=== PATIENT | female | born 1930 | race Caucasian/White ===

== ENCOUNTER 2018-06-14 13:00 | Inpatient (IN) | payer OTHER, MEDICARE ==
--- NOTE | 2018-06-14 13:33 | R.PREADM ---
SCREENING DATE AND TIME 06/14/2018 13:06 (CDT) ANTICIPATED REHAB ADMISSION DATE 06/16/2018 REFERRING FACILITY Noemy [facility] REFERRAL DATE AND TIME 06/14/2018 13:07 (CDT) ACUTE ADMIT DATE 05/11/2018 Previous Rehabilitation(s): No. REFERRING PHYSICIAN RASHIDA Pickard REHAB FACILITY [facility] CLINICAL LIAISON Franky Espinoza PHYSICIAN REVIEWER Dr. Rory Miner M.D. MR# [id number] [id number] NAME ANNALEE LOPEZ ADDRESS [address] [place] [address] PHONE [facility] [id number] DATE OF 1930 AGE 87 SSN# [id number] GENDER female MARITAL STATUS RACE white ADMIT FROM [facility] ([facility]) PRE-HOSPITAL LIVING SETTING 01 - Home (private home/apt. board/care, assisted living, chcf, transitional living) HOME TYPE AND DETAILS Type of home: single family house # of steps within the residence: 0 # of steps to enter the residence: 0 # of levels in the residence: 1 PRE-HOSPITAL LIVING WITH Family/Relatives FAMILY SUPPORT Yes PRIMARY FAMILY CONTACT NAME Gail Burris PRIMARY FAMILY CONTACT PHONE PHONE PRIMARY FAMILY CONTACT ON ADM.? no IS PRIMARY FAMILY CONTACT AUTH. REP.? no 1ST EMERGENCY CONTACT Gail Burris 1ST CONTACT PHONE PHONE 1ST CONTACT ON ADM. no IS 1ST CONTACT AUTH. REP.? no PHONE 2ND CONTACT ON ADM.? no PATIENT EMPLOYMENT STATUS Retired (for age) PATIENT EMPLOYER No Employer PAYOR INFORMATION: 1ST PAYOR NAME Medicare 1ST PAYOR PHONE 1ST PAYOR INJURY/ILLNESS DUE TO ACCIDENT? No ANOTHER GREEN PARTY RESPONSIBLE? No PRIMARY REHAB/ACUTE DIAGNOSIS: spinal cord abcess ONSET DATE 05/11/2018 REHAB IMPAIRMENT CATEGORY (BISI): 05 Nontraumatic spinal cord injury (NTSCI) MEETS 60% rule PRIMARY DIAGNOSIS-RELATED SURGERIES: No surgeries related to the primary diagnosis were performed. COMORBID REHAB/ACUTE DIAGNOSES: - Non-Tiered osteoporosis rheumatoid arthritis acute renal failure - N/A ATRIAL FIBRILLATION hypertension INTERVENTIONS: - Atrial Fibrillation Anticoagulation Medications VS - Hypertension Fluid management Medications VS - Osteoporosis Medications Safety - Rheumatoid Arthritis Energy conservation Exercise Joint Protection Medications RISK FOR COMPLICATIONS: - Atrial Fibrillation CVA Heart failure Limb embolus - Hypertension CVA Hypotension ME TIA - Osteoporosis Falls Fractures (pathological) - Rheumatoid Arthritis Joint deformity Ligament damage SUMMARY OF ACUTE HOSPITALIZATION: Pt. is a 87 yo Right-handed white female. On 05/11/2018 she was admitted to [facility] with diagnosis spinal cord abcess. Her impairment category is Spinal Cord Dysfunction 04 - Other Non-traumatic Spinal Cord Dysfunction (04.130). Pre-morbidly, Pt. was independent/mod-I in Communication, Social Cognition, Self-Care, Locomotion, Sp hincter Control, and Transfers Control; and she had good Sphincter Control. Currently, she has deficits of Balance, Locomotion, Endurance, Safety Awareness, Transfers Control, a nd Self-Care. Pt. is now referred to [facility] for acute in-patient rehabilitation in order to maximize patient's functional independence in activities of daily living, strength, ROM, and mobi lity. Patient has realistic goal of being discharged at assistance level 1-Dep to reside at Home with Fami ly/Relatives. PAST MEDICAL HISTORY ATRIAL FIBRILLATION acute renal failure hypertension osteoporosis rheumatoid arthritis MEDICATION ALLERGIES: penicillin ENVIRONMENTAL ALLERGIES: - Substance Allergies None Known - Other Allergies None Known CODE STATUS: Full code WEIGHT/HEIGHT/BMI: WEIGHT 165 lbs HEIGHT 5' 6" BMI 26.6 DIET: - Diet Type Regular - Diet - Solid Texture Regular - Diet - Liquid Texture Regular - Tube Feed N/A REVIEW OF SYSTEMS: - Gen Alert and awake Lying in bed No apparent distress Oriented to: person, time, and place - Vital Signs Vital signs stable, afebrile - CVS RRR VITAL SIGNS Temperature: 98.6 F SBP/DBP: 128/62 Pulse: 86 Resp: 20 Vital signs stable, afebrile CURRENT SPHINCTER CONTROL: Pre-hospital bladder status: incontinent # of bladder accidents in the last 7 days prior to screenin Pre-hospital bowel status: incontinent # of bowel accidents in the last 7 days prior to screenin Last Bowel Movement Date: 06/14/2018 DETAILED CURRENT FUNCTIONAL STATUS: - Bladder Bladder control device used: diaper accident frequency: Ind - No accidents in the past 7 days - Bowel Bowel control device used: diaper accident frequency: Ind - No accidents in the past 7 days - Walking score based on distance walked: 3(>=150ft) - Wheelchair score based on distance traveled: 3(>=150ft) FUNCTIONAL STATUS: - Self-Care A. Eating Ind Ind B. Grooming Ind sup C. Bathing Ind modA D. Dressing - Upper Ind modA E. Dressing - Lower Ind modA F. Toileting Ind Chris - Sphincter Control G: Bladder control Ind Dep H: Bowel control Ind Dep - Transfers Control I. Bed/Chair/Wheelchair Ind modA J. Toilet Ind modA K. Tub/Shower Ind Chris - Locomotion L. Walk/Wheelchair (B) Toribio Chris M. Stairs Ind ADNO - Communication N. Comprehension (B) Ind Toribio O. Expression (B) Ind Toribio - Social Cognition P. Social Interaction Ind Toribio Q. Problem Solving Ind Toribio R. Memory Ind Toribio - Endurance Poor - Balance Fair - Safety Awareness Poor CURRENT FUNC. DEFICITS: Balance, Locomotion, Endurance, Safety Awareness, Transfers Control, and Self-Care THERAPY NOTES FROM ACUTE CARE: Attached. SPECIAL NEEDS: - Safety Concerns Skin breakdown precautions needed due to skin breakdown risk PATIENT NEEDS ACTIVE AND ONGOING THERAPEUTIC INTERVENTION OF MULTIPLE THERAPY DISCIPLINES, INCLUDING: - Orthotics/Prosthetics Orthotic Evaluation. Splinting/Casting. - Occupational Therapy Evaluate and Treat. - Physical Therapy Evaluate and Treat. PATIENT NEEDS CLOSE MEDICAL SUPERVISION BY A REHABILITATION PHYSICIAN FOR: Bowel and Bladder Management Coordination of Treatment Team Medical and Co-Morbidity Management PATIENT REQUIRES 24X7 REHAB NURSING FOR MEDICAL AND FUNCTIONAL MGT. OF THE FOLLOWING DEFICITS: ADL's Ambulation Bowel and Bladder Management Cognition Communication Disease Management Medication Management Patient/Family Education Providing Safe Environment Transfers PATIENT REQUIRES INTENSIVE, COORDINATED INTERDISCIPLINARY APPROACH TO REHAB: Arranging Home Equipment/Services Discharge Planning Family Intervention/Training Manager Physical/Case Management PATIENT REHAB POTENTIAL: Expected level of measurable improvement will be of a practical value to patient's functional capacit y or adaptations to impairments Has a viable Discharge Plan Medically appropriate; condition is sufficiently stable to participate in intensive rehab program Patient is able and expected to receive 3 hours of individualized therapy daily on at least 5 of ever y 7 days Patient's prognosis for significant practical improvement within a reasonable period of time appears Good DISCHARGE PLAN: - Estimated Length of Stay (days) 16. - Consensus on plan Discharge plan has been discussed with primary caregiver. Patient/Family is in agreement with the luli n. Primary caregiver is in agreement with the plan. - Patient/Family Goals Return home with assistance. - Planned Living Setting Upon Discharge Home, to live with Family/Relatives. RECOMMENDED CARE LEVEL: IRF RECOMMENDATION DETAILS: Recommended Admission to Comprehensive Rehabilitation Program to Increase Functional [place] SCREENER'S COMPLETENESS CONFIRMATION: - Screening Confirmation The patient data collection on this preadmission screening form is finished PHYSICIANS REVIEW AND ADMISSION DETERMINATION Admit - Based on my review of the Pre-Admission Screening results, in my medical judgment and experie nce, I concur with the findings and recommend admission to [facility], as this patient requires an IRF level of care. SIGNATURE PANEL: Clinical Liaison - [electronically] signed by Susan Roberts on 06/14/2018 at 13:24 (CDT) Clinical Liaison - [electronically] signed by Franky Espinoza on 06/14/2018 at 13:29 (CDT) Physician Reviewer - [electronically] signed by Dr. Rory Miner M.D. on 06/14/2018 at 13:33 (CDT )
--- OUTSIDE RECORDS SUMMARY | 2018-06-15 15:55 | XMS REPORT | Clinical Summary ---
:1930 Author Organization [facility] Address [address] [place] [address] Care Team Providers Name Role Phone Unavailable Primary Care Provider Unavailable Allergies Active Allergy Reactions Severity Noted Date Comments Penicillins Shortness Of Breath, Swelling High 04/29/2018 Steroids Other (See Comments) 04/29/2018 Hypertension Medications Medication Sig Dispensed Refills Start Date End Date Status acetaminophen Take 2 tablets 30 tablet 0 05/10/2018 05/05/20 Active (TYLENOL) 325 MG (650 mg total) by 19 tablet mouth every 6 (six) hours as needed for up to 360 days. apixaban (ELIQUIS) Take 1 tablet (2.5 0 05/10/2018 Active 2.5 mg Tab tablet mg total) by mouth 2 (two) times daily. carvedilol (COREG) Take 1 tablet 0 05/10/2018 05/10/20 Active 3.125 MG tablet (3.125 mg total) 19 by mouth 2 (two) times daily. HYDROmorphone Inject 0.2 mLs 0 05/10/2018 Active (DILAUDID) 0.5 (0.1 mg total) mg/mL Syrg intravenously daily as needed (before PT). Max Daily Amount: 0.1 mg lactulose Take 30 mLs (20 g 0 05/10/2018 Active (CHRONULAC) 20 total) by mouth gram/30 mL daily as needed. solution pantoprazole Take 1 tablet (40 0 05/11/2018 Active (PROTONIX) 40 MG mg total) by mouth tablet daily. senna-docusate Take 1 tablet by 0 05/10/2018 05/10/20 Active (SENOKOT S) 8.6-50 mouth nightly. 19 mg per tablet lisinopril Take 40 mg by 0 05/10/20 Discontinued (PRINIVIL,ZESTRIL) mouth daily. 18 40 MG tabletIndications: hypertension bisacodyl Take 2 tablets (10 30 tablet 0 05/10/2018 06/09/20 (DULCOLAX) 5 mg EC mg total) by mouth 18 tablet daily as needed for Constipation for up to 30 days. HYDROcodone-acetam Take 1 tablet by 30 tablet 0 05/10/2018 05/20/20 inophen (NORCO mouth every 6 18 5-325) 5-325 mg (six) hours as per tablet needed for up to 10 days. Max Daily Amount: 4 tablets polyethylene Take 17 g by mouth 14 each 0 05/11/2018 05/14/20 glycol (GLYCOLAX) daily for 3 days. 18 17 gram packet traMADol (ULTRAM) Take 1 tablet (50 30 tablet 0 05/10/2018 05/20/20 50 mg tablet mg total) by mouth 18 every 6 (six) hours as needed for up to 10 days. Max Daily Amount: 200 mg cefePIME 2 Inject 100 mLs 0 05/10/2018 05/11/20 Discontinued gram/100 mL PgBk (2,000 mg total) 18 intravenously 2 (two) times daily. cefePIME 2 Inject 100 mLs 0 05/11/2018 06/12/20 gram/100 mL PgBk (2,000 mg total) 18 intravenously 2 (two) times daily for 32 days. Active Problems Problem Noted Date Osteomyelitis 05/05/2018 Cholecystitis, acute 05/01/2018 Bacteremia 04/30/2018 ADELE (acute kidney injury) 04/29/2018 Non-traumatic rhabdomyolysis 04/29/2018 Bacteremia due to Gram-negative bacteria 04/29/2018 Resolved Problems Problem Noted Date Resolved Date NSTEMI (non-ST elevated myocardial infarction) 04/30/2018 05/05/2018 Encounters Date Type Specialty Care Team Description 04/29/2018 - Hospital Encounter General Internal Donis Suarez ADELE (acute kidney injury) ([facility]); 05/11/2018 Jef Daniel MD Non-traumatic rhabdomyolysis; Matthias NSTEMI (non-ST elevated myocardial infarction) ([facility]); MD Elisa Bacteremia due to Gram-negative bacteria; Dina Suarez Acute osteomyelitis of lumbar spine ([facility]); Septic discitis of lumbar region 04/29/2018 Orders Only General Internal Medicine after 06/14/2017 Social History Tobacco Use Types Packs/Day Years Used Date Never Smoker Smokeless Tobacco: Never Used Sex Assigned at Date Recorded Not on file Job Start Date Occupation Industry Not on file Not on file Not on file Travel History Travel Start Travel End No recent travel history available. Last Filed Vital Signs Vital Sign Reading Time Taken Blood Pressure 116/54 05/11/2018 10:38 AM CDT Pulse 79 05/11/2018 10:38 AM CDT Temperature 37.1 C (98.8 F) 05/11/2018 10:38 AM CDT Respiratory Rate 18 05/11/2018 10:38 AM CDT Oxygen Saturation 94% 05/11/2018 10:38 AM CDT Inhaled Oxygen Concentration - - Weight 59 kg (130 lb 1.1 oz) 05/11/2018 5:45 AM CDT Height 162.6 cm (5' 4.02") 05/02/2018 4:46 AM CDT Body Mass Index 22.32 05/11/2018 5:45 AM CDT Plan of Treatment Not on file Procedures Procedure Name Priority Date/Time Associated Comments Diagnosis REPORT OF PROCEDURE - 05/14/2018 12:23 ENDOSCOPY SCAN PM CDT RHYTHM STRIP - SCAN 05/14/2018 12:22 PM CDT POCT-GLUCOSE METER Routine 05/11/2018 12:19 Results for this PM CDT procedure are in the results section. POCT-GLUCOSE METER Routine 05/11/2018 7:26 Results for this AM CDT procedure are in the results section. BASIC METABOLIC PANEL Routine 05/11/2018 4:28 Results for this (7) AM CDT procedure are in the results section. CBC (HEMOGRAM ONLY) Routine 05/11/2018 4:28 Results for this AM CDT procedure are in the results section. POCT-GLUCOSE METER Routine 05/10/2018 10:11 Results for this PM CDT procedure are in the results section. POCT-GLUCOSE METER Routine 05/10/2018 5:06 Results for this PM CDT procedure are in the results section. POCT-GLUCOSE METER Routine 05/10/2018 1:17 Results for this PM CDT procedure are in the results section. POCT-GLUCOSE METER Routine 05/10/2018 8:05 Results for this AM CDT procedure are in the results section. POCT-GLUCOSE METER Routine 05/09/2018 9:36 Results for this PM CDT procedure are in the results section. POCT-GLUCOSE METER Routine 05/09/2018 6:17 Results for this PM CDT procedure are in the results section. POCT-GLUCOSE METER Routine 05/09/2018 4:37 Results for this PM CDT procedure are in the results section. POCT-GLUCOSE METER Routine 05/09/2018 8:49 Results for this AM CDT procedure are in the results section. COMPREHENSIVE Routine 05/09/2018 4:26 Results for this METABOLIC PANEL AM CDT procedure are in the results section. CBC (HEMOGRAM ONLY) Routine 05/09/2018 4:26 Results for this AM CDT procedure are in the results section. POCT-GLUCOSE METER Routine 05/08/2018 10:36 Results for this PM CDT procedure are in the results section. POCT-GLUCOSE METER Routine 05/08/2018 5:15 Results for this PM CDT procedure are in the results section. POCT-GLUCOSE METER Routine 05/08/2018 1:04 Results for this PM CDT procedure are in the results section. POCT-GLUCOSE METER Routine 05/08/2018 8:20 Results for this AM CDT procedure are in the results section. BASIC METABOLIC PANEL Routine 05/08/2018 4:26 Results for this (7) AM CDT procedure are in the results section. CBC (HEMOGRAM ONLY) Routine 05/08/2018 4:26 Results for this AM CDT procedure are in the results section. POCT-GLUCOSE METER Routine 05/07/2018 9:12 Results for this PM CDT procedure are in the results section. POCT-GLUCOSE METER Routine 05/07/2018 4:56 Results for this PM CDT procedure are in the results section. POCT-GLUCOSE METER Routine 05/07/2018 12:13 Results for this PM CDT procedure are in the results section. POCT-GLUCOSE METER Routine 05/07/2018 7:19 Results for this AM CDT procedure are in the results section. MAGNESIUM Routine 05/07/2018 3:40 Results for this AM CDT procedure are in the results section. BASIC METABOLIC PANEL Routine 05/07/2018 3:40 Results for this (7) AM CDT procedure are in the results section. CBC (HEMOGRAM ONLY) Routine 05/07/2018 3:40 Results for this AM CDT procedure are in the results section. POCT-GLUCOSE METER Routine 05/06/2018 9:30 Results for this PM CDT procedure are in the results section. POCT-GLUCOSE METER Routine 05/06/2018 4:01 Results for this PM CDT procedure are in the results section. XR CHEST 1 VIEW STAT 05/06/2018 11:48 Results for this PORTABLE/BEDSIDE AM CDT procedure are in the results section. POCT-GLUCOSE METER Routine 05/06/2018 8:28 Results for this AM CDT procedure are in the results section. POCT-GLUCOSE METER Routine 05/05/2018 10:03 Results for this PM CDT procedure are in the results section. POCT-GLUCOSE METER Routine 05/05/2018 6:18 Results for this PM CDT procedure are in the results section. POCT-GLUCOSE METER Routine 05/05/2018 12:06 Results for this PM CDT procedure are in the results section. POCT-GLUCOSE METER Routine 05/05/2018 7:43 Results for this AM CDT procedure are in the results section. BASIC METABOLIC PANEL Routine 05/05/2018 5:13 Results for this (7) AM CDT procedure are in the results section. CBC (HEMOGRAM ONLY) Routine 05/05/2018 5:13 Results for this AM CDT procedure are in the results section. POCT-GLUCOSE METER Routine 05/04/2018 8:40 Results for this PM CDT procedure are in the results section. POCT-GLUCOSE METER Routine 05/04/2018 3:41 Results for this PM CDT procedure are in the results section. POCT-GLUCOSE METER Routine 05/04/2018 11:23 Results for this AM CDT procedure are in the results section. POCT-GLUCOSE METER Routine 05/04/2018 7:38 Results for this AM CDT procedure are in the results section. CBC (HEMOGRAM ONLY) DANIEL 05/04/2018 5:04 Results for this AM CDT procedure are in the results section. BASIC METABOLIC PANEL Routine 05/04/2018 5:04 Results for this (7) AM CDT procedure are in the results section. POCT-GLUCOSE METER Routine 05/03/2018 9:36 Results for this PM CDT procedure are in the results section. POCT-GLUCOSE METER Routine 05/03/2018 5:19 Results for this PM CDT procedure are in the results section. POCT-GLUCOSE METER Routine 05/03/2018 12:08 Results for this PM CDT procedure are in the results section. BLOOD CULTURE Routine 05/03/2018 5:45 Results for this AM CDT procedure are in the results section. ECG 12-LEAD Routine 05/03/2018 3:23 AM CDT Procedure Note - Interface, External Ris In - 05/03/2018 3:25 AM CDT Ventricular Rate 148 BPM Atrial Rate 52 BPM QRS Duration 80 ms Q-T Interval 326 ms QTC Calculation(Bazett) 511 ms R [place] 13 degrees T [place] 179 degrees Atrial fibrillation with rapid ventricular response Low voltage QRS Nonspecific ST and T wave abnormality Abnormal ECG When compared with ECG of 03-MAY-2018 03:23, Nonspecific T wave abnormality has replaced inverted T waves in Anterior leads ECG 12-LEAD Routine 05/03/2018 3:23 AM CDT ECG 12-LEAD Routine 05/03/2018 3:23 AM CDT Procedure Note - Interface, External Ris In - 05/03/2018 3:25 AM CDT Ventricular Rate 150 BPM Atrial Rate 37 BPM QRS Duration 72 ms Q-T Interval 206 ms QTC Calculation(Bazett) 325 ms R [place] 12 degrees T [place] 243 degrees Atrial fibrillation with rapid ventricular response Low voltage QRS Cannot rule out Anterior infarct , age undetermined Abnormal ECG When compared with ECG of 29-APR-2018 17:20, Atrial fibrillation has replaced Sinus rhythm Vent. rate has increased BY 75 BPM Minimal criteria for Inferior infarct are no longer Present ST now depressed in Lateral leads T wave inversion now evident in Anterior leads SODIUM, RANDOM URINE Routine 05/03/2018 2:44 AM CDT PROTEIN, RANDOM URINE Routine 05/03/2018 2:44 AM CDT CBC (HEMOGRAM ONLY) DANIEL 05/03/2018 2:43 AM CDT BASIC METABOLIC PANEL (7) Routine 05/03/2018 2:43 AM CDT PHOSPHORUS Routine 05/03/2018 2:43 AM CDT POCT-GLUCOSE METER Routine 05/02/2018 9:17 PM CDT MR LUMBAR SPINE W & WO DANIEL 05/02/2018 6:35 PM CDT Results for this CONTRAST procedure are in the results section. BLOOD CULTURE Routine 05/02/2018 1:59 PM CDT POCT-GLUCOSE METER Routine 05/02/2018 1:09 PM CDT NM HEPATOBILIARY IMAGING Routine 05/02/2018 12:28 PM CDT POCT-GLUCOSE METER Routine 05/02/2018 8:38 AM CDT BLOOD CULTURE Routine 05/02/2018 4:14 AM CDT PHOSPHORUS Routine 05/02/2018 4:13 AM CDT MAGNESIUM Routine 05/02/2018 4:13 AM CDT CBC (HEMOGRAM ONLY) DANIEL 05/02/2018 4:13 AM CDT BASIC METABOLIC PANEL (7) Routine 05/02/2018 4:13 AM CDT POCT-GLUCOSE METER Routine 05/01/2018 9:53 PM CDT POCT-GLUCOSE METER Routine 05/01/2018 5:56 PM CDT POCT-GLUCOSE METER Routine 05/01/2018 12:27 PM CDT POCT-GLUCOSE METER Routine 05/01/2018 7:42 AM CDT BLOOD CULTURE Routine 05/01/2018 6:51 AM CDT BLOOD GAS, VENOUS STAT 05/01/2018 4:45 AM CDT CBC W/PLT COUNT & AUTO Routine 05/01/2018 3:52 AM CDT Results for this DIFFERENTIAL procedure are in the results section. PHOSPHORUS Routine 05/01/2018 3:52 AM CDT COMPREHENSIVE METABOLIC Routine 05/01/2018 3:52 AM CDT Results for this PANEL procedure are in the results section. CALCIUM, IONIZED Routine 05/01/2018 3:52 AM CDT MAGNESIUM Routine 05/01/2018 3:52 AM CDT CBC W/PLT COUNT & AUTO Routine 05/01/2018 3:52 AM CDT Results for this DIFFERENTIAL procedure are in the results section. BLOOD CULTURE Routine 05/01/2018 3:52 AM CDT CREATINE KINASE (CK), TOTAL Routine 04/30/2018 11:51 PM CDT Results for this AND MB procedure are in the results section. POCT-GLUCOSE METER Routine 04/30/2018 9:52 PM CDT US ABDOMEN LIMITED STAT 04/30/2018 9:13 PM CDT POCT-GLUCOSE METER Routine 04/30/2018 5:33 PM CDT ECHOCARDIOGRAM REPORT - SCAN 04/30/2018 4:50 PM CDT VANCOMYCIN LEVEL, RANDOM Routine 04/30/2018 3:58 PM CDT HEPATIC FUNCTION PANEL STAT 04/30/2018 3:17 PM CDT BASIC METABOLIC PANEL (7) STAT 04/30/2018 3:17 PM CDT US RENAL COMPLETE Routine 04/30/2018 12:33 PM CDT POCT-GLUCOSE METER Routine 04/30/2018 11:53 AM CDT BLOOD GAS, VENOUS DANIEL 04/30/2018 11:33 AM CDT BLOOD CULTURE DANIEL 04/30/2018 11:33 AM CDT BLOOD CULTURE DANIEL 04/30/2018 11:17 AM CDT POCT-GLUCOSE METER Routine 04/30/2018 10:40 AM CDT 2D ECHO W/ DOPPLER Routine 04/30/2018 9:08 AM CDT Results for this (CW/PW/COLOR) procedure are in the results section. MYOGLOBIN Routine 04/30/2018 5:20 AM CDT TROPONIN I Routine 04/30/2018 5:20 AM CDT CREATINE KINASE (CK), TOTAL Routine 04/30/2018 5:20 AM CDT Results for this AND MB procedure are in the results section. MAGNESIUM Routine 04/30/2018 5:20 AM CDT BASIC METABOLIC PANEL (7) Routine 04/30/2018 5:20 AM CDT (CELLAVISION MANUAL DIFF) Routine 04/30/2018 4:10 AM CDT CBC W/PLT COUNT & AUTO Routine 04/30/2018 4:10 AM CDT Results for this DIFFERENTIAL procedure are in the results section. CBC W/PLT COUNT & AUTO Routine 04/30/2018 4:10 AM CDT Results for this DIFFERENTIAL procedure are in the results section. TROPONIN I Routine 04/29/2018 11:21 PM CDT CREATINE KINASE (CK), TOTAL Routine 04/29/2018 11:21 PM CDT Results for this AND MB procedure are in the results section. URIC ACID Routine 04/29/2018 6:33 PM CDT LACTIC ACID, VENOUS, WHOLE Routine 04/29/2018 6:33 PM CDT Results for this BLOOD procedure are in the results section. B-TYPE NATRIURETIC FACTOR Routine 04/29/2018 6:33 PM CDT Results for this (BNP) procedure are in the results section. XR CHEST 1 VIEW Routine 04/29/2018 6:10 PM CDT Results for this PORTABLE/BEDSIDE procedure are in the results section. ECG 12-LEAD Routine 04/29/2018 5:20 PM CDT UREA NITROGEN, RANDOM URINE Routine 04/29/2018 4:17 PM CDT CREATININE, RANDOM URINE Routine 04/29/2018 4:17 PM CDT SODIUM, RANDOM URINE Routine 04/29/2018 4:17 PM CDT URINALYSIS W/ MICROSCOPIC Routine 04/29/2018 4:17 PM CDT URINE CULTURE Routine 04/29/2018 4:17 PM CDT (CELLAVISION MANUAL DIFF) Routine 04/29/2018 3:59 PM CDT CBC W/PLT COUNT & AUTO Routine 04/29/2018 3:59 PM CDT Results for this DIFFERENTIAL procedure are in the results section. PROCALCITONIN Routine 04/29/2018 3:59 PM CDT MYOGLOBIN Routine 04/29/2018 3:59 PM CDT CREATINE KINASE (CK), TOTAL Routine 04/29/2018 3:59 PM CDT Results for this AND MB procedure are in the results section. TROPONIN I Routine 04/29/2018 3:59 PM CDT MAGNESIUM Routine 04/29/2018 3:59 PM CDT BASIC METABOLIC PANEL (7) Routine 04/29/2018 3:59 PM CDT CBC W/PLT COUNT & AUTO Routine 04/29/2018 3:59 PM CDT Results for this DIFFERENTIAL procedure are in the results section. BLOOD CULTURE IDENTIFICATION Routine 04/29/2018 3:59 PM CDT Results for this PANEL procedure are in the results section. BLOOD CULTURE Routine 04/29/2018 3:59 PM CDT BLOOD CULTURE Routine 04/29/2018 3:59 PM CDT after 06/14/2017 Results EKG-SCANNED (05/14/2018 12:23 PM CDT) Narrative Performed At RHYTHM STRIP - SCAN (05/14/2018 12:22 PM CDT) Narrative Performed At POC-Glucose meter (05/11/2018 12:19 PM CDT)Only the most recent of43 resultswithin the time period is included. POC-Glucose Meter 139 (H)Comment: TESTED AT 70 - 110 mg/dL [facility] [id number] [facility] [id number] Specimen Blood Performing Organization Address City/State/Zipcode Phone Number [facility] [address] [place], [place] [phone] CENTER CBC (Hemogram only) (05/11/2018 4:28 AM CDT)Only the most recent of8 resultswithin the time period is included. WBC 8.5 3.5 - 10.5 K/L [facility] RBC 2.73 (L) 3.93 - 5.22 M/L [facility] Hemoglobin 8.8 (L) 11.2 - 15.7 GM/DL [facility] Hematocrit 27.7 (L) 34.1 - 44.9 % [facility] MCV 101.5 (H) 79.4 - 94.8 fL [facility] MCH 32.2 25.6 - 32.2 pg [facility] MCHC 31.8 (L) 32.2 - 35.5 GM/DL [facility] RDW 12.7 11.7 - 14.4 % [facility] Platelets 351 150 - 450 K/CU MM [facility] MPV 10.6 9.4 - 12.3 fL [facility] nRBC 0 0 - 0 /100 WBC [facility] Specimen Blood Performing Organization Address City/State/Zipcode Phone Number [facility] [address] [place], [place] [phone] CENTER Basic Metabolic Panel (05/11/2018 4:28 AM CDT)Only the most recent of10 resultswithin the time period is included. Sodium 135 (L) 136 - 145 meq/L [facility] Potassium 4.3 3.5 - 5.1 meq/L [facility] Chloride 103 98 - 107 meq/L [facility] CO2 27 22 - 29 meq/L [facility] BUN 18 7 - 21 mg/dL [facility] Creatinine 0.55 (L) 0.57 - 1.25 mg/dL [facility] Glucose 97 70 - 105 mg/dL [facility] Calcium 8.5 8.4 - 10.2 mg/dL [facility] EGFR 104Comment: ESTIMATED GFR IS mL/min/1.73 sq m [facility] NOT ACCURATE CREATININE [facility] CENTER CLEARANCE IN PREDICTING GLOMERULAR FILTRATION RATE. ESTIMATED GFR IS NOT APPLICABLE FOR DIALYSIS PATIENTS. Specimen Blood Performing Organization Address City/State/Zipcode Phone Number [facility] [address] [place] [address] CENTER Comprehensive metabolic panel (05/09/2018 4:26 AM CDT)Only the most recent of2 resultswithin the time period is included. Protein, Total 5.3 (L) 6.0 - 8.3 gm/dL [facility] Albumin 2.4 (L) 3.5 - 5.0 g/dL [facility] Alkaline Phosphatase 53 40 - 150 U/L [facility] Total Bilirubin 0.4 0.2 - 1.2 mg/dL [facility] Sodium 136 136 - 145 meq/L [facility] Potassium 4.2 3.5 - 5.1 meq/L [facility] Chloride 104 98 - 107 meq/L [facility] CO2 26 22 - 29 meq/L [facility] BUN 19 7 - 21 mg/dL [facility] Creatinine 0.51 (L) 0.57 - 1.25 mg/dL [facility] Glucose 108 (H) 70 - 105 mg/dL [facility] Calcium 8.3 (L) 8.4 - 10.2 mg/dL [facility] AST 23 5 - 34 U/L [facility] ALT 20 6 - 55 U/L [facility] EGFR 114Comment: ESTIMATED mL/min/1.73 sq m [facility] GFR IS NOT ACCURATE [facility] CREATININE CLEARANCE IN PREDICTING GLOMERULAR FILTRATION RATE. ESTIMATED GFR IS NOT APPLICABLE FOR DIALYSIS PATIENTS. Specimen Blood - Line, Venous Performing Organization Address City/State/Zipcode Phone Number [address] [address] CENTER Magnesium (05/07/2018 3:40 AM CDT)Only the most recent of5 resultswithin the time period is included. Magnesium 1.5 (L) 1.6 - 2.6 mg/dL [facility] Specimen Blood Performing Organization Address City/[facility] Phone Number [address] [address] [place] XR chest 1 view portable / bedside (05/06/2018 11:48 AM CDT)Only the most recent of2 resultswithin the time period is included. Narrative Performed At FINAL REPORT RIS History: Status post PICC line placement Comparison: 04/29/2018 Findings: A left PICC line is present, with its tip in the region of the distal superior vena cava. There are mild initial pulmonary opacities suggestive of interstitial edema. There is left lung base airspace consolidation, new since the prior study, partially obscuring the left diaphragm, suggestive of atelectasis or pneumonia. No pleural effusions or pneumothorax are identified. The cardiac shadow is mildly enlarged. Signed: Bety Sun MD Report Verified Date/Time:05/06/2018 12:49:55 Reading Location: [address] Transitional Reading Room Procedure Note Interface, External Ris In - 05/06/2018 12:52 PM CDT FINAL REPORT History: Status post PICC line placement Comparison: 04/29/2018 Findings: A left PICC line is present, with its tip in the region of the distal superior vena cava. There are mild initial pulmonary opacities suggestive of interstitial edema. There is left lung base airspace consolidation, new since the prior study, partially obscuring the left diaphragm, suggestive of atelectasis or pneumonia. No pleural effusions or pneumothorax are identified. The cardiac shadow is mildly enlarged. Signed: Bety Sun MD Report Verified Date/Time: 05/06/2018 12:49:55 Reading Location: [address] Transitional Reading Room Performing Organization Address City/State/Zipcode Phone Number [facility] Blood culture (05/03/2018 5:45 AM CDT)Only the most recent of9 resultswithin the time period is included. Result No growth in 5 days [facility] Specimen Blood - Arm, Left Performing Organization Address City/[facility]/Zipcode [place] [address] CENTER ECG 12 lead (05/03/2018 3:23 AM CDT)Only the most recent of2 resultswithin the time period is included. Narrative Performed At Ventricular Rate 150 BPM [facility] Atrial Rate 37 BPM QRS Duration 72 ms Q-T Interval 206 ms QTC Calculation(Bazett) 325 ms R [place] 12 degrees T [place] 243 degrees Atrial fibrillation with rapid ventricular response Low voltage QRS Nonspecific ST and T wave abnormality Abnormal ECG When compared with ECG of 29-APR-2018 17:20, Atrial fibrillation has replaced Sinus rhythm Vent. rate has increased BY75 BPM Confirmed by Gera BROWN BASANT ([id number]) on 05/03/2018 8:16:00 AM Procedure Note Interface, External Ris In - 05/03/2018 8:16 AM CDT Ventricular Rate 150 BPM Atrial Rate 37 BPM QRS Duration 72 ms Q-T Interval 206 ms QTC Calculation(Bazett) 325 ms R [place] 12 degrees T [place] 243 degrees Atrial fibrillation with rapid ventricular response Low voltage QRS Nonspecific ST and T wave abnormality Abnormal ECG When compared with ECG of 29-APR-2018 17:20, Atrial fibrillation has replaced Sinus rhythm Vent. rate has increased BY 75 BPM Confirmed by Gera BROWN BASANT ([id number]) on 05/03/2018 8:16:00 AM Performing Organization Address City/[facility] Phone Number [facility]AFUL Sodium, random urine (05/03/2018 2:44 AM CDT)Only the most recent of2 resultswithin the time period is included. Sodium Urine 82 meq/L [facility] Specimen Urine Narrative Performed At [facility] Reference Range: No Normals Performing Organization Address [facility] Phone Number [address] [address] [place] Protein, random urine (05/03/2018 2:44 AM CDT) Protein, Urine 50 (H) 0 - 14 mg/dL [facility] Specimen Urine Performing Organization Address [facility] Phone Number [address] [address] [phone] [place] Phosphorus (05/03/2018 2:43 AM CDT)Only the most recent of3 resultswithin the time period is included. Phosphorus 1.8 (L)Comment: Specimen 2.3 - 4.7 mg/dL [facility] slightly hemolyzed [facility] Specimen Blood Narrative Performed At Check Serum Phosphorus level 4 hours after IV [facility] phosphorus replacement or 8 hours after PO replacement completed. Performing Organization Address [facility] Phone Number [address] [address] [phone] [place] MR lumbar spine without & with IV contrast (05/02/2018 6:35 PM CDT) Narrative Performed At FINAL REPORT [facility] [facility]ITAL MRI lumbar spine with and without contrast 05/02/2018 at 1828. CLINICAL HISTORY: Bacteremia status post spinal injection. TECHNIQUE: MRI of the lumbar spine was performed, utilizing the following sequences: Sagittal T1, T2, STIR; axial T1 and T2; postcontrast sagittal and axial T1 with fat suppression. COMPARISON: None available. FINDINGS: There is suspected osteomyelitis discitis within and about L2-3. There are inflammatory changes in the adjacent left psoas muscle, without current abscess formation. Signal abnormality in the L3-4, L4-5, and L5-S1 intervertebral discs suggests progressive degenerative change. Discitis could produce a similar appearance. There is no epidural abscess. Fluid within the left L2-3 facet joint likewise suggests aggressive degenerative change. Septic arthritis could produce a similar appearance. There is double curvature arcuate and rotatory scoliosis, apex right at L2-3 and apex left at L5-S1. There is degeneration mediated right lateral subluxation of L3 on L4 and L4 on L5. The conus medullaris terminates at L2. The distal spinal cord and terminal nerve roots are unremarkable. Spinal canal diameter is within normal limits. There are universal degenerative changes resulting in varying degrees of foraminal stenosis, without critical central canal stenosis. There is deconditioning of the posterior inferior paraspinal musculature. There is nonspecific mild gallbladder wall thickening. There are simple appearing cysts in the left lobe of the liver and left kidney. There is a small volume right pleural effusion. IMPRESSION: 1. Suspected osteomyelitis discitis at L2-3. 2. Aggressive degenerative change versus discitis at L3-4, L4-5, and L5-S1. 3. Aggressive degenerative change versus septic arthritis within the left L2-3 facet joint. 4. Small volume right pleural effusion. 5. Chronic appearing findings as discussed. Signed: Chang Julian MD Report Verified Date/Time:05/02/2018 19:48:22 Reading Location: [facility] Radiology Reading Room Procedure Note Interface, External Ris In - 05/02/2018 7:50 PM CDT FINAL REPORT MRI lumbar spine with and without contrast 05/02/2018 at 1828. CLINICAL HISTORY: Bacteremia status post spinal injection. TECHNIQUE: MRI of the lumbar spine was performed, utilizing the following sequences: Sagittal T1, T2, STIR; axial T1 and T2; postcontrast sagittal and axial T1 with fat suppression. COMPARISON: None available. FINDINGS: There is suspected osteomyelitis discitis within and about L2-3. There are inflammatory changes in the adjacent left psoas muscle, without current abscess formation. Signal abnormality in the L3-4, L4-5, and L5-S1 intervertebral discs suggests progressive degenerative change. Discitis could produce a similar appearance. There is no epidural abscess. Fluid within the left L2-3 facet joint likewise suggests aggressive degenerative change. Septic arthritis could produce a similar appearance. There is double curvature arcuate and rotatory scoliosis, apex right at L2-3 and apex left at L5-S1. There is degeneration mediated right lateral subluxation of L3 on L4 and L4 on L5. The conus medullaris terminates at L2. The distal spinal cord and terminal nerve roots are unremarkable. Spinal canal diameter is within normal limits. There are universal degenerative changes resulting in varying degrees of foraminal stenosis, without critical central canal stenosis. There is deconditioning of the posterior inferior paraspinal musculature. There is nonspecific mild gallbladder wall thickening. There are simple appearing cysts in the left lobe of the liver and left kidney. There is a small volume right pleural effusion. IMPRESSION: 1. Suspected osteomyelitis discitis at L2-3. 2. Aggressive degenerative change versus discitis at L3-4, L4-5, and L5-S1. 3. Aggressive degenerative change versus septic arthritis within the left L2-3 facet joint. 4. Small volume right pleural effusion. 5. Chronic appearing findings as discussed. Signed: Chang Julian MD Report Verified Date/Time: 05/02/2018 19:48:22 Reading Location: [facility] Radiology Reading Room Performing Organization Address City/State/Zipcode Phone Number [facility] [place] hepatobiliary imaging (05/02/2018 12:28 PM CDT) Narrative Performed At FINAL REPORT [facility] PROCEDURE: HEPATOBILIARY SCAN CPT CODE: 95819 INDICATION: Right upper quadrant pain PROTOCOL: 5.4 mCi of Tc-99m mebrofenin was injected intravenously. Images of the upper abdomen were obtained for approximately 75 minutes after tracer injection. FINDINGS:Initial tracer uptake into the liver is physiological. Subsequent tracer clearance from the liver proceeds normally. There is good visualization of the extrahepatic biliary duct and the gallbladder, and the tracer appears appropriately in the small bowel. There is mild tracer activity within the stomach. IMPRESSION: 1. Mild bile reflux into the stomach. 2. Otherwise normal hepatobiliary scan. There is no evidence of acute cholecystitis or other biliary obstruction. Of note, if chronic cholecystitis is a clinical concern, this is better assessed with a sincalide-stimulated study. Signed: Alissa Vargas MD Report Verified Date/Time:05/02/2018 12:48:39 Reading Location: [address] [place] [address] Reading Room Procedure Note Interface, External Ris In - 05/02/2018 12:50 PM CDT FINAL REPORT PROCEDURE: HEPATOBILIARY SCAN CPT CODE: [id number] INDICATION: Right upper quadrant pain PROTOCOL: 5.4 mCi of Tc-99m mebrofenin was injected intravenously. Images of the upper abdomen were obtained for approximately 75 minutes after tracer injection. FINDINGS: Initial tracer uptake into the liver is physiological. Subsequent tracer clearance from the liver proceeds normally. There is good visualization of the extrahepatic biliary duct and the gallbladder, and the tracer appears appropriately in the small bowel. There is mild tracer activity within the stomach. IMPRESSION: 1. Mild bile reflux into the stomach. 2. Otherwise normal hepatobiliary scan. There is no evidence of acute cholecystitis or other biliary obstruction. Of note, if chronic cholecystitis is a clinical concern, this is better assessed with a sincalide-stimulated study. Signed: Alissa Vargas MD Report Verified Date/Time: 05/02/2018 12:48:39 Reading Location: [address] [place] [address] Reading Room Performing Organization Address City/State/Zipcode Phone Number [facility] Blood gas, venous (05/01/2018 4:45 AM CDT)Only the most recent of2 resultswithin the time period is included. pH, Colt 7.40 7.32 - 7.42 [facility] pCO2, Colt 49 41 - 51 mmHg [facility] pO2, Colt 41 (H) 25 - 40 mmHg [facility] O2 Sat, Colt 75.6 (H) 40.0 - 70.0 % [facility] HCO3, Colt 30 (H) 21 - 29 mmol/L [facility] Base Excess, Colt 4.3 (H) -2.0 - 3.0 mmol/L [facility] Patient Temperature 37.0 C [facility] Specimen Blood - Arm, Left Performing Organization Address City/State/Zipcode Phone Number [address] [address] [phone] [place] Calcium, Ionized (05/01/2018 3:52 AM CDT) Calcium, Ion 1.06 (L) 1.12 - 1.27 mmol/L [facility] pH, Blood 7.40 [facility] Specimen Blood - Arm, Left Performing Organization Address City/State/Zipcode Phone Number [facility] [address] [place] [phone] [place] CBC with platelet count + automated diff (05/01/2018 3:52 AM CDT)Only the most recent of3 resultswithin the time period is included. WBC 6.2 3.5 - 10.5 K/L [facility] RBC 3.42 (L) 3.93 - 5.22 M/L [facility] Hemoglobin 10.8 (L) 11.2 - 15.7 GM/DL [facility] Hematocrit 33.4 (L) 34.1 - 44.9 % [facility] MCV 97.7 (H) 79.4 - 94.8 fL [facility] MCH 31.6 25.6 - 32.2 pg [facility] MCHC 32.3 32.2 - 35.5 GM/DL [facility] RDW 12.3 11.7 - 14.4 % [facility] Platelets 89 (L) 150 - 450 K/CU MM [facility] MPV 11.8 9.4 - 12.3 fL [facility] nRBC 0 0 - 0 /100 WBC [facility] % Neutros 82 % [facility] % Lymphs 4 % [facility] % Monos 11 % [facility] % Eos 1 % [facility] % Baso 0 % [facility] # Neutros 5.07 1.56 - 6.13 K/L [facility] # Lymphs 0.25 (L) 1.18 - 3.74 K/L [facility] # Monos 0.70 (H) 0.24 - 0.36 K/L [facility] # Eos 0.04 0.04 - 0.36 K/L [facility] # Baso 0.02 0.01 - 0.08 K/L [facility] Immature Granulocytes-Relative 1 0 - 1 % [facility] Specimen Blood - Arm, Left Performing Organization Address City/[facility]/Zipcode Phone Number [facility] [address] [place] [address] CENTER Creatine Kinase (CK), Total and MB (04/30/2018 11:51 PM CDT)Only the most recent of4 resultswithin the time period is included. Total CK 456 (H) 29 - 200 U/L [facility] CK-MB 8.8 (H) 0.0 - 6.6 ng/mL [facility] MB Relative Index 1.9 % [facility] Specimen Blood - Arm, Left Narrative Performed At CK-MB Reference Range: [facility] <6.7Normal 6.7-10.0Borderline >10.0 Abnormal Performing Organization Address City/[facility]/Zipcode Phone Number [facility] [address] [place] [address] CENTER US abdomen limited (04/30/2018 9:13 PM CDT) Narrative Performed At FINAL REPORT GE RIS Limited Abdominal ultrasound. Clinical history: abd pain Comparison study: Renal ultrasound dated April 30, 2018 Findings: The liver is normal in appearance with a normal echotexture. It measures 13.5 cm in span. The CBD is dilated measuring 8 mm. No significant intrahepatic biliary dilatation is seen. The main portal vein diameter is 1.6 cm.The gallbladder is distended measuring 4.5 cm in maximal transverse diameter. It is thick-walled measuring 5 mm. Some trace pericholecystic fluid is seen. Mild sludge is noted. No definite stones are seen. There is no sonographic Pinto's sign. The pancreas is normal in appearance. The right kidney measures 10.1 x 4.5 x 5.1 cm. No ascites is present.The proximal aorta is unremarkable. A right-sided pleural effusion is seen. The remainder of the abdomen was not assessed. Impression: 1. Distended, mildly thickened gallbladder with some pericholecystic fluid. No stones or sonographic Pinto sign are present. The differential includes a low albumin and and n.p.o. state versus cholecystitis. Correlation with HIDA scan could be made. 2. Dilatation of the CBD. This could be further assessed with MRCP. 3. Right pleural effusion. Signed: Shubham Tadeo MD Report Verified Date/Time:04/30/2018 22:03:30 Reading Location: [facility] [id number] Consult Reading Room Procedure Note Interface, External Ris In - 04/30/2018 10:05 PM CDT FINAL REPORT Limited Abdominal ultrasound. Clinical history: abd pain Comparison study: Renal ultrasound dated April 30, 2018 Findings: The liver is normal in appearance with a normal echotexture. It measures 13.5 cm in span. The CBD is dilated measuring 8 mm. No significant intrahepatic biliary dilatation is seen. The main portal vein diameter is 1.6 cm. The gallbladder is distended measuring 4.5 cm in maximal transverse diameter. It is thick-walled measuring 5 mm. Some trace pericholecystic fluid is seen. Mild sludge is noted. No definite stones are seen. There is no sonographic Pinto's sign. The pancreas is normal in appearance. The right kidney measures 10.1 x 4.5 x 5.1 cm. No ascites is present. The proximal aorta is unremarkable. A right-sided pleural effusion is seen. The remainder of the abdomen was not assessed. Impression: 1. Distended, mildly thickened gallbladder with some pericholecystic fluid. No stones or sonographic Pinto sign are present. The differential includes a low albumin and and n.p.o. state versus cholecystitis. Correlation with HIDA scan could be made. 2. Dilatation of the CBD. This could be further assessed with MRCP. 3. Right pleural effusion. Signed: Shubham Tadeo MD Report Verified Date/Time: 04/30/2018 22:03:30 Reading Location: [address] Consult Reading Room Performing Organization Address City/[facility]/Zipcode Phone Number [facility] ECHOCARDIOGRAM REPORT - SCAN (04/30/2018 4:50 PM CDT) Narrative Performed At Vancomycin level, random (04/30/2018 3:58 PM CDT) Vancomycin Rm 9.4 ug/mL [facility] Specimen Blood Narrative Performed At [facility] Reference Range: No Normals Performing Organization Address City/[facility]/Zipcode Phone Number [place] [phone] [place] [address] CENTER Hepatic function panel (04/30/2018 3:17 PM CDT) Protein, Total 5.9 (L) 6.0 - 8.3 gm/dL [facility] Albumin 2.8 (L) 3.5 - 5.0 g/dL [facility] Total Bilirubin 0.5 0.2 - 1.2 mg/dL [facility] Bilirubin, Direct 0.3 0.1 - 0.5 mg/dL [facility] Alkaline Phosphatase 78 40 - 150 U/L [facility] AST 79 (H) 5 - 34 U/L [facility] ALT 34 6 - 55 U/L [facility] Specimen Blood Performing Organization Address City/State/Zipcode Phone Number [facility] [address] [place] [address] [phone] CENTER US renal complete (04/30/2018 12:33 PM CDT) Narrative Performed At FINAL REPORT [facility] Ultrasound of the Kidneys, 04/30/2018. Clinical History: Acute renal failure. Discussion: Sonographic evaluation of the kidneys is performed. Right kidney:9.5 cm in length, normal in size, with cortical thickness of 1.1 cm.Normal cortical echogenicity.No mass.No shadowing calculus.No hydronephrosis. Left kidney: 9.4 cm in length, normal in size, with cortical thickness of 1.2 cm.Normal cortical echogenicity.An oval anechoic structure is present in the upper pole measuring 1.4 x 1.7 x 1.5 cm No mass.No shadowing calculus.No hydronephrosis. Limited Doppler evaluation demonstrates normal color Doppler flow within bilateral renal piero. Fluid:No perinephric fluid. Bladder:A Ring catheter is present. IMPRESSION: Simple left renal cyst. Otherwise unremarkable renal ultrasound. Signed: Bay Frank MD Report Verified Date/Time:04/30/2018 14:54:49 Reading Location: [address] Ultrasound Reading Room Procedure Note Interface, External Ris In - 04/30/2018 2:57 PM CDT FINAL REPORT Ultrasound of the Kidneys, 04/30/2018. Clinical History: Acute renal failure. Discussion: Sonographic evaluation of the kidneys is performed. Right kidney: 9.5 cm in length, normal in size, with cortical thickness of 1.1 cm. Normal cortical echogenicity. No mass. No shadowing calculus. No hydronephrosis. Left kidney: 9.4 cm in length, normal in size, with cortical thickness of 1.2 cm. Normal cortical echogenicity. An oval anechoic structure is present in the upper pole measuring 1.4 x 1.7 x 1.5 cm No mass. No shadowing calculus. No hydronephrosis. Limited Doppler evaluation demonstrates normal color Doppler flow within bilateral renal piero. Fluid: No perinephric fluid. Bladder: A Ring catheter is present. IMPRESSION: Simple left renal cyst. Otherwise unremarkable renal ultrasound. Signed: Bay Frank MD Report Verified Date/Time: 04/30/2018 14:54:49 Reading Location: [facility] [id number] Ultrasound Reading Room Performing Organization Address City/State/Zipcode Phone Number [facility] 2D Echo W/Doppler(CW/PW/Color) (04/30/2018 9:08 AM CDT) Ejection Fraction [facility] ECHO [facility]ART[facility] [employer] CPA Narrative Performed At Transthoracic Echocardiography Report (TTE) [facility] ECHO HEARTLAB [employer] [facility] Demographics Patient Name Gracia BAZAN, Date of Study 04/30/2018 TERESA [id number] GenderFemale Visit Number [id number] RaceUnknown [id number] m Number [id number] Number Date of Birth1930 Referring Physician Dina Suarez MD Age87 year(s) Preschool Program Director Neeraj Stanford, [facility] AnalystAlex Renu Juan MD Physician Procedure Type of Study TTE procedure:2DECHO W DOPPLER(CW/PW/COLOR) (Routine) Indications:Suspected Pericardial conditions. Clinical History NONE ON FILE HGB 10.2 HCT 32.4 % Height: 64 inches Weight: 56.7 kg (125 lbs) BSA: 1.6 m^2 BMI: 21.46 kg/m^2 HR: 85 bpm BP: 92/50 mmHg Summary LV endocardium is adequately visualized with IV ultrasound enhancing agent. Normal left ventricular chamber size. Normal wall thickness. Normal overall left ventricular systolic function. No apparent segmental wall motion abnormalities. Estimated LVEF by qualitative assessment is normal (>60%) . Estimated peak systolic PA pressure is 50-55 mmHg . No evidence of pericardial effusion. Signature Findings Left Ventricle LV endocardium is adequately visualized with IV ul trasound enhancing agent. Normal left ventricular ch ricardo size. Normal wall thickness. Normal overall le ft ventricular systolic function. No apparent se gmental wall motion abnormalities. Estimated LVEF by qualitative assessment is normal (>60%) . Left AtriumLA size is mildly enlarged . Right VentricleNormal right ventricle structure and function. Right Atrium Normal right atrium. Aortic Valve Mild AoV cusp thickening. Mitral Valve Mild MV leaflet thickening. Mild mitral re gurgitation. Tricuspid [id number] tricuspid regurgitation. Es timated peak systolic PA pressure is 50-55 mmHg . Pulmonic Valve Normal PV structure and function by limited views an d Doppler. AortaAortic root size (SInus of Valsalva diameter) is no rmal . PericardiumNo evidence of pericardial effusion. IVC/SVC/PA/PV/PleuralThe estimated RA pressure by IVC dynamics 11-15mmHg . Chambers/Structures Left Atrium LA Dimension: 3.71 cm LA Area: 20.3 cm^2 LA Volume: 62.47 ml LA Vol. Index: 39 ml/m^2 Left Ventricle LVIDd: 3.85 cm LV Septum Diastolic: 1.03 cm LV PW Diastolic: 1.07 cm Aorta Ao Root S of Marianela.: 3.22 cm Doppler/Quantitative Measurements LVOT Peak Velocity: 1.04 m/s Peak Gradient: 4.32 mmHg Mean Velocity: 0.62 m/s Mean Gradient: 1.9 mmHg LVOT VTI: 19.11 cm Procedure Note Interface, External Ris In - 04/30/2018 4:04 PM CDT Transthoracic Echocardiography Report (TTE) Demographics Patient Name Gracia BAZAN, Date of Study 04/30/2018 TERESA Gender Female Visit Number [id number] Race Unknown Room Number C828 Number Date of 1930 Referring Physician Dina Suarez MD Age 87 year(s) Preschool Program Director Neeraj Stanford, [facility] Veterans Adviser Jame Dumaslloyd Interpreting Eyal Juan MD Physician Procedure Type of Study TTE procedure:2DECHO W DOPPLER(CW/PW/COLOR) (Routine) Indications:Suspected Pericardial conditions. Clinical History NONE ON FILE HGB 10.2 HCT 32.4 % Height: 64 inches Weight: 56.7 kg (125 lbs) BSA: 1.6 m^2 BMI: 21.46 kg/m^2 HR: 85 bpm BP: 92/50 mmHg Summary LV endocardium is adequately visualized with IV ultrasound enhancing agent. Normal left ventricular chamber size. Normal wall thickness. Normal overall left ventricular systolic function. No apparent segmental wall motion abnormalities. Estimated LVEF by qualitative assessment is normal (>60%) . Estimated peak systolic PA pressure is 50-55 mmHg . No evidence of pericardial effusion. Signature Findings Left Ventricle LV endocardium is adequately visualized with IV ultrasound enhancing agent. Normal left ventricular chamber size. Normal wall thickness. Normal overall left ventricular systolic function. No apparent segmental wall motion abnormalities. Estimated LVEF by qualitative assessment is normal (>60%) . Left Atrium LA size is mildly enlarged . Right Ventricle Normal right ventricle structure and function. Right Atrium Normal right atrium. Aortic Valve Mild AoV cusp thickening. Mitral Valve Mild MV leaflet thickening. Mild mitral regurgitation. Tricuspid Valve [id number] tricuspid regurgitation. Estimated peak systolic PA pressure is 50-55 mmHg . Pulmonic Valve Normal PV structure and function by limited views and Doppler. Aorta Aortic root size (SInus of Valsalva diameter) is normal . Pericardium No evidence of pericardial effusion. IVC/SVC/PA/PV/Pleural The estimated RA pressure by IVC dynamics 11-15mmHg . Chambers/Structures Left Atrium LA Dimension: 3.71 cm LA Area: 20.3 cm^2 LA Volume: 62.47 ml LA Vol. Index: 39 ml/m^2 Left Ventricle LVIDd: 3.85 cm LV Septum Diastolic: 1.03 cm LV PW Diastolic: 1.07 cm Aorta Ao Root S of Marianela.: 3.22 cm Doppler/Quantitative Measurements LVOT Peak Velocity: 1.04 m/s Peak Gradient: 4.32 mmHg Mean Velocity: 0.62 m/s Mean Gradient: 1.9 mmHg LVOT VTI: 19.11 cm Performing Organization Address [facility] Centercode Phone Number [facility] ECHO HEARTLAB MKCKESSON CPACS Troponin I (04/30/2018 5:20 AM CDT)Only the most recent of3 resultswithin the time period is included. Troponin I 0.15 (H) 0.00 - 0.03 ng/mL [facility] Specimen Blood - Arm, Left Narrative Performed At [facility] Troponin I (TnI) levels must be interpreted in the context of the presenting symptoms and the clinical findings. Elevated TnI levels indicate myocardial damage, but are not specific for ischemic heart disease. Elevated TnI levels are seen in patients with other cardiac conditions (including myocarditis and congestive heart failure), and slight TnI elevations occur in patients with other conditions, including sepsis, renal failure, acidosis, acute neurological disease, and persistent tachyarrhythmia. Performing Organization Address [facility] Centercoma Phone Number [address] [address] [phone] CENTER Myoglobin (04/30/2018 5:20 AM CDT)Only the most recent of2 resultswithin the time period is included. Myoglobin 1,297 (H) 0 - 78 ng/mL [facility] Specimen Blood - Arm, Left Performing Organization Address [facility] Centercode Phone Number [address] [phone] CENTER Manual Differential (04/30/2018 4:10 AM CDT)Only the most recent of2 resultswithin the time period is included. % Neutros 82 % [facility] % Lymphs 7 % [facility] % Monos 2 % [facility] % Bands 9 0 - 10 % [facility] # Neutros 4.84 1.56 - 6.13 K/ul [facility] # Lymphs 0.41 (L) 1.18 - 3.74 K/ul [facility] # Monos 0.12 (L) 0.24 - 0.36 K/uL [facility] # Bands 0.53 0.00 - 0.80 K/uL [facility] Total Counted 100 [facility] WBC Morphology Normal [facility] Platelet Morphology Normal [facility] Polychromasia 1+ few [facility] Kiana Cells 1+ few [facility] Artifact Present [facility] Platelet Conc Decreased [facility] Specimen Blood - Arm, Right Narrative Performed At Received comment: [facility] User comments: Slide comments: Performing Organization Address City/[facility] Centercode Phone Number [facility] [address] [place], [place] [phone] CENTER Lactic acid, venous, whole blood (04/29/2018 6:33 PM CDT) Lactate, Venous 1.0Comment: Specimen 0.5 - 2.2 mmol/L [facility] moderately hemolyzed [facility] Specimen Blood - Line, Venous Narrative Performed At [facility] Effective 12/16/2015: Units/Reference Range Change New: 0.5-2.2 mmol/LPrevious: 5-20 mg/dL Performing Organization Address City/[facility]/Zipcode Phone Number [address] [address] [phone] CENTER Uric acid (04/29/2018 6:33 PM CDT) Uric Acid 7.1Comment: Specimen 2.6 - 7.2 mg/dL [facility] moderately hemolyzed [facility] Specimen Blood - Line, Venous Performing Organization Address [facility] Phone Number [address] [address] [phone] CENTER B-type Natriuretic Factor (BNP) (04/29/2018 6:33 PM CDT) BNP 580 (H) 0 - 100 pg/mL [facility] Specimen Blood - Line, Venous Performing Organization Address [facility] Phone Number [address] [address] [place] Urea Nitrogen, random urine (04/29/2018 4:17 PM CDT) Urea Nitrogen, Ur 326 mg/dL [facility] Specimen Urine - Urine, Ring Narrative Performed At [facility] Reference Range: No Normals Performing Organization Address [facility] Phone Number [address] [address] [place] Creatinine, random urine (04/29/2018 4:17 PM CDT) Creatinine, Ur 134.8 mg/dL [facility] Specimen Urine - Urine, Ring Narrative Performed At [facility] Reference Range: No Normals Performing Organization Address [facility] Phone Number [address] [address] [phone] CENTER Urinalysis w/ Microscopic (04/29/2018 4:17 PM CDT) Color, UA Yellow [facility] Clarity, UA Cloudy [facility] Specific [place], UA 1.015 1.001 - 1.035 [facility] pH, UA 5.5 5.0 - 8.0 [facility] Protein, UA 100 mg/dL (A) Negative [facility] Glucose, UA Negative Negative [facility] Ketones, UA Trace (A) Negative [facility] Bilirubin, UA Positive (A) Negative [facility] Blood, UA Large (A) Negative [facility] Nitrite, UA Negative Negative [facility] Leukocytes, UA Negative Negative [facility] Urobilinogen, UA 2.0 (H) 0.2 - 1.0 mg/dL [facility] RBC, UA 12 /HPF [facility] WBC, UA 56 /HPF [facility] Mucus Occasional [facility] Squam Epithel, UA 4 /HPF [facility] Casts 19 /LPF [facility] Mixed Cell Casts 538 /LPF [facility] Crystals, Urine Many [facility] Yeast Moderate [facility] Specimen Source Urine, Ring [facility] Specimen Urine - Urine, Ring Performing Organization Address City/State/Zipcode Phone Number [address] [address] [place] Urine culture (04/29/2018 4:17 PM CDT) Result No growth [facility] Specimen Urine - Urine, Ring Narrative Performed At [facility] Performing Organization Address City/[facility]/Zipcode Phone Number [address] [address] [place] Blood Culture Panel([employer]) (04/29/2018 3:59 PM CDT) [place] MONOCYTOGENES Not detected Not detected [facility] STAPHYLOCOCCUS Not detected Not detected [facility] STAPHYLOCOCCUS AUREUS Not detected Not detected [facility] Streptococcus Not detected Not detected [facility] STREPTOCOCCUS AGALACTIAE Not detected Not detected [facility] STREPTOCOCCUS PNEUMONIAE Not detected Not detected [facility] Streptococcus pyogenes (Group Not detected Not detected [facility] ACINETOBACTER BAUMANNII Not detected Not detected [facility] HAEMOPHILUS INFLUENZAE Not detected Not detected [facility] NEISSERIA MENINGITIDIS Not detected Not detected [facility] ENTEROBACTERIACEAE Detected (A) Not detected [facility] ENTEROBACTER CLOACOE COMPLEX Detected (A) Not detected [facility] Comment: [facility] First line therapy: Cefepime or Meropenem This test does not evaluate for ESBL Reference Range: Not Detected KLEBSIELLA OXYTOCA Not detected Not detected [facility] KLEBSIELLA PNEUMONIAE Not detected Not detected [facility] PROTEUS Not detected Not detected [facility] SERRATIA MARCESCENS Not detected Not detected [facility] OG ALBICANS Not detected Not detected [facility] OG GLABRATA Not detected Not detected [facility] OG YASH Not detected Not detected [facility] OG PARAPSILOSIS Not detected Not detected [facility] OG TROPICALIS Not detected Not detected [facility] ESCHERICHIA COLI Not detected Not detected [facility] METHICILLIN-RESISTANCE GENE Not detected [facility] VANCOMYCIN-RESISTANCE GENE Not detected [facility] CARBAPENEM-RESISTANCE GENE Not detected Not detected [facility] ENTEROCOCCUS Not detected Not detected [facility] PSEUDOMONAS AERUGINOSA Not detected Not detected [facility] Specimen Blood - Line, Venous Narrative Performed At Other bacteria and resistance markers not [facility] targeted by this PCR panel cannot be excluded; therefore clinical correlation and follow up of serology, culture results, and other molecular studies is required. The results are not intended to be used as the sole means for clinical diagnosis or patient management decisions. This sample was tested at the [facility] using the [employer] Blood Culture ID Panel. It is FDA cleared and has been verified and approved by the [facility] for clinical use. This laboratory is CLIA-certified and [employer] ([employer])-accredited to perform high complexity testing. Performing Organization Address City/[facility] Phone Number [address] [address] [place] Procalcitonin (04/29/2018 3:59 PM CDT) Procalcitonin 90.77 () <0.05 ng/mL [facility] Specimen Blood Narrative Performed At [facility] SEPSIS RISK (ng/mL) Low:0.05-0.50 Intermediate: 0.51-2.00 High: >=2.[address] [facility] Phone Number [address] [address] CENTER after 06/14/2017 Insurance Payer Benefit Plan / Group Subscriber ID Type Phone Address MEDICARE MEDICARE A B xxxxxxxxxxx Medicare Advance Directives For more information, please contact:[address] [phone] Code Status Date Activated Date Inactivated Comments Partial Code 05/03/2018 2:35 PM 05/11/2018 4:08 PM This code status was determined by: Patient Drug Protocol After Arrest Occurs? Yes Mechanical Ventilation with Intubation? No Bag/Mask? No Internal/External Pacemaker? No Transfer to Critical Care? No Chest Compressions? No Defibrillation/Cardioversion? No
--- OUTSIDE RECORDS SUMMARY | 2018-06-15 15:56 | XMS REPORT ---
:1930 [facility] [address] [place] [address] [address] [place] [address] Care Team Providers Name Role Phone SUELLEN DOBBINS Unavailable Unavailable SYED MUIR Unavailable Unavailable Problems This patient has no known problems. Allergies, Adverse Reactions, Alerts This patient has no known allergies or adverse reactions. Medications This patient has no known medications. Encounters Start End Encounter Admission Attending Care Care Encounter Date/Time Date/Time Type Type Clinicians Facility Department ID 2018-06-08 2018-06-08 Outpatient Anushka DOBBINS [facility] [id number] 13:15:00 23:59:00 SUELLEN 2018-06-07 2018-06-07 Outpatient Anushka DOBBINS [facility] [id number] 13:18:00 23:59:00 SUELLEN Results Test Description Test Time Test Comments Text Results Atomic Results Result Comments MRA NECK W/O CONTRAST*WW* 2018-06-08 14:20:48 MRA neck without contrastLocation code: [id number] history: Carotid artery stenosisTechnique: MR angiography of the neck was performed utilizing 7-Fsaol-bf-flight and contrast-enhanced techniques. Volume rendered 3-Dreformatted images were obtained from the source data.Findings: Motion artifact obscures detail. There is evidence of mild atheroscleroticplaque within the carotid bulbs and proximal internal carotid arteriesbilaterally. There is stepladder artifact seen at both carotid bulbs on theminute images giving the appearance of significant disease however this isthought to be artifactual. Correlation with carotid ultrasound recommended. Noother evidence of significant stenosis with normal appearing cervical internalcarotid arteries bilaterally.There is normal antegrade flow in both vertebral arteries.Impression:1. Likely artifactual changes at the carotid bulbs and distal common carotidarteries bilaterally as detailed above. Correlation with carotid ultrasoundrecommended. MRI SPINE LUMBAR W & W/O 2018-06-07 15:05:31 CLINICAL INFORMATION: CONTR*WW* Discitis.Dictation location: [id number]: No prior study is available for review at this time.Technique: Sagittal and axial scans were done with preand postcontrast T1 andT2-weighted sequences.FINDINGS: The vertebral body heights are maintained. There is patchyheterogeneity in the vertebral bodies most likely the effects of osteopenia theconus tip is found at the L2 level. Moderately severe upper lumbardextroconvexity and lower lumbar levo convexity.T12-L1: Mild loss of disc signal without narrowing.L1-2: Mild loss of this signal with moderate narrowing. Diffuse annular bulgewith superimposed 3 mm left posterior lateral and partially foraminal discprotrusion with annular fissure. 2 cm left renal cyst is incidentally noted.L2-3: Marked interspace narrowing. Enhancing high signal intensity materialwithin the interspace, and blurring of some of the vertebral endplates more soanteriorly with enhancement. There is a 5 to 6 mm broad-based disc bulge withenhancement flattening the anterior surface of the thecal sac and producingmoderately severe left and mild right foraminal encroachment. There iseffacement of the left lateral recess by the enhancing material and facetarthropathy with mass effect on the L3 nerve root. There is enhancement withinthe neural foramen. There is paraspinous curvilinear structure to the left ofthe spine, but is most likely large chronic marginal osteophytes. However thisdoes show enhancement as does the extensive reactive endplate marrow change atthis level.L3-4: Moderate loss of disc signal is interspace narrowing with 3 to 4 mmconcentric bulge flattening the anterior thecal margin. This shows mild rightand moderate left foraminal encroachment and narrowing. Right decompressivelaminectomy defect. Bilateral bulky facet arthropathy.L4-5: Moderate interspace narrowing. 3 to 4 mm broad-based posterior disc bulgeflattens the anterior thecal margin with moderate bilateral foraminalencroachment and narrowing. Right laminectomy defect with bulky bilateral facetarthropathy. Right lateral recess stenosis.L5-S1: Moderate loss of disc signal and interspace narrowing with minimal grade1 anterolisthesis. No apparent spondylolysis. 3 to 4 mm broad-based disc bulgeflattens the anterior thecal margin and encroaches the foraminal moderate rightand mild left. There is right lateral recess narrowing. Bulky enlarged rightand moderate left facet arthropathy.Impression:1. Prominent spinal curvature.2. Multilevel spondylosis.3. L2-3 level shows extensive enhancement of the interspace material andadjacent endplate marrow changes, with enhancement extending into the rightpedicle of L2 in the bilateral L3 pedicles and in the neural foramina. There issome blurring of the anterior endplates. Although most likely secondary todegenerative change, discitis cannot be ruled out in the appropriate clinicalsetting. Correlation with blood count and sedimentation rate is recommended. MRI BRAIN W/O 2018-06-07 14:17:05 MRI brain without contrastLocation CONTRAST*WW* code: [id number] history: DizzinessComparison: NoneTechnique: Multiplanar multisequence MR imaging of the brain was performedwithout contrast. Findings: There is no area of restricted diffusion to suggest acute or recentinfarct. There is no acute intracranial hemorrhage or extra-axial collection. There is mild to moderate generalized volume loss. Mild to moderate increasedT2/FLAIR signal within the periventricular white matter is noted compatiblewith chronic small vessel disease. Similar findings present in the brainstem.There is no space-occupying mass, or lesion. There is no hydrocephalus,intracranial edema, or midline shift. The orbits, globes, sinuses, and skull base are unremarkable.Impression: Mild to moderate deep white matter chronic small vessel disease with otherwiseno acute intracranial abnormality. Similar findings in the brainstem. Nodiffusion restriction. POCT-GLUCOSE METER 2018-05-11 12:24:00 Test Item Value Reference Range Comments POC-GLUCOSE METER (BEAKER) (test 139 mg/dL 70-110 TESTED AT [address] yhcs=1256) [facility] [address] POCT-GLUCOSE [id number] 08:10:00 Test Item Value Reference Range Comments POC-GLUCOSE METER (BEAKER) 120 mg/dL 70-110 TESTED AT [address] (test yqpa=9352) [facility] [address] BASIC METABOLIC [id number] 05:51:00 Test Item Value Reference Range Comments SODIUM (BEAKER) (test 135 meq/L 136-145 maaa=503) POTASSIUM (BEAKER) (test 4.3 meq/L 3.5-5.1 jbie=389) CHLORIDE (BEAKER) (test 103 meq/L 98-107 mmjm=864) CO2 (BEAKER) (test 27 meq/L 22-29 awaq=863) BLOOD UREA NITROGEN 18 mg/dL 7-21 (BEAKER) (test idor=204) CREATININE (BEAKER) (test 0.55 mg/dL 0.57-1.25 kzrx=088) GLUCOSE RANDOM (BEAKER) 97 mg/dL 70-105 (test zwfo=117) CALCIUM (BEAKER) (test 8.5 mg/dL 8.4-10.2 ycyq=043) EGFR (BEAKER) (test 104 mL/min/1.73 sq m ESTIMATED GFR IS NOT slps=7875) ACCURATE CREATININE CLEARANCE IN PREDICTING GLOMERULAR FILTRATION RATE. ESTIMATED GFR IS NOT APPLICABLE FOR DIALYSIS PATIENTS. CBC (HEMOGRAM ONLY)2018-05-11 05:23:00 Test Item Value Reference Range Comments WHITE BLOOD CELL COUNT (BEAKER) (test jnop=737) 8.5 K/ L 3.5-10.5 RED BLOOD CELL COUNT (BEAKER) (test dalo=398) 2.73 M/ L 3.93-5.22 HEMOGLOBIN (BEAKER) (test tjqm=557) 8.8 GM/DL 11.2-15.7 HEMATOCRIT (BEAKER) (test xtaa=949) 27.7 % 34.1-44.9 MEAN CORPUSCULAR VOLUME (BEAKER) (test wgex=139) 101.5 fL 79.4-94.8 MEAN CORPUSCULAR HEMOGLOBIN (BEAKER) (test 32.2 pg 25.6-32.2 irbj=397) MEAN CORPUSCULAR HEMOGLOBIN CONC (BEAKER) (test 31.8 GM/DL 32.2-35.5 aich=735) RED CELL DISTRIBUTION WIDTH (BEAKER) (test 12.7 % 11.7-14.4 exay=730) PLATELET COUNT (BEAKER) (test jkoh=896) 351 K/CU MM 150-450 MEAN PLATELET VOLUME (BEAKER) (test ehhi=295) 10.6 fL 9.4-12.3 NUCLEATED RED BLOOD CELLS (BEAKER) (test 0 /100 WBC 0-0 uimn=496) POCT-GLUCOSE [id number] 22:13:00 Test Item Value Reference Range Comments POC-GLUCOSE METER (BEAKER) 168 mg/dL 70-110 TESTED AT [address] (test wfdz=1706) [facility] [address] POCT-GLUCOSE [id number] 17:20:00 Test Item Value Reference Range Comments POC-GLUCOSE METER (BEAKER) 131 mg/dL 70-110 TESTED AT [address] (test osfs=4714) [facility] [address] POCT-GLUCOSE [id number] 13:20:00 Test Item Value Reference Range Comments POC-GLUCOSE METER (BEAKER) 98 mg/dL 70-110 TESTED AT [address] (test ufkx=4143) [facility] [address] POCT-GLUCOSE [id number] 08:08:00 Test Item Value Reference Range Comments POC-GLUCOSE METER (BEAKER) 124 mg/dL 70-110 TESTED AT [address] (test tudm=7388) [place] [id number] POCT-GLUCOSE [id number] 21:51:00 Test Item Value Reference Range Comments POC-GLUCOSE METER (BEAKER) 170 mg/dL 70-110 TESTED AT [address] (test sxfl=2979) [facility] [address] POCT-GLUCOSE [id number] 20:30:00 Test Item Value Reference Range Comments POC-GLUCOSE METER (BEAKER) 157 mg/dL 70-110 TESTED AT [address] (test jslw=1913) [facility] [address] POCT-GLUCOSE [id number] 18:23:00 Test Item Value Reference Range Comments POC-GLUCOSE METER (BEAKER) 115 mg/dL 70-110 TESTED AT [address] (test cqyf=3510) [facility] [address] POCT-GLUCOSE [id number] 08:51:00 Test Item Value Reference Range Comments POC-GLUCOSE METER (BEAKER) 117 mg/dL 70-110 TESTED AT [address] (test tuiq=9488) [facility] [address] COMPREHENSIVE METABOLIC [id number] 05:31:00 Test Item Value Reference Range Comments TOTAL PROTEIN (BEAKER) 5.3 gm/dL 6.0-8.3 (test nufk=395) ALBUMIN (BEAKER) (test 2.4 g/dL 3.5-5.0 rbtv=5968) ALKALINE PHOSPHATASE 53 U/L 40-150 (BEAKER) (test ttzf=288) BILIRUBIN TOTAL (BEAKER) 0.4 mg/dL 0.2-1.2 (test pnwn=094) SODIUM (BEAKER) (test 136 meq/L 136-145 chdh=266) POTASSIUM (BEAKER) (test 4.2 meq/L 3.5-5.1 nihe=603) CHLORIDE (BEAKER) (test 104 meq/L 98-107 vcaf=763) CO2 (BEAKER) (test 26 meq/L 22-29 xsit=933) BLOOD UREA NITROGEN 19 mg/dL 7-21 (BEAKER) (test whho=666) CREATININE (BEAKER) (test 0.51 mg/dL 0.57-1.25 kqtb=461) GLUCOSE RANDOM (BEAKER) 108 mg/dL 70-105 (test uzfv=610) CALCIUM (BEAKER) (test 8.3 mg/dL 8.4-10.2 vjwq=991) AST (SGOT) (BEAKER) (test 23 U/L 5-34 ovgr=802) ALT (SGPT) (BEAKER) (test 20 U/L 6-55 muek=839) EGFR (BEAKER) (test 114 mL/min/1.73 sq ESTIMATED GFR IS NOT lkpw=5874) m ACCURATE CREATININE CLEARANCE IN PREDICTING GLOMERULAR FILTRATION RATE. ESTIMATED GFR IS NOT APPLICABLE FOR DIALYSIS PATIENTS. CBC (HEMOGRAM ONLY)2018-05-09 05:19:00 Test Item Value Reference Range Comments WHITE BLOOD CELL COUNT (BEAKER) (test apet=432) 10.6 K/ L 3.5-10.5 RED BLOOD CELL COUNT (BEAKER) (test zuua=117) 2.61 M/ L 3.93-5.22 HEMOGLOBIN (BEAKER) (test uoyr=314) 8.4 GM/DL 11.2-15.7 HEMATOCRIT (BEAKER) (test bzxh=247) 26.6 % 34.1-44.9 MEAN CORPUSCULAR VOLUME (BEAKER) (test naqy=100) 101.9 fL 79.4-94.8 MEAN CORPUSCULAR HEMOGLOBIN (BEAKER) (test 32.2 pg 25.6-32.2 aosl=046) MEAN CORPUSCULAR HEMOGLOBIN CONC (BEAKER) (test 31.6 GM/DL 32.2-35.5 ocol=119) RED CELL DISTRIBUTION WIDTH (BEAKER) (test 12.7 % 11.7-14.4 ljgm=185) PLATELET COUNT (BEAKER) (test hvpd=785) 273 K/CU MM 150-450 MEAN PLATELET VOLUME (BEAKER) (test rlvv=474) 10.7 fL 9.4-12.3 NUCLEATED RED BLOOD CELLS (BEAKER) (test 0 /100 WBC 0-0 bhiy=238) POCT-GLUCOSE [id number] 22:41:00 Test Item Value Reference Range Comments POC-GLUCOSE METER (BEAKER) 164 mg/dL 70-110 TESTED AT [address] (test xeok=2394) [place] [address] POCT-GLUCOSE [id number] 17:29:00 Test Item Value Reference Range Comments POC-GLUCOSE METER (BEAKER) 125 mg/dL 70-110 TESTED AT [address] (test dwgc=8653) [place] [address] POCT-GLUCOSE [id number] 13:07:00 Test Item Value Reference Range Comments POC-GLUCOSE METER (BEAKER) 111 mg/dL 70-110 TESTED AT [address] (test wpwg=3135) [place] [address] BLOOD [id number] 11:00:00 Test Item Value Reference Range Comments CULTURE (BEAKER) (test yyrc=0430) No growth in 5 days POCT-GLUCOSE [id number] 08:42:00 Test Item Value Reference Range Comments POC-GLUCOSE METER (BEAKER) 107 mg/dL 70-110 TESTED AT [address] (test dids=6794) [place] [address] BASIC METABOLIC [id number] 07:18:00 Test Item Value Reference Range Comments SODIUM (BEAKER) (test 136 meq/L 136-145 wxau=004) POTASSIUM (BEAKER) (test 4.3 meq/L 3.5-5.1 ctnb=952) CHLORIDE (BEAKER) (test 103 meq/L 98-107 xkgv=456) CO2 (BEAKER) (test 27 meq/L 22-29 xoyn=168) BLOOD UREA NITROGEN 17 mg/dL 7-21 (BEAKER) (test ehsv=564) CREATININE (BEAKER) (test 0.51 mg/dL 0.57-1.25 fumy=077) GLUCOSE RANDOM (BEAKER) 97 mg/dL 70-105 (test hfwe=262) CALCIUM (BEAKER) (test 8.2 mg/dL 8.4-10.2 btqa=621) EGFR (BEAKER) (test 114 mL/min/1.73 sq m ESTIMATED GFR IS NOT ecbc=9691) ACCURATE CREATININE CLEARANCE IN PREDICTING GLOMERULAR FILTRATION RATE. ESTIMATED GFR IS NOT APPLICABLE FOR DIALYSIS PATIENTS. CBC (HEMOGRAM ONLY)2018-05-08 06:01:00 Test Item Value Reference Range Comments WHITE BLOOD CELL COUNT (BEAKER) (test beih=184) 13.2 K/ L 3.5-10.5 RED BLOOD CELL COUNT (BEAKER) (test bxja=975) 2.80 M/ L 3.93-5.22 HEMOGLOBIN (BEAKER) (test rhio=661) 8.8 GM/DL 11.2-15.7 HEMATOCRIT (BEAKER) (test rlvq=501) 28.0 % 34.1-44.9 MEAN CORPUSCULAR VOLUME (BEAKER) (test elci=599) 100.0 fL 79.4-94.8 MEAN CORPUSCULAR HEMOGLOBIN (BEAKER) (test 31.4 pg 25.6-32.2 asgd=032) MEAN CORPUSCULAR HEMOGLOBIN CONC (BEAKER) (test 31.4 GM/DL 32.2-35.5 elnl=889) RED CELL DISTRIBUTION WIDTH (BEAKER) (test 12.4 % 11.7-14.4 fnek=077) PLATELET COUNT (BEAKER) (test sxbk=303) 243 K/CU MM 150-450 MEAN PLATELET VOLUME (BEAKER) (test alox=443) 11.1 fL 9.4-12.3 NUCLEATED RED BLOOD CELLS (BEAKER) (test 0 /100 WBC 0-0 smkw=703) POCT-GLUCOSE [id number] 21:18:00 Test Item Value Reference Range Comments POC-GLUCOSE METER (BEAKER) 196 mg/dL 70-110 TESTED AT [facility] [address] [facility] (test todw=4627) [facility] [address] BLOOD [id number] 18:00:00 Test Item Value Reference Range Comments CULTURE (BEAKER) (test pbpe=5901) No growth in 5 days POCT-GLUCOSE [id number] 17:00:00 Test Item Value Reference Range Comments POC-GLUCOSE METER (BEAKER) 117 mg/dL 70-110 TESTED AT [facility] [address] [facility] (test xexr=9020) [facility] [address] POCT-GLUCOSE [id number] 12:16:00 Test Item Value Reference Range Comments POC-GLUCOSE METER (BEAKER) 117 mg/dL 70-110 TESTED AT [address] (test rtyh=5597) [facility] [address] POCT-GLUCOSE [id number] 08:21:00 Test Item Value Reference Range Comments POC-GLUCOSE METER (BEAKER) 111 mg/dL 70-110 TESTED AT [address] (test mjbb=8456) [facility] [address] [id number] 04:22:00 Test Item Value Reference Range Comments MAGNESIUM (BEAKER) (test xguk=676) 1.5 mg/dL 1.6-2.6 BASIC METABOLIC [id number] 04:22:00 Test Item Value Reference Range Comments SODIUM (BEAKER) (test 134 meq/L 136-145 prll=334) POTASSIUM (BEAKER) (test 3.6 meq/L 3.5-5.1 jhqj=221) CHLORIDE (BEAKER) (test 100 meq/L 98-107 dvbf=250) CO2 (BEAKER) (test 28 meq/L 22-29 ecve=841) BLOOD UREA NITROGEN 15 mg/dL 7-21 (BEAKER) (test uqil=349) CREATININE (BEAKER) (test 0.55 mg/dL 0.57-1.25 igaa=237) GLUCOSE RANDOM (BEAKER) 109 mg/dL 70-105 (test emtk=316) CALCIUM (BEAKER) (test 8.1 mg/dL 8.4-10.2 qmfp=887) EGFR (BEAKER) (test 104 mL/min/1.73 sq m ESTIMATED GFR IS NOT rnub=3724) ACCURATE CREATININE CLEARANCE IN PREDICTING GLOMERULAR FILTRATION RATE. ESTIMATED GFR IS NOT APPLICABLE FOR DIALYSIS PATIENTS. CBC (HEMOGRAM ONLY)2018-05-07 03:57:00 Test Item Value Reference Range Comments WHITE BLOOD CELL COUNT (BEAKER) (test jphl=688) 13.0 K/ L 3.5-10.5 RED BLOOD CELL COUNT (BEAKER) (test kwvd=778) 3.01 M/ L 3.93-5.22 HEMOGLOBIN (BEAKER) (test qkjh=077) 9.6 GM/DL 11.2-15.7 HEMATOCRIT (BEAKER) (test hgfq=554) 29.3 % 34.1-44.9 MEAN CORPUSCULAR VOLUME (BEAKER) (test ofzi=142) 97.3 fL 79.4-94.8 MEAN CORPUSCULAR HEMOGLOBIN (BEAKER) (test 31.9 pg 25.6-32.2 qmfg=883) MEAN CORPUSCULAR HEMOGLOBIN CONC (BEAKER) (test 32.8 GM/DL 32.2-35.5 nniw=942) RED CELL DISTRIBUTION WIDTH (BEAKER) (test 12.2 % 11.7-14.4 scfy=011) PLATELET COUNT (BEAKER) (test bbjb=340) 226 K/CU MM 150-450 MEAN PLATELET VOLUME (BEAKER) (test hgbz=850) 11.2 fL 9.4-12.3 NUCLEATED RED BLOOD CELLS (BEAKER) (test 0 /100 WBC 0-0 jdvb=156) BLOOD [id number] 01:52:00 Test Item Value Reference Range Comments CULTURE (BEAKER) From Anaerobic Bottle Only (test bxhl=6193) Coagulase negative Staphylococcus GRAM STAIN RESULT From anaerobic bottle (BEAKER) (test only: gram positive qnrj=6692) cocci in clusters POCT-GLUCOSE [id number] 21:40:00 Test Item Value Reference Range Comments POC-GLUCOSE METER (BEAKER) 179 mg/dL 70-110 TESTED AT [facility] [address] [facility] (test wmhb=2281) [facility] [address] POCT-GLUCOSE [id number] 16:07:00 Test Item Value Reference Range Comments POC-GLUCOSE METER (BEAKER) 116 mg/dL 70-110 TESTED AT [facility] [address] [facility] (test ojwz=7567) [facility] [address] RAD, CHEST, 1 VIEW, NON [id number] 12:49:00Reason for exam:->Post Power PICC insertion to LUE for tip verification.Should this be performed at the bedside?->YesFINAL REPORT History: Status post PICC line placement [...] shadow is mildly enlarged. Signed: Bety Sun MDReport Verified Date/Time: 05/06/2018 12:49: 55 Reading Location: [facility] B1 C013T Transitional Reading Room BLOOD [id number] 11:00:00 Test Item Value Reference Range Comments CULTURE (BEAKER) (test nmoe=3512) No growth in 5 days POCT-GLUCOSE [id number] 08:31:00 Test Item Value Reference Range Comments POC-GLUCOSE METER (BEAKER) 119 mg/dL 70-110 TESTED AT [facility] [address] [facility] (test tpaa=7198) [place] [address] BLOOD [id number] 05:57:00 Test Item Value Reference Range Comments CULTURE (BEAKER) From Anaerobic Bottle Only (test zkrb=1011) Same organism has been isolated from cultures(s) of the same body site within 3 days. Repeat identification and susceptibility testing performed only after consultation with the clinical microbiology laboratory.Refer to previous culture of* - Enterobacter cloacae complex GRAM STAIN RESULT From anaerobic bottle (BEAKER) (test only: gram negative nlmr=0731) rods POCT-GLUCOSE [id number] 22:05:00 Test Item Value Reference Range Comments POC-GLUCOSE METER (BEAKER) 144 mg/dL 70-110 TESTED AT [facility] [address] [facility] (test skmc=0797) [place] [address] POCT-GLUCOSE [id number] 18:20:00 Test Item Value Reference Range Comments POC-GLUCOSE METER (BEAKER) 127 mg/dL 70-110 TESTED AT [facility] [address] [facility] (test cjmw=0848) [place] [address] BLOOD [id number] 18:00:00 Test Item Value Reference Range Comments CULTURE (BEAKER) (test cacl=9754) No growth in 5 days POCT-GLUCOSE [id number] 12:33:00 Test Item Value Reference Range Comments POC-GLUCOSE METER (BEAKER) 110 mg/dL 70-110 TESTED AT [address] (test nbft=0763) [place] [address] BLOOD [id number] 10:48:00 Test Item Value Reference Range Comments CULTURE (BEAKER) From Anaerobic Bottle Only (test krhx=5913) Same organism has been isolated from cultures(s) of the same body site within 3 days. Repeat identification and susceptibility testing performed only after consultation with the clinical microbiology laboratory.Refer to previous culture of* - Enterobacter cloacae complex GRAM STAIN RESULT From anaerobic bottle (BEAKER) (test only: gram negative kcpr=2412) rods BASIC METABOLIC [id number] 09:03:00 Test Item Value Reference Range Comments SODIUM (BEAKER) (test 136 meq/L 136-145 amoz=029) POTASSIUM (BEAKER) (test 3.8 meq/L 3.5-5.1 yfac=777) CHLORIDE (BEAKER) (test 104 meq/L 98-107 rzho=374) CO2 (BEAKER) (test 28 meq/L 22-29 qbvk=558) BLOOD UREA NITROGEN 14 mg/dL 7-21 (BEAKER) (test kowl=551) CREATININE (BEAKER) (test 0.51 mg/dL 0.57-1.25 hadl=941) GLUCOSE RANDOM (BEAKER) 97 mg/dL 70-105 (test qiju=643) CALCIUM (BEAKER) (test 8.0 mg/dL 8.4-10.2 tbpx=847) EGFR (BEAKER) (test 114 mL/min/1.73 sq m ESTIMATED GFR IS NOT iqqp=6510) ACCURATE CREATININE CLEARANCE IN PREDICTING GLOMERULAR FILTRATION RATE. ESTIMATED GFR IS NOT APPLICABLE FOR DIALYSIS PATIENTS. POCT-GLUCOSE [id number] 08:05:00 Test Item Value Reference Range Comments POC-GLUCOSE METER (BEAKER) 146 mg/dL 70-110 TESTED AT [facility] [address] [facility] (test iuri=8384) [place] [address] BLOOD [id number] 07:42:00 Test Item Value Reference Range Comments CULTURE (BEAKER) From Aerobic Bottle Only (test zmqv=3254) Same organism has been isolated from cultures(s) of the same body site and collection date. Repeat identification and susceptibility testing performed only after consultation with the clinical microbiology laboratory.Refer to previous culture of* - Enterobacter cloacae complex GRAM STAIN RESULT From aerobic bottle (BEAKER) (test only: gram negative yuce=3772) rods CBC (HEMOGRAM ONLY)2018-05-05 06:58:00 Test Item Value Reference Range Comments WHITE BLOOD CELL COUNT (BEAKER) (test mqjc=135) 13.1 K/ L 3.5-10.5 RED BLOOD CELL COUNT (BEAKER) (test kfxq=990) 3.20 M/ L 3.93-5.22 HEMOGLOBIN (BEAKER) (test jyfh=237) 10.1 GM/DL 11.2-15.7 HEMATOCRIT (BEAKER) (test byxm=780) 31.6 % 34.1-44.9 MEAN CORPUSCULAR VOLUME (BEAKER) (test ntpu=293) 98.8 fL 79.4-94.8 MEAN CORPUSCULAR HEMOGLOBIN (BEAKER) (test 31.6 pg 25.6-32.2 wuwl=775) MEAN CORPUSCULAR HEMOGLOBIN CONC (BEAKER) (test 32.0 GM/DL 32.2-35.5 pcsr=257) RED CELL DISTRIBUTION WIDTH (BEAKER) (test 12.3 % 11.7-14.4 otlh=774) PLATELET COUNT (BEAKER) (test whhc=822) 161 K/CU MM 150-450 MEAN PLATELET VOLUME (BEAKER) (test zkaq=900) 11.8 fL 9.4-12.3 NUCLEATED RED BLOOD CELLS (BEAKER) (test 0 /100 WBC 0-0 sexw=079) POCT-GLUCOSE [id number] 20:46:00 Test Item Value Reference Range Comments POC-GLUCOSE METER (BEAKER) 116 mg/dL 70-110 TESTED AT [facility] [address] [place] [address] (test vngn=4561) [facility] [address] POCT-GLUCOSE [id number] 16:22:00 Test Item Value Reference Range Comments POC-GLUCOSE METER (BEAKER) 122 mg/dL 70-110 TESTED AT [address] (test cyxw=0660) [facility] [address] POCT-GLUCOSE [id number] 12:12:00 Test Item Value Reference Range Comments POC-GLUCOSE METER (BEAKER) 101 mg/dL 70-110 TESTED AT [facility] [address] [facility] (test cisk=8057) [facility] [id number] POCT-GLUCOSE [id number] 08:32:00 Test Item Value Reference Range Comments POC-GLUCOSE METER (BEAKER) 106 mg/dL 70-110 TESTED AT [facility] [address] [facility] (test rubx=3413) [facility] [address] BASIC METABOLIC [id number] 06:07:00 Test Item Value Reference Range Comments SODIUM (BEAKER) (test 135 meq/L 136-145 hxya=041) POTASSIUM (BEAKER) (test 3.6 meq/L 3.5-5.1 ciap=557) CHLORIDE (BEAKER) (test 105 meq/L 98-107 gkbc=328) CO2 (BEAKER) (test 26 meq/L 22-29 hcwh=888) BLOOD UREA NITROGEN 18 mg/dL 7-21 (BEAKER) (test fapg=790) CREATININE (BEAKER) (test 0.50 mg/dL 0.57-1.25 jqni=924) GLUCOSE RANDOM (BEAKER) 98 mg/dL 70-105 (test indu=184) CALCIUM (BEAKER) (test 8.0 mg/dL 8.4-10.2 cbye=370) EGFR (BEAKER) (test 116 mL/min/1.73 sq m ESTIMATED GFR IS NOT jhaz=1797) ACCURATE CREATININE CLEARANCE IN PREDICTING GLOMERULAR FILTRATION RATE. ESTIMATED GFR IS NOT APPLICABLE FOR DIALYSIS PATIENTS. CBC (HEMOGRAM ONLY)2018-05-04 05:39:00 Test Item Value Reference Range Comments WHITE BLOOD CELL COUNT (BEAKER) (test ksaw=327) 9.3 K/ L 3.5-10.5 RED BLOOD CELL COUNT (BEAKER) (test xxza=878) 3.37 M/ L 3.93-5.22 HEMOGLOBIN (BEAKER) (test hnhd=964) 10.6 GM/DL 11.2-15.7 HEMATOCRIT (BEAKER) (test nuql=310) 33.6 % 34.1-44.9 MEAN CORPUSCULAR VOLUME (BEAKER) (test baxa=273) 99.7 fL 79.4-94.8 MEAN CORPUSCULAR HEMOGLOBIN (BEAKER) (test 31.5 pg 25.6-32.2 ljxg=027) MEAN CORPUSCULAR HEMOGLOBIN CONC (BEAKER) (test 31.5 GM/DL 32.2-35.5 yleg=520) RED CELL DISTRIBUTION WIDTH (BEAKER) (test 12.2 % 11.7-14.4 joon=695) PLATELET COUNT (BEAKER) (test qekl=069) 106 K/CU MM 150-450 MEAN PLATELET VOLUME (BEAKER) (test olpg=072) 11.8 fL 9.4-12.3 NUCLEATED RED BLOOD CELLS (BEAKER) (test 0 /100 WBC 0-0 ixfn=276) POCT-GLUCOSE [id number] 21:38:00 Test Item Value Reference Range Comments POC-GLUCOSE METER (BEAKER) 119 mg/dL 70-110 TESTED AT [address] (test zzjs=7289) [place] [address] POCT-GLUCOSE [id number] 17:23:00 Test Item Value Reference Range Comments POC-GLUCOSE METER (BEAKER) 122 mg/dL 70-110 TESTED AT [address] (test ppoj=0626) [place] [address] POCT-GLUCOSE [id number] 12:17:00 Test Item Value Reference Range Comments POC-GLUCOSE METER (BEAKER) 136 mg/dL 70-110 TESTED AT [address] (test shpb=5069) [place] [address] BLOOD [id number] 07:55:00 Test Item Value Reference Range Comments CULTURE (BEAKER) (test ENTEROBACTER CLOACAE From Aerobic And frtb=5896) COMPLEX Anaerobic Bottles Enterobacter cloacae complex Amikacin (test code=1) Aztreonam (test code=32) Cefepime (test code=51) Cefoxitin (test code=68) Ceftazidime (test code=27) Ceftriaxone (test code=52) Ertapenem (test code=38) Gentamicin (test code=18) Levofloxacin (test code=22) Meropenem (test code=34) Nitrofurantoin (test code=23) Piperacillin + Tazobactam (test code=29) Tetracycline (test code=2) Tobramycin (test code=25) Trimethoprim + Sulfamethoxazole (test code=47) GRAM STAIN RESULT (BEAKER) From aerobic and (test vhgk=1506) anaerobic bottles: gram negative rods PROTEIN, RANDOM [id number] 03:12:00 Test Item Value Reference Range Comments PROTEIN, URINE (BEAKER) (test gfpe=7971) 50 mg/dL 0-14 SODIUM, RANDOM [id number] 03:12:00 Test Item Value Reference Range Comments SODIUM URINE (BEAKER) (test ecvt=297) 82 meq/L Reference Range: No [id number] 03:11:00 Test Item Value Reference Range Comments PHOSPHORUS (BEAKER) (test 1.8 mg/dL 2.3-4.7 Specimen slightly hemolyzed wuhq=554) Check Serum Phosphorus level 4 hours after IV phosphorus replacement or 8 hours after PO replacementcompleted.BASIC METABOLIC [id number] 03:11:00 Test Item Value Reference Range Comments SODIUM (BEAKER) (test 140 meq/L 136-145 ozjj=509) POTASSIUM (BEAKER) (test 3.9 meq/L 3.5-5.1 Specimen slightly divu=015) hemolyzed CHLORIDE (BEAKER) (test 105 meq/L 98-107 ltrw=028) CO2 (BEAKER) (test 28 meq/L 22-29 hcds=300) BLOOD UREA NITROGEN 23 mg/dL 7-21 (BEAKER) (test mckj=904) CREATININE (BEAKER) (test 0.61 mg/dL 0.57-1.25 Specimen slightly jlhd=003) hemolyzed GLUCOSE RANDOM (BEAKER) 127 mg/dL 70-105 (test yhrz=430) CALCIUM (BEAKER) (test 8.2 mg/dL 8.4-10.2 tjqr=791) EGFR (BEAKER) (test 92 mL/min/1.73 sq m ESTIMATED GFR IS NOT iqaa=1359) ACCURATE CREATININE CLEARANCE IN PREDICTING GLOMERULAR FILTRATION RATE. ESTIMATED GFR IS NOT APPLICABLE FOR DIALYSIS PATIENTS. Check Serum Phosphorus level 4 hours after IV phosphorus replacement or 8 hours after PO replacementcompleted.CBC (HEMOGRAM ONLY)2018-05-03 02:58:00 Test Item Value Reference Range Comments WHITE BLOOD CELL COUNT (BEAKER) (test rlhb=417) 9.1 K/ L 3.5-10.5 RED BLOOD CELL COUNT (BEAKER) (test xufv=359) 3.58 M/ L 3.93-5.22 HEMOGLOBIN (BEAKER) (test fqcz=064) 11.6 GM/DL 11.2-15.7 HEMATOCRIT (BEAKER) (test hmyj=150) 35.0 % 34.1-44.9 MEAN CORPUSCULAR VOLUME (BEAKER) (test jxwg=165) 97.8 fL 79.4-94.8 MEAN CORPUSCULAR HEMOGLOBIN (BEAKER) (test 32.4 pg 25.6-32.2 tzic=714) MEAN CORPUSCULAR HEMOGLOBIN CONC (BEAKER) (test 33.1 GM/DL 32.2-35.5 dark=786) RED CELL DISTRIBUTION WIDTH (BEAKER) (test 12.2 % 11.7-14.4 jfrw=153) PLATELET COUNT (BEAKER) (test hydy=249) 99 K/CU MM 150-450 MEAN PLATELET VOLUME (BEAKER) (test buna=657) 11.9 fL 9.4-12.3 NUCLEATED RED BLOOD CELLS (BEAKER) (test 0 /100 WBC 0-0 aixm=486) POCT-GLUCOSE [id number] 21:22:00 Test Item Value Reference Range Comments POC-GLUCOSE METER (BEAKER) 130 mg/dL 70-110 TESTED AT [facility] [address] [facility] (test prlt=5699) [facility] [address] MR, SPINE, LUMBAR, [id number] 19:48:00FINAL REPORT MRI lumbar spine with and without [...] Signal abnormality in the L3-4, L4-5, and L5- S1 intervertebraldiscs suggests progressive degenerative change. Discitis could produce a similar appearance. There is no epidural abscess. Fluid within the left L2-3 facet joint likewise suggests aggressive degenerative change. Septic arthritis could produce a similar appearance. There is double curvature arcuate androtatory scoliosis, apex right at L2-3 and apex [...] There are simple appearing cysts in the leftlobe of the liver and left kidney. There is a small volume right pleural effusion. IMPRESSION: 1. Suspected osteomyelitis discitis at L2-3. 2. Aggressive degenerative change versus discitis at L3-4, L4-5, and L5-S1. 3. Aggressive degenerative change versus septic arthritis within the left L2-3 facet joint. 4. Small volume right pleural effusion. 5. Chronic appearing findings as discussed. Signed: Chang Paz Verified Date/Time: 05/02/2018 19: 48:22 Reading Location: [facility] Radiology Reading Room POCT-GLUCOSE [id number] 13:11:00 Test Item Value Reference Range Comments POC-GLUCOSE METER (BEAKER) 132 mg/dL 70-110 TESTED AT [address] (test ulon=8646) [facility] [address] HEPATOBILIARY [id number] 12:48:00FINAL REPORT PROCEDURE: HEPATOBILIARY SCAN CPT CODE: 91198 INDICATION: Right upper quadrant pain PROTOCOL: 5.4 [...] is mild tracer activity within the stomach. IMPRESSION:1. Mild bile reflux into the stomach.2. Otherwise normal hepatobiliary scan. There is no evidence of acute cholecystitis or other biliary obstruction. Of note, if chronic cholecystitis is a clinical concern, this is better assessed with a sincalide-stimulated study. Signed: Alissa Vargas Verified Date/Time: 05/02/2018 12:48:39 Reading Location: [address] [id number] [facility] Reading Room POCT- GLUCOSE [id number] 08:53:00 Test Item Value Reference Range Comments POC-GLUCOSE METER (BEAKER) 164 mg/dL 70-110 TESTED AT [facility] [address] (test gojh=0796) [place] [address] [id number] 05:12:00 Test Item Value Reference Range Comments PHOSPHORUS (BEAKER) (test qzsl=965) 1.0 mg/dL 2.3-4.7 [id number] 05:09:00 Test Item Value Reference Range Comments MAGNESIUM (BEAKER) (test rcfc=467) 1.7 mg/dL 1.6-2.6 BASIC METABOLIC [id number] 05:09:00 Test Item Value Reference Range Comments SODIUM (BEAKER) (test 141 meq/L 136-145 pmpx=100) POTASSIUM (BEAKER) (test 3.8 meq/L 3.5-5.1 qsle=103) CHLORIDE (BEAKER) (test 103 meq/L 98-107 gmgy=566) CO2 (BEAKER) (test 31 meq/L 22-29 kemd=706) BLOOD UREA NITROGEN 30 mg/dL 7-21 (BEAKER) (test pqgs=788) CREATININE (BEAKER) (test 0.66 mg/dL 0.57-1.25 lbxn=590) GLUCOSE RANDOM (BEAKER) 176 mg/dL 70-105 (test ntkk=599) CALCIUM (BEAKER) (test 8.2 mg/dL 8.4-10.2 otat=315) EGFR (BEAKER) (test 84 mL/min/1.73 sq m ESTIMATED GFR IS NOT jmvo=6199) ACCURATE CREATININE CLEARANCE IN PREDICTING GLOMERULAR FILTRATION RATE. ESTIMATED GFR IS NOT APPLICABLE FOR DIALYSIS PATIENTS. CBC (HEMOGRAM ONLY)2018-05-02 04:42:00 Test Item Value Reference Range Comments WHITE BLOOD CELL COUNT (BEAKER) (test mvbs=451) 11.7 K/ L 3.5-10.5 RED BLOOD CELL COUNT (BEAKER) (test qwct=575) 3.34 M/ L 3.93-5.22 HEMOGLOBIN (BEAKER) (test boei=327) 10.7 GM/DL 11.2-15.7 HEMATOCRIT (BEAKER) (test xdyz=120) 32.6 % 34.1-44.9 MEAN CORPUSCULAR VOLUME (BEAKER) (test dsjp=530) 97.6 fL 79.4-94.8 MEAN CORPUSCULAR HEMOGLOBIN (BEAKER) (test 32.0 pg 25.6-32.2 htag=363) MEAN CORPUSCULAR HEMOGLOBIN CONC (BEAKER) (test 32.8 GM/DL 32.2-35.5 vhuj=375) RED CELL DISTRIBUTION WIDTH (BEAKER) (test 12.1 % 11.7-14.4 ypij=134) PLATELET COUNT (BEAKER) (test ojur=484) 78 K/CU MM 150-450 MEAN PLATELET VOLUME (BEAKER) (test luqg=926) 11.2 fL 9.4-12.3 NUCLEATED RED BLOOD CELLS (BEAKER) (test 0 /100 WBC 0-0 nvni=250) POCT-GLUCOSE [id number] 22:18:00 Test Item Value Reference Range Comments POC-GLUCOSE METER (BEAKER) 162 mg/dL 70-110 TESTED AT [address] (test qbdl=4191) [place] [address] POCT-GLUCOSE [id number] 18:07:00 Test Item Value Reference Range Comments POC-GLUCOSE METER (BEAKER) 189 mg/dL 70-110 TESTED AT [address] (test cabf=9657) [place] [address] POCT-GLUCOSE [id number] 12:39:00 Test Item Value Reference Range Comments POC-GLUCOSE METER (BEAKER) 167 mg/dL 70-110 TESTED AT [address] (test xeim=0637) [place] [address] URINE [id number] 09:36:00 Test Item Value Reference Range Comments CULTURE (BEAKER) (test rnaa=2695) No growth POCT-GLUCOSE [id number] 07:53:00 Test Item Value Reference Range Comments POC-GLUCOSE METER (BEAKER) 133 mg/dL 70-110 TESTED AT [address] (test xjko=3997) [place] [address] BLOOD GAS, [id number] 06:11:00 Test Item Value Reference Range Comments PH VENOUS (BEAKER) (test bepd=436) 7.40 7.32-7.42 PCO2 VENOUS (BEAKER) (test ctvu=314) 49 mmHg 41-51 PO2 VENOUS (BEAKER) (test plly=830) 41 mmHg 25-40 O2 SATURATION VENOUS (BEAKER) (test oskx=713) 75.6 % 40.0-70.0 HCO3 VENOUS (BEAKER) (test bali=402) 30 mmol/L 21-29 BASE EXCESS VENOUS (BEAKER) (test taav=669) 4.3 mmol/L -2.0-3.0 PATIENT TEMPERATURE (BEAKER) (test scjy=4587) 37.0 C CALCIUM, [id number] 06:11:00 Test Item Value Reference Range Comments CALCIUM IONIZED (BEAKER) (test zloh=223) 1.06 mmol/L 1.12-1.27 PH, BLOOD (BEAKER) (test jgyl=5886) 7.40 [id number] 05:54:00 Test Item Value Reference Range Comments PHOSPHORUS (BEAKER) (test bmpp=000) 2.0 mg/dL 2.3-4.7 [id number] 05:54:00 Test Item Value Reference Range Comments MAGNESIUM (BEAKER) (test xwpx=826) 2.1 mg/dL 1.6-2.6 COMPREHENSIVE METABOLIC [id number] 05:54:00 Test Item Value Reference Range Comments TOTAL PROTEIN (BEAKER) 5.7 gm/dL 6.0-8.3 (test tylg=339) ALBUMIN (BEAKER) (test 2.7 g/dL 3.5-5.0 urbe=7730) ALKALINE PHOSPHATASE 79 U/L 40-150 (BEAKER) (test gaac=696) BILIRUBIN TOTAL (BEAKER) 0.7 mg/dL 0.2-1.2 (test xvmu=381) SODIUM (BEAKER) (test 142 meq/L 136-145 vuku=654) POTASSIUM (BEAKER) (test 3.4 meq/L 3.5-5.1 yyir=032) CHLORIDE (BEAKER) (test 105 meq/L 98-107 rkbp=955) CO2 (BEAKER) (test 26 meq/L 22-29 dcck=320) BLOOD UREA NITROGEN 45 mg/dL 7-21 (BEAKER) (test lztq=470) CREATININE (BEAKER) (test 0.88 mg/dL 0.57-1.25 aalr=405) GLUCOSE RANDOM (BEAKER) 118 mg/dL 70-105 (test jzox=974) CALCIUM (BEAKER) (test 8.2 mg/dL 8.4-10.2 fcpf=465) AST (SGOT) (BEAKER) (test 63 U/L 5-34 azog=080) ALT (SGPT) (BEAKER) (test 32 U/L 6-55 xyum=355) EGFR (BEAKER) (test 61 mL/min/1.73 sq m ESTIMATED GFR IS NOT xelt=6212) ACCURATE CREATININE CLEARANCE IN PREDICTING GLOMERULAR FILTRATION RATE. ESTIMATED GFR IS NOT APPLICABLE FOR DIALYSIS PATIENTS. CBC W/PLT COUNT & AUTO [id number] 04:21:00 Test Item Value Reference Range Comments WHITE BLOOD CELL COUNT (BEAKER) (test ebzk=292) 6.2 K/ L 3.5-10.5 RED BLOOD CELL COUNT (BEAKER) (test sdus=338) 3.42 M/ L 3.93-5.22 HEMOGLOBIN (BEAKER) (test ferc=633) 10.8 GM/DL 11.2-15.7 HEMATOCRIT (BEAKER) (test uocy=463) 33.4 % 34.1-44.9 MEAN CORPUSCULAR VOLUME (BEAKER) (test ehmy=170) 97.7 fL 79.4-94.8 MEAN CORPUSCULAR HEMOGLOBIN (BEAKER) (test 31.6 pg 25.6-32.2 egvp=172) MEAN CORPUSCULAR HEMOGLOBIN CONC (BEAKER) (test 32.3 GM/DL 32.2-35.5 xedd=342) RED CELL DISTRIBUTION WIDTH (BEAKER) (test 12.3 % 11.7-14.4 bmuw=326) PLATELET COUNT (BEAKER) (test qjet=048) 89 K/CU MM 150-450 MEAN PLATELET VOLUME (BEAKER) (test xqyl=181) 11.8 fL 9.4-12.3 NUCLEATED RED BLOOD CELLS (BEAKER) (test 0 /100 WBC 0-0 hucy=597) NEUTROPHILS RELATIVE PERCENT (BEAKER) (test 82 % nqum=937) LYMPHOCYTES RELATIVE PERCENT (BEAKER) (test 4 % tllu=773) MONOCYTES RELATIVE PERCENT (BEAKER) (test 11 % izmw=082) EOSINOPHILS RELATIVE PERCENT (BEAKER) (test 1 % vimg=969) BASOPHILS RELATIVE PERCENT (BEAKER) (test 0 % amyq=008) NEUTROPHILS ABSOLUTE COUNT (BEAKER) (test 5.07 K/ L 1.56-6.13 dnny=768) LYMPHOCYTES ABSOLUTE COUNT (BEAKER) (test 0.25 K/ L 1.18-3.74 tnmi=112) MONOCYTES ABSOLUTE COUNT (BEAKER) (test hvjp=966) 0.70 K/ L 0.24-0.36 EOSINOPHILS ABSOLUTE COUNT (BEAKER) (test 0.04 K/ L 0.04-0.36 rebp=252) BASOPHILS ABSOLUTE COUNT (BEAKER) (test ccof=848) 0.02 K/ L 0.01-0.08 IMMATURE GRANULOCYTES-RELATIVE PERCENT (BEAKER) 1 % 0-1 (test htsn=7295) CREATINE KINASE (CK), TOTAL AND [id number] 00:29:00 Test Item Value Reference Range Comments CREATINE KINASE TOTAL (BEAKER) (test ylrn=659) 456 U/L 29-200 CREATINE KINASE-MB (BEAKER) (test jibu=160) 8.8 ng/mL 0.0-6.6 CREATINE KINASE-MB INDEX (BEAKER) (test tsku=343) 1.9 % CK-MB Reference Range:<6.7 Normal6.7-10.0 Borderline>10.0 AbnormalU/S, ABDOMINAL, [id number] 22:03:00Abdomen limited area? Add comment if clarification is needed.->Right upper quadrantReason for exam:-&gt ;abd painShould this be performed at the bedside?->YesFINAL REPORT Limited Abdominal ultrasound. Clinical history: abd pain Comparison study: Renal ultrasound dated April 30, 2018 Findings: The liver is normal in appearance witha normal echotexture. It measures 13.5 cm in span. The CBD is dilated measuring 8 mm. No significantintrahepatic biliary dilatation is seen. The main portal vein diameter is 1.6 cm. The gallbladder is distended measuring 4.5 cm in maximal transverse diameter. It is thick- walled measuring 5 mm. Some trace pericholecystic fluid [...] n.p.o. state versus cholecystitis. Correlation with HIDA scancould be made.2. Dilatation of the CBD. This could be further assessed with MRCP.3. Right pleural effusion. Signed: Shubham Tadeo MDReport Verified Date/Time: 04/30/2018 22:03:30 Reading Location: [place] [id number] Consult Reading Room POCT-GLUCOSE [id number] 21:57:00 Test Item Value Reference Range Comments POC-GLUCOSE METER (BEAKER) 135 mg/dL 70-110 TESTED AT [address] (test qsiw=6832) [facility] [address] POCT-GLUCOSE [id number] 17:44:00 Test Item Value Reference Range Comments POC-GLUCOSE METER (BEAKER) 103 mg/dL 70-110 TESTED AT [address] (test zpfj=8421) [facility] [address] HEPATIC FUNCTION [id number] 17:36:00 Test Item Value Reference Range Comments TOTAL PROTEIN (BEAKER) (test polv=654) 5.9 gm/dL 6.0-8.3 ALBUMIN (BEAKER) (test acqv=1407) 2.8 g/dL 3.5-5.0 BILIRUBIN TOTAL (BEAKER) (test kumc=109) 0.5 mg/dL 0.2-1.2 BILIRUBIN DIRECT (BEAKER) (test kwen=955) 0.3 mg/dL 0.1-0.5 ALKALINE PHOSPHATASE (BEAKER) (test trkv=887) 78 U/L 40-150 AST (SGOT) (BEAKER) (test uwfi=022) 79 U/L 5-34 ALT (SGPT) (BEAKER) (test mmrs=956) 34 U/L 6-55 VANCOMYCIN LEVEL, [id number] 16:27:00 Test Item Value Reference Range Comments VANCOMYCIN RANDOM (BEAKER) (test vgdn=328) 9.4 ug/mL Reference Range: No NormalsBASIC METABOLIC [id number] 15:51:00 Test Item Value Reference Range Comments SODIUM (BEAKER) (test 138 meq/L 136-145 wzgw=649) POTASSIUM (BEAKER) (test 3.7 meq/L 3.5-5.1 mnku=847) CHLORIDE (BEAKER) (test 106 meq/L 98-107 brcb=976) CO2 (BEAKER) (test 20 meq/L 22-29 pvrn=624) BLOOD UREA NITROGEN 63 mg/dL 7-21 (BEAKER) (test klih=078) CREATININE (BEAKER) (test 1.61 mg/dL 0.57-1.25 bawf=616) GLUCOSE RANDOM (BEAKER) 80 mg/dL 70-105 (test hync=837) CALCIUM (BEAKER) (test 7.8 mg/dL 8.4-10.2 ygqs=079) EGFR (BEAKER) (test 30 mL/min/1.73 sq m ESTIMATED GFR IS NOT zlxm=9167) ACCURATE CREATININE CLEARANCE IN PREDICTING GLOMERULAR FILTRATION RATE. ESTIMATED GFR IS NOT APPLICABLE FOR DIALYSIS PATIENTS. U/S, RENAL, [id number] 14:54:00Reason for exam:->acute renal failureFINAL REPORT Ultrasound of the Kidneys, 2017. Clinical History: Acute renal failure. Discussion:Sonographic evaluation of the kidneys is performed. Right [...] fluid. Bladder: A Ring catheter is present. IMPRESSION:Simple left renal cyst. Otherwise unremarkable renal ultrasound. Signed: MonikaBay burrows MDReport Verified Date/Time: 04/30/2018 14:54:49 Reading Location: [facility] [id number] Ultrasound Reading Room POCT-GLUCOSE [id number] 13:18:00 Test Item Value Reference Range Comments POC-GLUCOSE METER (BEAKER) 99 mg/dL 70-110 TESTED AT [facility] [address] [facility] (test usxf=4796) [facility] [address] BLOOD GAS, [id number] 11:42:00 Test Item Value Reference Range Comments PH VENOUS (BEAKER) (test jvvo=297) 7.30 7.32-7.42 PCO2 VENOUS (BEAKER) (test zfdr=611) 37 mmHg 41-51 PO2 VENOUS (BEAKER) (test wcpc=522) 26 mmHg 25-40 O2 SATURATION VENOUS (BEAKER) (test szyr=186) 44.1 % 40.0-70.0 HCO3 VENOUS (BEAKER) (test slqi=659) 18 mmol/L 21-29 BASE EXCESS VENOUS (BEAKER) (test idlo=468) -8.2 mmol/L -2.0-3.0 PATIENT TEMPERATURE (BEAKER) (test pxto=0412) 36.1 C FIO2 (BEAKER) (test ndyh=1098) 21.0 % BLOOD CULTURE IDENTIFICATION [id number] 11:25:00 Test Item Value Reference Range Comments LISTERIA MONOCYTOGENES (test Not detected Not detected ujrd=2200326) STAPHYLOCOCCUS (test Not detected Not detected ylsw=3171085) STAPHYLOCOCCUS AUREUS (test Not detected Not detected nkpr=6831649) STREPTOCOCCUS (test Not detected Not detected kqdh=9416081) STREPTOCOCCUS AGALACTIAE (GROUP Not detected Not detected B) (test lwdy=8818829) STREPTOCOCCUS PNEUMONIAE (test Not detected Not detected ugmt=3623080) STREPTOCOCCUS PYOGENES (GROUP Not detected Not detected A) (test wcsx=3314911) ACINETOBACTER BAUMANNII (test Not detected Not detected ugux=9257423) HAEMOPHILUS INFLUENZAE (test Not detected Not detected sibv=9291782) NEISSERIA MENINGITIDIS (test Not detected Not detected qfoi=7738240) ENTEROBACTERIACEAE (test Detected Not detected pshr=7472932) ENTEROBACTER CLOACOE COMPLEX Detected Not detected First line therapy: (test ovkc=8111098) Cefepime or MeropenemThis test does not evaluate for ESBLReference Range: Not Detected KLEBSIELLA OXYTOCA (test Not detected Not detected xanp=0170647) KLEBSIELLA PNEUMONIAE (test Not detected Not detected uwfp=6630) PROTEUS (test fbpv=4895884) Not detected Not detected SERRATIA MARCESCENS (test Not detected Not detected dvpw=2688391) OG ALBICANS (test Not detected Not detected fbvq=7948933) OG GLABRATA (test Not detected Not detected pytu=3995360) OG KRUSEI (test Not detected Not detected zphi=2323581) OG PARAPSILOSIS (test Not detected Not detected uloy=7069504) OG TROPICALIS (test Not detected Not detected tofg=1016656) ESCHERICHIA COLI (test Not detected Not detected pvii=7132633) METHICILLIN-RESISTANCE GENE Not detected (test dxhd=5494482) VANCOMYCIN-RESISTANCE GENE Not detected (test tfuj=5064762) CARBAPENEM-RESISTANCE GENE Not detected Not detected (test jcnv=5925790) ENTEROCOCCUS-BEAKER (test Not detected Not detected jbsf=3688270) PSEUDOMONAS AERUGINOSA-BEAKER Not detected Not detected (test fysi=2954174) Other bacteria and resistance markers not targeted by this PCR panel cannot be excluded; therefore clinical correlation and follow up of serology, culture results, and other molecular studies is required. The results are not intended to be used as the sole means for clinical diagnosis or patient management decisions. This sample was tested at the [facility] Molecular [facility] using the [email or web address] Blood Culture ID Panel. It is FDA cleared and has been verified and approved by the [facility] for clinical use. This laboratory is CLIA-certified and College ofAmerican Pathologists (CAP)-accredited to perform high complexity testing.POCT-GLUCOSE [id number] 10:46:00 Test Item Value Reference Range Comments POC-GLUCOSE METER (BEAKER) 74 mg/dL 70-110 TESTED AT [facility] [address] (test yptg=7879) [facility] [address] BASIC METABOLIC [id number] 09:57:00 Test Item Value Reference Range Comments SODIUM (BEAKER) (test 137 meq/L 136-145 sadu=541) POTASSIUM (BEAKER) (test 3.7 meq/L 3.5-5.1 ilor=662) CHLORIDE (BEAKER) (test 106 meq/L 98-107 sdxe=671) CO2 (BEAKER) (test 15 meq/L 22-29 swvr=391) BLOOD UREA NITROGEN 71 mg/dL 7-21 (BEAKER) (test lyrj=938) CREATININE (BEAKER) (test 2.24 mg/dL 0.57-1.25 wxqu=274) GLUCOSE RANDOM (BEAKER) 64 mg/dL 70-105 (test uwea=577) CALCIUM (BEAKER) (test 7.6 mg/dL 8.4-10.2 pyha=828) EGFR (BEAKER) (test 21 mL/min/1.73 sq m ESTIMATED GFR IS NOT frfg=8208) ACCURATE CREATININE CLEARANCE IN PREDICTING GLOMERULAR FILTRATION RATE. ESTIMATED GFR IS NOT APPLICABLE FOR DIALYSIS PATIENTS. [id number] 09:19:00 Test Item Value Reference Range Comments MAGNESIUM (BEAKER) (test lsim=597) 2.1 mg/dL 1.6-2.6 [id number] 09:03:00 Test Item Value Reference Range Comments MYOGLOBIN (BEAKER) (test vurz=837) 1297 ng/mL 0-78 CBC W/PLT COUNT & AUTO [id number] 08:09:00 Test Item Value Reference Range Comments WHITE BLOOD CELL COUNT (BEAKER) (test gljd=681) 5.9 K/ L 3.5-10.5 RED BLOOD CELL COUNT (BEAKER) (test eytz=908) 3.16 M/ L 3.93-5.22 HEMOGLOBIN (BEAKER) (test kxhw=404) 10.2 GM/DL 11.2-15.7 HEMATOCRIT (BEAKER) (test mgxj=139) 32.4 % 34.1-44.9 MEAN CORPUSCULAR VOLUME (BEAKER) (test yflc=818) 102.5 fL 79.4-94.8 MEAN CORPUSCULAR HEMOGLOBIN (BEAKER) (test 32.3 pg 25.6-32.2 lkku=416) MEAN CORPUSCULAR HEMOGLOBIN CONC (BEAKER) (test 31.5 GM/DL 32.2-35.5 wwim=545) RED CELL DISTRIBUTION WIDTH (BEAKER) (test 12.3 % 11.7-14.4 ampi=472) PLATELET COUNT (BEAKER) (test oypc=586) 108 K/CU MM 150-450 MEAN PLATELET VOLUME (BEAKER) (test veuq=370) 12.2 fL 9.4-12.3 NUCLEATED RED BLOOD CELLS (BEAKER) (test 0 /100 WBC 0-0 ckdf=601) (CELLAVISION MANUAL DIFF)2018-04-30 08:09:00 Test Item Value Reference Range Comments NEUTROPHILS - REL (CELLAVISION)(BEAKER) (test 82 % uxzu=9644) LYMPHOCYTES - REL (CELLAVISION)(BEAKER) (test 7 % mpdg=0936) MONOCYTES - REL (CELLAVISION)(BEAKER) (test 2 % jglm=3804) BANDS - REL (CELLAVISION)(BEAKER) (test poue=7433) 9 % 0-10 NEUTROPHILS - ABS (CELLAVISION)(BEAKER) (test 4.84 K/ul 1.56-6.13 kwgj=7023) LYMPHOCYTES - ABS (CELLAVISION)(BEAKER) (test 0.41 K/ul 1.18-3.74 igor=2530) MONOCYTES - ABS (CELLAVISION)(BEAKER) (test 0.12 K/uL 0.24-0.36 duag=7890) BANDS - ABS (CELLAVISION)(BEAKER) (test wceg=0832) 0.53 K/uL 0.00-0.80 TOTAL COUNTED (BEAKER) (test dihy=3445) 100 WBC MORPHOLOGY (BEAKER) (test xzpa=041) Normal PLT MORPHOLOGY (BEAKER) (test leqq=314) Normal POLYCHROMATOPHILLIC RBCS(BEAKER) (test ioty=695) 1+ few YASHIRA CELLS (BEAKER) (test wuos=809) 1+ few ARTIFACT (CELLAVISION)(BEAKER) (test uabl=1747) Present PLATELET CONCENTRATION (CELLAVISION)(BEAKER) (test Decreased rvpw=5047) Received comment: User comments: Slide comments:CREATINE KINASE (CK), TOTAL AND [id number] 06:33:00 Test Item Value Reference Range Comments CREATINE KINASE TOTAL (BEAKER) (test ivwr=018) 1409 U/L 29-200 CREATINE KINASE-MB (BEAKER) (test oudw=903) 31.4 ng/mL 0.0-6.6 CREATINE KINASE-MB INDEX (BEAKER) (test hzxe=103) 2.2 % CK-MB Reference Range:<6.7 Normal6.7-10.0 Borderline>10.0 AbnormalTROPONIN [id number] 06:13:00 Test Item Value Reference Range Comments TROPONIN I (BEAKER) (test oxrq=506) 0.15 ng/mL 0.00-0.03 Troponin I (TnI) levels must be interpreted [...] failure, acidosis, acute neurological disease, and persistent tachyarrhythmia.TROPONIN [id number] 00:07:00 Test Item Value Reference Range Comments TROPONIN I (BEAKER) (test rnwr=039) 0.18 ng/mL 0.00-0.03 Troponin I (TnI) levels must be interpreted [...] failure, acidosis, acute neurological disease, and persistent tachyarrhythmia.CREATINE KINASE (CK), TOTAL AND [id number] 23:54:00 Test Item Value Reference Range Comments CREATINE KINASE TOTAL (BEAKER) (test kuue=512) 1427 U/L 29-200 CREATINE KINASE-MB (BEAKER) (test qksu=471) 30.3 ng/mL 0.0-6.6 CREATINE KINASE-MB INDEX (BEAKER) (test zuey=202) 2.1 % CK-MB Reference Range:<6.7 Normal6.7-10.0 Borderline>10.0 [id number] 19:45:00 Test Item Value Reference Range Comments MYOGLOBIN (BEAKER) (test kwmo=837) 5467 ng/mL 0-78 B-TYPE NATRIURETIC FACTOR (BNP)2018-04-29 19:13:00 Test Item Value Reference Range Comments B-TYPE NATRIURETIC PEPTIDE (BEAKER) (test 580 pg/mL 0-100 nkdf=237) URIC [id number] 19:06:00 Test Item Value Reference Range Comments URIC ACID (BEAKER) (test 7.1 mg/dL 2.6-7.2 Specimen moderately hemolyzed tsdv=773) LACTIC ACID, VENOUS, WHOLE [id number] 19:02:00 Test Item Value Reference Range Comments LACTATE BLOOD VENOUS (2) 1.0 mmol/L 0.5-2.2 Specimen moderately hemolyzed (BEAKER) (test tlbk=1019) Effective 12/16/2015: Units/Reference Range ChangeNew: 0.5-2.2 mmol/L Previous: 5 -20 mg/dLRAD, CHEST, 1 VIEW, NON [id number] 18:27:00Reason for exam:-> chfShould this be performed at the bedside?->YesFINAL REPORT Portable chest. Clinical history: Congestive heart failure. COMPARISON STUDY: None available. FINDINGS: The cardiac size is unremarkable. There are mild increased interstitial markings but no definite airspace opacity, pleural effusion or pneumothorax. Some atelectasis is seen in the left lung base. Degenerative changes are seen. Signed: Shubham Tadeo Verified Date/ Time: 04/29/2018 18:27:35 Reading Location: [address] Body Reading Room [id number] 18:09:00 Test Item Value Reference Range Comments PROCALCITONIN (BEAKER) (test sjfn=7821) 90.77 ng/mL <0.05 SEPSIS RISK (ng/mL)Low: 0.05-0.50Intermediate: 0.51-2.00High: & gt;=2.01CREATININE, RANDOM [id number] 17:35:00 Test Item Value Reference Range Comments CREATININE URINE (BEAKER) (test mgcz=046) 134.8 mg/dL Reference Range: No NormalsSODIUM, RANDOM [id number] 17:35:00 Test Item Value Reference Range Comments SODIUM URINE (BEAKER) (test txbg=419) 37 meq/L Reference Range: No NormalsUREA NITROGEN, RANDOM [id number] 17:35:00 Test Item Value Reference Range Comments UREA NITROGEN URINE (BEAKER) (test nobp=794) 326 mg/dL Reference Range: No NormalsURINALYSIS W/ [id number] 17:34:00 Test Item Value Reference Range Comments COLOR (BEAKER) (test imax=200) Yellow CLARITY (BEAKER) (test hvdk=161) Cloudy SPECIFIC GRAVITY UA (BEAKER) (test ctzg=395) 1.015 1.001-1.035 PH UA (BEAKER) (test qjzp=356) 5.5 5.0-8.0 PROTEIN UA (BEAKER) (test ciih=302) 100 mg/dL Negative GLUCOSE UA (BEAKER) (test qknn=512) Negative Negative KETONES UA (BEAKER) (test zozg=072) Trace Negative BILIRUBIN UA (BEAKER) (test scmr=735) Positive Negative BLOOD UA (BEAKER) (test fuhq=296) Large Negative NITRITE UA (BEAKER) (test xnzs=532) Negative Negative LEUKOCYTE ESTERASE UA (BEAKER) (test mrff=815) Negative Negative UROBILINOGEN UA (BEAKER) (test efpm=145) 2.0 mg/dL 0.2-1.0 RBC UA (BEAKER) (test ehfm=707) 12 /HPF WBC UA (BEAKER) (test bduu=925) 56 /HPF MUCUS (BEAKER) (test wjbi=6423) Occasional SQUAMOUS EPITHELIAL (BEAKER) (test keaa=519) 4 /HPF CASTS (BEAKER) (test ubdz=6256) 19 /LPF MIXED CELL CASTS (BEAKER) (test fobw=9881) 538 /LPF CRYSTALS, URINE (BEAKER) (test pwmu=7295) Many YEAST (BEAKER) (test eshn=4207) Moderate SOURCE(BEAKER) (test vnqd=2055) Urine, Ring TROPONIN [id number] 16:46:00 Test Item Value Reference Range Comments TROPONIN I (BEAKER) (test pihg=454) 0.37 ng/mL 0.00-0.03 Troponin I (TnI) levels must be interpreted [...] failure, acidosis, acute neurological disease, and persistent tachyarrhythmia.CBC W/PLT COUNT & AUTO [id number] 16:44:00 Test Item Value Reference Range Comments WHITE BLOOD CELL COUNT (BEAKER) (test jxlu=545) 9.3 K/ L 3.5-10.5 RED BLOOD CELL COUNT (BEAKER) (test grxp=045) 3.25 M/ L 3.93-5.22 HEMOGLOBIN (BEAKER) (test nake=103) 10.5 GM/DL 11.2-15.7 HEMATOCRIT (BEAKER) (test kpwy=241) 33.1 % 34.1-44.9 MEAN CORPUSCULAR VOLUME (BEAKER) (test mpte=305) 101.8 fL 79.4-94.8 MEAN CORPUSCULAR HEMOGLOBIN (BEAKER) (test 32.3 pg 25.6-32.2 qjlx=650) MEAN CORPUSCULAR HEMOGLOBIN CONC (BEAKER) (test 31.7 GM/DL 32.2-35.5 tgmu=933) RED CELL DISTRIBUTION WIDTH (BEAKER) (test 12.4 % 11.7-14.4 hyxh=846) PLATELET COUNT (BEAKER) (test uxbk=851) 99 K/CU MM 150-450 MEAN PLATELET VOLUME (BEAKER) (test daeu=393) 12.0 fL 9.4-12.3 NUCLEATED RED BLOOD CELLS (BEAKER) (test 0 /100 WBC 0-0 lwke=382) (CELLAVISION MANUAL DIFF)[id number] 16:44:00 Test Item Value Reference Range Comments NEUTROPHILS - REL (CELLAVISION)(BEAKER) (test 75 % ddgn=2245) LYMPHOCYTES - REL (CELLAVISION)(BEAKER) (test 2 % rqsy=0425) MONOCYTES - REL (CELLAVISION)(BEAKER) (test 4 % uimg=8562) BANDS - REL (CELLAVISION)(BEAKER) (test qwre=8767) 19 % 0-10 NEUTROPHILS - ABS (CELLAVISION)(BEAKER) (test 6.98 K/ul 1.56-6.13 txne=9581) LYMPHOCYTES - ABS (CELLAVISION)(BEAKER) (test 0.19 K/ul 1.18-3.74 slpb=4739) MONOCYTES - ABS (CELLAVISION)(BEAKER) (test 0.37 K/uL 0.24-0.36 bixk=9982) BANDS - ABS (CELLAVISION)(BEAKER) (test zjmx=4366) 1.77 K/uL 0.00-0.80 TOTAL COUNTED (BEAKER) (test brdt=2236) 100 WBC MORPHOLOGY (BEAKER) (test gvex=238) Normal GIANT PLATELETS (BEAKER) (test beet=439) Present POIKILOCYTES (BEAKER) (test fish=915) 1+ few SPHEROCYTES (BEAKER) (test hazb=165) 1+ few ELLIPTOCYTES (BEAKER) (test qpdo=163) 1+ few OVALOCYTES (BEAKER) (test rltk=993) 1+ few YASHIRA CELLS (BEAKER) (test nfts=669) 1+ few ARTIFACT (CELLAVISION)(BEAKER) (test wgga=0810) Present PLATELET CONCENTRATION (CELLAVISION)(BEAKER) (test Decreased pnxx=0306) Received comment: User comments: Slide comments:CREATINE KINASE (CK), TOTAL AND [id number] 16:38:00 Test Item Value Reference Range Comments CREATINE KINASE TOTAL (BEAKER) (test wkuo=338) 1840 U/L 29-200 CREATINE KINASE-MB (BEAKER) (test lfde=483) 43.9 ng/mL 0.0-6.6 CREATINE KINASE-MB INDEX (BEAKER) (test hzhg=450) 2.4 % CK-MB Reference Range:<6.7 Normal6.7-10.0 Borderline>10.0 [id number] 16:31:00 Test Item Value Reference Range Comments MAGNESIUM (BEAKER) (test cmig=406) 2.0 mg/dL 1.6-2.6 BASIC METABOLIC [id number] 16:31:00 Test Item Value Reference Range Comments SODIUM (BEAKER) (test 138 meq/L 136-145 rmey=149) POTASSIUM (BEAKER) (test 4.2 meq/L 3.5-5.1 okky=001) CHLORIDE (BEAKER) (test 107 meq/L 98-107 fxlg=150) CO2 (BEAKER) (test 18 meq/L 22-29 uqpl=630) BLOOD UREA NITROGEN 73 mg/dL 7-21 (BEAKER) (test krcl=040) CREATININE (BEAKER) (test 3.20 mg/dL 0.57-1.25 wkek=918) GLUCOSE RANDOM (BEAKER) 88 mg/dL 70-105 (test wqzj=725) CALCIUM (BEAKER) (test 7.6 mg/dL 8.4-10.2 jtfa=883) EGFR (BEAKER) (test 14 mL/min/1.73 sq m ESTIMATED GFR IS NOT rhwi=1877) ACCURATE CREATININE CLEARANCE IN PREDICTING GLOMERULAR FILTRATION RATE. ESTIMATED GFR IS NOT APPLICABLE FOR DIALYSIS PATIENTS.
[2018-06-15] MEDS ORDERED: BISACODYL E.C. 5 MG TAB PO PRN (16:31)
[2018-06-15] MEDS: CARVEDILOL 3.125 MG TAB PO SCH (17:19)
[2018-06-15] MEDS: ACETAMINOPHEN 325 MG TABLET PO PRN (17:19)
[2018-06-15] MEDS: FERROUS SULFATE 325 MG TAB PO SCH (17:19)
[2018-06-15] MEDS: LACTULOSE 20 GM/30 ML UCUP PO SCH (17:19)
[2018-06-15] MEDS ORDERED: INFLUENZA VACCINE (for 3y+) 0.5 ML DOSE IMVAC ONE (18:00)
[2018-06-15] MEDS: LACTOBACILLUS/ACIDOPHILUS TAB PO SCH (20:23)
[2018-06-15] MEDS: TRAMADOL HCL 50 MG TAB PO PRN (20:23)
[2018-06-15] MEDS: DOCUSATE NA/SENNA CONC 1 TAB PO SCH (20:24)
[2018-06-15] MEDS: APIXABAN 5 MG TABLET PO SCH (20:24)
[2018-06-15] MEDS: ATORVASTATIN 80 MG TAB PO SCH (20:24)
[2018-06-15] MEDS: MELATONIN 3 MG TABLET PO PRN (20:26)
[2018-06-16] MEDS: FERROUS SULFATE 325 MG TAB PO SCH ×3 (00:26→17:00)
[2018-06-16] MEDS: CARVEDILOL 3.125 MG TAB PO SCH ×2 (05:18→17:00)
[2018-06-16] MEDS: LACTULOSE 20 GM/30 ML UCUP PO SCH ×2 (05:19→17:00)
[2018-06-16 05:41] VITALS: BMI 19.0
[2018-06-16 06:08] LABS: Absolute Lymphocytes (CBC) 0.9 K/uL (0.7-4.9); Absolute Monocytes 0.5 K/uL (0.1-1.3); Absolute Neutrophil 3.3 K/uL (1.8-8.0); Basophils % 1.1 % (0-1.3); Hematocrit 28.7 % (36.0-45.0); Lymphocytes % 19.4 % (15.3-44.8); MCH 30.6 pg (27.0-35.0); MCV 91.7 fL (80-100); MPV 8.6 fL (7.6-11.3); Monocytes % 11.2 % (3.3-12.3); RBC Red Blood Cell Count 3.13 M/uL (3.86-4.86)
[2018-06-16 06:19] LABS: ALT/SGPT 16 U/L (12-78); AST/SGOT 14 U/L (15-37); Albumin 2.5 g/dL (3.4-5.0); Alkaline Phosphatase 97 U/L (45-117); BUN Blood Urea Nitrogen 18 mg/dL (7-18); Bicarbonate 30 mmol/L (21-32); Bilirubin Direct 0.2 mg/dL (0-0.2); Bilirubin Total 0.4 mg/dL (0.2-1.0); Glucose Level 95 mg/dL (74-106); Potassium 3.5 mmol/L (3.5-5.1); Prealbumin 12.9 mg/dL (20-40); Protein, Total 6.6 g/dL (6.4-8.2); Sodium Level 142 mmol/L (136-145)
[2018-06-16] MEDS: TRAMADOL HCL 50 MG TAB PO PRN ×2 (06:48→17:00)
[2018-06-16] MEDS: POLYETHYL GLY 3350 17 GM/DOSE PO SCH (08:00)
[2018-06-16] MEDS ORDERED: ONDANSETRON 4 MG (ODT) TAB PO PRN (08:05)
[2018-06-16] MEDS: PANTOPRAZOLE 40MG TABLET PO SCH (09:08)
[2018-06-16] MEDS: APIXABAN 5 MG TABLET PO SCH ×2 (09:08→19:12)
[2018-06-16] MEDS: ACETAMINOPHEN 325 MG TABLET PO PRN (09:08)
[2018-06-16] MEDS: MULTIVITAMIN TAB PO SCH (09:08)
[2018-06-16] MEDS: LACTOBACILLUS/ACIDOPHILUS TAB PO SCH ×2 (09:08→19:13)
--- NOTE | 2018-06-16 12:16 | FAST ---
ENCOUNTER DATE AND TIME: 06/16/2018 08:00 (CDT) NAME ANNALEE LOPEZ DATE OF : 1930 DATE OF ADMISSION: 06/15/2018 16:01 (CDT) PHONE: AGE: 87 N# [id number] GENDER: Female ENCOUNTER PHYSICIAN: Dr. Rory Miner M.D. 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 EATING: EATING - STEP 1: Does the patient require assistance when eating? No. EATING - SCORE: 7-IND GROOMING: Comb/brush hair Wash, rinse, and dry face Wash, rinse, and dry hands GROOMING - STEP 1: Does the patient require assistance when grooming? No. GROOMING - SCORE: 7-IND BATHING: Abdomen Buttocks Chest Left arm Left lower leg and foot Left upper leg Perineal area Right arm Right lower leg and foot Right upper leg BATHING - STEP 1: Does the patient require assistance when bathing? Yes. BATHING - STEP 2: Does the patient require the assistance of a helper? Yes. BATHING - STEP 3: How much assistance does the patient require from the helper? More than just incidental help BATHING - STEP 4: What percent of the body parts did the patient bathe WITHOUT the helper? Half or more of the body par ts BATHING - SCORE: 3-MOD DRESSING - UPPER BODY: T-shirt/pullover shirt (four steps) ARTICLES SCORE Total number of steps: 4 DRESSING - UPPER BODY - STEP 1: Does the patient require help when dressing above the waist? Yes. DRESSING - UPPER BODY - STEP 2: Does the patient require the assistance of a helper? Yes. DRESSING - UPPER BODY - STEP 3: Does the helper touch the patient while dressing? No. DRESSING - UPPER BODY - SCORE: 5-SUP DRESSING - LOWER BODY: Elastic waist pants (three steps) Sock - Left foot (one step) Sock - Right foot (one step) Underwear (three steps) ARTICLES SCORE Total number of steps: 8 DRESSING - LOWER BODY - STEP 1: Does the patient require help when dressing below the waist? Yes. DRESSING - LOWER BODY - STEP 2: Does the patient require the assistance of a helper? Yes. DRESSING - LOWER BODY - STEP 3: Does the helper touch the patient while dressing? Yes. DRESSING - LOWER BODY - STEP 4: How many of the total steps does the patient complete on his/her own? 4 DRESSING - LOWER BODY - SCORE: 3-MOD TOILETING: TOILETING - STEP 1: Does the patient require assistance with toileting? Yes. TOILETING - STEP 2: Does the patient require the assistance of a helper? Yes. TOILETING - STEP 3: How much assistance does the patient require from the helper? Hands-on assistance from the helper TOILETING - STEP 4: Of the 3 tasks: 1) Adjusting clothing prior to use, 2) Cleansing of perineal area, 3) Adjusting clot luis after use; How many tasks does the patient perform WITHOUT assistance of the helper? No tasks; h courtnye performs all three tasks TOILETING - SCORE: 1-DEP BLADDER MANAGEMENT: Activity did not occur on this shift BLADDER MANAGEMENT - SCORE: 7-IND BOWEL MANAGEMENT: Activity did not occur on this shift BOWEL MANAGEMENT - SCORE: 7-IND TRANSFERS: BED, CHAIR, WHEELCHAIR: TRANSFERS: BED, CHAIR, WHEELCHAIR - STEP 1: Does the patient require assistance with bed, chair, or wheelchair transfers? Yes. TRANSFERS: BED, CHAIR, WHEELCHAIR - STEP 2: Does the patient require the assistance of a helper? Yes. TRANSFERS: BED, CHAIR, WHEELCHAIR - STEP 3: How much assistance does the patient require from the helper? Steadying/guiding assistance TRANSFERS: BED, CHAIR, WHEELCHAIR - SCORE: 4-MIN TRANSFERS: TOILET: TRANSFERS: TOILET - STEP 1: Does the patient require assistance with toilet transfers? Yes. TRANSFERS: TOILET - STEP 2: Does the patient require the assistance of a helper? Yes. TRANSFERS: TOILET - STEP 3: How much assistance does the patient require from the helper? Patient performs half or more of the tr ansferring tasks TRANSFERS: TOILET - STEP 4: Does the patient need only incidental help such as contact guard or steadying during toilet transfer? No. Patient needs more than incidental help TRANSFERS: TOILET - SCORE: 3-MOD TRANSFERS: SHOWER: TRANSFERS: SHOWER - STEP 1: Does the patient require assistance with shower transfers? Yes. TRANSFERS: SHOWER - STEP 2: Does the patient require the assistance of a helper? Yes. TRANSFERS: SHOWER - STEP 3: How much assistance does the patient require from the helper? More than incidental help TRANSFERS: SHOWER - STEP 4: How much more help does the patient require from the helper? Lifting the patient either up OR down fr om the wheelchair onto the shower chair TRANSFERS: SHOWER - SCORE: 3-MOD TRANSFERS: TUB: Activity did not occur on this shift TRANSFERS: TUB - SCORE: 0-UNK LOCOMOTION: WALK: Activity did not occur on this shift LOCOMOTION: WALK - SCORE: 0-UNK LOCOMOTION: WHEELCHAIR: Activity did not occur on this shift LOCOMOTION: WHEELCHAIR - SCORE: 0-UNK LOCOMOTION: STAIRS: Activity did not occur on this shift LOCOMOTION: STAIRS - SCORE: 0-UNK COMPREHENSION: COMPREHENSION: TYPE: Both COMPREHENSION - STEP 1: Does the patient require help to understand complex and abstract ideas (such as current events, finan elena, discharge planning, medical issues, relationships, etc)? No. COMPREHENSION - STEP 2: Does the patient need extra time, require an assistive device (such as glasses for visual comprehensi on or a hearing aid for auditory comprehension) or does s/he have mild difficulty understanding compl ex and abstract information? No. COMPREHENSION - SCORE: 7-IND EXPRESSION EXPRESSION: TYPE: Both EXPRESSION - STEP 1: Does the patient require help expressing complex and abstract ideas (such as current events, finances , discharge planning, medical issues, relationships, etc)? No. EXPRESSION - STEP 2: Does the patient need extra time, require an assistive device (such as augmentive communication syste m or a communication board), OR does s/he have mild difficulty expressing complex and abstract ideas (including mild dysarthria or mild word-find problems)? No. EXPRESSION - SCORE: 7-IND SOCIAL INTERACTION: SOCIAL INTERACTION - STEP 1: Does the patient require a helper to interact with others in social and therapeutic situations? No. SOCIAL INTERACTION - STEP 2: Does the patient need extra time in social situations, OR does s/he interact with staff, other patien ts, and family members ONLY in structured environments, OR does s/he require medication for social in teraction? No. SOCIAL INTERACTION - SCORE: 7-IND PROBLEM SOLVING: PROBLEM SOLVING - STEP 1: Does the patient need help to solve complex problems such as managing a checking account or confronti ng interpersonal problems? No. PROBLEM SOLVING - STEP 2: Does the patient require extra time to make decisions or solve problems, OR does s/he have slight dif ficulty reading, initiating, or self-correcting in unfamiliar situations? No. PROBLEM SOLVING - SCORE: 7-IND MEMORY: MEMORY - STEP 1: Does the patient need help to remember frequently encountered people, daily routines, and executing r equests? No. MEMORY - STEP 2: Does the patient have slight difficulty recognizing frequently encountered people, daily routines, or executing requests without the need for repetition or using self-initiated or environmental cues to remember? No. MEMORY - SCORE: 7-IND SIGNATURE PANEL: The following modified sections: Eating - Score, Grooming - Score, Bathing - Score, Dressing - Upper Body - Score, Dressing - Lower Body - Score, Toileting - Score, Transfers: Bed, Chair, Wheelchair - S core, Transfers: Toilet - Score, Transfers: Tub - Score, Transfers: Shower - Score, Comprehension - S core, Expression - Score, Social Interaction - Score, Problem Solving - Score, Memory - Score were [e lectronically] signed by Татьяна Hernandez OT on MonJun 16 2018 12:15:30 T-0500 ([facility])
--- NOTE | 2018-06-16 13:44 | FAST ---
SHIFT START DATE/TIME: 06/16/2018 07:00 (CDT) SHIFT END DATE/TIME: 06/16/2018 19:00 (CDT) NAME ANNALEE LOPEZ DATE OF : 1930 DATE OF ADMISSION: 06/15/2018 16:01 (CDT) PHONE: AGE: 87 N# [id number] GENDER: Female ENCOUNTER PHYSICIAN: Dr. Rory Miner M.D. 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 EATING: EATING - STEP 1: Does the patient require assistance when eating? Yes. EATING - STEP 2: Does the patient require the assistance of a helper? No, patient only requires an assistive device, O R s/he takes more than reasonable time to eat, OR there is a safety concern, OR s/he requires modifie d food consistency EATING - SCORE: 6-JENISE GROOMING: Comb/brush hair Oral care Wash, rinse, and dry face Wash, rinse, and dry hands GROOMING - STEP 1: Does the patient require assistance when grooming? Yes. GROOMING - STEP 2: Does the patient require the assistance of a helper? Yes. GROOMING - STEP 3: How much assistance does the patient require from the helper? Only prior equipment preparation/set up from the helper GROOMING - SCORE: 5-SUP BATHING: Activity did not occur on this shift BATHING - SCORE: 0-UNK DRESSING - UPPER BODY: Activity did not occur on this shift ARTICLES SCORE Total number of steps: 0 DRESSING - UPPER BODY - SCORE: 0-UNK DRESSING - LOWER BODY: Activity did not occur on this shift ARTICLES SCORE Total number of steps: 0 DRESSING - LOWER BODY - SCORE: 0-UNK TOILETING: TOILETING - STEP 1: Does the patient require assistance with toileting? Yes. TOILETING - STEP 2: Does the patient require the assistance of a helper? Yes. TOILETING - STEP 3: How much assistance does the patient require from the helper? Hands-on assistance from the helper TOILETING - STEP 4: Of the 3 tasks: 1) Adjusting clothing prior to use, 2) Cleansing of perineal area, 3) Adjusting clot luis after use; How many tasks does the patient perform WITHOUT assistance of the helper? Two tasks TOILETING - SCORE: 3-MOD BLADDER MANAGEMENT: BLADDER MANAGEMENT - STEP 1: Does the patient control the bladder completely and intentionally without equipment or devices or med ications, and is always continent? No. BLADDER MANAGEMENT - STEP 2: Does the patient require the assistance of a helper? No, patient requires and independently uses an a ssistive device, such as a urinal, bedpan, bedside commode, catheter, absorbent pad, or collecting de vice BLADDER MANAGEMENT - SCORE: 6-JENISE BOWEL MANAGEMENT: Activity did not occur on this shift BOWEL MANAGEMENT - SCORE: 7-IND TRANSFERS: BED, CHAIR, WHEELCHAIR: TRANSFERS: BED, CHAIR, WHEELCHAIR - STEP 1: Does the patient require assistance with bed, chair, or wheelchair transfers? Yes. TRANSFERS: BED, CHAIR, WHEELCHAIR - STEP 2: Does the patient require the assistance of a helper? Yes. TRANSFERS: BED, CHAIR, WHEELCHAIR - STEP 3: How much assistance does the patient require from the helper? Steadying/guiding assistance TRANSFERS: BED, CHAIR, WHEELCHAIR - SCORE: 4-MIN TRANSFERS: TOILET: TRANSFERS: TOILET - STEP 1: Does the patient require assistance with toilet transfers? Yes. TRANSFERS: TOILET - STEP 2: Does the patient require the assistance of a helper? Yes. TRANSFERS: TOILET - STEP 3: How much assistance does the patient require from the helper? Patient performs half or more of the tr ansferring tasks TRANSFERS: TOILET - STEP 4: Does the patient need only incidental help such as contact guard or steadying during toilet transfer? Yes. TRANSFERS: TOILET - SCORE: 4-MIN TRANSFERS: SHOWER: Activity did not occur on this shift TRANSFERS: SHOWER - SCORE: 0-UNK TRANSFERS: TUB: Activity did not occur on this shift TRANSFERS: TUB - SCORE: 0-UNK LOCOMOTION: WALK: Activity did not occur on this shift LOCOMOTION: WALK - SCORE: 0-UNK LOCOMOTION: WHEELCHAIR: Activity did not occur on this shift LOCOMOTION: WHEELCHAIR - SCORE: 0-UNK COMPREHENSION: COMPREHENSION: TYPE: Both COMPREHENSION - STEP 1: Does the patient require help to understand complex and abstract ideas (such as current events, finan elena, discharge planning, medical issues, relationships, etc)? No. COMPREHENSION - STEP 2: Does the patient need extra time, require an assistive device (such as glasses for visual comprehensi on or a hearing aid for auditory comprehension) or does s/he have mild difficulty understanding compl ex and abstract information? Yes. COMPREHENSION - SCORE: 6-JENISE EXPRESSION EXPRESSION: TYPE: Both EXPRESSION - STEP 1: Does the patient require help expressing complex and abstract ideas (such as current events, finances , discharge planning, medical issues, relationships, etc)? No. EXPRESSION - STEP 2: Does the patient need extra time, require an assistive device (such as augmentive communication syste m or a communication board), OR does s/he have mild difficulty expressing complex and abstract ideas (including mild dysarthria or mild word-find problems)? Yes. EXPRESSION - SCORE: 6-JENISE SOCIAL INTERACTION: SOCIAL INTERACTION - STEP 1: Does the patient require a helper to interact with others in social and therapeutic situations? No. SOCIAL INTERACTION - STEP 2: Does the patient need extra time in social situations, OR does s/he interact with staff, other patien ts, and family members ONLY in structured environments, OR does s/he require medication for social in teraction? Yes, patient needs extra time SOCIAL INTERACTION - SCORE: 6-JENISE PROBLEM SOLVING: PROBLEM SOLVING - STEP 1: Does the patient need help to solve complex problems such as managing a checking account or confronti ng interpersonal problems? No. PROBLEM SOLVING - STEP 2: Does the patient require extra time to make decisions or solve problems, OR does s/he have slight dif ficulty reading, initiating, or self-correcting in unfamiliar situations? Yes, patient needs extra ti me. PROBLEM SOLVING - SCORE: 6-JENISE MEMORY: MEMORY - STEP 1: Does the patient need help to remember frequently encountered people, daily routines, and executing r equests? No. MEMORY - STEP 2: Does the patient have slight difficulty recognizing frequently encountered people, daily routines, or executing requests without the need for repetition or using self-initiated or environmental cues to remember? No. MEMORY - SCORE: 7-IND SIGNATURE PANEL: The following modified sections: Eating - Score, Grooming - Score, Bathing - Score, Dressing - Upper Body - Score, Dressing - Lower Body - Score, Toileting - Score, Bladder Management - Score, Bowel Man agement - Score, Transfers: Bed, Chair, Wheelchair - Score, Transfers: Toilet - Score, Transfers: Nayely wer - Score, Transfers: Tub - Score, Locomotion: Walk - Score, Locomotion: Wheelchair - Score, Compre hension - Score, Expression - Score, Social Interaction - Score, Problem Solving - Score, Memory - Sc ore were [electronically] signed by Richar Perdomo on Sat Jun 16 2018 13:43:21 GMT-0500 (Central Daylight Time)
--- NOTE | 2018-06-16 18:04 | P.HP ---
Certification for Inpatient Patient admitted to: Inpatient With expected LOS: >2 Midnights Practitioner: I am a practitioner with admitting privileges, knowledge of patient current condition, hospital course, and medical plan of care. Services: Services provided to patient in accordance with Admission requirements found in Title 42 Section 412.3 of the Code of Federal Regulations Patient History Date of Service: 06/16/18 Reason for admission: WEAKNESS AFTER L2-3 INFECTION SP STEM CELL IMPLANT History of Present Illness: MS. LOPEZ IS 87 YEARS OLD LADY WITH SEVERE SPINAL ARTHRITIS , WENT TO [facility] FACILITY BUT DEVELOPED INFECTION OF THE L 2-3 REGION. SHE WAS AT [facility] AND LATER AT [place] FOR ABX AND PT. SHE IS NOT SENT TO REHAB LOCALLY HERE. Allergies codeine Allergy (Verified 06/16/18 03:04) Unknown cortisone [Cortisone] Allergy (Verified 06/15/18 20:22) increased blood pressure Metronidazole HCl [From Flagyl] Allergy (Verified 06/15/18 20:22) rapid heart rate Penicillins Allergy (Verified 06/15/18 20:22) Rash prednisone Adverse Reaction (Verified 06/16/18 03:04) increases blood pressure Home Medications: Aspirin 81 mg PO DAILY 11/25/14 Carvedilol [Coreg] 12.5 mg PO DAILY 11/25/14 Celecoxib [Celebrex*] 200 mg PO DAILY PRN 11/25/14 Lisinopril/Hydrochlorothiazide [Zestoretic 20-12.5 mg Tablet] 20 mg PO DAILY Acetam/Caff/Butal [Fioricet] 1 tab PO Q6H PRN #40 tab 08/22/15 - Past Medical/Surgical History Has patient received pneumonia vaccine in the past: Yes Diabetic: No -: HTN -: TIA -: hyperlipidemia -: pelvic fracture -: hip replacement -: hysterectomy -: back surgery - Family History Father -: Heart disease, Hypertension Mother -: Heart disease, Hypertension - Social History Smoking Status: Never smoker Alcohol use: No CD- Drugs: No Caffeine use: Yes Place of Residence: Home Review of Systems 10-point ROS is otherwise unremarkable General: Weakness, Malaise Musculoskeletal: Back Pain Physical Examination - Vital Signs Temperature: 97.8 F Blood Pressure: 142/65 Pulse: 72 Respirations: 16 Pulse Ox (%): 95 - Physical Exam General: Alert, Mild distress, Moderate distress HEENT: Atraumatic, PERRLA, Mucous membr. moist/pink, EOMI, Sclerae nonicteric Neck: Supple, 2+ carotid pulse no bruit, No LAD, Without JVD or thyroid abnormality Respiratory: Clear to auscultation bilaterally, Normal air movement Cardiovascular: Regular rate/rhythm, Normal S1 S2 Gastrointestinal: Normal bowel sounds, No tenderness Musculoskeletal: Other (POST SURGICAL WELL HEALED BACK.) Integumentary: No rashes Neurological: Normal gait, Normal speech, Normal strength at 5/5 x4 extr, Normal tone, Normal affect Lymphatics: No axilla or inguinal lymphadenopathy - Studies Laboratory Data (last 24 hrs) 06/16/18 05:25: Sodium 142, Potassium 3.5, BUN 18, Creatinine 0.40 L, Glucose 95 , Magnesium 2.0, Total Bilirubin 0.4, AST 14 L, ALT 16, Alkaline Phosphatase 97 06/16/18 05:25: WBC 4.8, Hgb 9.6 L, Hct 28.7 L, Plt Count 226 Assessment and Plan - Problems (Diagnosis) (1) Infection of vertebra Current Visit: Yes Status: Acute Plan: POST STEM CELL TRANSPLANT, 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 SHE IS RECOVERING. SHE HAS FINISHED ANTIBIOTICS. WILL FU WITH MRI AGAIN. SHE IS HERE FOR THERAPY. ELIQUIS FOR PROPHYLAXIS. CHECK LAB AND SED RATE. - Advance Directives Does patient have a Living Will: Yes Does patient have a Durable POA for Healthcare: Yes
--- NOTE | 2018-06-16 19:50 | R.HP ---
FACILITY: [facility] ENCOUNTER DATE AND TIME: 06/16/2018 19:47 (CDT) MR#: [id number] NAME ANNALEE LOPEZ ADDRESS: [address] [place] [address] [address] [facility] [place] [place] [address] PHONE: DATE OF : 1930 AGE: 87 SSN# [id number] GENDER: Female DEXTERITY Right-handed MARITAL STATUS RACE [place] PRE-HOSPITAL LIVING SETTING 01 - Home (private home/apt. board/care, assisted living, assisted, transitional living) PRE-HOSPITAL LIVING WITH Family/Relatives ENCOUNTER PHYSICIAN: Dr. Rory Miner M.D. REFERRING DOCTOR: RASHIDA Pickard DATE OF ADMISSION: 06/15/2018 16:01 (CDT) REFERRING FACILITY [facility] HOME TYPE AND DETAILS: Type of home: single family house # of steps within the residence: 0 # of steps to enter the residence: 0 # of levels in the residence: 1 ADMISSION DIAGNOSIS: spinal cord abcess ONSET DATE: 05/11/2018 PRIMARY DIAGNOSIS-RELATED SURGERIES: No surgeries related to the primary diagnosis were performed. SECONDARY/COMORBID DIAGNOSES (TIERED): - Non-Tiered osteoporosis rheumatoid arthritis acute renal failure - N/A ATRIAL FIBRILLATION hypertension HISTORY OF PRESENT ILLNESS (HPI): Pt. is a 87 yo Right-handed white female. On 05/11/2018 she was admitted to [facility] with diagnosis spinal cord abcess. Her impairment category is Spinal Cord Dysfunction 04 - Other Non-traumatic Spinal Cord Dysfunction (04.130). Pre-morbidly, Pt. was independent/mod-I in Communication, Social Cognition, Self-Care, Locomotion, Sp hincter Control, and Transfers Control; and she had good Sphincter Control. Currently, she has deficits of Balance, Locomotion, Endurance, Safety Awareness, Transfers Control, a nd Self-Care. Pt. is now referred to [facility] for acute in-patient rehabilitation in order to maximize patient's functional independence in activities of daily living, strength, ROM, and mobi lity. Patient has realistic goal of being discharged at assistance level 1-Dep to reside at Home with Fami ly/Relatives. MEDICATION ALLERGIES: penicillin ENVIRONMENTAL ALLERGIES: - Substance Allergies None Known - Other Allergies None Known PAST MEDICAL HISTORY: ATRIAL FIBRILLATION acute renal failure hypertension osteoporosis rheumatoid arthritis FAMILY HISTORY: Family history is not contributory. SOCIAL HISTORY: - Home Living Family/Relatives REVIEW OF SYSTEMS: - Gen No Chills Fatigue No Fever - Eyes No Double Vision No itchiness - ENMT No Difficulty Swallowing - CVS No Chest Discomfort No Chest Pain No Fatigue No Weight Gain - Resp No Cough No Shortness of Breath - GI Continent No Abdominal Pain No Constipation No Diarrhea - Continent No Kidney Pain No Painful Urination No Urinary Urgency - MSK No Joint Pain Muscle Cramps Stiffness - Skin No Itching No Rash No Suspicious Lesions - Neuro No Coordination Difficulty No Difficulty with Concentration No Memory Loss No Seizures Weakness - Psych No Anxiety No Depression No HIV Exposure No Persistent Infections No Seasonal Allergies - Endo No Cold/Heat Intolerance No Excessive Hunger No Excessive Thirst No Excessive Urination PHYSICAL EXAM - Gen Alert and awake Lying in bed No apparent distress Oriented to: person, time, and place - Skin No skin breakdown. No abnormalities - Eyes No abnormalities - ENMT No abnormalities - Neck No abnormalities - CVS RRR - Chest Clear - Abd Soft - GI Non tender Deferred - No abnormalities - Ext No significant edema - MSK 4+/5 weakness in both lower extremities. - Neuro 4/5 strength right upper and lower extremities. - Psych No abnormalities VITAL SIGNS Temperature: 98.6 F SBP/DBP: 128/62 Pulse: 86 Resp: 20 NURSING: - Shower allowing shower - Bladder care per protocol - Skin care per protocol ACTIVITIES OOB only with supervision FUNCTIONAL STATUS: - Self-Care A. Eating Ind Ind B. Grooming Ind sup C. Bathing Ind modA D. Dressing - Upper Ind modA E. Dressing - Lower Ind modA F. Toileting Ind Chris - Sphincter Control G: Bladder control Ind Dep H: Bowel control Ind Dep - Transfers Control I. Bed/Chair/Wheelchair Ind modA J. Toilet Ind modA K. Tub/Shower Ind Chris - Locomotion L. Walk/Wheelchair (B) Toribio Chris M. Stairs Ind ADNO - Communication N. Comprehension (B) Ind Toribio O. Expression (B) Ind Toribio - Social Cognition P. Social Interaction Ind Toribio Q. Problem Solving Ind Toribio R. Memory Ind Toribio - Endurance Poor - Balance Fair - Safety Awareness Poor CURRENT FUNC. DEFICITS: Balance, Locomotion, Endurance, Safety Awareness, Transfers Control, and Self-Care ASSESSMENT: Pt. is a 87 yo Right-handed white female.On 05/11/2018 she was admitted to [facility] with alexia gnosis spinal cord abcess.Her impairment category is Spinal Cord Dysfunction 04 - Other Non-traumati c Spinal Cord Dysfunction (04.130).Pre-morbidly, Pt. was independent/mod-I in Communication, Social C ognition, Self-Care, Locomotion, Sphincter Control, and Transfers Control; and she had good Sphincter Control.Currently, she has deficits of Balance, Locomotion, Endurance, Safety Awareness, Transfers C ontrol, and Self-Care.Pt. is now referred to [facility] for acute in-patient r ehabilitation in order to maximize patient's functional independence in activities of daily living, s trength, ROM, and mobility.- Rehab Goal Patient has realistic goal of being discharged at assistance level 1-Dep to reside at Home with Fami ly/Relatives. REHAB PLAN: - Physical Therapy Gait dysfunction - to improve, our physical therapists will perform initial evaluation of pt's status upon admission and devise an individualized program for Gait Training, and Wheel Chair mobility Inability to transfer - to improve, our physical therapists will perform initial evaluation of pt's s tatus upon admission and devise an individualized program for Bed mobility Need for home safety evaluation - to improve, our physical therapists will perform initial evaluation of pt's status upon admission and devise an individualized program for Home Evaluation Need in caregiver upon discharge - to improve, our physical therapists will perform initial evaluatio n of pt's status upon admission and devise an individualized program for Caregiver Training New precaution - to improve, our physical therapists will perform initial evaluation of pt's status u víctor admission and devise an individualized program for Patient precaution education Edema - to improve, our physical therapists will perform initial evaluation of pt's status upon admi ssion and devise an individualized program for Elevation Training, and Lymphedema Therapy Poor balance - to improve, our physical therapists will perform initial evaluation of pt's status upo n admission and devise an individualized program for Balance Training Poor endurance - to improve, our physical therapists will perform initial evaluation of pt's status u víctor admission and devise an individualized program for Endurance Training Weakness - to improve, our physical therapists will perform initial evaluation of pt's status upon ad mission and devise an individualized program for Aquatic Therapy, Neuromuscular Reeducation, and Stre ngthening Achieving independence - to improve, our physical therapists will perform initial evaluation of pt's status upon admission and devise an individualized program for Community Reintegration Activities - Occupational Therapy ADL deficits - to improve, our occupation therapists will perform initial evaluation of pt's status u víctor admission and devise an individualized program for Bathing, Bed mobility, Community Reintegration , Cooking, Dressing, Eating, Fine Motor Skills, Grooming, Homemaking, Kitchen Mobility, Laundry, Tiffany ent Education, Safety Awareness, Splinting - Positioning, Transfers(Toilet, Tub, Shower), and Wheel C hair Management Need for direct care counselor - to improve, our occupation therapists will perform initial evaluation of pt's s tatus upon admission and devise an individualized program for Caregiver Training Weakness - to improve, our occupation therapists will perform initial evaluation of pt's status upon admission and devise an individualized program for Aquatic Therapy, Balance, Endurance, UE ROM, and U E strengthening MEDICAL PLAN: - Diet Type Start Regular - Diet - Liquid Texture Start Regular - Tube Feed Start N/A - Bladder care per protocol - Skin care per protocol - Diet - Solid Texture Regular - Shower shower DISCHARGE PLAN: - Estimated Length of Stay (days) 16. - Consensus on plan Discharge plan has been discussed with primary caregiver. Patient/Family is in agreement with the luli n. Primary caregiver is in agreement with the plan. - Patient/Family Goals Return home with assistance. - Planned Living Setting Upon Discharge Home, to live with Family/Relatives. SIGNATURE PANEL: (CDT)
--- NOTE | 2018-06-16 19:52 | PAPE ---
PATIENT: [facility] MR# [id number] REFERRING DOCTOR RASHIDA Pickard EVALUATION DATE AND TIME 06/16/2018 19:50 (CDT) NAME ANNALEE LOPEZ DATE OF 1930 AGE 87 PHONE N# [id number] GENDER female EVALUATING PHYSICIAN Dr. Rory Miner M.D. ADMISSION DIAGNOSIS: spinal cord abcess ONSET DATE 05/11/2018 SECONDARY/COMORBID DIAGNOSES TIERED: - Non-Tiered osteoporosis rheumatoid arthritis acute renal failure - N/A ATRIAL FIBRILLATION hypertension POST-ADMISSION FUNCTIONAL/MEDICAL STATUS: - Bladder Same Bladder control device used: diaper Same accident frequency: Ind - No accidents in the past 7 days - Bowel Same Bowel control device used: diaper Same accident frequency: Ind - No accidents in the past 7 days - Walking Same score based on distance walked: 3(>=150ft) - Wheelchair Same score based on distance traveled: 3(>=150ft) STATUS CHANGE EVALUATION: No change in Functional or Medical Status is identified compared with Pre-Admission screening. PATIENT NEEDS CLOSE MEDICAL SUPERVISION BY A REHABILITATION PHYSICIAN FOR: Bowel and Bladder Management Coordination of Treatment Team Medical and Co-Morbidity Management PATIENT REQUIRES 24X7 REHAB NURSING FOR MEDICAL AND FUNCTIONAL MGT. OF THE FOLLOWING DEFICITS: ADL's Ambulation Bowel and Bladder Management Cognition Communication Disease Management Medication Management Patient/Family Education Providing Safe Environment Transfers PATIENT REQUIRES INTENSIVE, COORDINATED INTERDISCIPLINARY APPROACH TO REHAB: Arranging Home Equipment/Services Discharge Planning Family Intervention/Training Rn Circulating/Case Management LIST OF IDENTIFIED AND POTENTIAL PROBLEMS: Alteration in leisure activities Bladder, Incontinence Blood Pressure, Hypertension/hypotension Issues Bowel, Incontinence Infection, Actual or Potential Mobility Impaired Pain, Alteration in Comfort Self Care Deficit Skin Integrity, Actual or Potential Urinary Tract Infection (UTI), Actual or Potential RISK FOR COMPLICATIONS - Atrial Fibrillation CVA. Heart failure. Limb embolus. - Hypertension CVA. Hypotension. MA. TIA. - Osteoporosis Falls. Fractures (pathological). - Rheumatoid Arthritis Joint deformity. Ligament damage. INTERVENTIONS - Atrial Fibrillation Anticoagulation. Medications. VS. - Hypertension - Osteoporosis Medications. Safety. - Rheumatoid Arthritis Energy conservation. Exercise. Joint Protection. Medications. PATIENT COULD BE AT RISK FOR COMPLICATIONS FROM ADVERSE MEDICAL CONDITIONS DUE TO HIS/HER COMORBIDITI ES AND THE RIGORS OF THE INTENSIVE REHABILLITATION PROGRAM. METHODS OR INTERVENTIONS TO AVOID COMPLIC ATIONS INCLUDE: - Infection Clinical staff to assess and manage the signs and symptoms of infection including fever, redness, war mth, etc. - Urinary Tract Infection - Falls Patient will be evaluated for Fall Precautions and will be placed on Fall Precautions as indicated pe r protocol. - Skin Breakdown Nursing will assess skin daily using assessment tool and will place on Skin Breakdown Precautions as indicated per protocol. - Pain Clinical staff may employ non-medication methods such as massage, distraction, decrease stimulus, etc . as needed. Clinical staff will assess patient's pain level every shift per protocol to assess and e nsure pain management effectiveness. Medications will be given and the pain level re-assessed. PRELIMINARY PLAN OF CARE: - Physical Therapy Patient needs Physical Therapy for a daily minimum of 1.5 hours at least 5 out of 7 days, to improve: Mobility, Strengthening, Transfers, Stretching, ROM, Endurance, Ability to manage stairs, Gait, and Balance. - Rehabilitation Nursing Patient requires 24x7 Rehabilitation Nursing for: Pain Issues, Identifying and preventing risk factor s, Monitoring and reporting current medical conditions, Assisting with ambulation and transfer, Hugo ting with all ADL-s, Teaching patients about disease process and medications, Family teaching, Provid ing safe environment, Bowel and Bladder Issues, Skin Integrity, and Medication Management. Patient needs Rn Circulating and/or Case Management for: Discharge Planning, Arranging Home Equipmen t or Services, and Family Interventions. - Dietary and Nutrition Services Patient needs Dietary and Nutrition Services for: Adequate Nutrition, Nutritional Supplements, and Nu tritional Education. - Occupational Therapy Patient needs Occupational Therapy for a daily minimum of 1.5 hours at least 5 out of 7 days, to impr ove Activities of Daily Living, including: Eating, Grooming, Bathing, Dressing, Toileting, Toilet Tra nsfers, Community Reintegration, Higher functional activities, Adaptive Equipment, Splinting, Househo ld Tasks, and Other activities as determined. POTENTIAL FUNCTIONAL GOALS FOR PATIENT TO ACHIEVE BY DISCHARGE: - Safety Precaution Patient will remain free from falls or injury at time of discharge. - Bed Mobility Patient will perform bed mobility at 4-Chris level of assistance. - Transfers Patient will complete transfers from bed to chair at 4-Chris level of assistance. - Mobility Patient will ambulate 150 ft with 4-Chris level of assistance with RW. PATIENT REHAB POTENTIAL Expected level of measurable improvement will be of a practical value to patient's functional capacit y or adaptations to impairments Has a viable Discharge Plan Medically appropriate; condition is sufficiently stable to participate in intensive rehab program Patient is able and expected to receive 3 hours of individualized therapy daily on at least 5 of ever y 7 days Patient's prognosis for significant practical improvement within a reasonable period of time appears Good DISCHARGE PLAN: - Estimated Length of Stay (days) 16. - Consensus on plan Discharge plan has been discussed with primary caregiver. Patient/Family is in agreement with the luli n. Primary caregiver is in agreement with the plan. - Patient/Family Goals Return home with assistance. - Planned Living Setting Upon Discharge Home, to live with Family/Relatives. CONCLUSION ON REHABILITATION NECESSITY: I have evaluated patient's pre-admission functional status and, comparing it to the patient's post-ad mission functional status now, I conclude that the pre-admission assessment was accurate. Patient's c ondition on admission supports the medical necessity of admission to IRF. It is safe to proceed with patient's therapy program. SIGNATURE PANEL: (CDT)
[2018-06-16] MEDS: DOCUSATE NA/SENNA CONC 1 TAB PO SCH (20:13)
[2018-06-16] MEDS: ATORVASTATIN 80 MG TAB PO SCH (20:14)
[2018-06-16] MEDS: MELATONIN 3 MG TABLET PO PRN (20:14)
[2018-06-16 20:54] LABS: Urine Appearance CLEAR; Urine Bilirubin NEGATIVE (NEG); Urine Blood NEGATIVE (NEG); Urine Color YELLOW; Urine Glucose NEGATIVE (NEG); Urine Protein TRACE (NEG); Urine Specific Gravity >=1.030 (1.005-1.030)
[2018-06-16 21:29] LABS: Calcium Oxalate Crystals- Ur MODERATE (NONE SEEN); Urine Bacteria <20 /HPF (<20); Urine Culture Reflex Order NOT NEEDED; Urine Mucus MOD /HPF (NONE SEEN); Urine RBC NONE SEEN /HPF (NONE SEEN)
[2018-06-17] MEDS: FERROUS SULFATE 325 MG TAB PO SCH ×3 (01:01→16:45)
--- NOTE | 2018-06-17 02:00 | FAST ---
SHIFT START DATE/TIME: 06/16/2018 19:00 (CDT) SHIFT END DATE/TIME: 06/17/2018 06:00 (CHURCH ORGANIST) NAME ANNALEE LOPEZ DATE OF : 1930 DATE OF ADMISSION: 06/15/2018 16:01 (CDT) PHONE: AGE: 87 N# [id number] GENDER: Female ENCOUNTER PHYSICIAN: Dr. Rory Miner M.D. 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 EATING: Activity did not occur on this shift EATING - SCORE: 0-UNK GROOMING: Wash, rinse, and dry hands GROOMING - STEP 1: Does the patient require assistance when grooming? Yes. GROOMING - STEP 2: Does the patient require the assistance of a helper? Yes. GROOMING - STEP 3: How much assistance does the patient require from the helper? Only prior equipment preparation/set up from the helper GROOMING - SCORE: 5-SUP BATHING: Activity did not occur on this shift BATHING - SCORE: 0-UNK DRESSING - UPPER BODY: Patient is not dressing in public clothing ARTICLES SCORE Total number of steps: 0 DRESSING - UPPER BODY - SCORE: 0-UNK DRESSING - LOWER BODY: Patient is not dressing in public clothing ARTICLES SCORE Total number of steps: 0 DRESSING - LOWER BODY - SCORE: 0-UNK TOILETING: TOILETING - STEP 1: Does the patient require assistance with toileting? Yes. TOILETING - STEP 2: Does the patient require the assistance of a helper? Yes. TOILETING - STEP 3: How much assistance does the patient require from the helper? Only supervision TOILETING - SCORE: 5-SUP BLADDER MANAGEMENT: BLADDER MANAGEMENT - STEP 1: Does the patient control the bladder completely and intentionally without equipment or devices or med ications, and is always continent? No. BLADDER MANAGEMENT - STEP 2: Does the patient require the assistance of a helper? Yes. BLADDER MANAGEMENT - STEP 3: How much assistance does the patient require from the helper? Only supervision, stand-by, cuing, or c oaxing BLADDER MANAGEMENT - SCORE: 5-SUP BOWEL MANAGEMENT: Activity did not occur on this shift BOWEL MANAGEMENT - SCORE: 7-IND TRANSFERS: BED, CHAIR, WHEELCHAIR: TRANSFERS: BED, CHAIR, WHEELCHAIR - STEP 1: Does the patient require assistance with bed, chair, or wheelchair transfers? Yes. TRANSFERS: BED, CHAIR, WHEELCHAIR - STEP 2: Does the patient require the assistance of a helper? Yes. TRANSFERS: BED, CHAIR, WHEELCHAIR - STEP 3: How much assistance does the patient require from the helper? Only supervision TRANSFERS: BED, CHAIR, WHEELCHAIR - SCORE: 5-SUP TRANSFERS: TOILET: TRANSFERS: TOILET - STEP 1: Does the patient require assistance with toilet transfers? Yes. TRANSFERS: TOILET - STEP 2: Does the patient require the assistance of a helper? Yes. TRANSFERS: TOILET - STEP 3: How much assistance does the patient require from the helper? Only supervision, cuing, coaxing, OR he lp to set out transfer equipment or to lock brakes and/or lift foot rests TRANSFERS: TOILET - SCORE: 5-SUP TRANSFERS: SHOWER: Activity did not occur on this shift TRANSFERS: SHOWER - SCORE: 0-UNK TRANSFERS: TUB: Activity did not occur on this shift TRANSFERS: TUB - SCORE: 0-UNK LOCOMOTION: WALK: Activity did not occur on this shift LOCOMOTION: WALK - SCORE: 0-UNK LOCOMOTION: WHEELCHAIR: Activity did not occur on this shift LOCOMOTION: WHEELCHAIR - SCORE: 0-UNK COMPREHENSION: COMPREHENSION: TYPE: Both COMPREHENSION - STEP 1: Does the patient require help to understand complex and abstract ideas (such as current events, finan elena, discharge planning, medical issues, relationships, etc)? No. COMPREHENSION - STEP 2: Does the patient need extra time, require an assistive device (such as glasses for visual comprehensi on or a hearing aid for auditory comprehension) or does s/he have mild difficulty understanding compl ex and abstract information? Yes. COMPREHENSION - SCORE: 6-JENISE EXPRESSION EXPRESSION: TYPE: Both EXPRESSION - STEP 1: Does the patient require help expressing complex and abstract ideas (such as current events, finances , discharge planning, medical issues, relationships, etc)? No. EXPRESSION - STEP 2: Does the patient need extra time, require an assistive device (such as augmentive communication syste m or a communication board), OR does s/he have mild difficulty expressing complex and abstract ideas (including mild dysarthria or mild word-find problems)? No. EXPRESSION - SCORE: 7-IND SOCIAL INTERACTION: SOCIAL INTERACTION - STEP 1: Does the patient require a helper to interact with others in social and therapeutic situations? No. SOCIAL INTERACTION - STEP 2: Does the patient need extra time in social situations, OR does s/he interact with staff, other patien ts, and family members ONLY in structured environments, OR does s/he require medication for social in teraction? No. SOCIAL INTERACTION - SCORE: 7-IND PROBLEM SOLVING: PROBLEM SOLVING - STEP 1: Does the patient need help to solve complex problems such as managing a checking account or confronti ng interpersonal problems? No. PROBLEM SOLVING - STEP 2: Does the patient require extra time to make decisions or solve problems, OR does s/he have slight dif ficulty reading, initiating, or self-correcting in unfamiliar situations? No. PROBLEM SOLVING - SCORE: 7-IND MEMORY: MEMORY - STEP 1: Does the patient need help to remember frequently encountered people, daily routines, and executing r equests? No. MEMORY - STEP 2: Does the patient have slight difficulty recognizing frequently encountered people, daily routines, or executing requests without the need for repetition or using self-initiated or environmental cues to remember? No. MEMORY - SCORE: 7-IND SIGNATURE PANEL: The following modified sections: Eating - Score, Grooming - Score, Bathing - Score, Dressing - Upper Body - Score, Dressing - Lower Body - Score, Toileting - Score, Bladder Management - Score, Bowel Man agement - Score, Transfers: Bed, Chair, Wheelchair - Score, Transfers: Toilet - Score, Transfers: Nayely wer - Score, Transfers: Tub - Score, Locomotion: Walk - Score, Locomotion: Wheelchair - Score, Compre hension - Score, Expression - Score, Social Interaction - Score, Problem Solving - Score, Memory - Sc ore were [electronically] signed by Jennifer Alva RN on MonJun 17 2018 01:31:02 GMT-0600 (Central Stand linda Time)
[2018-06-17] MEDS: LACTULOSE 20 GM/30 ML UCUP PO SCH ×2 (05:00→16:45)
[2018-06-17] MEDS: CARVEDILOL 3.125 MG TAB PO SCH (05:02)
[2018-06-17] MEDS: POLYETHYL GLY 3350 17 GM/DOSE PO SCH (08:00)
[2018-06-17] MEDS: ACETAMINOPHEN 325 MG TABLET PO PRN ×2 (08:23→15:36)
[2018-06-17] MEDS: APIXABAN 5 MG TABLET PO SCH ×2 (08:23→19:31)
[2018-06-17] MEDS: PANTOPRAZOLE 40MG TABLET PO SCH (08:23)
[2018-06-17] MEDS: MULTIVITAMIN TAB PO SCH (08:23)
[2018-06-17] MEDS: LACTOBACILLUS/ACIDOPHILUS TAB PO SCH ×2 (08:23→19:31)
[2018-06-17] MEDS: LISINOPRIL 20 MG TAB PO SCH (08:27)
[2018-06-17] MEDS: CARVEDILOL 12.5 MG TAB PO SCH ×2 (08:28→17:00)
--- NOTE | 2018-06-17 11:21 | FAST ---
SHIFT START DATE/TIME: 06/17/2018 07:00 (PAINTER ORDNANCE) SHIFT END DATE/TIME: 06/17/2018 19:00 (PAINTER ORDNANCE) NAME ANNALEE LOPEZ DATE OF : 1930 DATE OF ADMISSION: 06/15/2018 16:01 (CDT) PHONE: AGE: 87 N# [id number] GENDER: Female ENCOUNTER PHYSICIAN: Dr. Rory Miner M.D. 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 EATING: EATING - STEP 1: Does the patient require assistance when eating? Yes. EATING - STEP 2: Does the patient require the assistance of a helper? No, patient only requires an assistive device, O R s/he takes more than reasonable time to eat, OR there is a safety concern, OR s/he requires modifie d food consistency EATING - SCORE: 6-JENISE GROOMING: Activity did not occur on this shift GROOMING - SCORE: 0-UNK BATHING: Activity did not occur on this shift BATHING - SCORE: 0-UNK DRESSING - UPPER BODY: Sweater (four steps) ARTICLES SCORE Total number of steps: 4 DRESSING - UPPER BODY - STEP 1: Does the patient require help when dressing above the waist? Yes. DRESSING - UPPER BODY - STEP 2: Does the patient require the assistance of a helper? No. Patient only requires an assistive device, s uch as a button hook, velcro, or licensed guide. OR s/he takes more than reasonable time as s/he dresses the upper body. OR there is a concern for safety when s/he dresses the upper body DRESSING - UPPER BODY - SCORE: 6-JENISE DRESSING - LOWER BODY: ARTICLES SCORE Total number of steps: 5 DRESSING - LOWER BODY - STEP 1: Does the patient require help when dressing below the waist? Yes. DRESSING - LOWER BODY - STEP 2: Does the patient require the assistance of a helper? Yes. DRESSING - LOWER BODY - STEP 3: Does the helper touch the patient while dressing? No. DRESSING - LOWER BODY - SCORE: 5-SUP TOILETING: TOILETING - STEP 1: Does the patient require assistance with toileting? Yes. TOILETING - STEP 2: Does the patient require the assistance of a helper? Yes. TOILETING - STEP 3: How much assistance does the patient require from the helper? Hands-on assistance from the helper TOILETING - STEP 4: Of the 3 tasks: 1) Adjusting clothing prior to use, 2) Cleansing of perineal area, 3) Adjusting clot luis after use; How many tasks does the patient perform WITHOUT assistance of the helper? Three tasks with steadying assistance from the helper TOILETING - SCORE: 4-MIN BLADDER MANAGEMENT: BLADDER MANAGEMENT - STEP 1: Does the patient control the bladder completely and intentionally without equipment or devices or med ications, and is always continent? No. BLADDER MANAGEMENT - STEP 2: Does the patient require the assistance of a helper? No, patient requires and independently uses an a ssistive device, such as a urinal, bedpan, bedside commode, catheter, absorbent pad, or collecting de vice BLADDER MANAGEMENT - SCORE: 6-JENISE BOWEL MANAGEMENT: Activity did not occur on this shift BOWEL MANAGEMENT - SCORE: 7-IND TRANSFERS: BED, CHAIR, WHEELCHAIR: TRANSFERS: BED, CHAIR, WHEELCHAIR - STEP 1: Does the patient require assistance with bed, chair, or wheelchair transfers? Yes. TRANSFERS: BED, CHAIR, WHEELCHAIR - STEP 2: Does the patient require the assistance of a helper? Yes. TRANSFERS: BED, CHAIR, WHEELCHAIR - STEP 3: How much assistance does the patient require from the helper? Steadying/guiding assistance TRANSFERS: BED, CHAIR, WHEELCHAIR - SCORE: 4-MIN TRANSFERS: TOILET: TRANSFERS: TOILET - STEP 1: Does the patient require assistance with toilet transfers? Yes. TRANSFERS: TOILET - STEP 2: Does the patient require the assistance of a helper? Yes. TRANSFERS: TOILET - STEP 3: How much assistance does the patient require from the helper? Patient performs half or more of the tr ansferring tasks TRANSFERS: TOILET - STEP 4: Does the patient need only incidental help such as contact guard or steadying during toilet transfer? Yes. TRANSFERS: TOILET - SCORE: 4-MIN TRANSFERS: SHOWER: Activity did not occur on this shift TRANSFERS: SHOWER - SCORE: 0-UNK TRANSFERS: TUB: Activity did not occur on this shift TRANSFERS: TUB - SCORE: 0-UNK LOCOMOTION: WALK: Activity did not occur on this shift LOCOMOTION: WALK - SCORE: 0-UNK LOCOMOTION: WHEELCHAIR: Activity did not occur on this shift LOCOMOTION: WHEELCHAIR - SCORE: 0-UNK COMPREHENSION: COMPREHENSION: TYPE: Both COMPREHENSION - STEP 1: Does the patient require help to understand complex and abstract ideas (such as current events, finan elena, discharge planning, medical issues, relationships, etc)? No. COMPREHENSION - STEP 2: Does the patient need extra time, require an assistive device (such as glasses for visual comprehensi on or a hearing aid for auditory comprehension) or does s/he have mild difficulty understanding compl ex and abstract information? Yes. COMPREHENSION - SCORE: 6-JENISE EXPRESSION EXPRESSION: TYPE: Both EXPRESSION - STEP 1: Does the patient require help expressing complex and abstract ideas (such as current events, finances , discharge planning, medical issues, relationships, etc)? No. EXPRESSION - STEP 2: Does the patient need extra time, require an assistive device (such as augmentive communication syste m or a communication board), OR does s/he have mild difficulty expressing complex and abstract ideas (including mild dysarthria or mild word-find problems)? No. EXPRESSION - SCORE: 7-IND SOCIAL INTERACTION: SOCIAL INTERACTION - STEP 1: Does the patient require a helper to interact with others in social and therapeutic situations? No. SOCIAL INTERACTION - STEP 2: Does the patient need extra time in social situations, OR does s/he interact with staff, other patien ts, and family members ONLY in structured environments, OR does s/he require medication for social in teraction? Yes, patient needs extra time SOCIAL INTERACTION - SCORE: 6-JENISE PROBLEM SOLVING: PROBLEM SOLVING - STEP 1: Does the patient need help to solve complex problems such as managing a checking account or confronti ng interpersonal problems? No. PROBLEM SOLVING - STEP 2: Does the patient require extra time to make decisions or solve problems, OR does s/he have slight dif ficulty reading, initiating, or self-correcting in unfamiliar situations? Yes, patient needs extra ti me. PROBLEM SOLVING - SCORE: 6-JENISE MEMORY: MEMORY - STEP 1: Does the patient need help to remember frequently encountered people, daily routines, and executing r equests? No. MEMORY - STEP 2: Does the patient have slight difficulty recognizing frequently encountered people, daily routines, or executing requests without the need for repetition or using self-initiated or environmental cues to remember? Yes. MEMORY - SCORE: 6-JENISE SIGNATURE PANEL: The following modified sections: Eating - Score, Grooming - Score, Bathing - Score, Dressing - Upper Body - Score, Dressing - Lower Body - Score, Toileting - Score, Bladder Management - Score, Bowel Man agement - Score, Transfers: Bed, Chair, Wheelchair - Score, Transfers: Toilet - Score, Transfers: Nayely wer - Score, Transfers: Tub - Score, Locomotion: Walk - Score, Locomotion: Wheelchair - Score, Compre hension - Score, Expression - Score, Social Interaction - Score, Problem Solving - Score, Memory - Sc ore were [electronically] signed by Richar Perdomo on MonJun 17 2018 11:21:06 GMT-0600 (Central Standard Time)
[2018-06-17] MEDS: TRAMADOL HCL 50 MG TAB PO PRN ×2 (12:04→20:27)
[2018-06-17] MEDS: MELATONIN 3 MG TABLET PO PRN (20:27)
[2018-06-17] MEDS: DOCUSATE NA/SENNA CONC 1 TAB PO SCH (20:27)
[2018-06-17] MEDS: ATORVASTATIN 80 MG TAB PO SCH (20:27)
[2018-06-18] MEDS: FERROUS SULFATE 325 MG TAB PO SCH ×3 (01:08→16:44)
[2018-06-18] MEDS: TRAMADOL HCL 50 MG TAB PO PRN ×4 (01:17→16:43)
--- NOTE | 2018-06-18 01:28 | FAST ---
SHIFT START DATE/TIME: 06/17/2018 19:00 (MECHANICAL SERVICE SPECIALIST) SHIFT END DATE/TIME: 06/18/2018 07:00 (MECHANICAL SERVICE SPECIALIST) NAME ANNALEE LOPZE DATE OF : 1930 DATE OF ADMISSION: 06/15/2018 16:01 (CDT) PHONE: AGE: 87 N# [id number] GENDER: Female ENCOUNTER PHYSICIAN: Dr. Rory Miner M.D. 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 EATING: Activity did not occur on this shift EATING - SCORE: 0-UNK GROOMING: Wash, rinse, and dry hands GROOMING - STEP 1: Does the patient require the assistance of a person or device, or need extra time when grooming? Yes. GROOMING - STEP 2: Does the patient require the assistance of a helper? Yes. GROOMING - STEP 3: How much assistance does the patient require from the helper? Only prior equipment preparation/set up from the helper GROOMING - SCORE: 5-SUP BATHING: Activity did not occur on this shift BATHING - SCORE: 0-UNK DRESSING - UPPER BODY: Patient is not dressing in public clothing ARTICLES SCORE Total number of steps: 0 DRESSING - UPPER BODY - SCORE: 0-UNK DRESSING - LOWER BODY: Patient is not dressing in public clothing ARTICLES SCORE Total number of steps: 0 DRESSING - LOWER BODY - SCORE: 0-UNK TOILETING: TOILETING - STEP 1: Does the patient require the assistance of a person or device, or need extra time with toileting? Yes . TOILETING - STEP 2: Does the patient require the assistance of a helper? Yes. TOILETING - STEP 3: How much assistance does the patient require from the helper? Hands-on assistance from the helper TOILETING - STEP 4: Of the 3 tasks: 1) Adjusting clothing prior to use, 2) Cleansing of perineal area, 3) Adjusting clot luis after use; How many tasks does the patient perform WITHOUT assistance of the helper? Two tasks TOILETING - SCORE: 3-MOD BLADDER MANAGEMENT: BLADDER MANAGEMENT - STEP 1: Does the patient control the bladder completely and intentionally without equipment or devices or med ications, and is always continent? No. BLADDER MANAGEMENT - STEP 2: Does the patient require the assistance of a helper? Yes. BLADDER MANAGEMENT - STEP 3: How much assistance does the patient require from the helper? Only set-up of equipment - such as plac ing it within reach of the patient or emptying a device - to maintain either satisfactory voiding pat tern or managing an external device, such as an absorbent pad, ileal device, or catheter BLADDER MANAGEMENT - SCORE: 5-SUP BOWEL MANAGEMENT: Activity did not occur on this shift BOWEL MANAGEMENT - SCORE: 7-IND TRANSFERS: BED, CHAIR, WHEELCHAIR: TRANSFERS: BED, CHAIR, WHEELCHAIR - STEP 1: Does the patient require assitance of a person or device, or need extra time with bed, chair, or whee lchair transfers? Yes. TRANSFERS: BED, CHAIR, WHEELCHAIR - STEP 2: Does the patient require the assistance of a helper? Yes. TRANSFERS: BED, CHAIR, WHEELCHAIR - STEP 3: How much assistance does the patient require from the helper? Lifting of the legs TRANSFERS: BED, CHAIR, WHEELCHAIR - STEP 4: How many legs does the patient require the helper to lift? both legs TRANSFERS: BED, CHAIR, WHEELCHAIR - SCORE: 3-MOD TRANSFERS: TOILET: TRANSFERS: TOILET - STEP 1: Does the patient require the assistance of a person or device, or need extra time with toilet transfe rs? Yes. TRANSFERS: TOILET - STEP 2: Does the patient require the assistance of a helper? Yes. TRANSFERS: TOILET - STEP 3: How much assistance does the patient require from the helper? Patient performs half or more of the tr ansferring tasks TRANSFERS: TOILET - STEP 4: Does the patient need only incidental help such as contact guard or steadying during toilet transfer? Yes. TRANSFERS: TOILET - SCORE: 4-MIN TRANSFERS: SHOWER: Activity did not occur on this shift TRANSFERS: SHOWER - SCORE: 0-UNK TRANSFERS: TUB: Activity did not occur on this shift TRANSFERS: TUB - SCORE: 0-UNK LOCOMOTION: WALK: Activity did not occur on this shift LOCOMOTION: WALK - SCORE: 0-UNK LOCOMOTION: WHEELCHAIR: Activity did not occur on this shift LOCOMOTION: WHEELCHAIR - SCORE: 0-UNK COMPREHENSION: COMPREHENSION: TYPE: Both COMPREHENSION - STEP 1: Does the patient require help from a person or device, or need extra time to understand complex and a bstract ideas (such as current events, finances, discharge planning, medical issues, relationships, e tc)? No. COMPREHENSION - STEP 2: Does the patient need extra time, require an assistive device (such as glasses for visual comprehensi on or a hearing aid for auditory comprehension) or does s/he have mild difficulty understanding compl ex and abstract information? Yes. COMPREHENSION - SCORE: 6-JENISE EXPRESSION EXPRESSION: TYPE: Both EXPRESSION - STEP 1: Does the patient require help from a person or device, or need extra time expressing complex and abst ract ideas (such as current events, finances, discharge planning, medical issues, relationships, etc) ? No. EXPRESSION - STEP 2: Does the patient need extra time, require an assistive device (such as augmentive communication syste m or a communication board), OR does s/he have mild difficulty expressing complex and abstract ideas (including mild dysarthria or mild word-find problems)? No. EXPRESSION - SCORE: 7-IND SOCIAL INTERACTION: SOCIAL INTERACTION - STEP 1: Does the patient require a helper to interact with others in social and therapeutic situations? No. SOCIAL INTERACTION - STEP 2: Does the patient need extra time in social situations, OR does s/he interact with staff, other patien ts, and family members ONLY in structured environments, OR does s/he require medication for social in teraction? Yes, patient needs extra time SOCIAL INTERACTION - SCORE: 6-JENISE PROBLEM SOLVING: PROBLEM SOLVING - STEP 1: Does the patient need help from a person or device, or need extra time to solve complex problems such as managing a checking account or confronting interpersonal problems? No. PROBLEM SOLVING - STEP 2: Does the patient require extra time to make decisions or solve problems, OR does s/he have slight dif ficulty reading, initiating, or self-correcting in unfamiliar situations? Yes, patient needs extra ti me. PROBLEM SOLVING - SCORE: 6-JENISE MEMORY: MEMORY - STEP 1: Does the patient need help from a person or device, or need extra time to remember frequently encount ered people, daily routines, and executing requests? No. MEMORY - STEP 2: Does the patient have slight difficulty recognizing frequently encountered people, daily routines, or executing requests without the need for repetition or using self-initiated or environmental cues to remember? Yes. MEMORY - SCORE: 6-JENISE SIGNATURE PANEL: The following modified sections: Eating - Score, Grooming - Score, Dressing - Upper Body - Score, Silvio ssing - Lower Body - Score, Toileting - Score, Bladder Management - Score, Bowel Management - Score, Transfers: Bed, Chair, Wheelchair - Score, Transfers: Toilet - Score, Transfers: Shower - Score, [place] sfers: Tub - Score, Locomotion: Walk - Score, Locomotion: Wheelchair - Score, Comprehension - Score, Expression - Score, Social Interaction - Score, Problem Solving - Score, Memory - Score were [electro nically] signed by Maricruz Lara CNA on MonJun 18 2018 01:26:53 GMT-0600 (Central Standard Time)
[2018-06-18] MEDS: LACTULOSE 20 GM/30 ML UCUP PO SCH ×2 (05:00→16:44)
[2018-06-18] MEDS: CARVEDILOL 12.5 MG TAB PO SCH ×2 (05:03→16:44)
[2018-06-18] MEDS ORDERED: INFLUENZA VACCINE (for 3y+) 0.5 ML DOSE IMVAC ONE (05:24)
[2018-06-18] MEDS: LISINOPRIL 20 MG TAB PO SCH (08:13)
[2018-06-18] MEDS: PANTOPRAZOLE 40MG TABLET PO SCH (08:13)
[2018-06-18] MEDS: LACTOBACILLUS/ACIDOPHILUS TAB PO SCH ×2 (08:13→20:16)
[2018-06-18] MEDS: APIXABAN 5 MG TABLET PO SCH ×2 (08:13→20:16)
[2018-06-18] MEDS: MULTIVITAMIN TAB PO SCH (08:13)
[2018-06-18] MEDS: POLYETHYL GLY 3350 17 GM/DOSE PO SCH (08:14)
--- NOTE | 2018-06-18 11:07 | RAD REPORT ---
EXAM DESCRIPTION: MRI - Lumbar Spine Wo Con- 06/18/2018 10:17 am CLINICAL HISTORY: FU OF SPINE INFECTION. COMPARISON: Lumbar Spine Wo Con dated 01/23/2018; Lumbar Spine Wo Con dated 12/08/2016 FINDINGS: Significant abnormal marrow signal is present involving the L2 and L3 vertebral bodies. Si gnificant abnormal edema signal is also seen at involving the disc space at this level. Prominent patricia ma is seen in the paraspinal tissues in this region, particularly along the left paraspinal tissues. The left lateral recess is attenuated. Central canal is narrowed to 9 mm. The findings are most yesi tible with spondylo-discitis, assessment is limited by lack of contrast. Left exit foraminal stenosis is present at this level. Early similar findings of spondylo-discitis also possible at L4-5. Again, full assessment is limited by the lack of IV contrast. Mild edema is seen extending into the right iliopsoas. IMPRESSION: Findings suspicious for spondylo-discitis are noted at L2-3 as detailed above. Early sim ilar findings may also be present at L4-5. Consider post-gadolinium sequences through the lumbar spin e for further assessment clinically indicated.
--- NOTE | 2018-06-18 14:37 | FAST ---
ENCOUNTER DATE AND TIME: 06/18/2018 08:00 (GROUP LEADER) NAME ANNALEE LOPEZ DATE OF : 1930 DATE OF ADMISSION: 06/15/2018 16:01 (CDT) PHONE: AGE: 87 SSN# [id number] GENDER: Female ENCOUNTER PHYSICIAN: Dr. Rory Miner M.D. 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 EATING: Activity did not occur on this shift EATING - SCORE: 0-UNK GROOMING: Activity did not occur on this shift GROOMING - SCORE: 0-UNK BATHING: Activity did not occur on this shift BATHING - SCORE: 0-UNK DRESSING - UPPER BODY: Activity did not occur on this shift Patient is not dressing in public clothing ARTICLES SCORE Total number of steps: 0 DRESSING - UPPER BODY - SCORE: 0-UNK DRESSING - LOWER BODY: Activity did not occur on this shift Patient is not dressing in public clothing ARTICLES SCORE Total number of steps: 0 DRESSING - LOWER BODY - SCORE: 0-UNK TOILETING: Activity did not occur on this shift TOILETING - SCORE: 0-UNK BLADDER MANAGEMENT: Activity did not occur on this shift BLADDER MANAGEMENT - SCORE: 7-IND BOWEL MANAGEMENT: Activity did not occur on this shift BOWEL MANAGEMENT - SCORE: 7-IND TRANSFERS: BED, CHAIR, WHEELCHAIR: TRANSFERS: BED, CHAIR, WHEELCHAIR - STEP 1: Does the patient require assitance of a person or device, or need extra time with bed, chair, or whee lchair transfers? Yes. TRANSFERS: BED, CHAIR, WHEELCHAIR - STEP 2: Does the patient require the assistance of a helper? Yes. TRANSFERS: BED, CHAIR, WHEELCHAIR - STEP 3: How much assistance does the patient require from the helper? Steadying/guiding assistance TRANSFERS: BED, CHAIR, WHEELCHAIR - SCORE: 4-MIN TRANSFERS: TOILET: Activity did not occur on this shift TRANSFERS: TOILET - SCORE: 0-UNK TRANSFERS: SHOWER: Activity did not occur on this shift TRANSFERS: SHOWER - SCORE: 0-UNK TRANSFERS: TUB: Activity did not occur on this shift TRANSFERS: TUB - SCORE: 0-UNK LOCOMOTION: WALK: LOCOMOTION: WALK - STEP 1: Does the patient need help from a person or device, or need extra time to walk 150 feet? Yes. LOCOMOTION: WALK - STEP 2: How much assistance does the patient require to walk a minimum of 150 feet? Only supervision, cuing, or coaxing LOCOMOTION: WALK - SCORE: 5-SUP LOCOMOTION: WHEELCHAIR: Activity did not occur on this shift LOCOMOTION: WHEELCHAIR - SCORE: 0-UNK LOCOMOTION: STAIRS: LOCOMOTION: STAIRS - STEP 1: Does the patient need help to go up and down 12 to 14 stairs? Yes. LOCOMOTION: STAIRS - STEP 2: How much assistance does the patient need from the helper to go a minimum of 12 to 14 stairs? Only alcantara pervision, cuing, or coaxing LOCOMOTION: STAIRS - SCORE: 5-SUP COMPREHENSION: COMPREHENSION - SCORE: 0-UNK EXPRESSION EXPRESSION - SCORE: 0-UNK SOCIAL INTERACTION: SOCIAL INTERACTION - SCORE: 0-UNK PROBLEM SOLVING: PROBLEM SOLVING - SCORE: 0-UNK MEMORY: MEMORY - SCORE: 0-UNK SIGNATURE PANEL: The following modified sections: Transfers: Bed, Chair, Wheelchair - Score, Transfers: Toilet - Score , Locomotion: Walk - Score, Locomotion: Wheelchair - Score, Locomotion: Stairs - Score were [carly garibay] signed by Terrell Amato PT on MonJun 18 2018 14:36:11 GMT-0600 (Central Standard Time)
--- NOTE | 2018-06-18 15:06 | FAST ---
SHIFT START DATE/TIME: 06/18/2018 07:00 (SUMMER CAMP COUNSELOR) SHIFT END DATE/TIME: 06/18/2018 19:00 (SUMMER CAMP COUNSELOR) NAME ANNALEE LOPEZ DATE OF : 1930 DATE OF ADMISSION: 06/15/2018 16:01 (CDT) PHONE: AGE: 87 SSN# [id number] GENDER: Female ENCOUNTER PHYSICIAN: Dr. Rory Miner M.D. 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 EATING: EATING - STEP 1: Does the patient require the assistance of a person or device, or need extra time when eating? Yes. EATING - STEP 2: Does the patient require the assistance of a helper? No, patient only requires an assistive device, O R s/he takes more than reasonable time to eat, OR there is a safety concern, OR s/he requires modifie d food consistency EATING - SCORE: 6-JENISE GROOMING: Comb/brush hair Oral care Wash, rinse, and dry face Wash, rinse, and dry hands GROOMING - STEP 1: Does the patient require the assistance of a person or device, or need extra time when grooming? Yes. GROOMING - STEP 2: Does the patient require the assistance of a helper? No. The patient only requires an assistive devic e, OR takes more than reasonable time to groom, OR there is a concern for safety as the patient groom s GROOMING - SCORE: 6-JENISE BATHING: Activity did not occur on this shift BATHING - SCORE: 0-UNK DRESSING - UPPER BODY: Button down shirt or blouse - NOT tucked in (four steps) ARTICLES SCORE Total number of steps: 4 DRESSING - UPPER BODY - STEP 1: Does the patient require help from a person or device, or need extra time when dressing above the [address]? Yes. DRESSING - UPPER BODY - STEP 2: Does the patient require the assistance of a helper? No. Patient only requires an assistive device, s uch as a button hook, velcro, or seasonal tax preparer. OR s/he takes more than reasonable time as s/he dresses the upper body. OR there is a concern for safety when s/he dresses the upper body DRESSING - UPPER BODY - SCORE: 6-JENISE DRESSING - LOWER BODY: Elastic waist pants (three steps) Slip-on shoe - Left foot (one step) Slip-on shoe - Right foot (one step) ARTICLES SCORE Total number of steps: 5 DRESSING - LOWER BODY - STEP 1: Does the patient require help from a person or device, or need extra time when dressing below the [address]? Yes. DRESSING - LOWER BODY - STEP 2: Does the patient require the assistance of a helper? No. Patient requires an assistive device such as a seasonal tax preparer. OR s/he takes more than reasonable time as s/he dresses the lower body, OR there is a con cern for safety when s/he dresses the lower body DRESSING - LOWER BODY - SCORE: 6-JENISE TOILETING: TOILETING - STEP 1: Does the patient require the assistance of a person or device, or need extra time with toileting? Yes . TOILETING - STEP 2: Does the patient require the assistance of a helper? No. TOILETING - SCORE: 6-JENISE BLADDER MANAGEMENT: BLADDER MANAGEMENT - STEP 1: Does the patient control the bladder completely and intentionally without equipment or devices or med ications, and is always continent? Yes. BLADDER MANAGEMENT - SCORE: 7-IND BLADDER MANAGEMENT - FREQUENCY OF ACCIDENTS: BLADDER MANAGEMENT(FA) - STEP 1: How many accidents has the patient had during the current shift? 0 BOWEL MANAGEMENT: Activity did not occur on this shift BOWEL MANAGEMENT - SCORE: 7-IND BOWEL MANAGEMENT - FREQUENCY OF ACCIDENTS: BOWEL MANAGEMENT(FA) - STEP 1: How many accidents has the patient had during the current shift? 0 TRANSFERS: BED, CHAIR, WHEELCHAIR: TRANSFERS: BED, CHAIR, WHEELCHAIR - STEP 1: Does the patient require assitance of a person or device, or need extra time with bed, chair, or whee lchair transfers? Yes. TRANSFERS: BED, CHAIR, WHEELCHAIR - STEP 2: Does the patient require the assistance of a helper? Yes. TRANSFERS: BED, CHAIR, WHEELCHAIR - STEP 3: How much assistance does the patient require from the helper? Only supervision TRANSFERS: BED, CHAIR, WHEELCHAIR - SCORE: 5-SUP TRANSFERS: TOILET: TRANSFERS: TOILET - STEP 1: Does the patient require the assistance of a person or device, or need extra time with toilet transfe rs? Yes. TRANSFERS: TOILET - STEP 2: Does the patient require the assistance of a helper? No. Patient only requires an assistive device alcantara ch as a grab bar or special seat, OR s/he takes more than reasonable time to perform toilet transfers , OR there is a safety concern when s/he performs toilet transfers. TRANSFERS: TOILET - SCORE: 6-JENISE TRANSFERS: SHOWER: Activity did not occur on this shift TRANSFERS: SHOWER - SCORE: 0-UNK TRANSFERS: TUB: Activity did not occur on this shift TRANSFERS: TUB - SCORE: 0-UNK LOCOMOTION: WALK: Activity did not occur on this shift LOCOMOTION: WALK - SCORE: 0-UNK LOCOMOTION: WHEELCHAIR: Activity did not occur on this shift LOCOMOTION: WHEELCHAIR - SCORE: 0-UNK COMPREHENSION: COMPREHENSION: TYPE: Both COMPREHENSION - STEP 1: Does the patient require help from a person or device, or need extra time to understand complex and a bstract ideas (such as current events, finances, discharge planning, medical issues, relationships, e tc)? No. COMPREHENSION - STEP 2: Does the patient need extra time, require an assistive device (such as glasses for visual comprehensi on or a hearing aid for auditory comprehension) or does s/he have mild difficulty understanding compl ex and abstract information? Yes. COMPREHENSION - SCORE: 6-JENISE EXPRESSION EXPRESSION: TYPE: Both EXPRESSION - STEP 1: Does the patient require help from a person or device, or need extra time expressing complex and abst ract ideas (such as current events, finances, discharge planning, medical issues, relationships, etc) ? No. EXPRESSION - STEP 2: Does the patient need extra time, require an assistive device (such as augmentive communication syste m or a communication board), OR does s/he have mild difficulty expressing complex and abstract ideas (including mild dysarthria or mild word-find problems)? Yes. EXPRESSION - SCORE: 6-JENISE SOCIAL INTERACTION: SOCIAL INTERACTION - STEP 1: Does the patient require a helper to interact with others in social and therapeutic situations? No. SOCIAL INTERACTION - STEP 2: Does the patient need extra time in social situations, OR does s/he interact with staff, other patien ts, and family members ONLY in structured environments, OR does s/he require medication for social in teraction? Yes, patient needs extra time SOCIAL INTERACTION - SCORE: 6-JENISE PROBLEM SOLVING: PROBLEM SOLVING - STEP 1: Does the patient need help from a person or device, or need extra time to solve complex problems such as managing a checking account or confronting interpersonal problems? No. PROBLEM SOLVING - STEP 2: Does the patient require extra time to make decisions or solve problems, OR does s/he have slight dif ficulty reading, initiating, or self-correcting in unfamiliar situations? Yes, patient needs extra ti me. PROBLEM SOLVING - SCORE: 6-JENISE MEMORY: MEMORY - STEP 1: Does the patient need help from a person or device, or need extra time to remember frequently encount ered people, daily routines, and executing requests? No. MEMORY - STEP 2: Does the patient have slight difficulty recognizing frequently encountered people, daily routines, or executing requests without the need for repetition or using self-initiated or environmental cues to remember? No. MEMORY - SCORE: 7-IND SIGNATURE PANEL: The following modified sections: Eating - Score, Grooming - Score, Bathing - Score, Dressing - Upper Body - Score, Dressing - Lower Body - Score, Toileting - Score, Bladder Management - Score, Bowel Man agement - Score, Transfers: Bed, Chair, Wheelchair - Score, Transfers: Toilet - Score, Transfers: Nayely wer - Score, Transfers: Tub - Score, Locomotion: Walk - Score, Locomotion: Wheelchair - Score, Compre hension - Score, Expression - Score, Social Interaction - Score, Problem Solving - Score, Memory - Sc ore were [electronically] signed by Krystina LorenzoNLashonda on MonJun 18 2018 15:05:17 GMT-0600 (Cent[facility] Standard Time)
[2018-06-18] MEDS ORDERED: SODIUM CHLORIDE 0.9% 10ML INJ IV PRN ×2 (17:00)
--- NOTE | 2018-06-18 17:10 | R.PN ---
ENCOUNTER DATE AND TIME: 06/18/2018 16:31 (RECREATION THERAPY DIRECTOR) NAME ANNALEE LOPEZ DATE OF : 1930 DATE OF ADMISSION: 06/15/2018 16:01 (CDT) spinal cord abcessCHIEF COMPLAINT: Debility, spinal cord abscess SUBJECTIVE: Pt denied any depression. Pt denied any Shortness of Breath. Ambulated 2000' with standby assistance with a rolling walker. VITAL SIGNS Temperature: 97.4 F SBP/DBP: 126/60 Pulse: 78 Resp: 16 MEDICATION ALLERGIES: penicillin ENVIRONMENTAL ALLERGIES: - Substance Allergies None Known - Other Allergies None Known NURSING: - Shower allowing shower - Bladder care per protocol - Skin care per protocol ACTIVITIES OOB only with supervision THERAPIES: - Orthotics/Prosthetics Orthotic Evaluation. Splinting/Casting. - Occupational Therapy Evaluate and Treat. - Physical Therapy Evaluate and Treat. PHYSICAL EXAM - Gen Alert and awake Lying in bed No apparent distress Oriented to: person, time, and place - Skin No skin breakdown. No abnormalities - Eyes No abnormalities - ENMT No abnormalities - Neck No abnormalities - CVS RRR - Chest Clear - Abd Soft - GI Non tender Deferred - No abnormalities - Ext No significant edema - MSK 4+/5 weakness in both lower extremities. - Neuro 4/5 strength right upper and lower extremities. - Psych No abnormalities ASSESSMENT: Pt. is a 87 yo Right-handed white female.On 05/11/2018 she was admitted to [facility] with alexia gnosis spinal cord abcess.Her impairment category is Spinal Cord Dysfunction 04 - Other Non-traumati c Spinal Cord Dysfunction (04.130).Pre-morbidly, Pt. was independent/mod-I in Communication, Social C ognition, Self-Care, Locomotion, Sphincter Control, and Transfers Control; and she had good Sphincter Control.Currently, she has deficits of Balance, Locomotion, Endurance, Safety Awareness, Transfers C ontrol, and Self-Care.Pt. is now referred to [facility] for acute in-patient r ehabilitation in order to maximize patient's functional independence in activities of daily living, s trength, ROM, and mobility.- Rehab Goal Patient has realistic goal of being discharged at assistance level 1-Dep to reside at Home with Fami ly/Relatives. MDM/PLAN: - Physical Therapy Gait dysfunction - to improve, our physical therapists will perform initial evaluation of pt's statu s upon admission and devise an individualized program for Gait Training, and Wheel Chair mobility Inability to transfer - to improve, our physical therapists will perform initial evaluation of pt's status upon admission and devise an individualized program for Bed mobility Need for home safety evaluation - to improve, our physical therapists will perform initial evaluatio n of pt's status upon admission and devise an individualized program for Home Evaluation Need in caregiver upon discharge - to improve, our physical therapists will perform initial evaluati on of pt's status upon admission and devise an individualized program for Caregiver Training New precaution - to improve, our physical therapists will perform initial evaluation of pt's status upon admission and devise an individualized program for Patient precaution education Edema - to improve, our physical therapists will perform initial evaluation of pt's status upon admis pablo and devise an individualized program for Elevation Training, and Lymphedema Therapy Poor balance - to improve, our physical therapists will perform initial evaluation of pt's status up on admission and devise an individualized program for Balance Training Poor endurance - to improve, our physical therapists will perform initial evaluation of pt's status upon admission and devise an individualized program for Endurance Training Weakness - to improve, our physical therapists will perform initial evaluation of pt's status upon a dmission and devise an individualized program for Aquatic Therapy, Neuromuscular Reeducation, and Str engthening Achieving independence - to improve, our physical therapists will perform initial evaluation of pt's status upon admission and devise an individualized program for Community Reintegration Activities - Occupational Therapy ADL deficits - to improve, our occupation therapists will perform initial evaluation of pt's status upon admission and devise an individualized program for Bathing, Bed mobility, Community Reintegratio n, Cooking, Dressing, Eating, Fine Motor Skills, Grooming, Homemaking, Kitchen Mobility, Laundry, Pat ient Education, Safety Awareness, Splinting - Positioning, Transfers(Toilet, Tub, Shower), and Wheel Chair Management Need for health care marketing specialist - to improve, our occupation therapists will perform initial evaluation of pt's status upon admission and devise an individualized program for Caregiver Training Weakness - to improve, our occupation therapists will perform initial evaluation of pt's status upon admission and devise an individualized program for Aquatic Therapy, Balance, Endurance, UE ROM, and UE strengthening - Diet Type Continue Regular - Diet - Liquid Texture Continue Regular - Tube Feed Continue N/A - Bladder care per protocol - Skin care per protocol - Diet - Solid Texture Continue Regular - Shower allowing shower FUNCTIONAL STATUS: UPDATED AT WEEKLY TEAM CONFERENCE - Bladder Same Bladder control device used: diaper Same accident frequency: 7-Ind - No accidents in the past 7 days - Bowel Same Bowel control device used: diaper Same accident frequency: 7-Ind - No accidents in the past 7 days - Walking Same score based on distance walked: 3(>=150ft) - Wheelchair Same score based on distance traveled: 3(>=150ft) FUNCTIONAL STATUS: - Self-Care A. Eating Ind B. Grooming sup C. Bathing modA D. Dressing - Upper modA E. Dressing - Lower modA F. Toileting Chris - Sphincter Control G: Bladder control Dep H: Bowel control Dep - Transfers Control I. Bed/Chair/Wheelchair modA J. Toilet modA K. Tub/Shower Chris - Locomotion L. Walk/Wheelchair (B) Chris M. Stairs ADNO - Communication N. Comprehension (B) Toribio O. Expression (B) Toribio - Social Cognition P. Social Interaction Toribio Q. Problem Solving Toribio R. Memory Toribio - Endurance Poor - Balance Fair - Safety Awareness Poor CURRENT FUNC. DEFICITS: Balance, Locomotion, Endurance, Safety Awareness, Transfers Control, and Self-Care SIGNATURE PANEL: ([facility])
--- NOTE | 2018-06-18 17:40 | P.PN ---
Subjective Date of Service: 06/17/18 Chief Complaint: WEAKNESS AFTER L2-3 INFECTION SP STEM CELL IMPLANT Subjective: Improving (NO FEVER, MODERATE PAIN.) Review of Systems 10-point ROS is otherwise unremarkable Physical Examination - Vital Signs Temperature: 97.4 F Blood Pressure: 126/60 Pulse: 78 Respirations: 16 Pulse Ox (%): 98 - Physical Exam General: Alert, In no apparent distress HEENT: Atraumatic, PERRLA, EOMI Neck: Supple, JVD not distended Respiratory: Clear to auscultation bilaterally, Normal air movement Cardiovascular: Regular rate/rhythm, Normal S1 S2 Gastrointestinal: Normal bowel sounds, No tenderness Musculoskeletal: Tenderness, Other (WH.CH.) Integumentary: No rashes Neurological: Normal speech, Normal tone, Normal affect Lymphatics: No axilla or inguinal lymphadenopathy - Studies Medications List Reviewed: Yes Assessment And Plan - Current Problems (Diagnosis) (1) Infection of vertebra Onset Date: 06/18/18 Current Visit: Yes Status: Acute Plan: POST STEM CELL TRANSPLANT, 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 SHE IS RECOVERING. SHE HAS FINISHED ANTIBIOTICS. WILL FU WITH MRI AGAIN. SHE IS HERE FOR THERAPY. ELIQUIS FOR PROPHYLAXIS. CHECK LAB AND SED RATE. MRI TO BE DONE IN AM. NOTE DONE ONE DAY LATE.
--- NOTE | 2018-06-18 17:41 | P.PN ---
Subjective Date of Service: 06/18/18 Chief Complaint: WEAKNESS AFTER L2-3 INFECTION SP STEM CELL IMPLANT Subjective: Improving (STILL MOD PAIN.) Review of Systems 10-point ROS is otherwise unremarkable General: Weakness, Malaise Musculoskeletal: Back Pain Physical Examination - Vital Signs Temperature: 97.4 F Blood Pressure: 126/60 Pulse: 78 Respirations: 16 Pulse Ox (%): 98 - Physical Exam General: Mild distress, Moderate distress HEENT: Atraumatic, PERRLA, EOMI Neck: Supple, JVD not distended Respiratory: Clear to auscultation bilaterally, Normal air movement Cardiovascular: Regular rate/rhythm, Normal S1 S2 Gastrointestinal: Normal bowel sounds, No tenderness Musculoskeletal: No tenderness Integumentary: No rashes Neurological: Normal speech, Normal tone, Normal affect Lymphatics: No axilla or inguinal lymphadenopathy - Studies Medications List Reviewed: Yes Assessment And Plan - Current Problems (Diagnosis) (1) Infection of vertebra Onset Date: 06/18/18 Current Visit: Yes Status: Acute Plan: POST STEM CELL TRANSPLANT, 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 SHE IS RECOVERING. SHE HAS FINISHED ANTIBIOTICS. WILL FU WITH MRI AGAIN. SHE IS HERE FOR THERAPY. ELIQUIS FOR PROPHYLAXIS. CHECK LAB AND SED RATE. MRI TO BE DONE IN AM. NOTE DONE ONE DAY LATE. RADIOLOGIST ADVISED WBC TAGGED SCAN TO RULE OUT CURRENT INFECTION.
[2018-06-18] MEDS ORDERED: SODIUM CHLORIDE 0.9% 10ML INJ IV SCH (20:00)
[2018-06-18] MEDS: GABAPENTIN 300 MG CAP PO SCH (20:16)
[2018-06-18] MEDS: CRANBERRY FRUIT EXTRACT 200 MG CAP PO SCH (20:16)
[2018-06-18] MEDS: DOCUSATE NA/SENNA CONC 1 TAB PO SCH (20:17)
[2018-06-18] MEDS: ATORVASTATIN 80 MG TAB PO SCH (20:17)
[2018-06-18] MEDS: SODIUM CHLORIDE 0.9% 10ML INJ IV SCH (20:18)
[2018-06-18] MEDS: PROMOD 30 ML DOSE PO SCH (20:18)
[2018-06-19] MEDS: FERROUS SULFATE 325 MG TAB PO SCH ×3 (01:15→16:45)
--- NOTE | 2018-06-19 01:25 | FAST ---
ENCOUNTER PHYSICIAN: Dr. Rory Miner M.D. EATING: EATING - STEP 1: Does the patient require the assistance of a person or device, or need extra time when eating? No. EATING - SCORE: 7-IND GROOMING: GROOMING - STEP 1: Does the patient require the assistance of a person or device, or need extra time when grooming? Yes. GROOMING - STEP 2: Does the patient require the assistance of a helper? Yes. GROOMING - STEP 3: How much assistance does the patient require from the helper? Only prior equipment preparation/set up from the helper GROOMING - SCORE: 5-SUP TOILETING: TOILETING - STEP 1: Does the patient require the assistance of a person or device, or need extra time with toileting? Yes . TOILETING - STEP 2: Does the patient require the assistance of a helper? Yes. TOILETING - STEP 3: How much assistance does the patient require from the helper? Hands-on assistance from the helper TOILETING - STEP 4: Of the 3 tasks: 1) Adjusting clothing prior to use, 2) Cleansing of perineal area, 3) Adjusting clot luis after use; How many tasks does the patient perform WITHOUT assistance of the helper? Three tasks with steadying assistance from the helper TOILETING - SCORE: 4-MIN BLADDER MANAGEMENT: BLADDER MANAGEMENT - STEP 1: Does the patient control the bladder completely and intentionally without equipment or devices or med ications, and is always continent? No. BLADDER MANAGEMENT - STEP 2: Does the patient require the assistance of a helper? Yes. BLADDER MANAGEMENT - STEP 3: How much assistance does the patient require from the helper? Only set-up of equipment - such as plac ing it within reach of the patient or emptying a device - to maintain either satisfactory voiding pat tern or managing an external device, such as an absorbent pad, ileal device, or catheter BLADDER MANAGEMENT - SCORE: 5-SUP BLADDER MANAGEMENT - FREQUENCY OF ACCIDENTS: BLADDER MANAGEMENT(FA) - STEP 1: How many accidents has the patient had during the current shift? 0 TRANSFERS: BED, CHAIR, WHEELCHAIR: TRANSFERS: BED, CHAIR, WHEELCHAIR - STEP 1: Does the patient require assitance of a person or device, or need extra time with bed, chair, or whee lchair transfers? Yes. TRANSFERS: BED, CHAIR, WHEELCHAIR - STEP 2: Does the patient require the assistance of a helper? Yes. TRANSFERS: BED, CHAIR, WHEELCHAIR - STEP 3: How much assistance does the patient require from the helper? Lifting of the legs TRANSFERS: BED, CHAIR, WHEELCHAIR - STEP 4: How many legs does the patient require the helper to lift? one leg TRANSFERS: BED, CHAIR, WHEELCHAIR - SCORE: 4-MIN TRANSFERS: TOILET: TRANSFERS: TOILET - STEP 1: Does the patient require the assistance of a person or device, or need extra time with toilet transfe rs? Yes. TRANSFERS: TOILET - STEP 2: Does the patient require the assistance of a helper? Yes. TRANSFERS: TOILET - STEP 3: How much assistance does the patient require from the helper? Only supervision, cuing, coaxing, OR he lp to set out transfer equipment or to lock brakes and/or lift foot rests TRANSFERS: TOILET - SCORE: 5-SUP COMPREHENSION: COMPREHENSION: TYPE: Both COMPREHENSION - STEP 1: Does the patient require help from a person or device, or need extra time to understand complex and a bstract ideas (such as current events, finances, discharge planning, medical issues, relationships, e tc)? No. COMPREHENSION - STEP 2: Does the patient need extra time, require an assistive device (such as glasses for visual comprehensi on or a hearing aid for auditory comprehension) or does s/he have mild difficulty understanding compl ex and abstract information? Yes. COMPREHENSION - SCORE: 6-JENISE EXPRESSION EXPRESSION: TYPE: Both EXPRESSION - STEP 1: Does the patient require help from a person or device, or need extra time expressing complex and abst ract ideas (such as current events, finances, discharge planning, medical issues, relationships, etc) ? No. EXPRESSION - STEP 2: Does the patient need extra time, require an assistive device (such as augmentive communication syste m or a communication board), OR does s/he have mild difficulty expressing complex and abstract ideas (including mild dysarthria or mild word-find problems)? No. EXPRESSION - SCORE: 7-IND SOCIAL INTERACTION: SOCIAL INTERACTION - STEP 1: Does the patient require a helper to interact with others in social and therapeutic situations? No. SOCIAL INTERACTION - STEP 2: Does the patient need extra time in social situations, OR does s/he interact with staff, other patien ts, and family members ONLY in structured environments, OR does s/he require medication for social in teraction? Yes, patient needs extra time SOCIAL INTERACTION - SCORE: 6-JENISE PROBLEM SOLVING: PROBLEM SOLVING - STEP 1: Does the patient need help from a person or device, or need extra time to solve complex problems such as managing a checking account or confronting interpersonal problems? No. PROBLEM SOLVING - STEP 2: Does the patient require extra time to make decisions or solve problems, OR does s/he have slight dif ficulty reading, initiating, or self-correcting in unfamiliar situations? Yes, patient needs extra ti me. PROBLEM SOLVING - SCORE: 6-JENISE MEMORY: MEMORY - STEP 1: Does the patient need help from a person or device, or need extra time to remember frequently encount ered people, daily routines, and executing requests? No. MEMORY - STEP 2: Does the patient have slight difficulty recognizing frequently encountered people, daily routines, or executing requests without the need for repetition or using self-initiated or environmental cues to remember? Yes. MEMORY - SCORE: 6-JENISE SIGNATURE PANEL: The following modified sections: Eating - Score, Grooming - Score, Toileting - Score, Bladder Managem ent - Score, Transfers: Bed, Chair, Wheelchair - Score, Transfers: Toilet - Score, Comprehension - Sc ore, Expression - Score, Social Interaction - Score, Problem Solving - Score, Memory - Score were [el ectronically] signed by Maricruz Lara CNA on MonJun 19 2018 01:22:30 GMT-0600 (Central Standard Ti me)
[2018-06-19] MEDS: CARVEDILOL 12.5 MG TAB PO SCH ×2 (05:06→16:45)
[2018-06-19] MEDS: LACTULOSE 20 GM/30 ML UCUP PO SCH ×2 (05:06→16:46)
[2018-06-19] MEDS: SODIUM CHLORIDE 0.9% 10ML INJ IV SCH ×2 (08:00→20:15)
[2018-06-19] MEDS: PANTOPRAZOLE 40MG TABLET PO SCH (08:25)
[2018-06-19] MEDS: LIDOCAINE 5% PATCH TOP SCH (08:25)
[2018-06-19] MEDS: POLYETHYL GLY 3350 17 GM/DOSE PO SCH (08:25)
[2018-06-19] MEDS: MULTIVITAMIN TAB PO SCH (08:26)
[2018-06-19] MEDS: LISINOPRIL 20 MG TAB PO SCH (08:26)
[2018-06-19] MEDS: APIXABAN 5 MG TABLET PO SCH ×2 (08:26→20:14)
[2018-06-19] MEDS: LACTOBACILLUS/ACIDOPHILUS TAB PO SCH ×2 (08:26→20:14)
[2018-06-19] MEDS: CRANBERRY FRUIT EXTRACT 200 MG CAP PO SCH ×2 (08:26→20:14)
[2018-06-19] MEDS: GABAPENTIN 300 MG CAP PO SCH ×2 (08:26→20:14)
[2018-06-19] MEDS: TRAMADOL HCL 50 MG TAB PO PRN ×3 (08:27→18:39)
[2018-06-19] MEDS: PROMOD 30 ML DOSE PO SCH ×2 (08:27→20:14)
--- NOTE | 2018-06-19 10:41 | FAST ---
ENCOUNTER DATE AND TIME: 06/19/2018 08:00 (MANAGER MORTGAGE) NAME ANNALEE LOPEZ DATE OF : 1930 DATE OF ADMISSION: 06/15/2018 16:01 (CDT) PHONE: AGE: 87 SSN# [id number] GENDER: Female ENCOUNTER PHYSICIAN: Dr. Rory Miner M.D. 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 EATING: Activity did not occur on this shift EATING - SCORE: 0-UNK GROOMING: Activity did not occur on this shift GROOMING - SCORE: 0-UNK BATHING: Activity did not occur on this shift BATHING - SCORE: 0-UNK DRESSING - UPPER BODY: Activity did not occur on this shift Patient is not dressing in public clothing ARTICLES SCORE Total number of steps: 0 DRESSING - UPPER BODY - SCORE: 0-UNK DRESSING - LOWER BODY: Activity did not occur on this shift Patient is not dressing in public clothing ARTICLES SCORE Total number of steps: 0 DRESSING - LOWER BODY - SCORE: 0-UNK TOILETING: Activity did not occur on this shift TOILETING - SCORE: 0-UNK BLADDER MANAGEMENT: Activity did not occur on this shift BLADDER MANAGEMENT - SCORE: 7-IND BOWEL MANAGEMENT: Activity did not occur on this shift BOWEL MANAGEMENT - SCORE: 7-IND TRANSFERS: BED, CHAIR, WHEELCHAIR: TRANSFERS: BED, CHAIR, WHEELCHAIR - STEP 1: Does the patient require assitance of a person or device, or need extra time with bed, chair, or whee lchair transfers? Yes. TRANSFERS: BED, CHAIR, WHEELCHAIR - STEP 2: Does the patient require the assistance of a helper? Yes. TRANSFERS: BED, CHAIR, WHEELCHAIR - STEP 3: How much assistance does the patient require from the helper? Steadying/guiding assistance TRANSFERS: BED, CHAIR, WHEELCHAIR - SCORE: 4-MIN TRANSFERS: TOILET: Activity did not occur on this shift TRANSFERS: TOILET - SCORE: 0-UNK TRANSFERS: SHOWER: Activity did not occur on this shift TRANSFERS: SHOWER - SCORE: 0-UNK TRANSFERS: TUB: Activity did not occur on this shift TRANSFERS: TUB - SCORE: 0-UNK LOCOMOTION: WALK: LOCOMOTION: WALK - STEP 1: Does the patient need help from a person or device, or need extra time to walk 150 feet? Yes. LOCOMOTION: WALK - STEP 2: How much assistance does the patient require to walk a minimum of 150 feet? Only supervision, cuing, or coaxing LOCOMOTION: WALK - SCORE: 5-SUP LOCOMOTION: WHEELCHAIR: Activity did not occur on this shift LOCOMOTION: WHEELCHAIR - SCORE: 0-UNK LOCOMOTION: STAIRS: Activity did not occur on this shift LOCOMOTION: STAIRS - SCORE: 0-UNK COMPREHENSION: COMPREHENSION - SCORE: 0-UNK EXPRESSION EXPRESSION - SCORE: 0-UNK SOCIAL INTERACTION: SOCIAL INTERACTION - SCORE: 0-UNK PROBLEM SOLVING: PROBLEM SOLVING - SCORE: 0-UNK MEMORY: MEMORY - SCORE: 0-UNK SIGNATURE PANEL: The following modified sections: Transfers: Bed, Chair, Wheelchair - Score, Transfers: Toilet - Score , Locomotion: Walk - Score, Locomotion: Wheelchair - Score, Locomotion: Stairs - Score were [electron [place]] signed by Terrell Amato PT on MonJun 19 2018 10:40:54 T-0600 (Central Standard Time)
--- NOTE | 2018-06-19 13:13 | P.PN ---
Subjective Date of Service: 06/19/18 Chief Complaint: WEAKNESS AFTER L2-3 INFECTION SP STEM CELL IMPLANT Subjective: Improving (STABLE FOR NOW,BACK PAIN CONTINUES.) Review of Systems 10-point ROS is otherwise unremarkable General: Weakness Physical Examination - Vital Signs Temperature: 97.3 F Blood Pressure: 133/61 Pulse: 70 Respirations: 16 Pulse Ox (%): 98 - Physical Exam General: Alert, In no apparent distress HEENT: Atraumatic, PERRLA, EOMI Neck: Supple, JVD not distended Respiratory: Clear to auscultation bilaterally, Normal air movement Cardiovascular: Regular rate/rhythm, Normal S1 S2 Gastrointestinal: Normal bowel sounds, No tenderness Musculoskeletal: No tenderness, Other (WHEELCHAIR BOUND.) Integumentary: No rashes Neurological: Normal speech, Normal tone, Normal affect Lymphatics: No axilla or inguinal lymphadenopathy - Studies Microbiology Data (last 24 hrs): 06/16/18 20:30 Clean Catch Urine [place] Count - Final <10,000 CFU/ML. 06/16/18 20:30 Clean Catch Urine - Final Medications List Reviewed: Yes Assessment And Plan - Current Problems (Diagnosis) (1) Infection of vertebra Onset Date: 06/18/18 Current Visit: Yes Status: Acute Plan: POST STEM CELL TRANSPLANT, 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 SHE IS RECOVERING. SHE HAS FINISHED ANTIBIOTICS. WILL FU WITH MRI AGAIN. SHE IS HERE FOR THERAPY. ELIQUIS FOR PROPHYLAXIS. CHECK LAB AND SED RATE. MRI TO BE DONE IN AM. NOTE DONE ONE DAY LATE. RADIOLOGIST ADVISED WBC TAGGED SCAN TO RULE OUT CURRENT INFECTION. INDIUM SCAN TODAY. STABLE BUT NOT SURE FROM MRI IF THERE IS INFECTION OR NOT.
--- NOTE | 2018-06-19 15:01 | RAD REPORT ---
EXAM DESCRIPTION: NM - Local Inflamm Limited - 06/19/2018 2:51 pm CLINICAL HISTORY: Back pain, discitis COMPARISON: Abdomen Exam Complete dated 09/28/2016; Lumbar Spine Wo Con dated 06/18/2018; Lumbar Spine Wo Con dated 01/23/2018 FINDINGS: Patient was administered 9.9 millicuries technetium Ceretec labeled white blood cells. Imaging of the lumbar spine was performed in multiple projections. Liver and spleen background activity is noted. Scoliotic curvature lumbar spine is present. No significant increased uptake is seen in the lumbar sp ine to suggest active infection. IMPRESSION: No significant lumbar spine elevated activity seen to suggest active infection.
[2018-06-19] MEDS ORDERED: NYSTATIN PWDR 100000 UNIT/GM TOP PRN (15:16)
--- NOTE | 2018-06-19 15:17 | FAST ---
SHIFT START DATE/TIME: 06/19/2018 07:00 (URGENT CARE PHYSICIAN ASSISTANT) SHIFT END DATE/TIME: 06/19/2018 19:00 (URGENT CARE PHYSICIAN ASSISTANT) NAME ANNALEE LOPEZ DATE OF : 1930 DATE OF ADMISSION: 06/15/2018 16:01 (CDT) PHONE: AGE: 87 N# [id number] GENDER: Female ENCOUNTER PHYSICIAN: Dr. Rory Miner M.D. 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 EATING: EATING - STEP 1: Does the patient require the assistance of a person or device, or need extra time when eating? Yes. EATING - STEP 2: Does the patient require the assistance of a helper? No, patient only requires an assistive device, O R s/he takes more than reasonable time to eat, OR there is a safety concern, OR s/he requires modifie d food consistency EATING - SCORE: 6-JENISE GROOMING: Comb/brush hair Oral care Wash, rinse, and dry face GROOMING - STEP 1: Does the patient require the assistance of a person or device, or need extra time when grooming? Yes. GROOMING - STEP 2: Does the patient require the assistance of a helper? No. The patient only requires an assistive devic e, OR takes more than reasonable time to groom, OR there is a concern for safety as the patient groom s GROOMING - SCORE: 6-JENISE BATHING: Activity did not occur on this shift BATHING - SCORE: 0-UNK DRESSING - UPPER BODY: T-shirt/pullover shirt (four steps) ARTICLES SCORE Total number of steps: 4 DRESSING - UPPER BODY - STEP 1: Does the patient require help from a person or device, or need extra time when dressing above the [address]? Yes. DRESSING - UPPER BODY - STEP 2: Does the patient require the assistance of a helper? No. Patient only requires an assistive device, s uch as a button hook, velcro, or manager of selection and assessment. OR s/he takes more than reasonable time as s/he dresses the upper body. OR there is a concern for safety when s/he dresses the upper body DRESSING - UPPER BODY - SCORE: 6-JENISE DRESSING - LOWER BODY: Elastic waist pants (three steps) Underwear (three steps) ARTICLES SCORE Total number of steps: 6 DRESSING - LOWER BODY - STEP 1: Does the patient require help from a person or device, or need extra time when dressing below the m[address]? Yes. DRESSING - LOWER BODY - STEP 2: Does the patient require the assistance of a helper? No. Patient requires an assistive device such as a manager of selection and assessment. OR s/he takes more than reasonable time as s/he dresses the lower body, OR there is a con cern for safety when s/he dresses the lower body DRESSING - LOWER BODY - SCORE: 6-JENISE TOILETING: TOILETING - STEP 1: Does the patient require the assistance of a person or device, or need extra time with toileting? Yes . TOILETING - STEP 2: Does the patient require the assistance of a helper? Yes. TOILETING - STEP 3: How much assistance does the patient require from the helper? Only supervision TOILETING - SCORE: 5-SUP BLADDER MANAGEMENT: BLADDER MANAGEMENT - STEP 1: Does the patient control the bladder completely and intentionally without equipment or devices or med ications, and is always continent? Yes. BLADDER MANAGEMENT - SCORE: 7-IND BLADDER MANAGEMENT - FREQUENCY OF ACCIDENTS: BLADDER MANAGEMENT(FA) - STEP 1: How many accidents has the patient had during the current shift? 0 BOWEL MANAGEMENT: Activity did not occur on this shift BOWEL MANAGEMENT - SCORE: 7-IND BOWEL MANAGEMENT - FREQUENCY OF ACCIDENTS: BOWEL MANAGEMENT(FA) - STEP 1: How many accidents has the patient had during the current shift? 0 TRANSFERS: BED, CHAIR, WHEELCHAIR: TRANSFERS: BED, CHAIR, WHEELCHAIR - STEP 1: Does the patient require assitance of a person or device, or need extra time with bed, chair, or whee lchair transfers? Yes. TRANSFERS: BED, CHAIR, WHEELCHAIR - STEP 2: Does the patient require the assistance of a helper? No. Patient only requires an assistive device fo r bed, chair, wheelchair transfers such as a sliding board, grab bar, or brace, OR s/he takes more th an reasonable time, OR there is a safety concern when s/he performs the transfers TRANSFERS: BED, CHAIR, WHEELCHAIR - SCORE: 6-JENISE TRANSFERS: TOILET: TRANSFERS: TOILET - STEP 1: Does the patient require the assistance of a person or device, or need extra time with toilet transfe rs? Yes. TRANSFERS: TOILET - STEP 2: Does the patient require the assistance of a helper? No. Patient only requires an assistive device alcantara ch as a grab bar or special seat, OR s/he takes more than reasonable time to perform toilet transfers , OR there is a safety concern when s/he performs toilet transfers. TRANSFERS: TOILET - SCORE: 6-JENISE TRANSFERS: SHOWER: Activity did not occur on this shift TRANSFERS: SHOWER - SCORE: 0-UNK TRANSFERS: TUB: Activity did not occur on this shift TRANSFERS: TUB - SCORE: 0-UNK LOCOMOTION: WALK: Activity did not occur on this shift LOCOMOTION: WALK - SCORE: 0-UNK LOCOMOTION: WHEELCHAIR: Activity did not occur on this shift LOCOMOTION: WHEELCHAIR - SCORE: 0-UNK COMPREHENSION: COMPREHENSION: TYPE: Both COMPREHENSION - STEP 1: Does the patient require help from a person or device, or need extra time to understand complex and a bstract ideas (such as current events, finances, discharge planning, medical issues, relationships, e tc)? No. COMPREHENSION - STEP 2: Does the patient need extra time, require an assistive device (such as glasses for visual comprehensi on or a hearing aid for auditory comprehension) or does s/he have mild difficulty understanding compl ex and abstract information? Yes. COMPREHENSION - SCORE: 6-JENISE EXPRESSION EXPRESSION: TYPE: Both EXPRESSION - STEP 1: Does the patient require help from a person or device, or need extra time expressing complex and abst ract ideas (such as current events, finances, discharge planning, medical issues, relationships, etc) ? No. EXPRESSION - STEP 2: Does the patient need extra time, require an assistive device (such as augmentive communication syste m or a communication board), OR does s/he have mild difficulty expressing complex and abstract ideas (including mild dysarthria or mild word-find problems)? No. EXPRESSION - SCORE: 7-IND SOCIAL INTERACTION: SOCIAL INTERACTION - STEP 1: Does the patient require a helper to interact with others in social and therapeutic situations? No. SOCIAL INTERACTION - STEP 2: Does the patient need extra time in social situations, OR does s/he interact with staff, other patien ts, and family members ONLY in structured environments, OR does s/he require medication for social in teraction? Yes, patient needs extra time SOCIAL INTERACTION - SCORE: 6-JENISE PROBLEM SOLVING: PROBLEM SOLVING - STEP 1: Does the patient need help from a person or device, or need extra time to solve complex problems such as managing a checking account or confronting interpersonal problems? No. PROBLEM SOLVING - STEP 2: Does the patient require extra time to make decisions or solve problems, OR does s/he have slight dif ficulty reading, initiating, or self-correcting in unfamiliar situations? Yes, patient needs extra ti me. PROBLEM SOLVING - SCORE: 6-JENISE MEMORY: MEMORY - STEP 1: Does the patient need help from a person or device, or need extra time to remember frequently encount ered people, daily routines, and executing requests? No. MEMORY - STEP 2: Does the patient have slight difficulty recognizing frequently encountered people, daily routines, or executing requests without the need for repetition or using self-initiated or environmental cues to remember? No. MEMORY - SCORE: 7-IND SIGNATURE PANEL: The following modified sections: Eating - Score, Grooming - Score, Bathing - Score, Dressing - Upper Body - Score, Dressing - Lower Body - Score, Toileting - Score, Bladder Management - Score, Bowel Man agement - Score, Transfers: Bed, Chair, Wheelchair - Score, Transfers: Toilet - Score, Transfers: Nayely wer - Score, Transfers: Tub - Score, Locomotion: Walk - Score, Locomotion: Wheelchair - Score, Compre hension - Score, Expression - Score, Social Interaction - Score, Problem Solving - Score, Memory - Sc ore were [electronically] signed by Telma Bradford C.N.A. on MonJun 19 2018 15:16:36 GMT-0600 (Centra [place] Standard Time)
--- NOTE | 2018-06-19 17:53 | R.PN ---
ENCOUNTER DATE AND TIME: 06/19/2018 17:49 (AIRPORT TOWER CONTROLLER) NAME ANNALEE LOPEZ DATE OF : 1930 DATE OF ADMISSION: 06/15/2018 16:01 (CDT) spinal cord abcessCHIEF COMPLAINT: Debility, spinal cord abscess SUBJECTIVE: Pt denied any depression. Pt denied any Shortness of Breath. Ambulated 550' with modified independence using a rolling walker. VITAL SIGNS Temperature: 97.4 F SBP/DBP: 130/60 Pulse: 71 Resp: 16 MEDICATION ALLERGIES: penicillin ENVIRONMENTAL ALLERGIES: - Substance Allergies None Known - Other Allergies None Known NURSING: - Shower allowing shower - Bladder care per protocol - Skin care per protocol ACTIVITIES OOB only with supervision THERAPIES: - Orthotics/Prosthetics Orthotic Evaluation. Splinting/Casting. - Occupational Therapy Evaluate and Treat. - Physical Therapy Evaluate and Treat. PHYSICAL EXAM - Gen Alert and awake Lying in bed No apparent distress Oriented to: person, time, and place - Skin No skin breakdown. No abnormalities - Eyes No abnormalities - ENMT No abnormalities - Neck No abnormalities - CVS RRR - Chest Clear - Abd Soft - GI Non tender Deferred - No abnormalities - Ext No significant edema - MSK 4+/5 weakness in both lower extremities. - Neuro 4/5 strength right upper and lower extremities. - Psych No abnormalities ASSESSMENT: Pt. is a 87 yo Right-handed white female.On 05/11/2018 she was admitted to [facility] [place] with alexia gnosis spinal cord abcess.Her impairment category is Spinal Cord Dysfunction 04 - Other Non-traumati c Spinal Cord Dysfunction (04.130).Pre-morbidly, Pt. was independent/mod-I in Communication, Social C ognition, Self-Care, Locomotion, Sphincter Control, and Transfers Control; and she had good Sphincter Control.Currently, she has deficits of Balance, Locomotion, Endurance, Safety Awareness, Transfers C ontrol, and Self-Care.Pt. is now referred to [facility] for acute in-patient r ehabilitation in order to maximize patient's functional independence in activities of daily living, s trength, ROM, and mobility.- Rehab Goal Patient has realistic goal of being discharged at assistance level 1-Dep to reside at Home with Fami ly/Relatives. MDM/PLAN: - Physical Therapy Gait dysfunction - to improve, our physical therapists will perform initial evaluation of pt's statu s upon admission and devise an individualized program for Gait Training, and Wheel Chair mobility Inability to transfer - to improve, our physical therapists will perform initial evaluation of pt's status upon admission and devise an individualized program for Bed mobility Need for home safety evaluation - to improve, our physical therapists will perform initial evaluatio n of pt's status upon admission and devise an individualized program for Home Evaluation Need in caregiver upon discharge - to improve, our physical therapists will perform initial evaluati on of pt's status upon admission and devise an individualized program for Caregiver Training New precaution - to improve, our physical therapists will perform initial evaluation of pt's status upon admission and devise an individualized program for Patient precaution education Edema - to improve, our physical therapists will perform initial evaluation of pt's status upon admi ssion and devise an individualized program for Elevation Training, and Lymphedema Therapy Poor balance - to improve, our physical therapists will perform initial evaluation of pt's status up on admission and devise an individualized program for Balance Training Poor endurance - to improve, our physical therapists will perform initial evaluation of pt's status upon admission and devise an individualized program for Endurance Training Weakness - to improve, our physical therapists will perform initial evaluation of pt's status upon a dmission and devise an individualized program for Aquatic Therapy, Neuromuscular Reeducation, and Str engthening Achieving independence - to improve, our physical therapists will perform initial evaluation of pt's status upon admission and devise an individualized program for Community Reintegration Activities - Occupational Therapy ADL deficits - to improve, our occupation therapists will perform initial evaluation of pt's status upon admission and devise an individualized program for Bathing, Bed mobility, Community Reintegratio n, Cooking, Dressing, Eating, Fine Motor Skills, Grooming, Homemaking, Kitchen Mobility, Laundry, Pat ient Education, Safety Awareness, Splinting - Positioning, Transfers(Toilet, Tub, Shower), and Wheel Chair Management Need for animal care taker - to improve, our occupation therapists will perform initial evaluation of pt's status upon admission and devise an individualized program for Caregiver Training Weakness - to improve, our occupation therapists will perform initial evaluation of pt's status upon admission and devise an individualized program for Aquatic Therapy, Balance, Endurance, UE ROM, and UE strengthening - Diet Type Continue Regular - Diet - Liquid Texture Continue Regular - Tube Feed Continue N/A - Bladder care per protocol - Skin care per protocol - Diet - Solid Texture Continue Regular - Shower allowing shower FUNCTIONAL STATUS: UPDATED AT WEEKLY TEAM CONFERENCE - Bladder Same Bladder control device used: diaper Same accident frequency: 7-Ind - No accidents in the past 7 days - Bowel Same Bowel control device used: diaper Same accident frequency: 7-Ind - No accidents in the past 7 days - Walking Same score based on distance walked: 3(>=150ft) - Wheelchair Same score based on distance traveled: 3(>=150ft) FUNCTIONAL STATUS: - Self-Care A. Eating Ind B. Grooming sup C. Bathing modA D. Dressing - Upper modA E. Dressing - Lower modA F. Toileting Chris - Sphincter Control G: Bladder control Dep H: Bowel control Dep - Transfers Control I. Bed/Chair/Wheelchair modA J. Toilet modA K. Tub/Shower Chris - Locomotion L. Walk/Wheelchair (B) Chris M. Stairs ADNO - Communication N. Comprehension (B) Toribio O. Expression (B) Toribio - Social Cognition P. Social Interaction Toribio Q. Problem Solving Toribio R. Memory Toribio - Endurance Poor - Balance Fair - Safety Awareness Poor CURRENT FUNC. DEFICITS: Balance, Locomotion, Endurance, Safety Awareness, Transfers Control, and Self-Care SIGNATURE PANEL: ([facility])
[2018-06-19] MEDS ORDERED: NYSTATIN PWDR 100000 UNIT/GM TOP SCH (20:00)
[2018-06-19] MEDS: ATORVASTATIN 80 MG TAB PO SCH (20:14)
[2018-06-19] MEDS: DOCUSATE NA/SENNA CONC 1 TAB PO SCH (20:14)
[2018-06-20] MEDS: TRAMADOL HCL 50 MG TAB PO PRN ×4 (00:41→20:01)
[2018-06-20] MEDS: FERROUS SULFATE 325 MG TAB PO SCH ×3 (00:41→17:16)
--- NOTE | 2018-06-20 01:50 | FAST ---
SHIFT START DATE/TIME: 06/19/2018 19:00 (ART LIBRARIAN) SHIFT END DATE/TIME: 06/20/2018 07:00 (ART LIBRARIAN) NAME ANNALEE LOPEZ DATE OF : 1930 DATE OF ADMISSION: 06/15/2018 16:01 (CDT) PHONE: AGE: 87 N# [id number] GENDER: Female ENCOUNTER PHYSICIAN: Dr. Rory Miner M.D. 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 EATING: Activity did not occur on this shift EATING - SCORE: 0-UNK GROOMING: Wash, rinse, and dry hands GROOMING - STEP 1: Does the patient require the assistance of a person or device, or need extra time when grooming? Yes. GROOMING - STEP 2: Does the patient require the assistance of a helper? Yes. GROOMING - STEP 3: How much assistance does the patient require from the helper? Only prior equipment preparation/set up from the helper GROOMING - SCORE: 5-SUP BATHING: Activity did not occur on this shift BATHING - SCORE: 0-UNK DRESSING - UPPER BODY: Patient is not dressing in public clothing ARTICLES SCORE Total number of steps: 0 DRESSING - UPPER BODY - SCORE: 0-UNK DRESSING - LOWER BODY: Patient is not dressing in public clothing ARTICLES SCORE Total number of steps: 0 DRESSING - LOWER BODY - SCORE: 0-UNK TOILETING: TOILETING - STEP 1: Does the patient require the assistance of a person or device, or need extra time with toileting? Yes . TOILETING - STEP 2: Does the patient require the assistance of a helper? Yes. TOILETING - STEP 3: How much assistance does the patient require from the helper? Hands-on assistance from the helper TOILETING - STEP 4: Of the 3 tasks: 1) Adjusting clothing prior to use, 2) Cleansing of perineal area, 3) Adjusting clot luis after use; How many tasks does the patient perform WITHOUT assistance of the helper? Two tasks TOILETING - SCORE: 3-MOD BLADDER MANAGEMENT: [place] removes incontinent device (Depends, pull ups, etc.); cleans the patient after accident / inco ntinent episode; and, applies new incontinent device. BLADDER MANAGEMENT - SCORE: 1-DEP BOWEL MANAGEMENT: Activity did not occur on this shift BOWEL MANAGEMENT - SCORE: 7-IND TRANSFERS: BED, CHAIR, WHEELCHAIR: TRANSFERS: BED, CHAIR, WHEELCHAIR - STEP 1: Does the patient require assitance of a person or device, or need extra time with bed, chair, or whee lchair transfers? Yes. TRANSFERS: BED, CHAIR, WHEELCHAIR - STEP 2: Does the patient require the assistance of a helper? Yes. TRANSFERS: BED, CHAIR, WHEELCHAIR - STEP 3: How much assistance does the patient require from the helper? Steadying/guiding assistance TRANSFERS: BED, CHAIR, WHEELCHAIR - SCORE: 4-MIN TRANSFERS: TOILET: TRANSFERS: TOILET - STEP 1: Does the patient require the assistance of a person or device, or need extra time with toilet transfe rs? Yes. TRANSFERS: TOILET - STEP 2: Does the patient require the assistance of a helper? Yes. TRANSFERS: TOILET - STEP 3: How much assistance does the patient require from the helper? Patient performs half or more of the tr ansferring tasks TRANSFERS: TOILET - STEP 4: Does the patient need only incidental help such as contact guard or steadying during toilet transfer? Yes. TRANSFERS: TOILET - SCORE: 4-MIN TRANSFERS: SHOWER: Activity did not occur on this shift TRANSFERS: SHOWER - SCORE: 0-UNK TRANSFERS: TUB: Activity did not occur on this shift TRANSFERS: TUB - SCORE: 0-UNK LOCOMOTION: WALK: Activity did not occur on this shift LOCOMOTION: WALK - SCORE: 0-UNK LOCOMOTION: WHEELCHAIR: Activity did not occur on this shift LOCOMOTION: WHEELCHAIR - SCORE: 0-UNK COMPREHENSION: COMPREHENSION: TYPE: Both COMPREHENSION - STEP 1: Does the patient require help from a person or device, or need extra time to understand complex and a bstract ideas (such as current events, finances, discharge planning, medical issues, relationships, e tc)? No. COMPREHENSION - STEP 2: Does the patient need extra time, require an assistive device (such as glasses for visual comprehensi on or a hearing aid for auditory comprehension) or does s/he have mild difficulty understanding compl ex and abstract information? Yes. COMPREHENSION - SCORE: 6-JENISE EXPRESSION EXPRESSION: TYPE: Both EXPRESSION - STEP 1: Does the patient require help from a person or device, or need extra time expressing complex and abst ract ideas (such as current events, finances, discharge planning, medical issues, relationships, etc) ? No. EXPRESSION - STEP 2: Does the patient need extra time, require an assistive device (such as augmentive communication syste m or a communication board), OR does s/he have mild difficulty expressing complex and abstract ideas (including mild dysarthria or mild word-find problems)? Yes. EXPRESSION - SCORE: 6-JENISE SOCIAL INTERACTION: SOCIAL INTERACTION - STEP 1: Does the patient require a helper to interact with others in social and therapeutic situations? No. SOCIAL INTERACTION - STEP 2: Does the patient need extra time in social situations, OR does s/he interact with staff, other patien ts, and family members ONLY in structured environments, OR does s/he require medication for social in teraction? Yes, patient needs extra time SOCIAL INTERACTION - SCORE: 6-JENISE PROBLEM SOLVING: PROBLEM SOLVING - STEP 1: Does the patient need help from a person or device, or need extra time to solve complex problems such as managing a checking account or confronting interpersonal problems? No. PROBLEM SOLVING - STEP 2: Does the patient require extra time to make decisions or solve problems, OR does s/he have slight dif ficulty reading, initiating, or self-correcting in unfamiliar situations? Yes, patient needs extra ti me. PROBLEM SOLVING - SCORE: 6-JENISE MEMORY: MEMORY - STEP 1: Does the patient need help from a person or device, or need extra time to remember frequently encount ered people, daily routines, and executing requests? No. MEMORY - STEP 2: Does the patient have slight difficulty recognizing frequently encountered people, daily routines, or executing requests without the need for repetition or using self-initiated or environmental cues to remember? Yes. MEMORY - SCORE: 6-JENISE SIGNATURE PANEL: The following modified sections: Eating - Score, Grooming - Score, Dressing - Upper Body - Score, Silvio ssing - Lower Body - Score, Toileting - Score, Bladder Management - Score, Bowel Management - Score, Transfers: Bed, Chair, Wheelchair - Score, Transfers: Toilet - Score, Transfers: Shower - Score, [place] sfers: Tub - Score, Locomotion: Walk - Score, Locomotion: Wheelchair - Score, Comprehension - Score, Expression - Score, Social Interaction - Score, Problem Solving - Score, Memory - Score were [electro nically] signed by Maricruz Lara CNA on MonJun 20 2018 01:45:27 GMT-0600 (Central Standard Time)
[2018-06-20] MEDS: CARVEDILOL 12.5 MG TAB PO SCH ×2 (05:12→17:17)
[2018-06-20] MEDS: LACTULOSE 20 GM/30 ML UCUP PO SCH ×2 (05:12→17:16)
--- NOTE | 2018-06-20 06:47 | FAST ---
ENCOUNTER DATE AND TIME: 06/19/2018 08:00 (LOAN REVIEW MANAGER) NAME ANNALEE LOPEZ DATE OF : 1930 DATE OF ADMISSION: 06/15/2018 16:01 (CDT) PHONE: AGE: 87 SSN# [id number] GENDER: Female ENCOUNTER PHYSICIAN: Dr. Rory Miner M.D. 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 EATING: Activity did not occur on this shift EATING - SCORE: 0-UNK GROOMING: Comb/brush hair Wash, rinse, and dry face Wash, rinse, and dry hands GROOMING - STEP 1: Does the patient require the assistance of a person or device, or need extra time when grooming? No. GROOMING - SCORE: 7-IND BATHING: Abdomen Buttocks Chest Left arm Left lower leg and foot Left upper leg Perineal area Right arm Right lower leg and foot Right upper leg BATHING - STEP 1: Does the patient require the assistance of a person or device, or need extra time when bathing? Yes. BATHING - STEP 2: Does the patient require the assistance of a helper? Yes. BATHING - STEP 3: How much assistance does the patient require from the helper? Only incidental help such as placement of a wash cloth in his/her hand a few times as s/he bathes OR help to bathe just one or two areas of the body BATHING - SCORE: 4-MIN DRESSING - UPPER BODY: T-shirt/pullover shirt (four steps) ARTICLES SCORE Total number of steps: 4 DRESSING - UPPER BODY - STEP 1: Does the patient require help from a person or device, or need extra time when dressing above the [address]? Yes. DRESSING - UPPER BODY - STEP 2: Does the patient require the assistance of a helper? Yes. DRESSING - UPPER BODY - STEP 3: Does the helper touch the patient while dressing? No. DRESSING - UPPER BODY - SCORE: 5-SUP DRESSING - LOWER BODY: Elastic waist pants (three steps) Slip-on shoe - Left foot (one step) Slip-on shoe - Right foot (one step) Underwear (three steps) ARTICLES SCORE Total number of steps: 8 DRESSING - LOWER BODY - STEP 1: Does the patient require help from a person or device, or need extra time when dressing below the [address]? Yes. DRESSING - LOWER BODY - STEP 2: Does the patient require the assistance of a helper? Yes. DRESSING - LOWER BODY - STEP 3: Does the helper touch the patient while dressing? Yes. DRESSING - LOWER BODY - STEP 4: How many of the total steps does the patient complete on his/her own? 8 DRESSING - LOWER BODY - SCORE: 4-MIN TOILETING: Activity did not occur on this shift TOILETING - SCORE: 0-UNK BLADDER MANAGEMENT: Activity did not occur on this shift BLADDER MANAGEMENT - SCORE: 7-IND BOWEL MANAGEMENT: Activity did not occur on this shift BOWEL MANAGEMENT - SCORE: 7-IND TRANSFERS: BED, CHAIR, WHEELCHAIR: Activity did not occur on this shift TRANSFERS: BED, CHAIR, WHEELCHAIR - SCORE: 0-UNK TRANSFERS: TOILET: Activity did not occur on this shift TRANSFERS: TOILET - SCORE: 0-UNK TRANSFERS: SHOWER: TRANSFERS: SHOWER - STEP 1: Does the patient require the assistance of a person or device, or need extra time with shower transfe rs? Yes. TRANSFERS: SHOWER - STEP 2: Does the patient require the assistance of a helper? Yes. TRANSFERS: SHOWER - STEP 3: How much assistance does the patient require from the helper? Only incidental help such as contact gu arding or steadying during shower transfers, or help to lift one leg into the shower TRANSFERS: SHOWER - SCORE: 4-MIN TRANSFERS: TUB: Activity did not occur on this shift TRANSFERS: TUB - SCORE: 0-UNK LOCOMOTION: WALK: Activity did not occur on this shift LOCOMOTION: WALK - SCORE: 0-UNK LOCOMOTION: WHEELCHAIR: Activity did not occur on this shift LOCOMOTION: WHEELCHAIR - SCORE: 0-UNK LOCOMOTION: STAIRS: Activity did not occur on this shift LOCOMOTION: STAIRS - SCORE: 0-UNK COMPREHENSION: COMPREHENSION: TYPE: Visual COMPREHENSION - STEP 1: Does the patient require help from a person or device, or need extra time to understand complex and a bstract ideas (such as current events, finances, discharge planning, medical issues, relationships, e tc)? No. COMPREHENSION - STEP 2: Does the patient need extra time, require an assistive device (such as glasses for visual comprehensi on or a hearing aid for auditory comprehension) or does s/he have mild difficulty understanding compl ex and abstract information? Yes. COMPREHENSION - SCORE: 6-JENISE EXPRESSION EXPRESSION: TYPE: Non-Vocal EXPRESSION - STEP 1: Does the patient require help from a person or device, or need extra time expressing complex and abst ract ideas (such as current events, finances, discharge planning, medical issues, relationships, etc) ? No. EXPRESSION - STEP 2: Does the patient need extra time, require an assistive device (such as augmentive communication syste m or a communication board), OR does s/he have mild difficulty expressing complex and abstract ideas (including mild dysarthria or mild word-find problems)? No. EXPRESSION - SCORE: 7-IND SOCIAL INTERACTION: SOCIAL INTERACTION - STEP 1: Does the patient require a helper to interact with others in social and therapeutic situations? No. SOCIAL INTERACTION - STEP 2: Does the patient need extra time in social situations, OR does s/he interact with staff, other patien ts, and family members ONLY in structured environments, OR does s/he require medication for social in teraction? No. SOCIAL INTERACTION - SCORE: 7-IND PROBLEM SOLVING: PROBLEM SOLVING - STEP 1: Does the patient need help from a person or device, or need extra time to solve complex problems such as managing a checking account or confronting interpersonal problems? Yes. PROBLEM SOLVING - STEP 2: Does the patient solve basic routine problems half or more of the time? Yes. PROBLEM SOLVING - STEP 3: How often does the patient need help to solve basic routine problems? Less than 10% of the time PROBLEM SOLVING - SCORE: 5-SUP MEMORY: MEMORY - STEP 1: Does the patient need help from a person or device, or need extra time to remember frequently encount ered people, daily routines, and executing requests? Yes. MEMORY - STEP 2: How often does the patient need help to remember frequently encountered people, daily routines, and e xecuting requests? Less than 10% of the time MEMORY - SCORE: 5-SUP SIGNATURE PANEL: The following modified sections: Eating - Score, Grooming - Score, Bathing - Score, Dressing - Upper Body - Score, Dressing - Lower Body - Score, Toileting - Score, Transfers: Bed, Chair, Wheelchair - S core, Transfers: Toilet - Score, Transfers: Shower - Score, Transfers: Tub - Score, Comprehension - S core, Expression - Score, Social Interaction - Score, Problem Solving - Score, Memory - Score were [e lectronically] signed by ANUJA Gudino on MonJun 20 2018 06:46:57 T-0600 ([place] Time)
[2018-06-20] MEDS: SODIUM CHLORIDE 0.9% 10ML INJ IV SCH ×2 (08:00→20:02)
[2018-06-20] MEDS: POLYETHYL GLY 3350 17 GM/DOSE PO SCH (08:03)
[2018-06-20] MEDS: APIXABAN 5 MG TABLET PO SCH ×2 (08:04→20:00)
[2018-06-20] MEDS: PANTOPRAZOLE 40MG TABLET PO SCH (08:04)
[2018-06-20] MEDS: MULTIVITAMIN TAB PO SCH (08:04)
[2018-06-20] MEDS: GABAPENTIN 300 MG CAP PO SCH ×2 (08:05→20:00)
[2018-06-20] MEDS: LISINOPRIL 20 MG TAB PO SCH (08:06)
[2018-06-20] MEDS: CRANBERRY FRUIT EXTRACT 200 MG CAP PO SCH ×2 (08:06→20:00)
[2018-06-20] MEDS: LACTOBACILLUS/ACIDOPHILUS TAB PO SCH ×2 (08:06→20:00)
[2018-06-20] MEDS: ACETAMINOPHEN 325 MG TABLET PO PRN (08:07)
[2018-06-20] MEDS: LIDOCAINE 5% PATCH TOP SCH (08:09)
[2018-06-20] MEDS: PROMOD 30 ML DOSE PO SCH ×2 (08:09→20:00)
--- NOTE | 2018-06-20 10:03 | FAST ---
SHIFT START DATE/TIME: 06/20/2018 07:00 (COMMUNITY RELATIONS MANAGER) SHIFT END DATE/TIME: 06/20/2018 19:00 (COMMUNITY RELATIONS MANAGER) NAME ANNALEE LOPEZ DATE OF : 1930 DATE OF ADMISSION: 06/15/2018 16:01 (CDT) PHONE: AGE: 87 SSN# [id number] GENDER: Female ENCOUNTER PHYSICIAN: Dr. Rory Miner M.D. 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 EATING: EATING - STEP 1: Does the patient require the assistance of a person or device, or need extra time when eating? Yes. EATING - STEP 2: Does the patient require the assistance of a helper? No, patient only requires an assistive device, O R s/he takes more than reasonable time to eat, OR there is a safety concern, OR s/he requires modifie d food consistency EATING - SCORE: 6-JENISE GROOMING: Comb/brush hair Oral care GROOMING - STEP 1: Does the patient require the assistance of a person or device, or need extra time when grooming? No. GROOMING - SCORE: 7-IND BATHING: Activity did not occur on this shift BATHING - SCORE: 0-UNK DRESSING - UPPER BODY: Sweater (four steps) ARTICLES SCORE Total number of steps: 4 DRESSING - UPPER BODY - STEP 1: Does the patient require help from a person or device, or need extra time when dressing above the [address]? Yes. DRESSING - UPPER BODY - STEP 2: Does the patient require the assistance of a helper? No. Patient only requires an assistive device, s uch as a button hook, velcro, or group home paraprofessional. OR s/he takes more than reasonable time as s/he dresses the upper body. OR there is a concern for safety when s/he dresses the upper body DRESSING - UPPER BODY - SCORE: 6-JENISE DRESSING - LOWER BODY: ARTICLES SCORE Total number of steps: 5 DRESSING - LOWER BODY - STEP 1: Does the patient require help from a person or device, or need extra time when dressing below the [address]? Yes. DRESSING - LOWER BODY - STEP 2: Does the patient require the assistance of a helper? No. Patient requires an assistive device such as a group home paraprofessional. OR s/he takes more than reasonable time as s/he dresses the lower body, OR there is a con cern for safety when s/he dresses the lower body DRESSING - LOWER BODY - SCORE: 6-JENISE TOILETING: TOILETING - STEP 1: Does the patient require the assistance of a person or device, or need extra time with toileting? Yes . TOILETING - STEP 2: Does the patient require the assistance of a helper? Yes. TOILETING - STEP 3: How much assistance does the patient require from the helper? Only supervision TOILETING - SCORE: 5-SUP BLADDER MANAGEMENT: BLADDER MANAGEMENT - STEP 1: Does the patient control the bladder completely and intentionally without equipment or devices or med ications, and is always continent? No. BLADDER MANAGEMENT - STEP 2: Does the patient require the assistance of a helper? No, patient requires and independently uses an a ssistive device, such as a urinal, bedpan, bedside commode, catheter, absorbent pad, or collecting de vice BLADDER MANAGEMENT - SCORE: 6-JENISE BOWEL MANAGEMENT: BOWEL MANAGEMENT - STEP 1: Does the patient control bowels completely and intentionally without equipment devices or medications AND is always continent? No. BOWEL MANAGEMENT - STEP 2: Does the patient require the assistance of a helper? No, patient requires and manages independently a n assistive device such as a bedpan, bedside commode, absorbent pad, incontinent device, or collectin g device BOWEL MANAGEMENT - SCORE: 6-JENISE TRANSFERS: BED, CHAIR, WHEELCHAIR: TRANSFERS: BED, CHAIR, WHEELCHAIR - STEP 1: Does the patient require assitance of a person or device, or need extra time with bed, chair, or whee lchair transfers? Yes. TRANSFERS: BED, CHAIR, WHEELCHAIR - STEP 2: Does the patient require the assistance of a helper? Yes. TRANSFERS: BED, CHAIR, WHEELCHAIR - STEP 3: How much assistance does the patient require from the helper? Only supervision TRANSFERS: BED, CHAIR, WHEELCHAIR - SCORE: 5-SUP TRANSFERS: TOILET: TRANSFERS: TOILET - STEP 1: Does the patient require the assistance of a person or device, or need extra time with toilet transfe rs? Yes. TRANSFERS: TOILET - STEP 2: Does the patient require the assistance of a helper? Yes. TRANSFERS: TOILET - STEP 3: How much assistance does the patient require from the helper? Only supervision, cuing, coaxing, OR he lp to set out transfer equipment or to lock brakes and/or lift foot rests TRANSFERS: TOILET - SCORE: 5-SUP TRANSFERS: SHOWER: Activity did not occur on this shift TRANSFERS: SHOWER - SCORE: 0-UNK TRANSFERS: TUB: Activity did not occur on this shift TRANSFERS: TUB - SCORE: 0-UNK LOCOMOTION: WALK: Activity did not occur on this shift LOCOMOTION: WALK - SCORE: 0-UNK LOCOMOTION: WHEELCHAIR: Activity did not occur on this shift LOCOMOTION: WHEELCHAIR - SCORE: 0-UNK COMPREHENSION: COMPREHENSION: TYPE: Both COMPREHENSION - STEP 1: Does the patient require help from a person or device, or need extra time to understand complex and a bstract ideas (such as current events, finances, discharge planning, medical issues, relationships, e tc)? No. COMPREHENSION - STEP 2: Does the patient need extra time, require an assistive device (such as glasses for visual comprehensi on or a hearing aid for auditory comprehension) or does s/he have mild difficulty understanding compl ex and abstract information? Yes. COMPREHENSION - SCORE: 6-JENISE EXPRESSION EXPRESSION: TYPE: Both EXPRESSION - STEP 1: Does the patient require help from a person or device, or need extra time expressing complex and abst ract ideas (such as current events, finances, discharge planning, medical issues, relationships, etc) ? No. EXPRESSION - STEP 2: Does the patient need extra time, require an assistive device (such as augmentive communication syste m or a communication board), OR does s/he have mild difficulty expressing complex and abstract ideas (including mild dysarthria or mild word-find problems)? Yes. EXPRESSION - SCORE: 6-JENISE SOCIAL INTERACTION: SOCIAL INTERACTION - STEP 1: Does the patient require a helper to interact with others in social and therapeutic situations? No. SOCIAL INTERACTION - STEP 2: Does the patient need extra time in social situations, OR does s/he interact with staff, other patien ts, and family members ONLY in structured environments, OR does s/he require medication for social in teraction? No. SOCIAL INTERACTION - SCORE: 7-IND PROBLEM SOLVING: PROBLEM SOLVING - STEP 1: Does the patient need help from a person or device, or need extra time to solve complex problems such as managing a checking account or confronting interpersonal problems? No. PROBLEM SOLVING - STEP 2: Does the patient require extra time to make decisions or solve problems, OR does s/he have slight dif ficulty reading, initiating, or self-correcting in unfamiliar situations? Yes, patient needs extra ti me. PROBLEM SOLVING - SCORE: 6-JENISE MEMORY: MEMORY - STEP 1: Does the patient need help from a person or device, or need extra time to remember frequently encount ered people, daily routines, and executing requests? No. MEMORY - STEP 2: Does the patient have slight difficulty recognizing frequently encountered people, daily routines, or executing requests without the need for repetition or using self-initiated or environmental cues to remember? Yes. MEMORY - SCORE: 6-JENISE SIGNATURE PANEL: The following modified sections: Eating - Score, Grooming - Score, Bathing - Score, Dressing - Upper Body - Score, Dressing - Lower Body - Score, Toileting - Score, Bladder Management - Score, Bowel Man agement - Score, Transfers: Bed, Chair, Wheelchair - Score, Transfers: Toilet - Score, Transfers: Nayely wer - Score, Transfers: Tub - Score, Locomotion: Walk - Score, Locomotion: Wheelchair - Score, Compre hension - Score, Expression - Score, Social Interaction - Score, Problem Solving - Score, Memory - Sc ore were [electronically] signed by Richar Perdomo on MonJun 20 2018 10:02:35 GMT-0600 (Central Standard Time)
--- NOTE | 2018-06-20 12:21 | FAST ---
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 Rory Miner M.D. 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 EATING: Activity did not occur on this shift EATING - SCORE: 0-UNK GROOMING: Wash, rinse, and dry hands GROOMING - STEP 1: Does the patient require the assistance of a person or device, or need extra time when grooming? No. GROOMING - SCORE: 7-IND BATHING: Activity did not occur on this shift BATHING - SCORE: 0-UNK DRESSING - UPPER BODY: Activity did not occur on this shift ARTICLES SCORE Total number of steps: 0 DRESSING - UPPER BODY - SCORE: 0-UNK DRESSING - LOWER BODY: Activity did not occur on this shift ARTICLES SCORE Total number of steps: 0 DRESSING - LOWER BODY - SCORE: 0-UNK TOILETING: TOILETING - STEP 1: Does the patient require the assistance of a person or device, or need extra time with toileting? Yes . TOILETING - STEP 2: Does the patient require the assistance of a helper? Yes. TOILETING - STEP 3: How much assistance does the patient require from the helper? Hands-on assistance from the helper TOILETING - STEP 4: Of the 3 tasks: 1) Adjusting clothing prior to use, 2) Cleansing of perineal area, 3) Adjusting clot luis after use; How many tasks does the patient perform WITHOUT assistance of the helper? Three tasks with steadying assistance from the helper TOILETING - SCORE: 4-MIN BLADDER MANAGEMENT: Activity did not occur on this shift BLADDER MANAGEMENT - SCORE: 7-IND BOWEL MANAGEMENT: Activity did not occur on this shift BOWEL MANAGEMENT - SCORE: 7-IND TRANSFERS: BED, CHAIR, WHEELCHAIR: Activity did not occur on this shift TRANSFERS: BED, CHAIR, WHEELCHAIR - SCORE: 0-UNK TRANSFERS: TOILET: TRANSFERS: TOILET - STEP 1: Does the patient require the assistance of a person or device, or need extra time with toilet transfe rs? Yes. TRANSFERS: TOILET - STEP 2: Does the patient require the assistance of a helper? Yes. TRANSFERS: TOILET - STEP 3: How much assistance does the patient require from the helper? Patient performs half or more of the tr ansferring tasks TRANSFERS: TOILET - STEP 4: Does the patient need only incidental help such as contact guard or steadying during toilet transfer? Yes. TRANSFERS: TOILET - SCORE: 4-MIN TRANSFERS: SHOWER: Activity did not occur on this shift TRANSFERS: SHOWER - SCORE: 0-UNK TRANSFERS: TUB: Activity did not occur on this shift TRANSFERS: TUB - SCORE: 0-UNK LOCOMOTION: WALK: Activity did not occur on this shift LOCOMOTION: WALK - SCORE: 0-UNK LOCOMOTION: WHEELCHAIR: Activity did not occur on this shift LOCOMOTION: WHEELCHAIR - SCORE: 0-UNK LOCOMOTION: STAIRS: Activity did not occur on this shift LOCOMOTION: STAIRS - SCORE: 0-UNK COMPREHENSION: COMPREHENSION: TYPE: Visual COMPREHENSION - STEP 1: Does the patient require help from a person or device, or need extra time to understand complex and a bstract ideas (such as current events, finances, discharge planning, medical issues, relationships, e tc)? No. COMPREHENSION - STEP 2: Does the patient need extra time, require an assistive device (such as glasses for visual comprehensi on or a hearing aid for auditory comprehension) or does s/he have mild difficulty understanding compl ex and abstract information? Yes. COMPREHENSION - SCORE: 6-JENISE EXPRESSION EXPRESSION: TYPE: Non-Vocal EXPRESSION - STEP 1: Does the patient require help from a person or device, or need extra time expressing complex and abst ract ideas (such as current events, finances, discharge planning, medical issues, relationships, etc) ? No. EXPRESSION - STEP 2: Does the patient need extra time, require an assistive device (such as augmentive communication syste m or a communication board), OR does s/he have mild difficulty expressing complex and abstract ideas (including mild dysarthria or mild word-find problems)? No. EXPRESSION - SCORE: 7-IND SOCIAL INTERACTION: SOCIAL INTERACTION - STEP 1: Does the patient require a helper to interact with others in social and therapeutic situations? No. SOCIAL INTERACTION - STEP 2: Does the patient need extra time in social situations, OR does s/he interact with staff, other patien ts, and family members ONLY in structured environments, OR does s/he require medication for social in teraction? No. SOCIAL INTERACTION - SCORE: 7-IND PROBLEM SOLVING: PROBLEM SOLVING - STEP 1: Does the patient need help from a person or device, or need extra time to solve complex problems such as managing a checking account or confronting interpersonal problems? No. PROBLEM SOLVING - STEP 2: Does the patient require extra time to make decisions or solve problems, OR does s/he have slight dif ficulty reading, initiating, or self-correcting in unfamiliar situations? Yes, patient needs extra ti me. PROBLEM SOLVING - SCORE: 6-JENISE MEMORY: MEMORY - STEP 1: Does the patient need help from a person or device, or need extra time to remember frequently encount ered people, daily routines, and executing requests? No. MEMORY - STEP 2: Does the patient have slight difficulty recognizing frequently encountered people, daily routines, or executing requests without the need for repetition or using self-initiated or environmental cues to remember? Yes. MEMORY - SCORE: 6-JENISE SIGNATURE PANEL: The following modified sections: Eating - Score, Grooming - Score, Bathing - Score, Dressing - Upper Body - Score, Dressing - Lower Body - Score, Toileting - Score, Transfers: Bed, Chair, Wheelchair - S core, Transfers: Toilet - Score, Transfers: Shower - Score, Transfers: Tub - Score, Comprehension - S core, Expression - Score, Social Interaction - Score, Problem Solving - Score, Memory - Score were [e lectronically] signed by ANUJA Gudino on MonJun 20 2018 12:20:21 GMT-0600 ([place] Time)
--- NOTE | 2018-06-20 15:11 | FAST ---
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 Rory Miner M.D. 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 EATING: Activity did not occur on this shift EATING - SCORE: 0-UNK GROOMING: Activity did not occur on this shift GROOMING - SCORE: 0-UNK BATHING: Activity did not occur on this shift BATHING - SCORE: 0-UNK DRESSING - UPPER BODY: Activity did not occur on this shift Patient is not dressing in public clothing ARTICLES SCORE Total number of steps: 0 DRESSING - UPPER BODY - SCORE: 0-UNK DRESSING - LOWER BODY: Activity did not occur on this shift Patient is not dressing in public clothing ARTICLES SCORE Total number of steps: 0 DRESSING - LOWER BODY - SCORE: 0-UNK TOILETING: Activity did not occur on this shift TOILETING - SCORE: 0-UNK BLADDER MANAGEMENT: Activity did not occur on this shift BLADDER MANAGEMENT - SCORE: 7-IND BOWEL MANAGEMENT: Activity did not occur on this shift BOWEL MANAGEMENT - SCORE: 7-IND TRANSFERS: BED, CHAIR, WHEELCHAIR: TRANSFERS: BED, CHAIR, WHEELCHAIR - STEP 1: Does the patient require assitance of a person or device, or need extra time with bed, chair, or whee lchair transfers? Yes. TRANSFERS: BED, CHAIR, WHEELCHAIR - STEP 2: Does the patient require the assistance of a helper? No. Patient only requires an assistive device fo r bed, chair, wheelchair transfers such as a sliding board, grab bar, or brace, OR s/he takes more th an reasonable time, OR there is a safety concern when s/he performs the transfers TRANSFERS: BED, CHAIR, WHEELCHAIR - SCORE: 6-JENISE TRANSFERS: TOILET: TRANSFERS: TOILET - STEP 1: Does the patient require the assistance of a person or device, or need extra time with toilet transfe rs? Yes. TRANSFERS: TOILET - STEP 2: Does the patient require the assistance of a helper? No. Patient only requires an assistive device alcantara ch as a grab bar or special seat, OR s/he takes more than reasonable time to perform toilet transfers , OR there is a safety concern when s/he performs toilet transfers. TRANSFERS: TOILET - SCORE: 6-JENISE TRANSFERS: SHOWER: Activity did not occur on this shift TRANSFERS: SHOWER - SCORE: 0-UNK TRANSFERS: TUB: Activity did not occur on this shift TRANSFERS: TUB - SCORE: 0-UNK LOCOMOTION: WALK: LOCOMOTION: WALK - STEP 1: Does the patient need help from a person or device, or need extra time to walk 150 feet? No. LOCOMOTION: WALK - STEP 2: Does the patient need an assistive device (such as an orthosis, prosthesis, crutches, or walker) to g o 150 feet, OR does s/he take more than reasonable time, OR is there a concern for safety? Yes, the p atient needs an assistive device LOCOMOTION: WALK - SCORE: 6-JENISE LOCOMOTION: WHEELCHAIR: Activity did not occur on this shift LOCOMOTION: WHEELCHAIR - SCORE: 0-UNK LOCOMOTION: STAIRS: LOCOMOTION: STAIRS - STEP 1: Does the patient need help to go up and down 12 to 14 stairs? No. LOCOMOTION: STAIRS - STEP 2: Does the patient require an assistive device - such as handrails or cane - to go up and down one flig ht of stairs, OR does s/he take more than reasonable time, OR is there a concern for safety? Yes, the patient requires an assistive device LOCOMOTION: STAIRS - SCORE: 6-JENISE COMPREHENSION: COMPREHENSION - SCORE: 0-UNK EXPRESSION EXPRESSION - SCORE: 0-UNK SOCIAL INTERACTION: SOCIAL INTERACTION - SCORE: 0-UNK PROBLEM SOLVING: PROBLEM SOLVING - SCORE: 0-UNK MEMORY: MEMORY - SCORE: 0-UNK SIGNATURE PANEL: The following modified sections: Transfers: Bed, Chair, Wheelchair - Score, Transfers: Toilet - Score , Locomotion: Walk - Score, Locomotion: Wheelchair - Score, Locomotion: Stairs - Score were [electron phoenix] signed by Terrell Amato PT on MonJun 20 2018 15:10:06 GMT-0600 (Central Standard Time)
--- NOTE | 2018-06-20 17:29 | R.PN ---
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 Pt denied any Shortness of Breath. Ambulated 1050' with modified independence using a rolling walker. Up and down 30 steps with modifie d independence. VITAL SIGNS Temperature: 97.4 F SBP/DBP: 118/59 Pulse: 69 Resp: 16 MEDICATION ALLERGIES: penicillin ENVIRONMENTAL ALLERGIES: - Substance Allergies None Known - Other Allergies None Known NURSING: - Shower allowing shower - Bladder care per protocol - Skin care per protocol ACTIVITIES OOB only with supervision THERAPIES: - Orthotics/Prosthetics Orthotic Evaluation. Splinting/Casting. - Occupational Therapy Evaluate and Treat. - Physical Therapy Evaluate and Treat. PHYSICAL EXAM - Gen Alert and awake Lying in bed No apparent distress Oriented to: person, time, and place - Skin No skin breakdown. No abnormalities - Eyes No abnormalities - ENMT No abnormalities - Neck No abnormalities - CVS RRR - Chest Clear - Abd Soft - GI Non tender Deferred - No abnormalities - Ext No significant edema - MSK 4+/5 weakness in both lower extremities. - Neuro 4/5 strength right upper and lower extremities. - Psych No abnormalities ASSESSMENT: Pt. is a 87 yo Right-handed white female.On 05/11/2018 she was admitted to [facility] with alxeia gnosis spinal cord abcess.Her impairment category is Spinal Cord Dysfunction 04 - Other Non-traumati c Spinal Cord Dysfunction (04.130).Pre-morbidly, Pt. was independent/mod-I in Communication, Social C ognition, Self-Care, Locomotion, Sphincter Control, and Transfers Control; and she had good Sphincter Control.Currently, she has deficits of Balance, Locomotion, Endurance, Safety Awareness, Transfers C ontrol, and Self-Care.Pt. is now referred to [facility] for acute in-patient r ehabilitation in order to maximize patient's functional independence in activities of daily living, s trength, ROM, and mobility.- Rehab Goal Patient has realistic goal of being discharged at assistance level 1-Dep to reside at Home with Fami ly/Relatives. MDM/PLAN: - Physical Therapy Gait dysfunction - to improve, our physical therapists will perform initial evaluation of pt's statu s upon admission and devise an individualized program for Gait Training, and Wheel Chair mobility Inability to transfer - to improve, our physical therapists will perform initial evaluation of pt's status upon admission and devise an individualized program for Bed mobility Need for home safety evaluation - to improve, our physical therapists will perform initial evaluatio n of pt's status upon admission and devise an individualized program for Home Evaluation Need in caregiver upon discharge - to improve, our physical therapists will perform initial evaluati on of pt's status upon admission and devise an individualized program for Caregiver Training New precaution - to improve, our physical therapists will perform initial evaluation of pt's status upon admission and devise an individualized program for Patient precaution education Edema - to improve, our physical therapists will perform initial evaluation of pt's status upon admi ssion and devise an individualized program for Elevation Training, and Lymphedema Therapy Poor balance - to improve, our physical therapists will perform initial evaluation of pt's status up on admission and devise an individualized program for Balance Training Poor endurance - to improve, our physical therapists will perform initial evaluation of pt's status upon admission and devise an individualized program for Endurance Training Weakness - to improve, our physical therapists will perform initial evaluation of pt's status upon a dmission and devise an individualized program for Aquatic Therapy, Neuromuscular Reeducation, and Str engthening Achieving independence - to improve, our physical therapists will perform initial evaluation of pt's status upon admission and devise an individualized program for Community Reintegration Activities - Occupational Therapy ADL deficits - to improve, our occupation therapists will perform initial evaluation of pt's status upon admission and devise an individualized program for Bathing, Bed mobility, Community Reintegratio n, Cooking, Dressing, Eating, Fine Motor Skills, Grooming, Homemaking, Kitchen Mobility, Laundry, Pat ient Education, Safety Awareness, Splinting - Positioning, Transfers(Toilet, Tub, Shower), and Wheel Chair Management Need for manager home healthcare - to improve, our occupation therapists will perform initial evaluation of pt's status upon admission and devise an individualized program for Caregiver Training Weakness - to improve, our occupation therapists will perform initial evaluation of pt's status upon admission and devise an individualized program for Aquatic Therapy, Balance, Endurance, UE ROM, and UE strengthening - Diet Type Continue Regular - Diet - Liquid Texture Continue Regular - Tube Feed Continue N/A - Bladder care per protocol - Skin care per protocol - Diet - Solid Texture Continue Regular - Shower allowing shower FUNCTIONAL STATUS: UPDATED AT WEEKLY TEAM CONFERENCE - Bladder Same Bladder control device used: diaper Same accident frequency: 7-Ind - No accidents in the past 7 days - Bowel Same Bowel control device used: diaper Same accident frequency: 7-Ind - No accidents in the past 7 days - Walking Same score based on distance walked: 3(>=150ft) - Wheelchair Same score based on distance traveled: 3(>=150ft) FUNCTIONAL STATUS: - Self-Care A. Eating Ind B. Grooming sup C. Bathing modA D. Dressing - Upper modA E. Dressing - Lower modA F. Toileting Chris - Sphincter Control G: Bladder control Dep H: Bowel control Dep - Transfers Control I. Bed/Chair/Wheelchair modA J. Toilet modA K. Tub/Shower Chris - Locomotion L. Walk/Wheelchair (B) Chris M. Stairs ADNO - Communication N. Comprehension (B) Toribio O. Expression (B) Toribio - Social Cognition P. Social Interaction Toribio Q. Problem Solving Toribio R. Memory Toribio - Endurance Poor - Balance Fair - Safety Awareness Poor CURRENT FUNC. 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
--- NOTE | 2018-06-20 17:55 | P.PN ---
Subjective Date of Service: 06/20/18 Chief Complaint: WEAKNESS AFTER L2-3 INFECTION SP STEM CELL IMPLANT Subjective: Improving (MOD PAIN.) Review of Systems 10-point ROS is otherwise unremarkable Physical Examination - Vital Signs Temperature: 97.4 F Blood Pressure: 118/59 Pulse: 69 Respirations: 16 Pulse Ox (%): 98 - Physical Exam General: Alert, In no apparent distress HEENT: Atraumatic, PERRLA, EOMI Neck: Supple, JVD not distended Respiratory: Clear to auscultation bilaterally, Normal air movement Cardiovascular: Regular rate/rhythm, Normal S1 S2 Gastrointestinal: Normal bowel sounds, No tenderness Musculoskeletal: No tenderness Integumentary: No rashes Neurological: Normal speech, Normal tone, Normal affect Lymphatics: No axilla or inguinal lymphadenopathy - Studies Medications List Reviewed: Yes Assessment And Plan - Current Problems (Diagnosis) (1) Infection of vertebra Onset Date: 06/18/18 Current Visit: Yes Status: Acute Plan: POST STEM CELL TRANSPLANT, 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 SHE IS RECOVERING. SHE HAS FINISHED ANTIBIOTICS. WILL FU WITH MRI AGAIN. SHE IS HERE FOR THERAPY. ELIQUIS FOR PROPHYLAXIS. CHECK LAB AND SED RATE. MRI TO BE DONE IN AM. NOTE DONE ONE DAY LATE. RADIOLOGIST ADVISED WBC TAGGED SCAN TO RULE OUT CURRENT INFECTION. INDIUM SCAN TODAY. STABLE BUT NOT SURE FROM MRI IF THERE IS INFECTION OR NOT. HER WBC SCAN IS NEGATIVE PAIN IS NOT FROM RESIDUAL INFECTION SHE HAS NO INFECTION NOW.
[2018-06-20] MEDS: MELATONIN 3 MG TABLET PO PRN (20:00)
[2018-06-20] MEDS: ATORVASTATIN 80 MG TAB PO SCH (20:00)
[2018-06-20] MEDS: DOCUSATE NA/SENNA CONC 1 TAB PO SCH (20:00)
[2018-06-21] MEDS: FERROUS SULFATE 325 MG TAB PO SCH ×3 (01:24→16:31)
--- NOTE | 2018-06-21 02:26 | FAST ---
SHIFT START DATE/TIME: 06/20/2018 19:00 (RN CHILD) SHIFT END DATE/TIME: 06/21/2018 07:00 (RN CHILD) NAME ANNALEE LOPEZ DATE OF : 1930 DATE OF ADMISSION: 06/15/2018 16:01 (CDT) PHONE: AGE: 87 N# [id number] GENDER: Female ENCOUNTER PHYSICIAN: Dr. Rory Miner M.D. 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 EATING: Activity did not occur on this shift EATING - SCORE: 0-UNK GROOMING: Oral care Wash, rinse, and dry face Wash, rinse, and dry hands GROOMING - STEP 1: Does the patient require the assistance of a person or device, or need extra time when grooming? Yes. GROOMING - STEP 2: Does the patient require the assistance of a helper? Yes. GROOMING - STEP 3: How much assistance does the patient require from the helper? Only prior equipment preparation/set up from the helper GROOMING - SCORE: 5-SUP BATHING: Activity did not occur on this shift BATHING - SCORE: 0-UNK DRESSING - UPPER BODY: Patient is not dressing in public clothing ARTICLES SCORE Total number of steps: 0 DRESSING - UPPER BODY - SCORE: 0-UNK DRESSING - LOWER BODY: Patient is not dressing in public clothing ARTICLES SCORE Total number of steps: 0 DRESSING - LOWER BODY - SCORE: 0-UNK TOILETING: TOILETING - STEP 1: Does the patient require the assistance of a person or device, or need extra time with toileting? Yes . TOILETING - STEP 2: Does the patient require the assistance of a helper? Yes. TOILETING - STEP 3: How much assistance does the patient require from the helper? Hands-on assistance from the helper TOILETING - STEP 4: Of the 3 tasks: 1) Adjusting clothing prior to use, 2) Cleansing of perineal area, 3) Adjusting clot luis after use; How many tasks does the patient perform WITHOUT assistance of the helper? Two tasks TOILETING - SCORE: 3-MOD BLADDER MANAGEMENT: BLADDER MANAGEMENT - STEP 1: Does the patient control the bladder completely and intentionally without equipment or devices or med ications, and is always continent? No. BLADDER MANAGEMENT - STEP 2: Does the patient require the assistance of a helper? Yes. BLADDER MANAGEMENT - STEP 3: How much assistance does the patient require from the helper? Patient requires contact assistance fro m the helper BLADDER MANAGEMENT - STEP 4: How much contact assistance does the patient require from the helper? Patient requires minimal assist ance to maintain an external device - by positioning, and the patient performs 75% or more of bladder management tasks, while the helper provides less than 25% of the assistance to position patient on / off bedpan BLADDER MANAGEMENT - SCORE: 4-MIN BOWEL MANAGEMENT: Activity did not occur on this shift BOWEL MANAGEMENT - SCORE: 7-IND TRANSFERS: BED, CHAIR, WHEELCHAIR: TRANSFERS: BED, CHAIR, WHEELCHAIR - STEP 1: Does the patient require assitance of a person or device, or need extra time with bed, chair, or whee lchair transfers? Yes. TRANSFERS: BED, CHAIR, WHEELCHAIR - STEP 2: Does the patient require the assistance of a helper? Yes. TRANSFERS: BED, CHAIR, WHEELCHAIR - STEP 3: How much assistance does the patient require from the helper? Lifting of the legs TRANSFERS: BED, CHAIR, WHEELCHAIR - STEP 4: How many legs does the patient require the helper to lift? one leg TRANSFERS: BED, CHAIR, WHEELCHAIR - SCORE: 4-MIN TRANSFERS: TOILET: TRANSFERS: TOILET - STEP 1: Does the patient require the assistance of a person or device, or need extra time with toilet transfe rs? Yes. TRANSFERS: TOILET - STEP 2: Does the patient require the assistance of a helper? Yes. TRANSFERS: TOILET - STEP 3: How much assistance does the patient require from the helper? Patient performs half or more of the tr ansferring tasks TRANSFERS: TOILET - STEP 4: Does the patient need only incidental help such as contact guard or steadying during toilet transfer? Yes. TRANSFERS: TOILET - SCORE: 4-MIN TRANSFERS: SHOWER: Activity did not occur on this shift TRANSFERS: SHOWER - SCORE: 0-UNK TRANSFERS: TUB: Activity did not occur on this shift TRANSFERS: TUB - SCORE: 0-UNK LOCOMOTION: WALK: Activity did not occur on this shift LOCOMOTION: WALK - SCORE: 0-UNK LOCOMOTION: WHEELCHAIR: Activity did not occur on this shift LOCOMOTION: WHEELCHAIR - SCORE: 0-UNK COMPREHENSION: COMPREHENSION: TYPE: Both COMPREHENSION - STEP 1: Does the patient require help from a person or device, or need extra time to understand complex and a bstract ideas (such as current events, finances, discharge planning, medical issues, relationships, e tc)? No. COMPREHENSION - STEP 2: Does the patient need extra time, require an assistive device (such as glasses for visual comprehensi on or a hearing aid for auditory comprehension) or does s/he have mild difficulty understanding compl ex and abstract information? Yes. COMPREHENSION - SCORE: 6-JENISE EXPRESSION EXPRESSION: TYPE: Both EXPRESSION - STEP 1: Does the patient require help from a person or device, or need extra time expressing complex and abst ract ideas (such as current events, finances, discharge planning, medical issues, relationships, etc) ? No. EXPRESSION - STEP 2: Does the patient need extra time, require an assistive device (such as augmentive communication syste m or a communication board), OR does s/he have mild difficulty expressing complex and abstract ideas (including mild dysarthria or mild word-find problems)? Yes. EXPRESSION - SCORE: 6-JENISE SOCIAL INTERACTION: SOCIAL INTERACTION - STEP 1: Does the patient require a helper to interact with others in social and therapeutic situations? No. SOCIAL INTERACTION - STEP 2: Does the patient need extra time in social situations, OR does s/he interact with staff, other patien ts, and family members ONLY in structured environments, OR does s/he require medication for social in teraction? Yes, patient needs extra time SOCIAL INTERACTION - SCORE: 6-JENISE PROBLEM SOLVING: PROBLEM SOLVING - STEP 1: Does the patient need help from a person or device, or need extra time to solve complex problems such as managing a checking account or confronting interpersonal problems? No. PROBLEM SOLVING - STEP 2: Does the patient require extra time to make decisions or solve problems, OR does s/he have slight dif ficulty reading, initiating, or self-correcting in unfamiliar situations? Yes, patient needs extra ti me. PROBLEM SOLVING - SCORE: 6-JENISE MEMORY: MEMORY - STEP 1: Does the patient need help from a person or device, or need extra time to remember frequently encount ered people, daily routines, and executing requests? No. MEMORY - STEP 2: Does the patient have slight difficulty recognizing frequently encountered people, daily routines, or executing requests without the need for repetition or using self-initiated or environmental cues to remember? Yes. MEMORY - SCORE: 6-JENIES
[2018-06-21] MEDS: LACTULOSE 20 GM/30 ML UCUP PO SCH ×2 (05:02→16:22)
[2018-06-21] MEDS: CARVEDILOL 12.5 MG TAB PO SCH ×2 (05:02→17:23)
[2018-06-21 06:14] LABS: Absolute Lymphocytes (CBC) 0.9 K/uL (0.7-4.9); Absolute Monocytes 0.5 K/uL (0.1-1.3); Absolute Neutrophil 2.6 K/uL (1.8-8.0); Lymphocytes % 22.6 % (15.3-44.8); MCH 30.9 pg (27.0-35.0); MCV 93.4 fL (80-100); MPV 8.7 fL (7.6-11.3); Monocytes % 13.4 % (3.3-12.3)
[2018-06-21 06:44] LABS: Albumin 2.5 g/dL (3.4-5.0); BUN Blood Urea Nitrogen 16 mg/dL (7-18); Bicarbonate 31 mmol/L (21-32); Glucose Level 99 mg/dL (74-106); Potassium 3.9 mmol/L (3.5-5.1); Prealbumin 12.2 mg/dL (20-40); Sodium Level 143 mmol/L (136-145)
[2018-06-21] MEDS: TRAMADOL HCL 50 MG TAB PO PRN ×3 (06:49→16:31)
[2018-06-21] MEDS: POLYETHYL GLY 3350 17 GM/DOSE PO SCH (08:00)
[2018-06-21] MEDS: CRANBERRY FRUIT EXTRACT 200 MG CAP PO SCH ×2 (08:13→20:39)
[2018-06-21] MEDS: ACETAMINOPHEN 325 MG TABLET PO PRN ×2 (08:14→14:25)
[2018-06-21] MEDS: MULTIVITAMIN TAB PO SCH (08:14)
[2018-06-21] MEDS: LACTOBACILLUS/ACIDOPHILUS TAB PO SCH ×2 (08:14→20:39)
[2018-06-21] MEDS: PROMOD 30 ML DOSE PO SCH ×2 (08:15→20:38)
[2018-06-21] MEDS: LISINOPRIL 20 MG TAB PO SCH (08:15)
[2018-06-21] MEDS: PANTOPRAZOLE 40MG TABLET PO SCH (08:15)
[2018-06-21] MEDS: GABAPENTIN 300 MG CAP PO SCH ×2 (08:15→20:38)
[2018-06-21] MEDS: APIXABAN 5 MG TABLET PO SCH ×2 (08:15→20:39)
--- NOTE | 2018-06-21 08:16 | FAST ---
ENCOUNTER DATE AND TIME: 06/21/2018 08:00 (BASEBALL PITCHER) NAME ANNALEE LOPEZ DATE OF : 1930 DATE OF ADMISSION: 06/15/2018 16:01 (CDT) PHONE: AGE: 87 SSN# [id number] GENDER: Female ENCOUNTER PHYSICIAN: Dr. Rory Miner M.D. 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 EATING: Activity did not occur on this shift EATING - SCORE: 0-UNK GROOMING: Activity did not occur on this shift GROOMING - SCORE: 0-UNK BATHING: Activity did not occur on this shift BATHING - SCORE: 0-UNK DRESSING - UPPER BODY: Activity did not occur on this shift Patient is not dressing in public clothing ARTICLES SCORE Total number of steps: 0 DRESSING - UPPER BODY - SCORE: 0-UNK DRESSING - LOWER BODY: Activity did not occur on this shift Patient is not dressing in public clothing ARTICLES SCORE Total number of steps: 0 DRESSING - LOWER BODY - SCORE: 0-UNK TOILETING: Activity did not occur on this shift TOILETING - SCORE: 0-UNK BLADDER MANAGEMENT: Activity did not occur on this shift BLADDER MANAGEMENT - SCORE: 7-IND BOWEL MANAGEMENT: Activity did not occur on this shift BOWEL MANAGEMENT - SCORE: 7-IND TRANSFERS: BED, CHAIR, WHEELCHAIR: TRANSFERS: BED, CHAIR, WHEELCHAIR - STEP 1: Does the patient require assitance of a person or device, or need extra time with bed, chair, or whee lchair transfers? Yes. TRANSFERS: BED, CHAIR, WHEELCHAIR - STEP 2: Does the patient require the assistance of a helper? No. Patient only requires an assistive device fo r bed, chair, wheelchair transfers such as a sliding board, grab bar, or brace, OR s/he takes more th an reasonable time, OR there is a safety concern when s/he performs the transfers TRANSFERS: BED, CHAIR, WHEELCHAIR - SCORE: 6-JENISE TRANSFERS: TOILET: TRANSFERS: TOILET - STEP 1: Does the patient require the assistance of a person or device, or need extra time with toilet transfe rs? Yes. TRANSFERS: TOILET - STEP 2: Does the patient require the assistance of a helper? No. Patient only requires an assistive device alcantara ch as a grab bar or special seat, OR s/he takes more than reasonable time to perform toilet transfers , OR there is a safety concern when s/he performs toilet transfers. TRANSFERS: TOILET - SCORE: 6-JENISE TRANSFERS: SHOWER: Activity did not occur on this shift TRANSFERS: SHOWER - SCORE: 0-UNK TRANSFERS: TUB: Activity did not occur on this shift TRANSFERS: TUB - SCORE: 0-UNK LOCOMOTION: WALK: LOCOMOTION: WALK - STEP 1: Does the patient need help from a person or device, or need extra time to walk 150 feet? Yes. LOCOMOTION: WALK - STEP 2: How much assistance does the patient require to walk a minimum of 150 feet? Only supervision, cuing, or coaxing LOCOMOTION: WALK - SCORE: 5-SUP LOCOMOTION: WHEELCHAIR: LOCOMOTION: WHEELCHAIR - STEP 1: Does the patient need help to go 150 feet in a wheelchair? No. LOCOMOTION: WHEELCHAIR - SCORE: 6-JENISE LOCOMOTION: STAIRS: Activity did not occur on this shift LOCOMOTION: STAIRS - SCORE: 0-UNK COMPREHENSION: COMPREHENSION - SCORE: 0-UNK EXPRESSION EXPRESSION - SCORE: 0-UNK SOCIAL INTERACTION: SOCIAL INTERACTION - SCORE: 0-UNK PROBLEM SOLVING: PROBLEM SOLVING - SCORE: 0-UNK MEMORY: MEMORY - SCORE: 0-UNK SIGNATURE PANEL: The following modified sections: Transfers: Bed, Chair, Wheelchair - Score, Transfers: Toilet - Score , Locomotion: Walk - Score, Locomotion: Wheelchair - Score, Locomotion: Stairs - Score were [carly garibay] signed by Iris Mazariegos PTA on MonJun 21 2018 08:16:02 T-0600 (Central Standard Time)
[2018-06-21] MEDS: SODIUM CHLORIDE 0.9% 10ML INJ IV SCH ×2 (08:47→20:39)
[2018-06-21] MEDS: LIDOCAINE 5% PATCH TOP SCH (08:47)
--- NOTE | 2018-06-21 09:50 | FAST ---
SHIFT START DATE/TIME: 06/21/2018 07:00 (THIRD MILLER) SHIFT END DATE/TIME: 06/21/2018 19:00 (THIRD MILLER) NAME ANNALEE OLPEZ DATE OF : 1930 DATE OF ADMISSION: 06/15/2018 16:01 (CDT) PHONE: AGE: 87 N# [id number] GENDER: Female ENCOUNTER PHYSICIAN: Dr. Rory Miner M.D. 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 EATING: EATING - STEP 1: Does the patient require the assistance of a person or device, or need extra time when eating? Yes. EATING - STEP 2: Does the patient require the assistance of a helper? No, patient only requires an assistive device, O R s/he takes more than reasonable time to eat, OR there is a safety concern, OR s/he requires modifie d food consistency EATING - SCORE: 6-JENISE GROOMING: Comb/brush hair Oral care Wash, rinse, and dry face Wash, rinse, and dry hands GROOMING - STEP 1: Does the patient require the assistance of a person or device, or need extra time when grooming? Yes. GROOMING - STEP 2: Does the patient require the assistance of a helper? No. The patient only requires an assistive devic e, OR takes more than reasonable time to groom, OR there is a concern for safety as the patient groom s GROOMING - SCORE: 6-JENISE BATHING: Activity did not occur on this shift BATHING - SCORE: 0-UNK DRESSING - UPPER BODY: Activity did not occur on this shift ARTICLES SCORE Total number of steps: 0 DRESSING - UPPER BODY - SCORE: 0-UNK DRESSING - LOWER BODY: Activity did not occur on this shift ARTICLES SCORE Total number of steps: 0 DRESSING - LOWER BODY - SCORE: 0-UNK TOILETING: TOILETING - STEP 1: Does the patient require the assistance of a person or device, or need extra time with toileting? Yes . TOILETING - STEP 2: Does the patient require the assistance of a helper? Yes. TOILETING - STEP 3: How much assistance does the patient require from the helper? Only supervision TOILETING - SCORE: 5-SUP BLADDER MANAGEMENT: BLADDER MANAGEMENT - STEP 1: Does the patient control the bladder completely and intentionally without equipment or devices or med ications, and is always continent? No. BLADDER MANAGEMENT - STEP 2: Does the patient require the assistance of a helper? No, patient requires and independently uses an a ssistive device, such as a urinal, bedpan, bedside commode, catheter, absorbent pad, or collecting de vice BLADDER MANAGEMENT - SCORE: 6-JENISE BOWEL MANAGEMENT: Activity did not occur on this shift BOWEL MANAGEMENT - SCORE: 7-IND TRANSFERS: BED, CHAIR, WHEELCHAIR: TRANSFERS: BED, CHAIR, WHEELCHAIR - STEP 1: Does the patient require assitance of a person or device, or need extra time with bed, chair, or whee lchair transfers? Yes. TRANSFERS: BED, CHAIR, WHEELCHAIR - STEP 2: Does the patient require the assistance of a helper? Yes. TRANSFERS: BED, CHAIR, WHEELCHAIR - STEP 3: How much assistance does the patient require from the helper? Only supervision TRANSFERS: BED, CHAIR, WHEELCHAIR - SCORE: 5-SUP TRANSFERS: TOILET: TRANSFERS: TOILET - STEP 1: Does the patient require the assistance of a person or device, or need extra time with toilet transfe rs? Yes. TRANSFERS: TOILET - STEP 2: Does the patient require the assistance of a helper? Yes. TRANSFERS: TOILET - STEP 3: How much assistance does the patient require from the helper? Patient performs half or more of the tr ansferring tasks TRANSFERS: TOILET - STEP 4: Does the patient need only incidental help such as contact guard or steadying during toilet transfer? Yes. TRANSFERS: TOILET - SCORE: 4-MIN TRANSFERS: SHOWER: Activity did not occur on this shift TRANSFERS: SHOWER - SCORE: 0-UNK TRANSFERS: TUB: Activity did not occur on this shift TRANSFERS: TUB - SCORE: 0-UNK LOCOMOTION: WALK: Activity did not occur on this shift LOCOMOTION: WALK - SCORE: 0-UNK LOCOMOTION: WHEELCHAIR: Activity did not occur on this shift LOCOMOTION: WHEELCHAIR - SCORE: 0-UNK COMPREHENSION: COMPREHENSION: TYPE: Both COMPREHENSION - STEP 1: Does the patient require help from a person or device, or need extra time to understand complex and a bstract ideas (such as current events, finances, discharge planning, medical issues, relationships, e tc)? No. COMPREHENSION - STEP 2: Does the patient need extra time, require an assistive device (such as glasses for visual comprehensi on or a hearing aid for auditory comprehension) or does s/he have mild difficulty understanding compl ex and abstract information? Yes. COMPREHENSION - SCORE: 6-JENISE EXPRESSION EXPRESSION: TYPE: Both EXPRESSION - STEP 1: Does the patient require help from a person or device, or need extra time expressing complex and abst ract ideas (such as current events, finances, discharge planning, medical issues, relationships, etc) ? No. EXPRESSION - STEP 2: Does the patient need extra time, require an assistive device (such as augmentive communication syste m or a communication board), OR does s/he have mild difficulty expressing complex and abstract ideas (including mild dysarthria or mild word-find problems)? Yes. EXPRESSION - SCORE: 6-JENISE SOCIAL INTERACTION: SOCIAL INTERACTION - STEP 1: Does the patient require a helper to interact with others in social and therapeutic situations? No. SOCIAL INTERACTION - STEP 2: Does the patient need extra time in social situations, OR does s/he interact with staff, other patien ts, and family members ONLY in structured environments, OR does s/he require medication for social in teraction? Yes, patient needs extra time SOCIAL INTERACTION - SCORE: 6-JENISE PROBLEM SOLVING: PROBLEM SOLVING - STEP 1: Does the patient need help from a person or device, or need extra time to solve complex problems such as managing a checking account or confronting interpersonal problems? No. PROBLEM SOLVING - STEP 2: Does the patient require extra time to make decisions or solve problems, OR does s/he have slight dif ficulty reading, initiating, or self-correcting in unfamiliar situations? Yes, patient needs extra ti me. PROBLEM SOLVING - SCORE: 6-JENISE MEMORY: MEMORY - STEP 1: Does the patient need help from a person or device, or need extra time to remember frequently encount ered people, daily routines, and executing requests? No. MEMORY - STEP 2: Does the patient have slight difficulty recognizing frequently encountered people, daily routines, or executing requests without the need for repetition or using self-initiated or environmental cues to remember? Yes. MEMORY - SCORE: 6-JENISE SIGNATURE PANEL: The following modified sections: Eating - Score, Grooming - Score, Bathing - Score, Dressing - Upper Body - Score, Dressing - Lower Body - Score, Toileting - Score, Bladder Management - Score, Bowel Man agement - Score, Transfers: Bed, Chair, Wheelchair - Score, Transfers: Toilet - Score, Transfers: Nayely wer - Score, Transfers: Tub - Score, Locomotion: Walk - Score, Locomotion: Wheelchair - Score, Compre hension - Score, Expression - Score, Social Interaction - Score, Problem Solving - Score, Memory - Sc ore were [electronically] signed by Richar Perdomo on MonJun 21 2018 09:49:48 GMT-0600 (Central Standard Time)
--- NOTE | 2018-06-21 13:39 | FAST ---
ENCOUNTER DATE AND TIME: 06/21/2018 08:00 (LEGAL REFEREE) NAME ANNALEE LOPEZ DATE OF : 1930 DATE OF ADMISSION: 06/15/2018 16:01 (CDT) PHONE: AGE: 87 SSN# [id number] GENDER: Female ENCOUNTER PHYSICIAN: Dr. Rory Miner M.D. 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 EATING: Activity did not occur on this shift EATING - SCORE: 0-UNK GROOMING: Wash, rinse, and dry face Wash, rinse, and dry hands GROOMING - STEP 1: Does the patient require the assistance of a person or device, or need extra time when grooming? No. GROOMING - SCORE: 7-IND BATHING: Abdomen Buttocks Chest Left arm Left lower leg and foot Left upper leg Perineal area Right arm Right lower leg and foot Right upper leg BATHING - STEP 1: Does the patient require the assistance of a person or device, or need extra time when bathing? Yes. BATHING - STEP 2: Does the patient require the assistance of a helper? Yes. BATHING - STEP 3: How much assistance does the patient require from the helper? Only supervision, cuing, coaxing, instr uctions, encouragement BATHING - SCORE: 5-SUP DRESSING - UPPER BODY: T-shirt/pullover shirt (four steps) ARTICLES SCORE Total number of steps: 4 DRESSING - UPPER BODY - STEP 1: Does the patient require help from a person or device, or need extra time when dressing above the [address]? Yes. DRESSING - UPPER BODY - STEP 2: Does the patient require the assistance of a helper? No. Patient only requires an assistive device, s uch as a button hook, velcro, or fur dresser. OR s/he takes more than reasonable time as s/he dresses the upper body. OR there is a concern for safety when s/he dresses the upper body DRESSING - UPPER BODY - SCORE: 6-JENISE DRESSING - LOWER BODY: Elastic waist pants (three steps) Slip-on shoe - Left foot (one step) Slip-on shoe - Right foot (one step) ARTICLES SCORE Total number of steps: 5 DRESSING - LOWER BODY - STEP 1: Does the patient require help from a person or device, or need extra time when dressing below the [address]? Yes. DRESSING - LOWER BODY - STEP 2: Does the patient require the assistance of a helper? Yes. DRESSING - LOWER BODY - STEP 3: Does the helper touch the patient while dressing? Yes. DRESSING - LOWER BODY - STEP 4: How many of the total steps does the patient complete on his/her own? 4 DRESSING - LOWER BODY - SCORE: 4-MIN TOILETING: Activity did not occur on this shift TOILETING - SCORE: 0-UNK BLADDER MANAGEMENT: Activity did not occur on this shift BLADDER MANAGEMENT - SCORE: 7-IND BOWEL MANAGEMENT: Activity did not occur on this shift BOWEL MANAGEMENT - SCORE: 7-IND TRANSFERS: BED, CHAIR, WHEELCHAIR: Activity did not occur on this shift TRANSFERS: BED, CHAIR, WHEELCHAIR - SCORE: 0-UNK TRANSFERS: TOILET: Activity did not occur on this shift TRANSFERS: TOILET - SCORE: 0-UNK TRANSFERS: SHOWER: TRANSFERS: SHOWER - STEP 1: Does the patient require the assistance of a person or device, or need extra time with shower transfe rs? Yes. TRANSFERS: SHOWER - STEP 2: Does the patient require the assistance of a helper? Yes. TRANSFERS: SHOWER - STEP 3: How much assistance does the patient require from the helper? Only supervision, cuing, coaxing, or he lp to set out transfer equipment or to lock brakes and/or lift foot rests TRANSFERS: SHOWER - SCORE: 5-SUP TRANSFERS: TUB: Activity did not occur on this shift TRANSFERS: TUB - SCORE: 0-UNK LOCOMOTION: WALK: Activity did not occur on this shift LOCOMOTION: WALK - SCORE: 0-UNK LOCOMOTION: WHEELCHAIR: Activity did not occur on this shift LOCOMOTION: WHEELCHAIR - SCORE: 0-UNK LOCOMOTION: STAIRS: Activity did not occur on this shift LOCOMOTION: STAIRS - SCORE: 0-UNK COMPREHENSION: COMPREHENSION: TYPE: Both COMPREHENSION - STEP 1: Does the patient require help from a person or device, or need extra time to understand complex and a bstract ideas (such as current events, finances, discharge planning, medical issues, relationships, e tc)? Yes. COMPREHENSION - STEP 2: Does the patient require help to understand questions or statements about basic needs or ideas (such as hunger, thirst, sleep, safety, daily schedule, room location, or discomfort) half or more of the t socrates? No. COMPREHENSION - STEP 3: How often does the patient need help to understand directions and conversation about basic needs? Les s than 10% of the time COMPREHENSION - SCORE: 5-SUP EXPRESSION EXPRESSION: TYPE: Both EXPRESSION - STEP 1: Does the patient require help from a person or device, or need extra time expressing complex and abst ract ideas (such as current events, finances, discharge planning, medical issues, relationships, etc) ? No. EXPRESSION - STEP 2: Does the patient need extra time, require an assistive device (such as augmentive communication syste m or a communication board), OR does s/he have mild difficulty expressing complex and abstract ideas (including mild dysarthria or mild word-find problems)? Yes. EXPRESSION - SCORE: 6-JENISE SOCIAL INTERACTION: SOCIAL INTERACTION - STEP 1: Does the patient require a helper to interact with others in social and therapeutic situations? No. SOCIAL INTERACTION - STEP 2: Does the patient need extra time in social situations, OR does s/he interact with staff, other patien ts, and family members ONLY in structured environments, OR does s/he require medication for social in teraction? Yes, patient needs extra time SOCIAL INTERACTION - SCORE: 6-JENISE PROBLEM SOLVING: PROBLEM SOLVING - STEP 1: Does the patient need help from a person or device, or need extra time to solve complex problems such as managing a checking account or confronting interpersonal problems? Yes. PROBLEM SOLVING - STEP 2: Does the patient solve basic routine problems half or more of the time? Yes. PROBLEM SOLVING - STEP 3: How often does the patient need help to solve basic routine problems? 10%-24% of the time PROBLEM SOLVING - SCORE: 4-MIN MEMORY: MEMORY - STEP 1: Does the patient need help from a person or device, or need extra time to remember frequently encount ered people, daily routines, and executing requests? Yes. MEMORY - STEP 2: How often does the patient need help to remember frequently encountered people, daily routines, and e xecuting requests? 10% - 24% of the time MEMORY - SCORE: 4-MIN SIGNATURE PANEL: The following modified sections: Eating - Score, Grooming - Score, Bathing - Score, Dressing - Upper Body - Score, Dressing - Lower Body - Score, Toileting - Score, Transfers: Bed, Chair, Wheelchair - S core, Transfers: Toilet - Score, Transfers: Shower - Score, Transfers: Tub - Score, Comprehension - S core, Expression - Score, Social Interaction - Score, Problem Solving - Score, Memory - Score were [e lectronically] signed by Iris Dyson OT on MonJun 21 2018 13:38:23 [facility] ([facility] [place])
[2018-06-21] MEDS: ATORVASTATIN 80 MG TAB PO SCH (20:39)
[2018-06-21] MEDS: MELATONIN 3 MG TABLET PO PRN (20:39)
[2018-06-21] MEDS: DOCUSATE NA/SENNA CONC 1 TAB PO SCH (20:39)
[2018-06-22] MEDS: FERROUS SULFATE 325 MG TAB PO SCH ×3 (01:56→17:07)
--- NOTE | 2018-06-22 02:57 | FAST ---
SHIFT START DATE/TIME: 06/21/2018 19:00 (DIRECTOR OF PROMOTIONS) SHIFT END DATE/TIME: 06/22/2018 07:00 (DIRECTOR OF PROMOTIONS) NAME ANNALEE LOPEZ DATE OF : 1930 DATE OF ADMISSION: 06/15/2018 16:01 (CDT) PHONE: AGE: 87 N# [id number] GENDER: Female ENCOUNTER PHYSICIAN: Dr. Rory Miner M.D. 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 EATING: Activity did not occur on this shift EATING - SCORE: 0-UNK GROOMING: Activity did not occur on this shift GROOMING - SCORE: 0-UNK BATHING: Activity did not occur on this shift BATHING - SCORE: 0-UNK DRESSING - UPPER BODY: Activity did not occur on this shift ARTICLES SCORE Total number of steps: 0 DRESSING - UPPER BODY - SCORE: 0-UNK DRESSING - LOWER BODY: Activity did not occur on this shift ARTICLES SCORE Total number of steps: 0 DRESSING - LOWER BODY - SCORE: 0-UNK TOILETING: TOILETING - STEP 1: Does the patient require the assistance of a person or device, or need extra time with toileting? Yes . TOILETING - STEP 2: Does the patient require the assistance of a helper? Yes. TOILETING - STEP 3: How much assistance does the patient require from the helper? Only supervision TOILETING - SCORE: 5-SUP BLADDER MANAGEMENT: BLADDER MANAGEMENT - STEP 1: Does the patient control the bladder completely and intentionally without equipment or devices or med ications, and is always continent? No. BLADDER MANAGEMENT - STEP 2: Does the patient require the assistance of a helper? Yes. BLADDER MANAGEMENT - STEP 3: How much assistance does the patient require from the helper? Only supervision, stand-by, cuing, or c oaxing BLADDER MANAGEMENT - SCORE: 5-SUP BOWEL MANAGEMENT: Activity did not occur on this shift BOWEL MANAGEMENT - SCORE: 7-IND TRANSFERS: BED, CHAIR, WHEELCHAIR: TRANSFERS: BED, CHAIR, WHEELCHAIR - STEP 1: Does the patient require assitance of a person or device, or need extra time with bed, chair, or whee lchair transfers? Yes. TRANSFERS: BED, CHAIR, WHEELCHAIR - STEP 2: Does the patient require the assistance of a helper? Yes. TRANSFERS: BED, CHAIR, WHEELCHAIR - STEP 3: How much assistance does the patient require from the helper? Steadying/guiding assistance TRANSFERS: BED, CHAIR, WHEELCHAIR - SCORE: 4-MIN TRANSFERS: TOILET: TRANSFERS: TOILET - STEP 1: Does the patient require the assistance of a person or device, or need extra time with toilet transfe rs? Yes. TRANSFERS: TOILET - STEP 2: Does the patient require the assistance of a helper? Yes. TRANSFERS: TOILET - STEP 3: How much assistance does the patient require from the helper? Only supervision, cuing, coaxing, OR he lp to set out transfer equipment or to lock brakes and/or lift foot rests TRANSFERS: TOILET - SCORE: 5-SUP TRANSFERS: SHOWER: Activity did not occur on this shift TRANSFERS: SHOWER - SCORE: 0-UNK TRANSFERS: TUB: Activity did not occur on this shift TRANSFERS: TUB - SCORE: 0-UNK LOCOMOTION: WALK: Activity did not occur on this shift LOCOMOTION: WALK - SCORE: 0-UNK LOCOMOTION: WHEELCHAIR: Activity did not occur on this shift LOCOMOTION: WHEELCHAIR - SCORE: 0-UNK COMPREHENSION: COMPREHENSION: TYPE: Both COMPREHENSION - STEP 1: Does the patient require help from a person or device, or need extra time to understand complex and a bstract ideas (such as current events, finances, discharge planning, medical issues, relationships, e tc)? No. COMPREHENSION - STEP 2: Does the patient need extra time, require an assistive device (such as glasses for visual comprehensi on or a hearing aid for auditory comprehension) or does s/he have mild difficulty understanding compl ex and abstract information? Yes. COMPREHENSION - SCORE: 6-JENISE EXPRESSION EXPRESSION: TYPE: Both EXPRESSION - STEP 1: Does the patient require help from a person or device, or need extra time expressing complex and abst ract ideas (such as current events, finances, discharge planning, medical issues, relationships, etc) ? No. EXPRESSION - STEP 2: Does the patient need extra time, require an assistive device (such as augmentive communication syste m or a communication board), OR does s/he have mild difficulty expressing complex and abstract ideas (including mild dysarthria or mild word-find problems)? No. EXPRESSION - SCORE: 7-IND SOCIAL INTERACTION: SOCIAL INTERACTION - STEP 1: Does the patient require a helper to interact with others in social and therapeutic situations? No. SOCIAL INTERACTION - STEP 2: Does the patient need extra time in social situations, OR does s/he interact with staff, other patien ts, and family members ONLY in structured environments, OR does s/he require medication for social in teraction? No. SOCIAL INTERACTION - SCORE: 7-IND PROBLEM SOLVING: PROBLEM SOLVING - STEP 1: Does the patient need help from a person or device, or need extra time to solve complex problems such as managing a checking account or confronting interpersonal problems? No. PROBLEM SOLVING - STEP 2: Does the patient require extra time to make decisions or solve problems, OR does s/he have slight dif ficulty reading, initiating, or self-correcting in unfamiliar situations? No. PROBLEM SOLVING - SCORE: 7-IND MEMORY: MEMORY - STEP 1: Does the patient need help from a person or device, or need extra time to remember frequently encount ered people, daily routines, and executing requests? No. MEMORY - STEP 2: Does the patient have slight difficulty recognizing frequently encountered people, daily routines, or executing requests without the need for repetition or using self-initiated or environmental cues to remember? No. MEMORY - SCORE: 7-IND SIGNATURE PANEL: The following modified sections: Eating - Score, Grooming - Score, Bathing - Score, Dressing - Upper Body - Score, Dressing - Lower Body - Score, Toileting - Score, Bladder Management - Score, Bowel Man agement - Score, Transfers: Bed, Chair, Wheelchair - Score, Transfers: Toilet - Score, Transfers: Nayely wer - Score, Transfers: Tub - Score, Locomotion: Walk - Score, Locomotion: Wheelchair - Score, Compre hension - Score, Expression - Score, Social Interaction - Score, Problem Solving - Score, Memory - Sc ore were [electronically] signed by Caro Peñaloza on MonJun 22 2018 02:56:06 GMT-0600 ([place])
[2018-06-22] MEDS: LACTULOSE 20 GM/30 ML UCUP PO SCH ×2 (05:00→17:07)
[2018-06-22] MEDS: CARVEDILOL 12.5 MG TAB PO SCH ×2 (05:10→17:07)
[2018-06-22] MEDS: TRAMADOL HCL 50 MG TAB PO PRN ×2 (06:50→15:15)
--- NOTE | 2018-06-22 07:35 | P.PN ---
Subjective Date of Service: 06/21/18 Chief Complaint: DOING LOT BETTER Subjective: Improving SHE IS DOING BETTER. HER BACK STILL HURTS AND KNOWS WILL HURT. Review of Systems 10-point ROS is otherwise unremarkable General: Weakness, Malaise Physical Examination - Vital Signs Temperature: 97.2 F Blood Pressure: 136/65 Pulse: 73 Respirations: 18 Pulse Ox (%): 93 - Physical Exam General: Moderate distress HEENT: Atraumatic, PERRLA, EOMI Neck: Supple, JVD not distended Respiratory: Clear to auscultation bilaterally, Normal air movement Cardiovascular: Regular rate/rhythm, Normal S1 S2 Gastrointestinal: Normal bowel sounds, No tenderness Musculoskeletal: No tenderness Integumentary: No rashes Neurological: Normal speech, Normal tone, Normal affect Lymphatics: No axilla or inguinal lymphadenopathy - Studies Medications List Reviewed: Yes Assessment And Plan - Current Problems (Diagnosis) (1) Infection of vertebra Onset Date: 06/18/18 Current Visit: Yes Status: Acute Plan: POST STEM CELL TRANSPLANT, 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 SHE IS RECOVERING. SHE HAS FINISHED ANTIBIOTICS. WILL FU WITH MRI AGAIN. SHE IS HERE FOR THERAPY. ELIQUIS FOR PROPHYLAXIS. CHECK LAB AND SED RATE. MRI TO BE DONE IN AM. NOTE DONE ONE DAY LATE. RADIOLOGIST ADVISED WBC TAGGED SCAN TO RULE OUT CURRENT INFECTION. INDIUM SCAN TODAY. STABLE BUT NOT SURE FROM MRI IF THERE IS INFECTION OR NOT. HER WBC SCAN IS NEGATIVE PAIN IS NOT FROM RESIDUAL INFECTION SHE HAS NO INFECTION NOW. STABLE FOR DC WHEN REHAB IS READY.
[2018-06-22] MEDS: SODIUM CHLORIDE 0.9% 10ML INJ IV SCH ×2 (08:00→21:52)
[2018-06-22] MEDS: PROMOD 30 ML DOSE PO SCH ×2 (08:00→19:31)
[2018-06-22] MEDS: LIDOCAINE 5% PATCH TOP SCH ×2 (08:00→15:21)
--- NOTE | 2018-06-22 08:15 | FAST ---
ENCOUNTER DATE AND TIME: 06/22/2018 08:00 (EXHAUSTER) NAME ANNALEE LOPEZ DATE OF : 1930 DATE OF ADMISSION: 06/15/2018 16:01 (CDT) PHONE: AGE: 87 SSN# [id number] GENDER: Female ENCOUNTER PHYSICIAN: Dr. Rory Miner M.D. 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 EATING: Activity did not occur on this shift EATING - SCORE: 0-UNK GROOMING: Activity did not occur on this shift GROOMING - SCORE: 0-UNK BATHING: Activity did not occur on this shift BATHING - SCORE: 0-UNK DRESSING - UPPER BODY: Activity did not occur on this shift Patient is not dressing in public clothing ARTICLES SCORE Total number of steps: 0 DRESSING - UPPER BODY - SCORE: 0-UNK DRESSING - LOWER BODY: Activity did not occur on this shift Patient is not dressing in public clothing ARTICLES SCORE Total number of steps: 0 DRESSING - LOWER BODY - SCORE: 0-UNK TOILETING: Activity did not occur on this shift TOILETING - SCORE: 0-UNK BLADDER MANAGEMENT: Activity did not occur on this shift BLADDER MANAGEMENT - SCORE: 7-IND BOWEL MANAGEMENT: Activity did not occur on this shift BOWEL MANAGEMENT - SCORE: 7-IND TRANSFERS: BED, CHAIR, WHEELCHAIR: TRANSFERS: BED, CHAIR, WHEELCHAIR - STEP 1: Does the patient require assitance of a person or device, or need extra time with bed, chair, or whee lchair transfers? Yes. TRANSFERS: BED, CHAIR, WHEELCHAIR - STEP 2: Does the patient require the assistance of a helper? No. Patient only requires an assistive device fo r bed, chair, wheelchair transfers such as a sliding board, grab bar, or brace, OR s/he takes more th an reasonable time, OR there is a safety concern when s/he performs the transfers TRANSFERS: BED, CHAIR, WHEELCHAIR - SCORE: 6-JENISE TRANSFERS: TOILET: TRANSFERS: TOILET - STEP 1: Does the patient require the assistance of a person or device, or need extra time with toilet transfe rs? Yes. TRANSFERS: TOILET - STEP 2: Does the patient require the assistance of a helper? No. Patient only requires an assistive device alcantara ch as a grab bar or special seat, OR s/he takes more than reasonable time to perform toilet transfers , OR there is a safety concern when s/he performs toilet transfers. TRANSFERS: TOILET - SCORE: 6-JENISE TRANSFERS: SHOWER: Activity did not occur on this shift TRANSFERS: SHOWER - SCORE: 0-UNK TRANSFERS: TUB: Activity did not occur on this shift TRANSFERS: TUB - SCORE: 0-UNK LOCOMOTION: WALK: LOCOMOTION: WALK - STEP 1: Does the patient need help from a person or device, or need extra time to walk 150 feet? Yes. LOCOMOTION: WALK - STEP 2: How much assistance does the patient require to walk a minimum of 150 feet? Only supervision, cuing, or coaxing LOCOMOTION: WALK - SCORE: 5-SUP LOCOMOTION: WHEELCHAIR: LOCOMOTION: WHEELCHAIR - STEP 1: Does the patient need help to go 150 feet in a wheelchair? No. LOCOMOTION: WHEELCHAIR - SCORE: 6-JENISE LOCOMOTION: STAIRS: LOCOMOTION: STAIRS - STEP 1: Does the patient need help to go up and down 12 to 14 stairs? Yes. LOCOMOTION: STAIRS - STEP 2: How much assistance does the patient need from the helper to go a minimum of 12 to 14 stairs? Only alcantara pervision, cuing, or coaxing LOCOMOTION: STAIRS - SCORE: 5-SUP COMPREHENSION: COMPREHENSION - SCORE: 0-UNK EXPRESSION EXPRESSION - SCORE: 0-UNK SOCIAL INTERACTION: SOCIAL INTERACTION - SCORE: 0-UNK PROBLEM SOLVING: PROBLEM SOLVING - SCORE: 0-UNK MEMORY: MEMORY - SCORE: 0-UNK SIGNATURE PANEL: The following modified sections: Transfers: Bed, Chair, Wheelchair - Score, Transfers: Toilet - Score , Locomotion: Walk - Score, Locomotion: Wheelchair - Score, Locomotion: Stairs - Score were [carly garibay] signed by Iris Mazariegos PTA on MonJun 22 2018 08:14:07 GMT-0600 (Central Standard Time)
[2018-06-22] MEDS: PANTOPRAZOLE 40MG TABLET PO SCH (08:38)
[2018-06-22] MEDS: LACTOBACILLUS/ACIDOPHILUS TAB PO SCH ×2 (08:39→19:31)
[2018-06-22] MEDS: LISINOPRIL 20 MG TAB PO SCH (08:39)
[2018-06-22] MEDS: CRANBERRY FRUIT EXTRACT 200 MG CAP PO SCH ×2 (08:40→19:30)
[2018-06-22] MEDS: GABAPENTIN 300 MG CAP PO SCH ×2 (08:40→19:31)
[2018-06-22] MEDS: APIXABAN 5 MG TABLET PO SCH ×2 (08:40→19:31)
[2018-06-22] MEDS: POLYETHYL GLY 3350 17 GM/DOSE PO SCH (08:40)
[2018-06-22] MEDS: MULTIVITAMIN TAB PO SCH (08:40)
--- NOTE | 2018-06-22 09:46 | P.RH.PN ---
Estimated Length of Stay: 10 Expected Discharge Date: 06/24/18 Discharge Disposition Plan: Home Family Support: Yes Longterm Goal: Mobility, Transfers, Self Care Vital Signs: Last Vital Signs Temp 97.2 F 06/22/18 07:35 Pulse 73 06/22/18 08:39 Resp 18 06/22/18 07:35 BP 136/65 06/22/18 08:39 Pulse Ox 93 06/22/18 07:35 Laboratory: Laboratory Last Values WBC 4.1 K/uL (4.3-10.9) L D 06/21/18 05:20 RBC 2.90 M/uL (3.86-4.86) L 06/21/18 05:20 Hgb 9.0 g/dL (12.0-15.0) L 06/21/18 05:20 Hct 27.0 % (36.0-45.0) L 06/21/18 05:20 MCV 93.4 fL (80-100) 06/21/18 05:20 MCH 30.9 pg (27.0-35.0) 06/21/18 05:20 MCHC 33.1 g/dL (32.0-36.0) 06/21/18 05:20 RDW 14.3 % (12.1-15.2) 06/21/18 05:20 Plt Count 181 K/uL (152-406) 06/21/18 05:20 MPV 8.7 fL (7.6-11.3) 06/21/18 05:20 Neutrophils % 63.0 % (41.7-73.7) 06/21/18 05:20 Lymphocytes % 22.6 % (15.3-44.8) 06/21/18 05:20 Monocytes % 13.4 % (3.3-12.3) H 06/21/18 05:20 Eosinophils % 0.0 % (0-4.4) 06/21/18 05:20 Basophils % 1.0 % (0-1.3) 06/21/18 05:20 Absolute Neutrophils 2.6 K/uL (1.8-8.0) 06/21/18 05:20 Absolute Lymphocytes 0.9 K/uL (0.7-4.9) 06/21/18 05:20 Absolute Monocytes 0.5 K/uL (0.1-1.3) 06/21/18 05:20 Absolute Eosinophils 0.0 K/uL (0-0.5) 06/21/18 05:20 Absolute Basophils 0.0 K/uL (0-0.5) 06/21/18 05:20 ESR Westergren 92 mm/HR (0-30) H 06/16/18 18:14 Sodium 143 mmol/L (136-145) 06/21/18 05:20 Potassium 3.9 mmol/L (3.5-5.1) 06/21/18 05:20 Chloride 106 mmol/L (98-107) 06/21/18 05:20 Carbon Dioxide 31 mmol/L (21-32) 06/21/18 05:20 BUN 16 mg/dL (7-18) 06/21/18 05:20 Creatinine 0.50 mg/dL (0.55-1.3) L 06/21/18 05:20 Estimated GFR > 90 mL/min (=/>90) 06/21/18 05:20 Glucose 99 mg/dL (74-106) 06/21/18 05:20 Calcium 8.5 mg/dL (8.5-10.1) 06/21/18 05:20 Magnesium 2.0 mg/dL (1.8-2.4) 06/16/18 05:25 Total Bilirubin 0.4 mg/dL (0.2-1.0) 06/16/18 05:25 Direct Bilirubin 0.2 mg/dL (0-0.2) 06/16/18 05:25 AST 14 U/L (15-37) L 06/16/18 05:25 ALT 16 U/L (12-78) 06/16/18 05:25 Alkaline Phosphatase 97 U/L (45-117) 06/16/18 05:25 Ammonia 25 umol/L (19-54) 06/16/18 05:25 C-Reactive Protein 10.30 mg/L (<3.00) H 06/16/18 18:14 Serum Total Protein 6.6 g/dL (6.4-8.2) 06/16/18 05:25 Albumin 2.5 g/dL (3.4-5.0) L 06/21/18 05:20 Globulin 4.1 g/dL (2.3-3.5) H 06/16/18 05:25 Albumin/Globulin Ratio 0.6 (1.1-1.8) L 06/16/18 05:25 Prealbumin 12.2 mg/dL (20-40) L 06/21/18 05:20 Urine Color Yellow 06/16/18 20:30 Urine Appearance Clear 06/16/18 20:30 Urine pH 6.0 (5.0-7.0) 06/16/18 20:30 Ur Specific [place] >=1.030 (1.005-1.030) 06/16/18 20:30 Urine Ketones Negative (NEG) 06/16/18 20:30 Urine Blood Negative (NEG) 06/16/18 20:30 Urine Nitrite Negative (NEG) 06/16/18 20:30 Urine Bilirubin Negative (NEG) 06/16/18 20:30 Urine Urobilinogen 1.0 mg/dL (0.2-1.0) 06/16/18 20:30 Ur Leukocyte Esterase Negative (NEG) 06/16/18 20:30 Urine RBC None seen /HPF (NONE SEEN) 06/16/18 20:30 Urine WBC <5 /HPF (<5) 06/16/18 20:30 Ur Squamous Epith Cells <5 /HPF (NONE SEEN) 06/16/18 20:30 Calcium Oxalate Crystal Moderate (NONE SEEN) H 06/16/18 20:30 Urine Bacteria <20 /HPF (<20) 06/16/18 20:30 Urine Mucus Mod /HPF (NONE SEEN) 06/16/18 20:30 Urine Culture Reflexed Not needed 06/16/18 20:30 Urine Glucose Negative (NEG) 06/16/18 20:30 Urine Total Protein Trace (NEG) 06/16/18 20:30 Weight: 110 lb 12.8 oz Wound Present: No Closed Surgical Incision Present: No Negative Pressure Wound Therapy Present: No Physician Update: Her labs have been reviewed. Her WBC is mildly low at 4.1, Hgb is 9.0. Her prealbumin has decreased slightly. She is on promod and eats well. She is doing well with physical and occupational therapy. She is at modified independence with gait and stairs. She will be discharged home today. Medical Issues: DVT Prophylaxis - Eliquis 5mg BID PO Pain Issues: Tramadol 50mg Q4H PRN PO Functional Improvement: pt has demonstrated much progress toward functional goals. pt demonstrates good balance and stability during ambulation and functional mobility. She is able to perform functional mobility without the need for physical assistance. pt continues to require training to don lumbar brace. Functional Improvement Occupational Therapy: PATIENT REQUIRING SBA FOR MOST BADL TASKS AT THIS TIME, AND CONTINUES TO REQUIRE FURTHER OT TO ADDRESS LTG SET IN POC BEFORE A SAFE D/C HOME ALONE. Summary: Patient's care plan and watermelon inspector goals have been reviewed and revised as necessary. Please see the Rehabilitation Signature page for all necessary signatures.
--- NOTE | 2018-06-22 16:49 | FAST ---
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 Rory Miner M.D. 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 EATING: EATING - STEP 1: Does the patient require the assistance of a person or device, or need extra time when eating? Yes. EATING - STEP 2: Does the patient require the assistance of a helper? Yes. EATING - STEP 3: Does the patient perform half or more of the eating tasks? Yes. EATING - STEP 4: Does the patient need only supervision, cuing, coaxing OR help to apply an orthosis OR help to cut fo od, open containers, pour liquids, or butter bread? Yes. EATING - SCORE: 5-SUP GROOMING: Wash, rinse, and dry face Wash, rinse, and dry hands GROOMING - STEP 1: Does the patient require the assistance of a person or device, or need extra time when grooming? No. GROOMING - SCORE: 7-IND BATHING: Activity did not occur on this shift BATHING - SCORE: 0-UNK DRESSING - UPPER BODY: Activity did not occur on this shift ARTICLES SCORE Total number of steps: 0 DRESSING - UPPER BODY - SCORE: 0-UNK DRESSING - LOWER BODY: Activity did not occur on this shift ARTICLES SCORE Total number of steps: 0 DRESSING - LOWER BODY - SCORE: 0-UNK TOILETING: TOILETING - STEP 1: Does the patient require the assistance of a person or device, or need extra time with toileting? Yes . TOILETING - STEP 2: Does the patient require the assistance of a helper? Yes. TOILETING - STEP 3: How much assistance does the patient require from the helper? Only supervision TOILETING - SCORE: 5-SUP BLADDER MANAGEMENT: Activity did not occur on this shift BLADDER MANAGEMENT - SCORE: 7-IND BOWEL MANAGEMENT: Activity did not occur on this shift BOWEL MANAGEMENT - SCORE: 7-IND TRANSFERS: BED, CHAIR, WHEELCHAIR: TRANSFERS: BED, CHAIR, WHEELCHAIR - STEP 1: Does the patient require assitance of a person or device, or need extra time with bed, chair, or whee lchair transfers? Yes. TRANSFERS: BED, CHAIR, WHEELCHAIR - STEP 2: Does the patient require the assistance of a helper? Yes. TRANSFERS: BED, CHAIR, WHEELCHAIR - STEP 3: How much assistance does the patient require from the helper? Only supervision TRANSFERS: BED, CHAIR, WHEELCHAIR - SCORE: 5-SUP TRANSFERS: TOILET: TRANSFERS: TOILET - STEP 1: Does the patient require the assistance of a person or device, or need extra time with toilet transfe rs? Yes. TRANSFERS: TOILET - STEP 2: Does the patient require the assistance of a helper? Yes. TRANSFERS: TOILET - STEP 3: How much assistance does the patient require from the helper? Only supervision, cuing, coaxing, OR he lp to set out transfer equipment or to lock brakes and/or lift foot rests TRANSFERS: TOILET - SCORE: 5-SUP TRANSFERS: SHOWER: Activity did not occur on this shift TRANSFERS: SHOWER - SCORE: 0-UNK TRANSFERS: TUB: Activity did not occur on this shift TRANSFERS: TUB - SCORE: 0-UNK LOCOMOTION: WALK: Activity did not occur on this shift LOCOMOTION: WALK - SCORE: 0-UNK LOCOMOTION: WHEELCHAIR: Activity did not occur on this shift LOCOMOTION: WHEELCHAIR - SCORE: 0-UNK LOCOMOTION: STAIRS: Activity did not occur on this shift LOCOMOTION: STAIRS - SCORE: 0-UNK COMPREHENSION: COMPREHENSION: TYPE: Both COMPREHENSION - STEP 1: Does the patient require help from a person or device, or need extra time to understand complex and a bstract ideas (such as current events, finances, discharge planning, medical issues, relationships, e tc)? No. COMPREHENSION - STEP 2: Does the patient need extra time, require an assistive device (such as glasses for visual comprehensi on or a hearing aid for auditory comprehension) or does s/he have mild difficulty understanding compl ex and abstract information? Yes. COMPREHENSION - SCORE: 6-JENISE EXPRESSION EXPRESSION: TYPE: Both EXPRESSION - STEP 1: Does the patient require help from a person or device, or need extra time expressing complex and abst ract ideas (such as current events, finances, discharge planning, medical issues, relationships, etc) ? No. EXPRESSION - STEP 2: Does the patient need extra time, require an assistive device (such as augmentive communication syste m or a communication board), OR does s/he have mild difficulty expressing complex and abstract ideas (including mild dysarthria or mild word-find problems)? No. EXPRESSION - SCORE: 7-IND SOCIAL INTERACTION: SOCIAL INTERACTION - STEP 1: Does the patient require a helper to interact with others in social and therapeutic situations? No. SOCIAL INTERACTION - STEP 2: Does the patient need extra time in social situations, OR does s/he interact with staff, other patien ts, and family members ONLY in structured environments, OR does s/he require medication for social in teraction? No. SOCIAL INTERACTION - SCORE: 7-IND PROBLEM SOLVING: PROBLEM SOLVING - STEP 1: Does the patient need help from a person or device, or need extra time to solve complex problems such as managing a checking account or confronting interpersonal problems? Yes. PROBLEM SOLVING - STEP 2: Does the patient solve basic routine problems half or more of the time? Yes. PROBLEM SOLVING - STEP 3: How often does the patient need help to solve basic routine problems? Less than 10% of the time PROBLEM SOLVING - SCORE: 5-SUP MEMORY: MEMORY - STEP 1: Does the patient need help from a person or device, or need extra time to remember frequently encount ered people, daily routines, and executing requests? Yes. MEMORY - STEP 2: How often does the patient need help to remember frequently encountered people, daily routines, and e xecuting requests? Less than 10% of the time MEMORY - SCORE: 5-SUP SIGNATURE PANEL: The following modified sections: Eating - Score, Grooming - Score, Bathing - Score, Dressing - Upper Body - Score, Dressing - Lower Body - Score, Toileting - Score, Transfers: Bed, Chair, Wheelchair - S core, Transfers: Toilet - Score, Transfers: Shower - Score, Transfers: Tub - Score, Comprehension - S core, Expression - Score, Social Interaction - Score, Problem Solving - Score, Memory - Score were [e lectronically] signed by Iris Dyson OT on MonJun 22 2018 16:49:15 T-0600 ([facility])
--- NOTE | 2018-06-22 17:53 | FAST ---
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 Rory Miner M.D. 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 EATING: EATING - STEP 1: Does the patient require the assistance of a person or device, or need extra time when eating? No. EATING - SCORE: 7-IND GROOMING: Comb/brush hair GROOMING - STEP 1: Does the patient require the assistance of a person or device, or need extra time when grooming? Yes. GROOMING - STEP 2: Does the patient require the assistance of a helper? No. The patient only requires an assistive devic e, OR takes more than reasonable time to groom, OR there is a concern for safety as the patient groom s GROOMING - SCORE: 6-JENISE BATHING: Activity did not occur on this shift BATHING - SCORE: 0-UNK DRESSING - UPPER BODY: T-shirt/pullover shirt (four steps) ARTICLES SCORE Total number of steps: 4 DRESSING - UPPER BODY - STEP 1: Does the patient require help from a person or device, or need extra time when dressing above the [address]? Yes. DRESSING - UPPER BODY - STEP 2: Does the patient require the assistance of a helper? No. Patient only requires an assistive device, s uch as a button hook, velcro, or tent finisher. OR s/he takes more than reasonable time as s/he dresses the upper body. OR there is a concern for safety when s/he dresses the upper body DRESSING - UPPER BODY - SCORE: 6-JENISE DRESSING - LOWER BODY: Elastic waist pants (three steps) Underwear (three steps) ARTICLES SCORE Total number of steps: 6 DRESSING - LOWER BODY - STEP 1: Does the patient require help from a person or device, or need extra time when dressing below the m[address] st? Yes. DRESSING - LOWER BODY - STEP 2: Does the patient require the assistance of a helper? Yes. DRESSING - LOWER BODY - STEP 3: Does the helper touch the patient while dressing? No. DRESSING - LOWER BODY - SCORE: 5-SUP TOILETING: TOILETING - STEP 1: Does the patient require the assistance of a person or device, or need extra time with toileting? No. TOILETING - SCORE: 7-IND BLADDER MANAGEMENT: BLADDER MANAGEMENT - STEP 1: Does the patient control the bladder completely and intentionally without equipment or devices or med ications, and is always continent? Yes. BLADDER MANAGEMENT - SCORE: 7-IND BLADDER MANAGEMENT - FREQUENCY OF ACCIDENTS: BLADDER MANAGEMENT(FA) - STEP 1: How many accidents has the patient had during the current shift? 0 BOWEL MANAGEMENT: BOWEL MANAGEMENT - STEP 1: Does the patient control bowels completely and intentionally without equipment devices or medications AND is always continent? Yes. BOWEL MANAGEMENT - SCORE: 7-IND BOWEL MANAGEMENT - FREQUENCY OF ACCIDENTS: BOWEL MANAGEMENT(FA) - STEP 1: How many accidents has the patient had during the current shift? 0 TRANSFERS: BED, CHAIR, WHEELCHAIR: TRANSFERS: BED, CHAIR, WHEELCHAIR - STEP 1: Does the patient require assitance of a person or device, or need extra time with bed, chair, or whee lchair transfers? Yes. TRANSFERS: BED, CHAIR, WHEELCHAIR - STEP 2: Does the patient require the assistance of a helper? Yes. TRANSFERS: BED, CHAIR, WHEELCHAIR - STEP 3: How much assistance does the patient require from the helper? Only supervision TRANSFERS: BED, CHAIR, WHEELCHAIR - SCORE: 5-SUP TRANSFERS: TOILET: TRANSFERS: TOILET - STEP 1: Does the patient require the assistance of a person or device, or need extra time with toilet transfe rs? Yes. TRANSFERS: TOILET - STEP 2: Does the patient require the assistance of a helper? Yes. TRANSFERS: TOILET - STEP 3: How much assistance does the patient require from the helper? Only supervision, cuing, coaxing, OR he lp to set out transfer equipment or to lock brakes and/or lift foot rests TRANSFERS: TOILET - SCORE: 5-SUP TRANSFERS: SHOWER: Activity did not occur on this shift TRANSFERS: SHOWER - SCORE: 0-UNK TRANSFERS: TUB: Activity did not occur on this shift TRANSFERS: TUB - SCORE: 0-UNK LOCOMOTION: WALK: Activity did not occur on this shift LOCOMOTION: WALK - SCORE: 0-UNK LOCOMOTION: WHEELCHAIR: Activity did not occur on this shift LOCOMOTION: WHEELCHAIR - SCORE: 0-UNK COMPREHENSION: COMPREHENSION - SCORE: 0-UNK EXPRESSION EXPRESSION - SCORE: 0-UNK SOCIAL INTERACTION: SOCIAL INTERACTION - SCORE: 0-UNK PROBLEM SOLVING: PROBLEM SOLVING - SCORE: 0-UNK MEMORY: MEMORY - SCORE: 0-UNK SIGNATURE PANEL: The following modified sections: Eating - Score, Grooming - Score, Bathing - Score, Dressing - Upper Body - Score, Dressing - Lower Body - Score, Toileting - Score, Bladder Management - Score, Bowel Man agement - Score, Transfers: Bed, Chair, Wheelchair - Score, Transfers: Toilet - Score, Transfers: Nayely wer - Score, Transfers: Tub - Score, Locomotion: Walk - Score, Locomotion: Wheelchair - Score, Compre hension - Score, Expression - Score, Social Interaction - Score, Problem Solving - Score, Memory - Sc ore were [electronically] signed by Yoselin Rajan CNA on MonJun 22 2018 17:52:48 GMT-0600 ([facility])
--- NOTE | 2018-06-22 18:08 | P.PN ---
Subjective Date of Service: 06/22/18 Chief Complaint: BACK PAIN , SEVERE AT TIMES Subjective: Improving SHE IS DOING BETTER. HER BACK STILL HURTS AND KNOWS WILL HURT. Review of Systems 10-point ROS is otherwise unremarkable Physical Examination - Vital Signs Temperature: 97.2 F Blood Pressure: 156/69 Pulse: 81 Respirations: 18 Pulse Ox (%): 93 - Physical Exam General: Moderate distress HEENT: Atraumatic, PERRLA, EOMI Neck: Supple, JVD not distended Respiratory: Clear to auscultation bilaterally, Normal air movement Cardiovascular: Regular rate/rhythm, Normal S1 S2 Gastrointestinal: Normal bowel sounds, No tenderness Musculoskeletal: No tenderness Integumentary: No rashes Neurological: Normal speech, Normal tone, Normal affect Lymphatics: No axilla or inguinal lymphadenopathy - Studies Medications List Reviewed: Yes Assessment And Plan - Current Problems (Diagnosis) (1) Infection of vertebra Onset Date: 06/18/18 Current Visit: Yes Status: Acute Plan: POST STEM CELL TRANSPLANT, 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 SHE IS RECOVERING. SHE HAS FINISHED ANTIBIOTICS. WILL FU WITH MRI AGAIN. SHE IS HERE FOR THERAPY. ELIQUIS FOR PROPHYLAXIS. CHECK LAB AND SED RATE. MRI TO BE DONE IN AM. NOTE DONE ONE DAY LATE. RADIOLOGIST ADVISED WBC TAGGED SCAN TO RULE OUT CURRENT INFECTION. INDIUM SCAN TODAY. STABLE BUT NOT SURE FROM MRI IF THERE IS INFECTION OR NOT. HER WBC SCAN IS NEGATIVE PAIN IS NOT FROM RESIDUAL INFECTION SHE HAS NO INFECTION NOW. STABLE FOR DC WHEN REHAB IS READY. (2) Back pain Current Visit: Yes Status: Acute Plan: CHR SPASM SEVERE DJD BRACE MAY HELP. Qualifiers: Back pain location: low back pain
[2018-06-22] MEDS: DOCUSATE NA/SENNA CONC 1 TAB PO SCH (21:52)
[2018-06-22] MEDS: ATORVASTATIN 80 MG TAB PO SCH (21:52)
[2018-06-23] MEDS: FERROUS SULFATE 325 MG TAB PO SCH ×3 (01:21→16:57)
--- NOTE | 2018-06-23 02:31 | FAST ---
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 Rory Miner M.D. 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 EATING: Activity did not occur on this shift EATING - SCORE: 0-UNK GROOMING: Oral care Wash, rinse, and dry face Wash, rinse, and dry hands GROOMING - STEP 1: Does the patient require the assistance of a person or device, or need extra time when grooming? Yes. GROOMING - STEP 2: Does the patient require the assistance of a helper? Yes. GROOMING - STEP 3: How much assistance does the patient require from the helper? Only prior equipment preparation/set up from the helper GROOMING - SCORE: 5-SUP BATHING: Activity did not occur on this shift BATHING - SCORE: 0-UNK DRESSING - UPPER BODY: Patient is not dressing in public clothing ARTICLES SCORE Total number of steps: 0 DRESSING - UPPER BODY - SCORE: 0-UNK DRESSING - LOWER BODY: Patient is not dressing in public clothing ARTICLES SCORE Total number of steps: 0 DRESSING - LOWER BODY - SCORE: 0-UNK TOILETING: TOILETING - STEP 1: Does the patient require the assistance of a person or device, or need extra time with toileting? Yes . TOILETING - STEP 2: Does the patient require the assistance of a helper? Yes. TOILETING - STEP 3: How much assistance does the patient require from the helper? Hands-on assistance from the helper TOILETING - STEP 4: Of the 3 tasks: 1) Adjusting clothing prior to use, 2) Cleansing of perineal area, 3) Adjusting clot luis after use; How many tasks does the patient perform WITHOUT assistance of the helper? Two tasks TOILETING - SCORE: 3-MOD BLADDER MANAGEMENT: BLADDER MANAGEMENT - STEP 1: Does the patient control the bladder completely and intentionally without equipment or devices or med ications, and is always continent? No. BLADDER MANAGEMENT - STEP 2: Does the patient require the assistance of a helper? Yes. BLADDER MANAGEMENT - STEP 3: How much assistance does the patient require from the helper? Patient requires contact assistance fro m the helper BLADDER MANAGEMENT - STEP 4: How much contact assistance does the patient require from the helper? Patient requires minimal assist ance to maintain an external device - by positioning, and the patient performs 75% or more of bladder management tasks, while the helper provides less than 25% of the assistance to position patient on / off bedpan BLADDER MANAGEMENT - SCORE: 4-MIN BOWEL MANAGEMENT: Activity did not occur on this shift BOWEL MANAGEMENT - SCORE: 7-IND TRANSFERS: BED, CHAIR, WHEELCHAIR: TRANSFERS: BED, CHAIR, WHEELCHAIR - STEP 1: Does the patient require assitance of a person or device, or need extra time with bed, chair, or whee lchair transfers? Yes. TRANSFERS: BED, CHAIR, WHEELCHAIR - STEP 2: Does the patient require the assistance of a helper? Yes. TRANSFERS: BED, CHAIR, WHEELCHAIR - STEP 3: How much assistance does the patient require from the helper? Steadying/guiding assistance TRANSFERS: BED, CHAIR, WHEELCHAIR - SCORE: 4-MIN TRANSFERS: TOILET: TRANSFERS: TOILET - STEP 1: Does the patient require the assistance of a person or device, or need extra time with toilet transfe rs? Yes. TRANSFERS: TOILET - STEP 2: Does the patient require the assistance of a helper? Yes. TRANSFERS: TOILET - STEP 3: How much assistance does the patient require from the helper? Patient performs half or more of the tr ansferring tasks TRANSFERS: TOILET - STEP 4: Does the patient need only incidental help such as contact guard or steadying during toilet transfer? Yes. TRANSFERS: TOILET - SCORE: 4-MIN TRANSFERS: SHOWER: Activity did not occur on this shift TRANSFERS: SHOWER - SCORE: 0-UNK TRANSFERS: TUB: Activity did not occur on this shift TRANSFERS: TUB - SCORE: 0-UNK LOCOMOTION: WALK: Activity did not occur on this shift LOCOMOTION: WALK - SCORE: 0-UNK LOCOMOTION: WHEELCHAIR: Activity did not occur on this shift LOCOMOTION: WHEELCHAIR - SCORE: 0-UNK COMPREHENSION: COMPREHENSION: TYPE: Both COMPREHENSION - STEP 1: Does the patient require help from a person or device, or need extra time to understand complex and a bstract ideas (such as current events, finances, discharge planning, medical issues, relationships, e tc)? No. COMPREHENSION - STEP 2: Does the patient need extra time, require an assistive device (such as glasses for visual comprehensi on or a hearing aid for auditory comprehension) or does s/he have mild difficulty understanding compl ex and abstract information? Yes. COMPREHENSION - SCORE: 6-JENISE EXPRESSION EXPRESSION: TYPE: Both EXPRESSION - STEP 1: Does the patient require help from a person or device, or need extra time expressing complex and abst ract ideas (such as current events, finances, discharge planning, medical issues, relationships, etc) ? No. EXPRESSION - STEP 2: Does the patient need extra time, require an assistive device (such as augmentive communication syste m or a communication board), OR does s/he have mild difficulty expressing complex and abstract ideas (including mild dysarthria or mild word-find problems)? Yes. EXPRESSION - SCORE: 6-JENISE SOCIAL INTERACTION: SOCIAL INTERACTION - STEP 1: Does the patient require a helper to interact with others in social and therapeutic situations? No. SOCIAL INTERACTION - STEP 2: Does the patient need extra time in social situations, OR does s/he interact with staff, other patien ts, and family members ONLY in structured environments, OR does s/he require medication for social in teraction? Yes, patient needs extra time SOCIAL INTERACTION - SCORE: 6-JENISE PROBLEM SOLVING: PROBLEM SOLVING - STEP 1: Does the patient need help from a person or device, or need extra time to solve complex problems such as managing a checking account or confronting interpersonal problems? No. PROBLEM SOLVING - STEP 2: Does the patient require extra time to make decisions or solve problems, OR does s/he have slight dif ficulty reading, initiating, or self-correcting in unfamiliar situations? Yes, patient needs extra ti me. PROBLEM SOLVING - SCORE: 6-JENISE MEMORY: MEMORY - STEP 1: Does the patient need help from a person or device, or need extra time to remember frequently encount ered people, daily routines, and executing requests? No. MEMORY - STEP 2: Does the patient have slight difficulty recognizing frequently encountered people, daily routines, or executing requests without the need for repetition or using self-initiated or environmental cues to remember? Yes. MEMORY - SCORE: 6-JENISE
[2018-06-23] MEDS: LACTULOSE 20 GM/30 ML UCUP PO SCH ×2 (05:10→16:56)
[2018-06-23] MEDS: CARVEDILOL 12.5 MG TAB PO SCH ×2 (05:10→16:57)
[2018-06-23] MEDS: SODIUM CHLORIDE 0.9% 10ML INJ IV SCH ×2 (08:00→21:36)
[2018-06-23] MEDS: LIDOCAINE 5% PATCH TOP SCH (08:09)
[2018-06-23] MEDS: CRANBERRY FRUIT EXTRACT 200 MG CAP PO SCH ×2 (08:10→20:31)
[2018-06-23] MEDS: APIXABAN 5 MG TABLET PO SCH ×2 (08:10→20:31)
[2018-06-23] MEDS: MULTIVITAMIN TAB PO SCH (08:10)
[2018-06-23] MEDS: GABAPENTIN 300 MG CAP PO SCH ×2 (08:10→20:31)
[2018-06-23] MEDS: PANTOPRAZOLE 40MG TABLET PO SCH (08:10)
[2018-06-23] MEDS: LISINOPRIL 20 MG TAB PO SCH (08:11)
[2018-06-23] MEDS: LACTOBACILLUS/ACIDOPHILUS TAB PO SCH ×2 (08:11→20:30)
[2018-06-23] MEDS: POLYETHYL GLY 3350 17 GM/DOSE PO SCH (08:11)
[2018-06-23] MEDS: TRAMADOL HCL 50 MG TAB PO PRN ×3 (08:14→20:35)
[2018-06-23] MEDS: PROMOD 30 ML DOSE PO SCH ×2 (08:15→20:31)
--- NOTE | 2018-06-23 10:11 | P.PN ---
Subjective Date of Service: 06/23/18 Chief Complaint: BACK PAIN , SEVERE AT TIMES Subjective: Improving SHE IS DOING BETTER. HER BACK STILL HURTS AND KNOWS WILL HURT. BACK PAIN, DJD. SEVERE. RADIATES TO L LEG. Review of Systems 10-point ROS is otherwise unremarkable Physical Examination - Vital Signs Temperature: 97.3 F Blood Pressure: 148/60 Pulse: 69 Respirations: 16 Pulse Ox (%): 97 - Physical Exam General: Alert, Oriented x3, Mild distress HEENT: Atraumatic, PERRLA, EOMI Neck: Supple, JVD not distended Respiratory: Clear to auscultation bilaterally, Normal air movement Cardiovascular: Regular rate/rhythm, Normal S1 S2 Gastrointestinal: Normal bowel sounds, No tenderness Musculoskeletal: No tenderness Integumentary: No rashes Neurological: Normal speech, Normal tone, Normal affect Lymphatics: No axilla or inguinal lymphadenopathy - Studies Medications List Reviewed: Yes Assessment And Plan - Current Problems (Diagnosis) (1) Infection of vertebra Onset Date: 06/18/18 Current Visit: Yes Status: Acute Plan: POST STEM CELL TRANSPLANT, 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 SHE IS RECOVERING. SHE HAS FINISHED ANTIBIOTICS. WILL FU WITH MRI AGAIN. SHE IS HERE FOR THERAPY. ELIQUIS FOR PROPHYLAXIS. CHECK LAB AND SED RATE. MRI TO BE DONE IN AM. NOTE DONE ONE DAY LATE. RADIOLOGIST ADVISED WBC TAGGED SCAN TO RULE OUT CURRENT INFECTION. INDIUM SCAN TODAY. STABLE BUT NOT SURE FROM MRI IF THERE IS INFECTION OR NOT. HER WBC SCAN IS NEGATIVE PAIN IS NOT FROM RESIDUAL INFECTION SHE HAS NO INFECTION NOW. STABLE FOR DC WHEN REHAB IS READY. (2) Back pain Current Visit: Yes Status: Acute Plan: CHR SPASM SEVERE DJD BRACE MAY HELP. CHR DJD RELATED PAIN. I ADVISED BRACE. I WILL GIVE PRINT OUT ALSO LOW DOSE NALTREXEONE MAY HELP I WILL SEND RX TO [facility] FOR HER TO [employer]. Qualifiers: Back pain location: low back pain
--- NOTE | 2018-06-23 13:56 | FAST ---
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 Rory Miner M.D. 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 EATING: EATING - STEP 1: Does the patient require the assistance of a person or device, or need extra time when eating? Yes. EATING - STEP 2: Does the patient require the assistance of a helper? No, patient only requires an assistive device, O R s/he takes more than reasonable time to eat, OR there is a safety concern, OR s/he requires modifie d food consistency EATING - SCORE: 6-JENISE GROOMING: Comb/brush hair Oral care Wash, rinse, and dry face Wash, rinse, and dry hands GROOMING - STEP 1: Does the patient require the assistance of a person or device, or need extra time when grooming? Yes. GROOMING - STEP 2: Does the patient require the assistance of a helper? No. The patient only requires an assistive devic e, OR takes more than reasonable time to groom, OR there is a concern for safety as the patient groom s GROOMING - SCORE: 6-JENISE BATHING: Activity did not occur on this shift BATHING - SCORE: 0-UNK DRESSING - UPPER BODY: Sweater (four steps) ARTICLES SCORE Total number of steps: 4 DRESSING - UPPER BODY - STEP 1: Does the patient require help from a person or device, or need extra time when dressing above the m[address] st? Yes. DRESSING - UPPER BODY - STEP 2: Does the patient require the assistance of a helper? Yes. DRESSING - UPPER BODY - STEP 3: Does the helper touch the patient while dressing? No. DRESSING - UPPER BODY - SCORE: 5-SUP DRESSING - LOWER BODY: Activity did not occur on this shift ARTICLES SCORE Total number of steps: 0 DRESSING - LOWER BODY - SCORE: 0-UNK TOILETING: TOILETING - STEP 1: Does the patient require the assistance of a person or device, or need extra time with toileting? Yes . TOILETING - STEP 2: Does the patient require the assistance of a helper? Yes. TOILETING - STEP 3: How much assistance does the patient require from the helper? Only supervision TOILETING - SCORE: 5-SUP BLADDER MANAGEMENT: BLADDER MANAGEMENT - STEP 1: Does the patient control the bladder completely and intentionally without equipment or devices or med ications, and is always continent? No. BLADDER MANAGEMENT - STEP 2: Does the patient require the assistance of a helper? No, patient requires and independently uses an a ssistive device, such as a urinal, bedpan, bedside commode, catheter, absorbent pad, or collecting de vice BLADDER MANAGEMENT - SCORE: 6-JENISE BLADDER MANAGEMENT - FREQUENCY OF ACCIDENTS: BLADDER MANAGEMENT(FA) - STEP 1: How many accidents has the patient had during the current shift? 0 BOWEL MANAGEMENT: BOWEL MANAGEMENT - STEP 1: Does the patient control bowels completely and intentionally without equipment devices or medications AND is always continent? No. BOWEL MANAGEMENT - STEP 2: Does the patient require the assistance of a helper? No, patient requires extra time BOWEL MANAGEMENT - SCORE: 6-JENISE BOWEL MANAGEMENT - FREQUENCY OF ACCIDENTS: BOWEL MANAGEMENT(FA) - STEP 1: How many accidents has the patient had during the current shift? 0 TRANSFERS: BED, CHAIR, WHEELCHAIR: TRANSFERS: BED, CHAIR, WHEELCHAIR - STEP 1: Does the patient require assitance of a person or device, or need extra time with bed, chair, or whee lchair transfers? Yes. TRANSFERS: BED, CHAIR, WHEELCHAIR - STEP 2: Does the patient require the assistance of a helper? Yes. TRANSFERS: BED, CHAIR, WHEELCHAIR - STEP 3: How much assistance does the patient require from the helper? Only supervision TRANSFERS: BED, CHAIR, WHEELCHAIR - SCORE: 5-SUP TRANSFERS: TOILET: TRANSFERS: TOILET - STEP 1: Does the patient require the assistance of a person or device, or need extra time with toilet transfe rs? Yes. TRANSFERS: TOILET - STEP 2: Does the patient require the assistance of a helper? Yes. TRANSFERS: TOILET - STEP 3: How much assistance does the patient require from the helper? Patient performs half or more of the tr ansferring tasks TRANSFERS: TOILET - STEP 4: Does the patient need only incidental help such as contact guard or steadying during toilet transfer? Yes. TRANSFERS: TOILET - SCORE: 4-MIN TRANSFERS: SHOWER: Activity did not occur on this shift TRANSFERS: SHOWER - SCORE: 0-UNK TRANSFERS: TUB: Activity did not occur on this shift TRANSFERS: TUB - SCORE: 0-UNK LOCOMOTION: WALK: Activity did not occur on this shift LOCOMOTION: WALK - SCORE: 0-UNK LOCOMOTION: WHEELCHAIR: Activity did not occur on this shift LOCOMOTION: WHEELCHAIR - SCORE: 0-UNK COMPREHENSION: COMPREHENSION: TYPE: Both COMPREHENSION - STEP 1: Does the patient require help from a person or device, or need extra time to understand complex and a bstract ideas (such as current events, finances, discharge planning, medical issues, relationships, e tc)? No. COMPREHENSION - STEP 2: Does the patient need extra time, require an assistive device (such as glasses for visual comprehensi on or a hearing aid for auditory comprehension) or does s/he have mild difficulty understanding compl ex and abstract information? Yes. COMPREHENSION - SCORE: 6-JENISE EXPRESSION EXPRESSION: TYPE: Both EXPRESSION - STEP 1: Does the patient require help from a person or device, or need extra time expressing complex and abst ract ideas (such as current events, finances, discharge planning, medical issues, relationships, etc) ? No. EXPRESSION - STEP 2: Does the patient need extra time, require an assistive device (such as augmentive communication syste m or a communication board), OR does s/he have mild difficulty expressing complex and abstract ideas (including mild dysarthria or mild word-find problems)? Yes. EXPRESSION - SCORE: 6-JENISE SOCIAL INTERACTION: SOCIAL INTERACTION - STEP 1: Does the patient require a helper to interact with others in social and therapeutic situations? No. SOCIAL INTERACTION - STEP 2: Does the patient need extra time in social situations, OR does s/he interact with staff, other patien ts, and family members ONLY in structured environments, OR does s/he require medication for social in teraction? Yes, patient needs extra time SOCIAL INTERACTION - SCORE: 6-JENISE PROBLEM SOLVING: PROBLEM SOLVING - STEP 1: Does the patient need help from a person or device, or need extra time to solve complex problems such as managing a checking account or confronting interpersonal problems? No. PROBLEM SOLVING - STEP 2: Does the patient require extra time to make decisions or solve problems, OR does s/he have slight dif ficulty reading, initiating, or self-correcting in unfamiliar situations? Yes, patient needs extra ti me. PROBLEM SOLVING - SCORE: 6-JENISE MEMORY: MEMORY - STEP 1: Does the patient need help from a person or device, or need extra time to remember frequently encount ered people, daily routines, and executing requests? No. MEMORY - STEP 2: Does the patient have slight difficulty recognizing frequently encountered people, daily routines, or executing requests without the need for repetition or using self-initiated or environmental cues to remember? Yes. MEMORY - SCORE: 6-JENISE SIGNATURE PANEL: The following modified sections: Eating - Score, Grooming - Score, Bathing - Score, Dressing - Upper Body - Score, Dressing - Lower Body - Score, Toileting - Score, Bladder Management - Score, Bowel Man agement - Score, Transfers: Bed, Chair, Wheelchair - Score, Transfers: Toilet - Score, Transfers: Nayely wer - Score, Transfers: Tub - Score, Locomotion: Walk - Score, Locomotion: Wheelchair - Score, Compre hension - Score, Expression - Score, Social Interaction - Score, Problem Solving - Score, Memory - Sc ore were [electronically] signed by Telma Bradford C.N.A. on Sat Jun 23 2018 13:55:52 GMT-0600 ([facility] Standard Time)
[2018-06-23] MEDS: ATORVASTATIN 80 MG TAB PO SCH (20:30)
[2018-06-23] MEDS: DOCUSATE NA/SENNA CONC 1 TAB PO SCH ×2 (21:00→22:21)
[2018-06-24] MEDS: FERROUS SULFATE 325 MG TAB PO SCH ×2 (00:37→08:01)
--- NOTE | 2018-06-24 02:21 | FAST ---
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 Rory Miner M.D. 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 EATING: Activity did not occur on this shift EATING - SCORE: 0-UNK GROOMING: Wash, rinse, and dry hands GROOMING - STEP 1: Does the patient require the assistance of a person or device, or need extra time when grooming? Yes. GROOMING - STEP 2: Does the patient require the assistance of a helper? Yes. GROOMING - STEP 3: How much assistance does the patient require from the helper? Only prior equipment preparation/set up from the helper GROOMING - SCORE: 5-SUP BATHING: Activity did not occur on this shift BATHING - SCORE: 0-UNK DRESSING - UPPER BODY: Patient is not dressing in public clothing ARTICLES SCORE Total number of steps: 0 DRESSING - UPPER BODY - SCORE: 0-UNK DRESSING - LOWER BODY: Patient is not dressing in public clothing ARTICLES SCORE Total number of steps: 0 DRESSING - LOWER BODY - SCORE: 0-UNK TOILETING: TOILETING - STEP 1: Does the patient require the assistance of a person or device, or need extra time with toileting? Yes . TOILETING - STEP 2: Does the patient require the assistance of a helper? Yes. TOILETING - STEP 3: How much assistance does the patient require from the helper? Hands-on assistance from the helper TOILETING - STEP 4: Of the 3 tasks: 1) Adjusting clothing prior to use, 2) Cleansing of perineal area, 3) Adjusting clot luis after use; How many tasks does the patient perform WITHOUT assistance of the helper? Three tasks with steadying assistance from the helper TOILETING - SCORE: 4-MIN BLADDER MANAGEMENT: BLADDER MANAGEMENT - STEP 1: Does the patient control the bladder completely and intentionally without equipment or devices or med ications, and is always continent? No. BLADDER MANAGEMENT - STEP 2: Does the patient require the assistance of a helper? Yes. BLADDER MANAGEMENT - STEP 3: How much assistance does the patient require from the helper? Only supervision, stand-by, cuing, or c oaxing BLADDER MANAGEMENT - SCORE: 5-SUP BOWEL MANAGEMENT: Activity did not occur on this shift BOWEL MANAGEMENT - SCORE: 7-IND TRANSFERS: BED, CHAIR, WHEELCHAIR: TRANSFERS: BED, CHAIR, WHEELCHAIR - STEP 1: Does the patient require assitance of a person or device, or need extra time with bed, chair, or whee lchair transfers? Yes. TRANSFERS: BED, CHAIR, WHEELCHAIR - STEP 2: Does the patient require the assistance of a helper? Yes. TRANSFERS: BED, CHAIR, WHEELCHAIR - STEP 3: How much assistance does the patient require from the helper? Steadying/guiding assistance TRANSFERS: BED, CHAIR, WHEELCHAIR - SCORE: 4-MIN TRANSFERS: TOILET: TRANSFERS: TOILET - STEP 1: Does the patient require the assistance of a person or device, or need extra time with toilet transfe rs? Yes. TRANSFERS: TOILET - STEP 2: Does the patient require the assistance of a helper? Yes. TRANSFERS: TOILET - STEP 3: How much assistance does the patient require from the helper? Only supervision, cuing, coaxing, OR he lp to set out transfer equipment or to lock brakes and/or lift foot rests TRANSFERS: TOILET - SCORE: 5-SUP TRANSFERS: SHOWER: Activity did not occur on this shift TRANSFERS: SHOWER - SCORE: 0-UNK TRANSFERS: TUB: Activity did not occur on this shift TRANSFERS: TUB - SCORE: 0-UNK LOCOMOTION: WALK: Activity did not occur on this shift LOCOMOTION: WALK - SCORE: 0-UNK LOCOMOTION: WHEELCHAIR: Activity did not occur on this shift LOCOMOTION: WHEELCHAIR - SCORE: 0-UNK COMPREHENSION: COMPREHENSION: TYPE: Both COMPREHENSION - STEP 1: Does the patient require help from a person or device, or need extra time to understand complex and a bstract ideas (such as current events, finances, discharge planning, medical issues, relationships, e tc)? No. COMPREHENSION - STEP 2: Does the patient need extra time, require an assistive device (such as glasses for visual comprehensi on or a hearing aid for auditory comprehension) or does s/he have mild difficulty understanding compl ex and abstract information? Yes. COMPREHENSION - SCORE: 6-JENISE EXPRESSION EXPRESSION: TYPE: Both EXPRESSION - STEP 1: Does the patient require help from a person or device, or need extra time expressing complex and abst ract ideas (such as current events, finances, discharge planning, medical issues, relationships, etc) ? No. EXPRESSION - STEP 2: Does the patient need extra time, require an assistive device (such as augmentive communication syste m or a communication board), OR does s/he have mild difficulty expressing complex and abstract ideas (including mild dysarthria or mild word-find problems)? No. EXPRESSION - SCORE: 7-IND SOCIAL INTERACTION: SOCIAL INTERACTION - STEP 1: Does the patient require a helper to interact with others in social and therapeutic situations? No. SOCIAL INTERACTION - STEP 2: Does the patient need extra time in social situations, OR does s/he interact with staff, other patien ts, and family members ONLY in structured environments, OR does s/he require medication for social in teraction? Yes, patient needs extra time SOCIAL INTERACTION - SCORE: 6-JENISE PROBLEM SOLVING: PROBLEM SOLVING - STEP 1: Does the patient need help from a person or device, or need extra time to solve complex problems such as managing a checking account or confronting interpersonal problems? No. PROBLEM SOLVING - STEP 2: Does the patient require extra time to make decisions or solve problems, OR does s/he have slight dif ficulty reading, initiating, or self-correcting in unfamiliar situations? Yes, patient needs extra ti me. PROBLEM SOLVING - SCORE: 6-JNEISE MEMORY: MEMORY - STEP 1: Does the patient need help from a person or device, or need extra time to remember frequently encount ered people, daily routines, and executing requests? No. MEMORY - STEP 2: Does the patient have slight difficulty recognizing frequently encountered people, daily routines, or executing requests without the need for repetition or using self-initiated or environmental cues to remember? Yes. MEMORY - SCORE: 6-JENISE SIGNATURE PANEL: The following modified sections: Eating - Score, Grooming - Score, Dressing - Upper Body - Score, Silvio ssing - Lower Body - Score, Toileting - Score, Bladder Management - Score, Bowel Management - Score, Transfers: Bed, Chair, Wheelchair - Score, Transfers: Toilet - Score, Transfers: Shower - Score, [place] sfers: Tub - Score, Locomotion: Walk - Score, Locomotion: Wheelchair - Score, Comprehension - Score, Expression - Score, Social Interaction - Score, Problem Solving - Score, Memory - Score were [electro nically] signed by Maricruz Lara CNA on MonJun 24 2018 02:20:55 GMT-0600 (Central Standard Time)
[2018-06-24] MEDS: CARVEDILOL 12.5 MG TAB PO SCH (05:23)
[2018-06-24] MEDS: LACTULOSE 20 GM/30 ML UCUP PO SCH (06:00)
[2018-06-24 07:17] VITALS: BP 134/63; TEMP 96.6
[2018-06-24] MEDS: SODIUM CHLORIDE 0.9% 10ML INJ IV SCH (08:00)
[2018-06-24] MEDS: POLYETHYL GLY 3350 17 GM/DOSE PO SCH (08:00)
[2018-06-24] MEDS: PROMOD 30 ML DOSE PO SCH (08:00)
[2018-06-24] MEDS: LIDOCAINE 5% PATCH TOP SCH (08:01)
[2018-06-24] MEDS: MULTIVITAMIN TAB PO SCH (08:02)
[2018-06-24] MEDS: PANTOPRAZOLE 40MG TABLET PO SCH (08:02)
[2018-06-24] MEDS: LACTOBACILLUS/ACIDOPHILUS TAB PO SCH (08:02)
[2018-06-24] MEDS: GABAPENTIN 300 MG CAP PO SCH (08:02)
[2018-06-24] MEDS: CRANBERRY FRUIT EXTRACT 200 MG CAP PO SCH (08:02)
[2018-06-24] MEDS: APIXABAN 5 MG TABLET PO SCH (08:03)
[2018-06-24] MEDS: TRAMADOL HCL 50 MG TAB PO PRN (08:03)
[2018-06-24] MEDS: LISINOPRIL 20 MG TAB PO SCH (08:03)
--- NOTE | 2018-06-24 10:36 | P.PN ---
Subjective Date of Service: 06/24/18 Chief Complaint: BACK PAIN , SEVERE AT TIMES Subjective: No new changes SHE IS DOING BETTER. HER BACK STILL HURTS AND KNOWS WILL HURT. BACK PAIN, DJD. SEVERE. RADIATES TO L LEG. SHE CAN'T AFFORD COSTLY MEDS. SHE IS ON ELIQUIS FROM [place]. I WILL DO EKG IF NORMAL, WILL STOP IT. IF NOT WILL SEND HER TO PAP AND GIVE SAMPLES UNTIL THEN. 2.5 MG PO BID. Physical Examination - Vital Signs Temperature: 96.6 F Blood Pressure: 134/63 Pulse: 66 Respirations: 16 Pulse Ox (%): 94 - Studies Medications List Reviewed: Yes Assessment And Plan - Current Problems (Diagnosis) (1) Infection of vertebra Onset Date: 06/18/18 Current Visit: Yes Status: Acute Plan: POST STEM CELL TRANSPLANT, 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 SHE IS RECOVERING. SHE HAS FINISHED ANTIBIOTICS. WILL FU WITH MRI AGAIN. SHE IS HERE FOR THERAPY. ELIQUIS FOR PROPHYLAXIS. CHECK LAB AND SED RATE. MRI TO BE DONE IN AM. NOTE DONE ONE DAY LATE. RADIOLOGIST ADVISED WBC TAGGED SCAN TO RULE OUT CURRENT INFECTION. INDIUM SCAN TODAY. STABLE BUT NOT SURE FROM MRI IF THERE IS INFECTION OR NOT. HER WBC SCAN IS NEGATIVE PAIN IS NOT FROM RESIDUAL INFECTION SHE HAS NO INFECTION NOW. STABLE FOR DC WHEN REHAB IS READY. (2) Back pain Current Visit: Yes Status: Acute Plan: CHR SPASM SEVERE DJD BRACE MAY HELP. CHR DJD RELATED PAIN. I ADVISED BRACE. 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 Qualifiers: Back pain location: low back pain
--- NOTE | 2018-06-24 13:21 | FAST ---
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 Rory Miner M.D. 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 EATING: EATING - STEP 1: Does the patient require the assistance of a person or device, or need extra time when eating? Yes. EATING - STEP 2: Does the patient require the assistance of a helper? No, patient only requires an assistive device, O R s/he takes more than reasonable time to eat, OR there is a safety concern, OR s/he requires modifie d food consistency EATING - SCORE: 6-JENISE GROOMING: Comb/brush hair Oral care Wash, rinse, and dry face Wash, rinse, and dry hands GROOMING - STEP 1: Does the patient require the assistance of a person or device, or need extra time when grooming? Yes. GROOMING - STEP 2: Does the patient require the assistance of a helper? No. The patient only requires an assistive devic e, OR takes more than reasonable time to groom, OR there is a concern for safety as the patient groom s GROOMING - SCORE: 6-JENISE BATHING: Activity did not occur on this shift BATHING - SCORE: 0-UNK DRESSING - UPPER BODY: T-shirt/pullover shirt (four steps) ARTICLES SCORE Total number of steps: 4 DRESSING - UPPER BODY - STEP 1: Does the patient require help from a person or device, or need extra time when dressing above the [address]? Yes. DRESSING - UPPER BODY - STEP 2: Does the patient require the assistance of a helper? Yes. DRESSING - UPPER BODY - STEP 3: Does the helper touch the patient while dressing? No. DRESSING - UPPER BODY - SCORE: 5-SUP DRESSING - LOWER BODY: Elastic waist pants (three steps) Slip-on shoe - Left foot (one step) ARTICLES SCORE Total number of steps: 4 DRESSING - LOWER BODY - STEP 1: Does the patient require help from a person or device, or need extra time when dressing below the [address]? Yes. DRESSING - LOWER BODY - STEP 2: Does the patient require the assistance of a helper? Yes. DRESSING - LOWER BODY - STEP 3: Does the helper touch the patient while dressing? No. DRESSING - LOWER BODY - SCORE: 5-SUP TOILETING: TOILETING - STEP 1: Does the patient require the assistance of a person or device, or need extra time with toileting? Yes . TOILETING - STEP 2: Does the patient require the assistance of a helper? Yes. TOILETING - STEP 3: How much assistance does the patient require from the helper? Only supervision TOILETING - SCORE: 5-SUP BLADDER MANAGEMENT: BLADDER MANAGEMENT - STEP 1: Does the patient control the bladder completely and intentionally without equipment or devices or med ications, and is always continent? No. BLADDER MANAGEMENT - STEP 2: Does the patient require the assistance of a helper? No, patient only requires extra time BLADDER MANAGEMENT - SCORE: 6-JENISE BLADDER MANAGEMENT - FREQUENCY OF ACCIDENTS: BLADDER MANAGEMENT(FA) - STEP 1: How many accidents has the patient had during the current shift? 0 BOWEL MANAGEMENT: Activity did not occur on this shift BOWEL MANAGEMENT - SCORE: 7-IND BOWEL MANAGEMENT - FREQUENCY OF ACCIDENTS: BOWEL MANAGEMENT(FA) - STEP 1: How many accidents has the patient had during the current shift? 0 TRANSFERS: BED, CHAIR, WHEELCHAIR: TRANSFERS: BED, CHAIR, WHEELCHAIR - STEP 1: Does the patient require assitance of a person or device, or need extra time with bed, chair, or whee lchair transfers? Yes. TRANSFERS: BED, CHAIR, WHEELCHAIR - STEP 2: Does the patient require the assistance of a helper? Yes. TRANSFERS: BED, CHAIR, WHEELCHAIR - STEP 3: How much assistance does the patient require from the helper? Only supervision TRANSFERS: BED, CHAIR, WHEELCHAIR - SCORE: 5-SUP TRANSFERS: TOILET: TRANSFERS: TOILET - STEP 1: Does the patient require the assistance of a person or device, or need extra time with toilet transfe rs? Yes. TRANSFERS: TOILET - STEP 2: Does the patient require the assistance of a helper? Yes. TRANSFERS: TOILET - STEP 3: How much assistance does the patient require from the helper? Only supervision, cuing, coaxing, OR he lp to set out transfer equipment or to lock brakes and/or lift foot rests TRANSFERS: TOILET - SCORE: 5-SUP TRANSFERS: SHOWER: Activity did not occur on this shift TRANSFERS: SHOWER - SCORE: 0-UNK TRANSFERS: TUB: Activity did not occur on this shift TRANSFERS: TUB - SCORE: 0-UNK LOCOMOTION: WALK: Activity did not occur on this shift LOCOMOTION: WALK - SCORE: 0-UNK LOCOMOTION: WHEELCHAIR: Activity did not occur on this shift LOCOMOTION: WHEELCHAIR - SCORE: 0-UNK COMPREHENSION: COMPREHENSION: TYPE: Both COMPREHENSION - STEP 1: Does the patient require help from a person or device, or need extra time to understand complex and a bstract ideas (such as current events, finances, discharge planning, medical issues, relationships, e tc)? No. COMPREHENSION - STEP 2: Does the patient need extra time, require an assistive device (such as glasses for visual comprehensi on or a hearing aid for auditory comprehension) or does s/he have mild difficulty understanding compl ex and abstract information? Yes. COMPREHENSION - SCORE: 6-JENISE EXPRESSION EXPRESSION: TYPE: Both EXPRESSION - STEP 1: Does the patient require help from a person or device, or need extra time expressing complex and abst ract ideas (such as current events, finances, discharge planning, medical issues, relationships, etc) ? No. EXPRESSION - STEP 2: Does the patient need extra time, require an assistive device (such as augmentive communication syste m or a communication board), OR does s/he have mild difficulty expressing complex and abstract ideas (including mild dysarthria or mild word-find problems)? Yes. EXPRESSION - SCORE: 6-JENISE SOCIAL INTERACTION: SOCIAL INTERACTION - STEP 1: Does the patient require a helper to interact with others in social and therapeutic situations? No. SOCIAL INTERACTION - STEP 2: Does the patient need extra time in social situations, OR does s/he interact with staff, other patien ts, and family members ONLY in structured environments, OR does s/he require medication for social in teraction? Yes, patient needs extra time SOCIAL INTERACTION - SCORE: 6-JENISE PROBLEM SOLVING: PROBLEM SOLVING - STEP 1: Does the patient need help from a person or device, or need extra time to solve complex problems such as managing a checking account or confronting interpersonal problems? No. PROBLEM SOLVING - STEP 2: Does the patient require extra time to make decisions or solve problems, OR does s/he have slight dif ficulty reading, initiating, or self-correcting in unfamiliar situations? Yes, patient needs extra ti me. PROBLEM SOLVING - SCORE: 6-JENISE MEMORY: MEMORY - STEP 1: Does the patient need help from a person or device, or need extra time to remember frequently encount ered people, daily routines, and executing requests? No. MEMORY - STEP 2: Does the patient have slight difficulty recognizing frequently encountered people, daily routines, or executing requests without the need for repetition or using self-initiated or environmental cues to remember? Yes. MEMORY - SCORE: 6-JENISE SIGNATURE PANEL: The following modified sections: Eating - Score, Grooming - Score, Bathing - Score, Dressing - Upper Body - Score, Dressing - Lower Body - Score, Toileting - Score, Bladder Management - Score, Bowel Man agement - Score, Transfers: Bed, Chair, Wheelchair - Score, Transfers: Toilet - Score, Transfers: Nayely wer - Score, Transfers: Tub - Score, Locomotion: Walk - Score, Locomotion: Wheelchair - Score, Compre hension - Score, Expression - Score, Social Interaction - Score, Problem Solving - Score, Memory - Sc ore were [electronically] signed by Telma Bradford C.N.A. on MonJun 24 2018 13:20:46 GMT-0600 ([place] Standard Time)
--- NOTE | 2018-06-25 07:04 | EKG ---
Test Date: 2018-06-24 Test Time: 10:43:43 Dairy Farmer: RT T MEASUREMENT RESULTS: Intervals: Rate: 62 PA: 192 QRSD: 80 QT: 408 QTc: 414 [place]: P: 62 PA: 192 QRS: 2 T: 53 INTERPRETIVE STATEMENTS: Normal sinus rhythm Normal ECG Compared to ECG 08/22/2015 05:46:15 No significant changes Electronically Signed On 06-25-18 07:03:23 OPERATIONS SUPERVISOR by Memo Ramirez
== END 2018-06-24 11:30 | disposition home health service (06) | DRG 95 ==
LOC: 5TH 06-15 15:51
PROVIDERS: ADMIT Psychiatry & Neurology Neurology with Special Qualifications in Child Neurology; ATTEND Psychiatry & Neurology Neurology with Special Qualifications in Child Neurology
DX: G06.1 Intraspinal abscess and granuloma (principal); N17.9 Acute kidney failure, unspecified; M54.5 Low back pain; I48.91 Unspecified atrial fibrillation; R53.81 Other malaise; M81.0 Age-related osteoporosis without current pathological fracture; E78.5 Hyperlipidemia, unspecified; I10 Essential (primary) hypertension; M06.9 Rheumatoid arthritis, unspecified; Z23 Encounter for immunization
CPT/HCPCS: 36415; 72148; 78805; 80048; 80076; 81001; 82040; 82140; 83735; 84134; 85025; 85652; 86140; 87086; 87088; 93005; A9521; Q2035

== ENCOUNTER 2018-08-11 07:50 | Emergency (ER) | payer OTHER, MEDICARE ==
--- OUTSIDE RECORDS SUMMARY | 2018-08-11 07:55 | XMS REPORT | Clinical Summary ---
:1930 Author Organization [facility] Address [address] [place] [address] Care Team Providers Name Role Phone Unavailable [...] Internal Donis Suarez ADELE (acute kidney injury) ([facility]); 05/11/2018 Jef Daniel MD Non-traumatic rhabdomyolysis; Matthias NSTEMI (non-ST elevated myocardial infarction) ([facility]); MD Elisa Bacteremia due to Gram-negative bacteria; Dina Suarez Acute osteomyelitis of lumbar spine ([facility]); Septic discitis of lumbar region 04/29/2018 Orders Only General Internal Medicine after 08/10/2017 Social History Tobacco Use Types Packs/Day Years [...] 326 ms QTC Calculation(Bazett) 511 ms R [place] 13 degrees T [place] 179 degrees Atrial fibrillation with rapid ventricular [...] 206 ms QTC Calculation(Bazett) 325 ms R [place] 12 degrees T [place] 243 degrees Atrial fibrillation with rapid ventricular [...] CULTURE Routine 04/29/2018 3:59 PM CDT after 08/10/2017 Results EKG-SCANNED (05/14/2018 12:23 PM CDT) Narrative Performed At RHYTHM STRIP - SCAN (05/14/2018 12:22 PM CDT) Narrative Performed At POC-Glucose meter (05/11/2018 12:19 PM CDT)Only the most recent of43 resultswithin the time period is included. POC-Glucose Meter 139 (H)Comment: TESTED AT 70 - 110 mg/dL [facility] [id number] [facility] [id number] Specimen Blood Performing Organization Address City/State/Zipcode Phone Number [facility] [address] [place], [place] [id number] [phone] CENTER CBC (Hemogram only) (05/11/2018 4:28 AM CDT)Only the most recent of8 resultswithin the time period is included. WBC 8.5 3.5 - 10.5 K/L [facility] RBC 2.73 (L) 3.93 - 5.22 M/L [facility] Hemoglobin 8.8 (L) 11.2 - 15.7 GM/DL [facility] Hematocrit 27.7 (L) 34.1 - 44.9 % [facility] MCV 101.5 (H) 79.4 - 94.8 fL [facility] MCH 32.2 25.6 - 32.2 pg [facility] MCHC 31.8 (L) 32.2 - 35.5 GM/DL [facility] RDW 12.7 11.7 - 14.4 % [facility] Platelets 351 150 - 450 K/CU MM [facility] MPV 10.6 9.4 - 12.3 fL [facility] nRBC 0 0 - 0 /100 WBC [facility] Specimen Blood Performing Organization Address City/State/Zipcode Phone Number [facility] [address] [place], [place] [id number] [phone] CENTER Basic Metabolic Panel (05/11/2018 4:28 AM CDT)Only the most recent of10 resultswithin the time period is included. Sodium 135 (L) 136 - 145 meq/L [facility] Potassium 4.3 3.5 - 5.1 meq/L [facility] Chloride 103 98 - 107 meq/L [facility] CO2 27 22 - 29 meq/L [facility] BUN 18 7 - 21 mg/dL [facility] Creatinine 0.55 (L) 0.57 - 1.25 mg/dL [facility] Glucose 97 70 - 105 mg/dL [facility] Calcium 8.5 8.4 - 10.2 mg/dL [facility] EGFR 104Comment: ESTIMATED GFR IS mL/min/1.73 sq m [facility] NOT ACCURATE CREATININE [facility] CLEARANCE IN PREDICTING GLOMERULAR FILTRATION RATE. ESTIMATED GFR IS NOT APPLICABLE FOR DIALYSIS PATIENTS. Specimen Blood Performing Organization Address City/State/Zipcode Phone Number [facility] [address] [place] [address] CENTER Comprehensive metabolic panel (05/09/2018 4:26 AM CDT)Only the most recent of2 resultswithin the time period is included. Protein, Total 5.3 (L) 6.0 - 8.3 gm/dL [facility] Albumin 2.4 (L) 3.5 - 5.0 g/dL [facility] Alkaline Phosphatase 53 40 - 150 U/L [facility] Total Bilirubin 0.4 0.2 - 1.2 mg/dL [facility] Sodium 136 136 - 145 meq/L [facility] Potassium 4.2 3.5 - 5.1 meq/L [facility] Chloride 104 98 - 107 meq/L [facility] CO2 26 22 - 29 meq/L [facility] BUN 19 7 - 21 mg/dL [facility] Creatinine 0.51 (L) 0.57 - 1.25 mg/dL [facility] Glucose 108 (H) 70 - 105 mg/dL [facility] Calcium 8.3 (L) 8.4 - 10.2 mg/dL [facility] AST 23 5 - 34 U/L [facility] ALT 20 6 - 55 U/L [facility] EGFR 114Comment: ESTIMATED mL/min/1.[address] [facility] GFR IS NOT ACCURATE [facility] CREATININE CLEARANCE IN PREDICTING GLOMERULAR FILTRATION RATE. ESTIMATED GFR IS NOT APPLICABLE FOR DIALYSIS PATIENTS. Specimen Blood - Line, Venous Performing Organization Address City/State/Zipcode Phone Number [address] [address] [phone] CENTER Magnesium (05/07/2018 3:40 AM CDT)Only the most recent of5 resultswithin the time period is included. Magnesium 1.5 (L) 1.6 - 2.6 mg/dL [facility] Specimen Blood Performing Organization Address City/[facility] Phone Number [address] [address] [place] XR chest 1 view portable / bedside [...] MD Report Verified Date/Time:05/06/2018 12:49:55 Reading Location: [address] Transitional Reading Room Procedure Note Interface, [...] Report Verified Date/Time: 05/06/2018 12:49:55 Reading Location: [address] Transitional Reading Room Performing Organization Address City/State/Zipcode Phone Number [facility] Blood culture (05/03/2018 5:45 AM CDT)Only the most recent of9 resultswithin the time period is included. Result No growth in 5 days [facility] Specimen Blood - Arm, Left Performing Organization Address City/[facility]/[place] [address] CENTER ECG 12 lead (05/03/2018 3:23 AM CDT)Only the most recent of2 resultswithin the time period is included. Narrative Performed At Ventricular Rate 150 BPM [facility] Atrial Rate 37 BPM QRS Duration 72 ms Q-T Interval 206 ms QTC Calculation(Bazett) 325 ms R [place] 12 degrees T [place] 243 degrees Atrial fibrillation with rapid ventricular [...] 206 ms QTC Calculation(Bazett) 325 ms R [place] 12 degrees T [place] 243 degrees Atrial fibrillation with rapid ventricular response Low voltage QRS Nonspecific ST and T wave abnormality Abnormal ECG When compared with ECG of 29-APR-2018 17:20, Atrial fibrillation has replaced Sinus rhythm Vent. rate has increased BY 75 BPM Confirmed by Gera BROWN BASANT ([id number]) on 05/03/2018 8:16:00 AM Performing Organization Address City/[facility] Phone Number PRAFUL Sodium, random urine (05/03/2018 2:44 AM CDT)Only the most recent of2 resultswithin the time period is included. Sodium Urine 82 meq/L [facility] Specimen Urine Narrative Performed At [facility] Reference Range: No Normals Performing Organization Address [facility] Phone Number [address] [address] [place] Protein, random urine (05/03/2018 2:44 AM CDT) Protein, Urine 50 (H) 0 - 14 mg/dL [facility] Specimen Urine Performing Organization Address [facility] Phone Number [address] [address] [place] Phosphorus (05/03/2018 2:43 AM CDT)Only the most recent of3 resultswithin the time period is included. Phosphorus 1.8 (L)Comment: Specimen 2.3 - 4.7 mg/dL [facility] slightly hemolyzed [facility] Specimen Blood Narrative Performed At Check Serum Phosphorus level 4 hours after IV [facility] phosphorus replacement or 8 hours after PO replacement completed. Performing Organization Address [facility] Phone Number [address] [address] [phone] [place] MR lumbar spine without & with IV contrast (05/02/2018 6:35 PM CDT) Narrative Performed At FINAL REPORT [facility] MRI lumbar spine with and without [...] MD Report Verified Date/Time:05/02/2018 19:48:22 Reading Location: [facility] Radiology Reading Room Procedure Note Interface, [...] Report Verified Date/Time: 05/02/2018 19:48:22 Reading Location: [facility] Radiology Reading Room Performing Organization Address City/State/Zipcode Phone Number [facility] [place] hepatobiliary imaging (05/02/2018 12:28 PM CDT) Narrative Performed At FINAL REPORT [facility] PROCEDURE: HEPATOBILIARY SCAN CPT CODE: [id number] INDICATION: Right upper quadrant pain PROTOCOL: 5.4 [...] MD Report Verified Date/Time:05/02/2018 12:48:39 Reading Location: [address] [place] [address] Reading Room Procedure Note Interface, External Ris In - 05/02/2018 12:50 PM CDT FINAL REPORT PROCEDURE: HEPATOBILIARY SCAN CPT CODE: [id number] INDICATION: Right upper quadrant pain PROTOCOL: 5.4 [...] Report Verified Date/Time: 05/02/2018 12:48:39 Reading Location: [address] [place] [address] Reading Room Performing Organization Address City/State/Zipcode Phone Number [facility] Blood gas, venous (05/01/2018 4:45 AM CDT)Only the most recent of2 resultswithin the time period is included. pH, Colt 7.40 7.32 - 7.42 [facility] pCO2, Colt 49 41 - 51 mmHg [facility] pO2, Colt 41 (H) 25 - 40 mmHg [facility] O2 Sat, Colt 75.6 (H) 40.0 - 70.0 % [facility] HCO3, Colt 30 (H) 21 - 29 mmol/L [facility] Base Excess, Colt 4.3 (H) -2.0 - 3.0 mmol/L [facility] Patient Temperature 37.0 C [facility] Specimen Blood - Arm, Left Performing Organization Address City/State/Zipcode Phone Number [address] [address] [place] Calcium, Ionized (05/01/2018 3:52 AM CDT) Calcium, Ion 1.06 (L) 1.12 - 1.27 mmol/L [facility] pH, Blood 7.40 [facility] Specimen Blood - Arm, Left Performing Organization Address City/State/Zipcode Phone Number [facility] [address] [place] [address] [place] CBC with platelet count + automated diff (05/01/2018 3:52 AM CDT)Only the most recent of3 resultswithin the time period is included. WBC 6.2 3.5 - 10.5 K/L [facility] RBC 3.42 (L) 3.93 - 5.22 M/L [facility] Hemoglobin 10.8 (L) 11.2 - 15.7 GM/DL [facility] Hematocrit 33.4 (L) 34.1 - 44.9 % [facility] MCV 97.7 (H) 79.4 - 94.8 fL [facility] MCH 31.6 25.6 - 32.2 pg [facility] MCHC 32.3 32.2 - 35.5 GM/DL [facility] RDW 12.3 11.7 - 14.4 % [facility] Platelets 89 (L) 150 - 450 K/CU MM [facility] MPV 11.8 9.4 - 12.3 fL [facility] nRBC 0 0 - 0 /100 WBC [facility] % Neutros 82 % [facility] % Lymphs 4 % [facility] % Monos 11 % [facility] % Eos 1 % [facility] % Baso 0 % [facility] # Neutros 5.07 1.56 - 6.13 K/L [facility] # Lymphs 0.25 (L) 1.18 - 3.74 K/L [facility] # Monos 0.70 (H) 0.24 - 0.36 K/L [facility] # Eos 0.04 0.04 - 0.36 K/L [facility] # Baso 0.02 0.01 - 0.08 K/L [facility] Immature Granulocytes-Relative 1 0 - 1 % [facility] Specimen Blood - Arm, Left Performing Organization Address City/[facility]/Zipcode Phone Number [facility] [address] [place] [address] CENTER Creatine Kinase (CK), Total and MB (04/30/2018 11:51 PM CDT)Only the most recent of4 resultswithin the time period is included. Total CK 456 (H) 29 - 200 U/L [facility] CK-MB 8.8 (H) 0.0 - 6.6 ng/mL [facility] MB Relative Index 1.9 % [facility] Specimen Blood - Arm, Left Narrative Performed At CK-MB Reference Range: [facility] <6.7Normal 6.7-10.0Borderline >10.0 Abnormal Performing Organization Address City/[facility]/Zipcode Phone Number [facility] [address] [place] [address] [phone] CENTER US abdomen limited (04/30/2018 9:13 PM [...] MD Report Verified Date/Time:04/30/2018 22:03:30 Reading Location: [facility] [id number] Consult Reading Room Procedure Note [...] Report Verified Date/Time: 04/30/2018 22:03:30 Reading Location: [address] Consult Reading Room Performing Organization Address City/[facility]/Zipcode Phone Number [facility] ECHOCARDIOGRAM REPORT - SCAN (04/30/2018 4:50 PM CDT) Narrative Performed At Vancomycin level, random (04/30/2018 3:58 PM CDT) Vancomycin Rm 9.4 ug/mL [facility] Specimen Blood Narrative Performed At [facility] Reference Range: No Normals Performing Organization Address City/[facility]/Zipcode Phone Number [place] [id number] [place] [address] [phone] CENTER Hepatic function panel (04/30/2018 3:17 PM CDT) Protein, Total 5.9 (L) 6.0 - 8.3 gm/dL [facility] Albumin 2.8 (L) 3.5 - 5.0 g/dL [facility] Total Bilirubin 0.5 0.2 - 1.2 mg/dL [facility] Bilirubin, Direct 0.3 0.1 - 0.5 mg/dL [facility] Alkaline Phosphatase 78 40 - 150 U/L [facility] AST 79 (H) 5 - 34 U/L [facility] ALT 34 6 - 55 U/L [facility] Specimen Blood Performing Organization Address City/State/Zipcode Phone Number [facility] [address] [place] [address] [phone] CENTER US renal complete (04/30/2018 12:33 PM CDT) Narrative Performed At FINAL REPORT [facility] Ultrasound of the Kidneys, 04/30/2018. Clinical History: [...] renal cyst. Otherwise unremarkable renal ultrasound. Signed: aBy Frank MD Report Verified Date/Time:04/30/2018 14:54:49 Reading Location: [address] Ultrasound Reading Room Procedure Note Interface, [...] Report Verified Date/Time: 04/30/2018 14:54:49 Reading Location: [facility] [id number] Ultrasound Reading Room Performing Organization Address City/State/Zipcode Phone Number [facility] 2D Echo W/Doppler(CW/PW/Color) (04/30/2018 9:08 AM CDT) Ejection Fraction [facility] ECHO [facility]ART[facility] [employer] CPA Narrative Performed At Transthoracic Echocardiography Report (TTE) [facility]CHO [facility]ART[facility] Demographics Patient Name Gracia BAZAN, Date of Study 04/30/2018 TERESA [id number] GenderFemale Visit Number [id number] RaceUnknown [id number] m Number [id number] Number Date of Birth1930 Referring Physician Dina Suarez MD Age87 year(s) Petrology Teacher Neeraj Stanford, [facility] AnalystAlex Renu Juan MD Physician [...] leaflet thickening. Mild mitral re gurgitation. Tricuspid [id number] tricuspid regurgitation. Es timated peak systolic PA [...] Study 04/30/2018 TERESA Gender Female Visit Number [id number] Race Unknown Room Number [id number] Number Date of 1930 Referring Physician Dina Suarez MD Age 87 year(s) Petrology Teacher Neeraj Stanford, [facility] Sports Specialist Jame Dumaslloyd Interpreting Eyal Juan MD Physician [...] leaflet thickening. Mild mitral regurgitation. Tricuspid Valve [id number] tricuspid regurgitation. Estimated peak systolic PA pressure [...] LVOT VTI: 19.11 cm Performing Organization Address [facility] Phone Number [facility]ART[facility] MKCKESSON CPACS Troponin I (04/30/2018 5:20 AM CDT)Only the most recent of3 resultswithin the time period is included. Troponin I 0.15 (H) 0.00 - 0.03 ng/mL [facility] Specimen Blood - Arm, Left Narrative Performed At [facility] Troponin I (TnI) levels must be interpreted [...] disease, and persistent tachyarrhythmia. Performing Organization Address [facility] Phone Number [address] [address] CENTER Myoglobin (04/30/2018 5:20 AM CDT)Only the most recent of2 resultswithin the time period is included. Myoglobin 1,297 (H) 0 - 78 ng/mL [facility] Specimen Blood - Arm, Left Performing Organization Address [facility] Phone Number [address] [address] CENTER Manual Differential (04/30/2018 4:10 AM CDT)Only the most recent of2 resultswithin the time period is included. % Neutros 82 % [facility] % Lymphs 7 % [facility] % Monos 2 % [facility] % Bands 9 0 - 10 % [facility] # Neutros 4.84 1.56 - 6.13 K/ul [facility] # Lymphs 0.41 (L) 1.18 - 3.74 K/ul [facility] # Monos 0.12 (L) 0.24 - 0.36 K/uL [facility] # Bands 0.53 0.00 - 0.80 K/uL [facility] Total Counted 100 [facility] WBC Morphology Normal [facility] Platelet Morphology Normal [facility] Polychromasia 1+ few [facility] [place] Cells 1+ few [facility] Artifact Present [facility] Platelet Conc Decreased [facility] Specimen Blood - Arm, Right Narrative Performed At Received comment: [facility] User comments: Slide comments: Performing Organization Address City/[facility] Phone Number [facility] [address], [place] [id number] CENTER Lactic acid, venous, whole blood (04/29/2018 6:33 PM CDT) Lactate, Venous 1.0Comment: Specimen 0.5 - 2.2 mmol/L [facility] moderately hemolyzed [facility] Specimen Blood - Line, Venous Narrative Performed At [facility] Effective 12/16/2015: Units/Reference Range Change New: 0.5-2.2 mmol/LPrevious: 5-20 mg/dL Performing Organization Address City/[facility]/Zipcode Phone Number [address] [address] CENTER Uric acid (04/29/2018 6:33 PM CDT) Uric Acid 7.1Comment: Specimen 2.6 - 7.2 mg/dL [facility] moderately hemolyzed [facility] [place] Specimen Blood - Line, Venous Performing Organization Address [facility] Phone Number [address] [address] CENTER B-type Natriuretic Factor (BNP) (04/29/2018 6:33 PM CDT) BNP 580 (H) 0 - 100 pg/mL [facility] Specimen Blood - Line, Venous Performing Organization Address [facility] Phone Number [address] [address] [place] Urea Nitrogen, random urine (04/29/2018 4:17 PM CDT) Urea Nitrogen, Ur 326 mg/dL [facility] Specimen Urine - Urine, Ring Narrative Performed At [facility] Reference Range: No Normals Performing Organization Address [facility] Phone Number [address] [address] [place] Creatinine, random urine (04/29/2018 4:17 PM CDT) Creatinine, Ur 134.8 mg/dL [facility] Specimen Urine - Urine, Ring Narrative Performed At [facility] Reference Range: No Normals Performing Organization Address [facility] Phone Number [address] [address] CENTER Urinalysis w/ Microscopic (04/29/2018 4:17 PM CDT) Color, UA Yellow [facility] Clarity, UA Cloudy [facility] Specific [place], UA 1.015 1.001 - 1.035 [facility] pH, UA 5.5 5.0 - 8.0 [facility] Protein, UA 100 mg/dL (A) Negative [facility] Glucose, UA Negative Negative [facility] Ketones, UA Trace (A) Negative [facility] Bilirubin, UA Positive (A) Negative [facility] Blood, UA Large (A) Negative [facility] Nitrite, UA Negative Negative [facility] Leukocytes, UA Negative Negative [facility] Urobilinogen, UA 2.0 (H) 0.2 - 1.0 mg/dL [facility] RBC, UA 12 /HPF [facility] WBC, UA 56 /HPF [facility] Mucus Occasional [facility] Squam Epithel, UA 4 /HPF [facility] Casts 19 /LPF [facility] Mixed Cell Casts 538 /LPF [facility] Crystals, Urine Many [facility] Yeast Moderate [facility] Specimen Source Urine, Ring [facility] Specimen Urine - Urine, Ring Performing Organization Address City/State/Zipcode Phone Number [address] [address] [place] Urine culture (04/29/2018 4:17 PM CDT) Result No growth [facility] Specimen Urine - Urine, Ring Narrative Performed At [facility] Performing Organization Address City/[facility]/Zipcode Phone Number [address] [address] [place] Blood Culture Panel(Syllabuster) (04/29/2018 3:59 PM CDT) LISTERIA MONOCYTOGENES Not detected Not detected [facility] STAPHYLOCOCCUS Not detected Not detected [facility] STAPHYLOCOCCUS AUREUS Not detected Not detected [facility] Streptococcus Not detected Not detected [facility] STREPTOCOCCUS AGALACTIAE Not detected Not detected [facility] ([facility]) [facility] STREPTOCOCCUS PNEUMONIAE Not detected Not detected [facility] Streptococcus pyogenes (Group Not detected Not detected [facility] ACINETOBACTER BAUMANNII Not detected Not detected [facility] HAEMOPHILUS INFLUENZAE Not detected Not detected [facility] NEISSERIA MENINGITIDIS Not detected Not detected [facility] ENTEROBACTERIACEAE Detected (A) Not detected [facility] ENTEROBACTER CLOACOE COMPLEX Detected (A) Not detected [facility] Comment: [facility] First line therapy: Cefepime or Meropenem This test does not evaluate for ESBL Reference Range: Not Detected KLEBSIELLA OXYTOCA Not detected Not detected [facility] KLEBSIELLA PNEUMONIAE Not detected Not detected [facility] PROTEUS Not detected Not detected [facility] SERRATIA MARCESCENS Not detected Not detected [facility] OG ALBICANS Not detected Not detected [facility] OG GLABRATA Not detected Not detected [facility] OG YASH Not detected Not detected [facility] OG PARAPSILOSIS Not detected Not detected [facility] OG TROPICALIS Not detected Not detected [facility] ESCHERICHIA COLI Not detected Not detected [facility] METHICILLIN-RESISTANCE GENE Not detected [facility] VANCOMYCIN-RESISTANCE GENE Not detected [facility] CARBAPENEM-RESISTANCE GENE Not detected Not detected [facility] ENTEROCOCCUS Not detected Not detected [facility] PSEUDOMONAS AERUGINOSA Not detected Not detected [facility] [facility] Specimen Blood - Line, Venous Narrative Performed At Other bacteria and resistance markers not [facility] targeted by this PCR panel cannot be excluded; therefore clinical correlation and follow up of serology, culture results, and other molecular studies is required. The results are not intended to be used as the sole means for clinical diagnosis or patient management decisions. This sample was tested at the [facility] using the [place] Blood Culture ID Panel. It is FDA cleared and has been verified and approved by the [facility] for clinical use. This laboratory is CLIA-certified and [employer] ([employer])-accredited to perform high complexity testing. Performing Organization Address City/[facility] Phone Number [address] [address] [phone] [place] Procalcitonin (04/29/2018 3:59 PM CDT) Procalcitonin 90.77 () <0.05 ng/mL [facility] Specimen Blood Narrative Performed At [facility] SEPSIS RISK (ng/mL) Low:0.05-0.50 Intermediate: 0.51-2.00 High: >=2.01 Performing Organization Address [facility] [place] Phone Number [address] [address] CENTER after 08/10/2017 Insurance Payer Benefit Plan / Group Subscriber ID Type Phone Address MEDICARE MEDICARE A B xxxxxxxxxxx Medicare Advance Directives For more information, please contact:[address] [phone] Code Status Date Activated Date Inactivated Comments Partial Code 05/03/2018 2:35 PM 05/11/2018 4:08 PM This code status was determined by: Patient Drug Protocol After Arrest Occurs? Yes Mechanical Ventilation with Intubation? No Bag/Mask? No Internal/External Pacemaker? No Transfer to Critical Care? No Chest Compressions? No Defibrillation/Cardioversion? No
--- OUTSIDE RECORDS SUMMARY | 2018-08-11 07:56 | XMS REPORT ---
:1930 Author Organization [facility] Address [address] [place] [address] Dr. [address] [place] [id number] Care Team Providers Name Role Phone SUELLEN DOBBINS Unavailable Unavailable SYED MUIR Unavailable Unavailable Problems This patient has no known problems. Allergies, Adverse Reactions, Alerts This patient has no known allergies or adverse reactions. Medications This patient has no known medications. Encounters Start End Encounter Admission Attending Care Care Encounter Date/Time Date/Time Type Type Clinicians Facility Department ID 2018-06-08 2018-06-08 Outpatient Anushka DOBBINS [facility] RAD [id number] 13:15:00 23:59:00 SULELEN 2018-06-07 2018-06-07 Outpatient Anushka DOBBINS [facility] RAD [id number] 13:18:00 23:59:00 SUELLEN Results Test Description Test Time Test Comments Text Results Atomic Results Result Comments MRA NECK W/O CONTRAST*WW* 2018-06-08 14:20:48 MRA neck without contrastLocation code: [id number] history: Carotid artery stenosisTechnique: MR angiography of the neck was performed utilizing 3-Colaf-mi-flight and contrast-enhanced techniques. Volume rendered 3-Dreformatted images [...] 2018-06-07 15:05:31 CLINICAL INFORMATION: CONTR*WW* Discitis.Dictation location: [id number]: No prior study is available for review [...] 14:17:05 MRI brain without contrastLocation CONTRAST*WW* code: [id number] history: DizzinessComparison: NoneTechnique: Multiplanar multisequence MR imaging [...] (BEAKER) (test 139 mg/dL 70-110 TESTED AT [address] wzug=4412) [facility] [address] POCT-GLUCOSE [id number] 08:10:00 Test Item Value Reference Range Comments POC-GLUCOSE METER (BEAKER) 120 mg/dL 70-110 TESTED AT [address] (test yqvp=0788) [facility] [address] BASIC METABOLIC [id number] 05:51:00 Test Item Value Reference Range Comments SODIUM (BEAKER) (test 135 meq/L 136-145 hovt=565) POTASSIUM (BEAKER) (test 4.3 meq/L 3.5-5.1 nbjy=368) CHLORIDE (BEAKER) (test 103 meq/L 98-107 wvve=709) CO2 (BEAKER) (test 27 meq/L 22-29 iknc=996) BLOOD UREA NITROGEN 18 mg/dL 7-21 (BEAKER) (test vkha=107) CREATININE (BEAKER) (test 0.55 mg/dL 0.57-1.25 yflg=968) GLUCOSE RANDOM (BEAKER) 97 mg/dL 70-105 (test czlh=733) CALCIUM (BEAKER) (test 8.5 mg/dL 8.4-10.2 kojf=033) EGFR (BEAKER) (test 104 mL/min/1.73 sq m ESTIMATED GFR IS NOT goxp=9840) ACCURATE CREATININE CLEARANCE IN PREDICTING GLOMERULAR FILTRATION RATE. ESTIMATED GFR IS NOT APPLICABLE FOR DIALYSIS PATIENTS. CBC (HEMOGRAM ONLY)2018-05-11 05:23:00 Test Item Value Reference Range Comments WHITE BLOOD CELL COUNT (BEAKER) (test csue=140) 8.5 K/ L 3.5-10.5 RED BLOOD CELL COUNT (BEAKER) (test xrlm=347) 2.73 M/ L 3.93-5.22 HEMOGLOBIN (BEAKER) (test tusy=200) 8.8 GM/DL 11.2-15.7 HEMATOCRIT (BEAKER) (test wrgb=384) 27.7 % 34.1-44.9 MEAN CORPUSCULAR VOLUME (BEAKER) (test lkiw=262) 101.5 fL 79.4-94.8 MEAN CORPUSCULAR HEMOGLOBIN (BEAKER) (test 32.2 pg 25.6-32.2 ajwu=713) MEAN CORPUSCULAR HEMOGLOBIN CONC (BEAKER) (test 31.8 GM/DL 32.2-35.5 wotz=188) RED CELL DISTRIBUTION WIDTH (BEAKER) (test 12.7 % 11.7-14.4 yzon=598) PLATELET COUNT (BEAKER) (test eomn=271) 351 K/CU MM 150-450 MEAN PLATELET VOLUME (BEAKER) (test iilp=408) 10.6 fL 9.4-12.3 NUCLEATED RED BLOOD CELLS (BEAKER) (test 0 /100 WBC 0-0 svqi=681) POCT-GLUCOSE [id number] 22:13:00 Test Item Value Reference Range Comments POC-GLUCOSE METER (BEAKER) 168 mg/dL 70-110 TESTED AT [address] (test wsbl=8938) [facility] [address] POCT-GLUCOSE [id number] 17:20:00 Test Item Value Reference Range Comments POC-GLUCOSE METER (BEAKER) 131 mg/dL 70-110 TESTED AT [address] (test syku=8353) [facility] [address] POCT-GLUCOSE [id number] 13:20:00 Test Item Value Reference Range Comments POC-GLUCOSE METER (BEAKER) 98 mg/dL 70-110 TESTED AT [address] (test gqsy=0068) [facility] [address] POCT-GLUCOSE [id number] 08:08:00 Test Item Value Reference Range Comments POC-GLUCOSE METER (BEAKER) 124 mg/dL 70-110 TESTED AT [address] (test ybtj=7164) [place] [id number] POCT-GLUCOSE [id number] 21:51:00 Test Item Value Reference Range Comments POC-GLUCOSE METER (BEAKER) 170 mg/dL 70-110 TESTED AT [address] (test ezgn=1742) [facility] [address] POCT-GLUCOSE [id number] 20:30:00 Test Item Value Reference Range Comments POC-GLUCOSE METER (BEAKER) 157 mg/dL 70-110 TESTED AT [address] (test orei=3304) [facility] [address] POCT-GLUCOSE [id number] 18:23:00 Test Item Value Reference Range Comments POC-GLUCOSE METER (BEAKER) 115 mg/dL 70-110 TESTED AT [address] (test edkv=0861) [facility] [address] POCT-GLUCOSE [id number] 08:51:00 Test Item Value Reference Range Comments POC-GLUCOSE METER (BEAKER) 117 mg/dL 70-110 TESTED AT [address] (test ljqv=3925) [facility] [address] COMPREHENSIVE METABOLIC [id number] 05:31:00 Test Item Value Reference Range Comments TOTAL PROTEIN (BEAKER) 5.3 gm/dL 6.0-8.3 (test lvbr=391) ALBUMIN (BEAKER) (test 2.4 g/dL 3.5-5.0 cwym=7538) ALKALINE PHOSPHATASE 53 U/L 40-150 (BEAKER) (test jhgd=167) BILIRUBIN TOTAL (BEAKER) 0.4 mg/dL 0.2-1.2 (test qjbw=685) SODIUM (BEAKER) (test 136 meq/L 136-145 ldep=340) POTASSIUM (BEAKER) (test 4.2 meq/L 3.5-5.1 pahp=185) CHLORIDE (BEAKER) (test 104 meq/L 98-107 dsju=316) CO2 (BEAKER) (test 26 meq/L 22-29 uwvn=784) BLOOD UREA NITROGEN 19 mg/dL 7-21 (BEAKER) (test kllc=348) CREATININE (BEAKER) (test 0.51 mg/dL 0.57-1.25 fuou=233) GLUCOSE RANDOM (BEAKER) 108 mg/dL 70-105 (test trwa=759) CALCIUM (BEAKER) (test 8.3 mg/dL 8.4-10.2 vamz=636) AST (SGOT) (BEAKER) (test 23 U/L 5-34 cwzc=716) ALT (SGPT) (BEAKER) (test 20 U/L 6-55 lnto=940) EGFR (BEAKER) (test 114 mL/min/1.73 sq ESTIMATED GFR IS NOT oscl=1570) m ACCURATE CREATININE CLEARANCE IN PREDICTING GLOMERULAR FILTRATION RATE. ESTIMATED GFR IS NOT APPLICABLE FOR DIALYSIS PATIENTS. CBC (HEMOGRAM ONLY)2018-05-09 05:19:00 Test Item Value Reference Range Comments WHITE BLOOD CELL COUNT (BEAKER) (test lbux=766) 10.6 K/ L 3.5-10.5 RED BLOOD CELL COUNT (BEAKER) (test hqkb=592) 2.61 M/ L 3.93-5.22 HEMOGLOBIN (BEAKER) (test unua=365) 8.4 GM/DL 11.2-15.7 HEMATOCRIT (BEAKER) (test ycfn=967) 26.6 % 34.1-44.9 MEAN CORPUSCULAR VOLUME (BEAKER) (test oxqb=585) 101.9 fL 79.4-94.8 MEAN CORPUSCULAR HEMOGLOBIN (BEAKER) (test 32.2 pg 25.6-32.2 kowk=434) MEAN CORPUSCULAR HEMOGLOBIN CONC (BEAKER) (test 31.6 GM/DL 32.2-35.5 ldoe=594) RED CELL DISTRIBUTION WIDTH (BEAKER) (test 12.7 % 11.7-14.4 jdqe=457) PLATELET COUNT (BEAKER) (test yzex=458) 273 K/CU MM 150-450 MEAN PLATELET VOLUME (BEAKER) (test axsr=879) 10.7 fL 9.4-12.3 NUCLEATED RED BLOOD CELLS (BEAKER) (test 0 /100 WBC 0-0 ugno=035) POCT-GLUCOSE [id number] 22:41:00 Test Item Value Reference Range Comments POC-GLUCOSE METER (BEAKER) 164 mg/dL 70-110 TESTED AT [address] (test qhcx=8725) [place] [address] POCT-GLUCOSE [id number] 17:29:00 Test Item Value Reference Range Comments POC-GLUCOSE METER (BEAKER) 125 mg/dL 70-110 TESTED AT [address] (test tacb=9600) [place] [address] POCT-GLUCOSE [id number] 13:07:00 Test Item Value Reference Range Comments POC-GLUCOSE METER (BEAKER) 111 mg/dL 70-110 TESTED AT [address] (test busu=3154) [place] [address] BLOOD [id number] 11:00:00 Test Item Value Reference Range Comments CULTURE (BEAKER) (test vgjn=8366) No growth in 5 days POCT-GLUCOSE [id number] 08:42:00 Test Item Value Reference Range Comments POC-GLUCOSE METER (BEAKER) 107 mg/dL 70-110 TESTED AT [address] (test ranx=4362) [place] [address] BASIC METABOLIC [id number] 07:18:00 Test Item Value Reference Range Comments SODIUM (BEAKER) (test 136 meq/L 136-145 bkrg=827) POTASSIUM (BEAKER) (test 4.3 meq/L 3.5-5.1 pqcm=352) CHLORIDE (BEAKER) (test 103 meq/L 98-107 pykp=101) CO2 (BEAKER) (test 27 meq/L 22-29 rarc=902) BLOOD UREA NITROGEN 17 mg/dL 7-21 (BEAKER) (test igdl=356) CREATININE (BEAKER) (test 0.51 mg/dL 0.57-1.25 fxpv=415) GLUCOSE RANDOM (BEAKER) 97 mg/dL 70-105 (test xwcb=318) CALCIUM (BEAKER) (test 8.2 mg/dL 8.4-10.2 syzi=168) EGFR (BEAKER) (test 114 mL/min/1.73 sq m ESTIMATED GFR IS NOT hzhq=0161) ACCURATE CREATININE CLEARANCE IN PREDICTING GLOMERULAR FILTRATION RATE. ESTIMATED GFR IS NOT APPLICABLE FOR DIALYSIS PATIENTS. CBC (HEMOGRAM ONLY)2018-05-08 06:01:00 Test Item Value Reference Range Comments WHITE BLOOD CELL COUNT (BEAKER) (test uhzp=722) 13.2 K/ L 3.5-10.5 RED BLOOD CELL COUNT (BEAKER) (test rzul=094) 2.80 M/ L 3.93-5.22 HEMOGLOBIN (BEAKER) (test merf=800) 8.8 GM/DL 11.2-15.7 HEMATOCRIT (BEAKER) (test vmxp=758) 28.0 % 34.1-44.9 MEAN CORPUSCULAR VOLUME (BEAKER) (test zwdc=454) 100.0 fL 79.4-94.8 MEAN CORPUSCULAR HEMOGLOBIN (BEAKER) (test 31.4 pg 25.6-32.2 kqsc=398) MEAN CORPUSCULAR HEMOGLOBIN CONC (BEAKER) (test 31.4 GM/DL 32.2-35.5 cmsx=340) RED CELL DISTRIBUTION WIDTH (BEAKER) (test 12.4 % 11.7-14.4 fkcp=925) PLATELET COUNT (BEAKER) (test qhro=205) 243 K/CU MM 150-450 MEAN PLATELET VOLUME (BEAKER) (test mpgo=206) 11.1 fL 9.4-12.3 NUCLEATED RED BLOOD CELLS (BEAKER) (test 0 /100 WBC 0-0 mtnx=251) POCT-GLUCOSE [id number] 21:18:00 Test Item Value Reference Range Comments POC-GLUCOSE METER (BEAKER) 196 mg/dL 70-110 TESTED AT [facility] [address] [facility] (test sxjj=5283) [facility] [address] BLOOD [id number] 18:00:00 Test Item Value Reference Range Comments CULTURE (BEAKER) (test qpud=7802) No growth in 5 days POCT-GLUCOSE [id number] 17:00:00 Test Item Value Reference Range Comments POC-GLUCOSE METER (BEAKER) 117 mg/dL 70-110 TESTED AT [facility] [address] [facility] (test qfwo=3665) [facility] [address] POCT-GLUCOSE [id number] 12:16:00 Test Item Value Reference Range Comments POC-GLUCOSE METER (BEAKER) 117 mg/dL 70-110 TESTED AT [address] (test kuak=9074) [facility] [address] POCT-GLUCOSE [id number] 08:21:00 Test Item Value Reference Range Comments POC-GLUCOSE METER (BEAKER) 111 mg/dL 70-110 TESTED AT [address] (test hyyi=9710) [place] [address] [id number] 04:22:00 Test Item Value Reference Range Comments MAGNESIUM (BEAKER) (test xobr=092) 1.5 mg/dL 1.6-2.6 BASIC METABOLIC [id number] 04:22:00 Test Item Value Reference Range Comments SODIUM (BEAKER) (test 134 meq/L 136-145 osxj=628) POTASSIUM (BEAKER) (test 3.6 meq/L 3.5-5.1 rlyu=084) CHLORIDE (BEAKER) (test 100 meq/L 98-107 vwij=247) CO2 (BEAKER) (test 28 meq/L 22-29 yvkc=711) BLOOD UREA NITROGEN 15 mg/dL 7-21 (BEAKER) (test pogv=440) CREATININE (BEAKER) (test 0.55 mg/dL 0.57-1.25 ruyk=614) GLUCOSE RANDOM (BEAKER) 109 mg/dL 70-105 (test jbmx=957) CALCIUM (BEAKER) (test 8.1 mg/dL 8.4-10.2 tcvh=243) EGFR (BEAKER) (test 104 mL/min/1.73 sq m ESTIMATED GFR IS NOT rbfa=2640) ACCURATE CREATININE CLEARANCE IN PREDICTING GLOMERULAR FILTRATION RATE. ESTIMATED GFR IS NOT APPLICABLE FOR DIALYSIS PATIENTS. CBC (HEMOGRAM ONLY)2018-05-07 03:57:00 Test Item Value Reference Range Comments WHITE BLOOD CELL COUNT (BEAKER) (test whqt=758) 13.0 K/ L 3.5-10.5 RED BLOOD CELL COUNT (BEAKER) (test nkne=215) 3.01 M/ L 3.93-5.22 HEMOGLOBIN (BEAKER) (test xzbc=035) 9.6 GM/DL 11.2-15.7 HEMATOCRIT (BEAKER) (test joak=404) 29.3 % 34.1-44.9 MEAN CORPUSCULAR VOLUME (BEAKER) (test ahra=454) 97.3 fL 79.4-94.8 MEAN CORPUSCULAR HEMOGLOBIN (BEAKER) (test 31.9 pg 25.6-32.2 zfyn=281) MEAN CORPUSCULAR HEMOGLOBIN CONC (BEAKER) (test 32.8 GM/DL 32.2-35.5 cvrh=064) RED CELL DISTRIBUTION WIDTH (BEAKER) (test 12.2 % 11.7-14.4 rfbf=873) PLATELET COUNT (BEAKER) (test qfro=635) 226 K/CU MM 150-450 MEAN PLATELET VOLUME (BEAKER) (test rncg=960) 11.2 fL 9.4-12.3 NUCLEATED RED BLOOD CELLS (BEAKER) (test 0 /100 WBC 0-0 mgha=998) BLOOD [id number] 01:52:00 Test Item Value Reference Range Comments CULTURE (BEAKER) From Anaerobic Bottle Only (test jweq=7233) Coagulase negative Staphylococcus GRAM STAIN RESULT From anaerobic bottle (BEAKER) (test only: gram positive yshx=2589) cocci in clusters POCT-GLUCOSE [id number] 21:40:00 Test Item Value Reference Range Comments POC-GLUCOSE METER (BEAKER) 179 mg/dL 70-110 TESTED AT [facility] [address] [facility] (test dgud=5227) [facility] [address] POCT-GLUCOSE [id number] 16:07:00 Test Item Value Reference Range Comments POC-GLUCOSE METER (BEAKER) 116 mg/dL 70-110 TESTED AT [facility] [address] [facility] (test qprj=3459) [facility] [address] RAD, CHEST, 1 VIEW, NON [id number] 12:49:00Reason for exam:->Post Power PICC insertion to [...] Verified Date/Time: 05/06/2018 12:49: 55 Reading Location: [facility] C013T Transitional Reading Room BLOOD [id number] 11:00:00 Test Item Value Reference Range Comments CULTURE (BEAKER) (test jkba=4587) No growth in 5 days POCT-GLUCOSE [id number] 08:31:00 Test Item Value Reference Range Comments POC-GLUCOSE METER (BEAKER) 119 mg/dL 70-110 TESTED AT [facility] [address] [facility] (test cadh=1141) [place] [address] BLOOD [id number] 05:57:00 Test Item Value Reference Range Comments CULTURE (BEAKER) From Anaerobic Bottle Only (test xibp=1750) Same organism has been isolated from cultures(s) of the same body site within 3 days. Repeat identification and susceptibility testing performed only after consultation with the clinical microbiology laboratory.Refer to previous culture of* - Enterobacter cloacae complex GRAM STAIN RESULT From anaerobic bottle (BEAKER) (test only: gram negative eneh=6834) rods POCT-GLUCOSE [id number] 22:05:00 Test Item Value Reference Range Comments POC-GLUCOSE METER (BEAKER) 144 mg/dL 70-110 TESTED AT [facility] [address] [facility] (test hmjl=6062) [place] [address] POCT-GLUCOSE [id number] 18:20:00 Test Item Value Reference Range Comments POC-GLUCOSE METER (BEAKER) 127 mg/dL 70-110 TESTED AT [facility] [address] [facility] (test ljus=3137) [place] [address] BLOOD [id number] 18:00:00 Test Item Value Reference Range Comments CULTURE (BEAKER) (test lmoa=1028) No growth in 5 days POCT-GLUCOSE [id number] 12:33:00 Test Item Value Reference Range Comments POC-GLUCOSE METER (BEAKER) 110 mg/dL 70-110 TESTED AT [address] (test kaeq=9042) [place] [address] BLOOD [id number] 10:48:00 Test Item Value Reference Range Comments CULTURE (BEAKER) From Anaerobic Bottle Only (test uvqj=4553) Same organism has been isolated from cultures(s) of the same body site within 3 days. Repeat identification and susceptibility testing performed only after consultation with the clinical microbiology laboratory.Refer to previous culture of* - Enterobacter cloacae complex GRAM STAIN RESULT From anaerobic bottle (BEAKER) (test only: gram negative dphx=0425) rods BASIC METABOLIC [id number] 09:03:00 Test Item Value Reference Range Comments SODIUM (BEAKER) (test 136 meq/L 136-145 lwta=007) POTASSIUM (BEAKER) (test 3.8 meq/L 3.5-5.1 dvmb=441) CHLORIDE (BEAKER) (test 104 meq/L 98-107 psbp=431) CO2 (BEAKER) (test 28 meq/L 22-29 mgtk=239) BLOOD UREA NITROGEN 14 mg/dL 7-21 (BEAKER) (test epnj=368) CREATININE (BEAKER) (test 0.51 mg/dL 0.57-1.25 cros=790) GLUCOSE RANDOM (BEAKER) 97 mg/dL 70-105 (test fkgr=933) CALCIUM (BEAKER) (test 8.0 mg/dL 8.4-10.2 bbzc=224) EGFR (BEAKER) (test 114 mL/min/1.73 sq m ESTIMATED GFR IS NOT ausa=0859) ACCURATE CREATININE CLEARANCE IN PREDICTING GLOMERULAR FILTRATION RATE. ESTIMATED GFR IS NOT APPLICABLE FOR DIALYSIS PATIENTS. POCT-GLUCOSE [id number] 08:05:00 Test Item Value Reference Range Comments POC-GLUCOSE METER (BEAKER) 146 mg/dL 70-110 TESTED AT [facility] [address] [facility] (test qjyh=8524) [place] [address] BLOOD [id number] 07:42:00 Test Item Value Reference Range Comments CULTURE (BEAKER) From Aerobic Bottle Only (test ceos=0224) Same organism has been isolated from cultures(s) of the same body site and collection date. Repeat identification and susceptibility testing performed only after consultation with the clinical microbiology laboratory.Refer to previous culture of* - Enterobacter cloacae complex GRAM STAIN RESULT From aerobic bottle (BEAKER) (test only: gram negative twpp=9991) rods CBC (HEMOGRAM ONLY)2018-05-05 06:58:00 Test Item Value Reference Range Comments WHITE BLOOD CELL COUNT (BEAKER) (test kndm=314) 13.1 K/ L 3.5-10.5 RED BLOOD CELL COUNT (BEAKER) (test hnag=856) 3.20 M/ L 3.93-5.22 HEMOGLOBIN (BEAKER) (test xzwy=794) 10.1 GM/DL 11.2-15.7 HEMATOCRIT (BEAKER) (test yqas=319) 31.6 % 34.1-44.9 MEAN CORPUSCULAR VOLUME (BEAKER) (test mfxj=659) 98.8 fL 79.4-94.8 MEAN CORPUSCULAR HEMOGLOBIN (BEAKER) (test 31.6 pg 25.6-32.2 jfki=152) MEAN CORPUSCULAR HEMOGLOBIN CONC (BEAKER) (test 32.0 GM/DL 32.2-35.5 rfeu=999) RED CELL DISTRIBUTION WIDTH (BEAKER) (test 12.3 % 11.7-14.4 ulwe=276) PLATELET COUNT (BEAKER) (test qsvf=475) 161 K/CU MM 150-450 MEAN PLATELET VOLUME (BEAKER) (test xcpw=012) 11.8 fL 9.4-12.3 NUCLEATED RED BLOOD CELLS (BEAKER) (test 0 /100 WBC 0-0 tztc=069) POCT-GLUCOSE [id number] 20:46:00 Test Item Value Reference Range Comments POC-GLUCOSE METER (BEAKER) 116 mg/dL 70-110 TESTED AT [address] (test ieko=3177) [facility] [address] POCT-GLUCOSE [id number] 16:22:00 Test Item Value Reference Range Comments POC-GLUCOSE METER (BEAKER) 122 mg/dL 70-110 TESTED AT [place] [id number] [facility] (test zpjp=6072) [facility] [address] POCT-GLUCOSE [id number] 12:12:00 Test Item Value Reference Range Comments POC-GLUCOSE METER (BEAKER) 101 mg/dL 70-110 TESTED AT [facility] [address] [facility] (test eihb=0218) [facility] [address] POCT-GLUCOSE [id number] 08:32:00 Test Item Value Reference Range Comments POC-GLUCOSE METER (BEAKER) 106 mg/dL 70-110 TESTED AT [facility] [address] [facility] (test cjyv=5884) [facility] [address] BASIC METABOLIC [id number] 06:07:00 Test Item Value Reference Range Comments SODIUM (BEAKER) (test 135 meq/L 136-145 oxal=096) POTASSIUM (BEAKER) (test 3.6 meq/L 3.5-5.1 gzur=916) CHLORIDE (BEAKER) (test 105 meq/L 98-107 ussl=612) CO2 (BEAKER) (test 26 meq/L 22-29 vtha=698) BLOOD UREA NITROGEN 18 mg/dL 7-21 (BEAKER) (test oiyz=733) CREATININE (BEAKER) (test 0.50 mg/dL 0.57-1.25 sqkk=520) GLUCOSE RANDOM (BEAKER) 98 mg/dL 70-105 (test dild=585) CALCIUM (BEAKER) (test 8.0 mg/dL 8.4-10.2 pcpm=576) EGFR (BEAKER) (test 116 mL/min/1.73 sq m ESTIMATED GFR IS NOT djjw=1220) ACCURATE CREATININE CLEARANCE IN PREDICTING GLOMERULAR FILTRATION RATE. ESTIMATED GFR IS NOT APPLICABLE FOR DIALYSIS PATIENTS. CBC (HEMOGRAM ONLY)2018-05-04 05:39:00 Test Item Value Reference Range Comments WHITE BLOOD CELL COUNT (BEAKER) (test kozw=028) 9.3 K/ L 3.5-10.5 RED BLOOD CELL COUNT (BEAKER) (test vbgs=274) 3.37 M/ L 3.93-5.22 HEMOGLOBIN (BEAKER) (test ofxs=995) 10.6 GM/DL 11.2-15.7 HEMATOCRIT (BEAKER) (test jdrx=293) 33.6 % 34.1-44.9 MEAN CORPUSCULAR VOLUME (BEAKER) (test zpyo=205) 99.7 fL 79.4-94.8 MEAN CORPUSCULAR HEMOGLOBIN (BEAKER) (test 31.5 pg 25.6-32.2 uwgh=390) MEAN CORPUSCULAR HEMOGLOBIN CONC (BEAKER) (test 31.5 GM/DL 32.2-35.5 zpxf=694) RED CELL DISTRIBUTION WIDTH (BEAKER) (test 12.2 % 11.7-14.4 supx=862) PLATELET COUNT (BEAKER) (test sfyw=215) 106 K/CU MM 150-450 MEAN PLATELET VOLUME (BEAKER) (test uded=633) 11.8 fL 9.4-12.3 NUCLEATED RED BLOOD CELLS (BEAKER) (test 0 /100 WBC 0-0 xqfe=408) POCT-GLUCOSE [id number] 21:38:00 Test Item Value Reference Range Comments POC-GLUCOSE METER (BEAKER) 119 mg/dL 70-110 TESTED AT [address] (test rrxu=9452) [place] [address] POCT-GLUCOSE [id number] 17:23:00 Test Item Value Reference Range Comments POC-GLUCOSE METER (BEAKER) 122 mg/dL 70-110 TESTED AT [address] (test otrw=3565) [place] [address] POCT-GLUCOSE [id number] 12:17:00 Test Item Value Reference Range Comments POC-GLUCOSE METER (BEAKER) 136 mg/dL 70-110 TESTED AT [address] (test ssex=8129) [place] [address] BLOOD [id number] 07:55:00 Test Item Value Reference Range Comments CULTURE (BEAKER) (test ENTEROBACTER CLOACAE From Aerobic And jfhf=3747) COMPLEX Anaerobic Bottles Enterobacter cloacae complex Amikacin (test code=1) Aztreonam (test code=32) Cefepime (test code=51) Cefoxitin (test code=68) Ceftazidime (test code=27) Ceftriaxone (test code=52) Ertapenem (test code=38) Gentamicin (test code=18) Levofloxacin (test code=22) Meropenem (test code=34) Nitrofurantoin (test code=23) Piperacillin + Tazobactam (test code=29) Tetracycline (test code=2) Tobramycin (test code=25) Trimethoprim + Sulfamethoxazole (test code=47) GRAM STAIN RESULT (BEAKER) From aerobic and (test kgtz=0870) anaerobic bottles: gram negative rods PROTEIN, RANDOM [id number] 03:12:00 Test Item Value Reference Range Comments PROTEIN, URINE (BEAKER) (test zfyc=2986) 50 mg/dL 0-14 SODIUM, RANDOM [id number] 03:12:00 Test Item Value Reference Range Comments SODIUM URINE (BEAKER) (test fmcv=331) 82 meq/L Reference Range: No [id number] 03:11:00 Test Item Value Reference Range Comments PHOSPHORUS (BEAKER) (test 1.8 mg/dL 2.3-4.7 Specimen slightly hemolyzed kren=218) Check Serum Phosphorus level 4 hours after IV phosphorus replacement or 8 hours after PO replacementcompleted.BASIC METABOLIC [id number] 03:11:00 Test Item Value Reference Range Comments SODIUM (BEAKER) (test 140 meq/L 136-145 nzxg=157) POTASSIUM (BEAKER) (test 3.9 meq/L 3.5-5.1 Specimen slightly dctd=978) hemolyzed CHLORIDE (BEAKER) (test 105 meq/L 98-107 tfir=811) CO2 (BEAKER) (test 28 meq/L 22-29 axpx=549) BLOOD UREA NITROGEN 23 mg/dL 7-21 (BEAKER) (test kowt=018) CREATININE (BEAKER) (test 0.61 mg/dL 0.57-1.25 Specimen slightly xhvj=029) hemolyzed GLUCOSE RANDOM (BEAKER) 127 mg/dL 70-105 (test lzkp=212) CALCIUM (BEAKER) (test 8.2 mg/dL 8.4-10.2 xjoy=971) EGFR (BEAKER) (test 92 mL/min/1.73 sq m ESTIMATED GFR IS NOT wjyv=0866) ACCURATE CREATININE CLEARANCE IN PREDICTING GLOMERULAR FILTRATION RATE. ESTIMATED GFR IS NOT APPLICABLE FOR DIALYSIS PATIENTS. Check Serum Phosphorus level 4 hours after IV phosphorus replacement or 8 hours after PO replacementcompleted.CBC (HEMOGRAM ONLY)2018-05-03 02:58:00 Test Item Value Reference Range Comments WHITE BLOOD CELL COUNT (BEAKER) (test ncla=025) 9.1 K/ L 3.5-10.5 RED BLOOD CELL COUNT (BEAKER) (test xjvu=871) 3.58 M/ L 3.93-5.22 HEMOGLOBIN (BEAKER) (test ulfk=152) 11.6 GM/DL 11.2-15.7 HEMATOCRIT (BEAKER) (test iheq=129) 35.0 % 34.1-44.9 MEAN CORPUSCULAR VOLUME (BEAKER) (test wgbm=924) 97.8 fL 79.4-94.8 MEAN CORPUSCULAR HEMOGLOBIN (BEAKER) (test 32.4 pg 25.6-32.2 ehkk=411) MEAN CORPUSCULAR HEMOGLOBIN CONC (BEAKER) (test 33.1 GM/DL 32.2-35.5 ammy=150) RED CELL DISTRIBUTION WIDTH (BEAKER) (test 12.2 % 11.7-14.4 dgtk=702) PLATELET COUNT (BEAKER) (test bebo=586) 99 K/CU MM 150-450 MEAN PLATELET VOLUME (BEAKER) (test qsjg=098) 11.9 fL 9.4-12.3 NUCLEATED RED BLOOD CELLS (BEAKER) (test 0 /100 WBC 0-0 hnze=276) POCT-GLUCOSE [id number] 21:22:00 Test Item Value Reference Range Comments POC-GLUCOSE METER (BEAKER) 130 mg/dL 70-110 TESTED AT [facility] [address] [facility] (test brtg=7800) [facility] [address] MR, SPINE, LUMBAR, [id number] 19:48:00FINAL REPORT MRI lumbar spine with and [...] Verified Date/Time: 05/02/2018 19: 48:22 Reading Location: [facility] Radiology Reading Room POCT-GLUCOSE [id number] 13:11:00 Test Item Value Reference Range Comments POC-GLUCOSE METER (BEAKER) 132 mg/dL 70-110 TESTED AT [address] (test pyek=9864) [facility] [address] HEPATOBILIARY [id number] 12:48:00FINAL REPORT PROCEDURE: HEPATOBILIARY SCAN CPT CODE: 43096 INDICATION: Right upper quadrant pain PROTOCOL: 5.4 [...] Vargas Verified Date/Time: 05/02/2018 12:48:39 Reading Location: [address] [facility] Reading Room POCT- GLUCOSE [id number] 08:53:00 Test Item Value Reference Range Comments POC-GLUCOSE METER (BEAKER) 164 mg/dL 70-110 TESTED AT [facility] [address] (test vlyz=5970) [facility] [address] [id number] 05:12:00 Test Item Value Reference Range Comments PHOSPHORUS (BEAKER) (test wlnn=371) 1.0 mg/dL 2.3-4.7 [id number] 05:09:00 Test Item Value Reference Range Comments MAGNESIUM (BEAKER) (test nvxz=515) 1.7 mg/dL 1.6-2.6 BASIC METABOLIC [id number] 05:09:00 Test Item Value Reference Range Comments SODIUM (BEAKER) (test 141 meq/L 136-145 fajy=858) POTASSIUM (BEAKER) (test 3.8 meq/L 3.5-5.1 ffhi=107) CHLORIDE (BEAKER) (test 103 meq/L 98-107 xpvq=353) CO2 (BEAKER) (test 31 meq/L 22-29 brxg=967) BLOOD UREA NITROGEN 30 mg/dL 7-21 (BEAKER) (test qmrd=875) CREATININE (BEAKER) (test 0.66 mg/dL 0.57-1.25 ftyj=458) GLUCOSE RANDOM (BEAKER) 176 mg/dL 70-105 (test bkbq=001) CALCIUM (BEAKER) (test 8.2 mg/dL 8.4-10.2 ekyl=215) EGFR (BEAKER) (test 84 mL/min/1.73 sq m ESTIMATED GFR IS NOT skar=1314) ACCURATE CREATININE CLEARANCE IN PREDICTING GLOMERULAR FILTRATION RATE. ESTIMATED GFR IS NOT APPLICABLE FOR DIALYSIS PATIENTS. CBC (HEMOGRAM ONLY)2018-05-02 04:42:00 Test Item Value Reference Range Comments WHITE BLOOD CELL COUNT (BEAKER) (test qfnj=765) 11.7 K/ L 3.5-10.5 RED BLOOD CELL COUNT (BEAKER) (test nmmb=183) 3.34 M/ L 3.93-5.22 HEMOGLOBIN (BEAKER) (test prfw=349) 10.7 GM/DL 11.2-15.7 HEMATOCRIT (BEAKER) (test uqaz=221) 32.6 % 34.1-44.9 MEAN CORPUSCULAR VOLUME (BEAKER) (test knii=786) 97.6 fL 79.4-94.8 MEAN CORPUSCULAR HEMOGLOBIN (BEAKER) (test 32.0 pg 25.6-32.2 jjpf=617) MEAN CORPUSCULAR HEMOGLOBIN CONC (BEAKER) (test 32.8 GM/DL 32.2-35.5 vvnt=213) RED CELL DISTRIBUTION WIDTH (BEAKER) (test 12.1 % 11.7-14.4 strh=471) PLATELET COUNT (BEAKER) (test bvrr=188) 78 K/CU MM 150-450 MEAN PLATELET VOLUME (BEAKER) (test djmc=886) 11.2 fL 9.4-12.3 NUCLEATED RED BLOOD CELLS (BEAKER) (test 0 /100 WBC 0-0 eskc=193) POCT-GLUCOSE [id number] 22:18:00 Test Item Value Reference Range Comments POC-GLUCOSE METER (BEAKER) 162 mg/dL 70-110 TESTED AT [address] (test cgha=9890) [place] [address] POCT-GLUCOSE [id number] 18:07:00 Test Item Value Reference Range Comments POC-GLUCOSE METER (BEAKER) 189 mg/dL 70-110 TESTED AT [address] (test fken=9418) [place] [address] POCT-GLUCOSE [id number] 12:39:00 Test Item Value Reference Range Comments POC-GLUCOSE METER (BEAKER) 167 mg/dL 70-110 TESTED AT [address] (test cwbn=2946) [place] [address] URINE [id number] 09:36:00 Test Item Value Reference Range Comments CULTURE (BEAKER) (test ouuf=7618) No growth POCT-GLUCOSE [id number] 07:53:00 Test Item Value Reference Range Comments POC-GLUCOSE METER (BEAKER) 133 mg/dL 70-110 TESTED AT [address] (test vuno=9940) [place] [address] BLOOD GAS, [id number] 06:11:00 Test Item Value Reference Range Comments PH VENOUS (BEAKER) (test ljfn=323) 7.40 7.32-7.42 PCO2 VENOUS (BEAKER) (test rijj=241) 49 mmHg 41-51 PO2 VENOUS (BEAKER) (test scnj=112) 41 mmHg 25-40 O2 SATURATION VENOUS (BEAKER) (test ucix=534) 75.6 % 40.0-70.0 HCO3 VENOUS (BEAKER) (test dggn=974) 30 mmol/L 21-29 BASE EXCESS VENOUS (BEAKER) (test trfj=426) 4.3 mmol/L -2.0-3.0 PATIENT TEMPERATURE (BEAKER) (test iwad=3728) 37.0 C CALCIUM, [id number] 06:11:00 Test Item Value Reference Range Comments CALCIUM IONIZED (BEAKER) (test gezk=267) 1.06 mmol/L 1.12-1.27 PH, BLOOD (BEAKER) (test dfhw=5471) 7.40 [id number] 05:54:00 Test Item Value Reference Range Comments PHOSPHORUS (BEAKER) (test lrkj=636) 2.0 mg/dL 2.3-4.7 [id number] 05:54:00 Test Item Value Reference Range Comments MAGNESIUM (BEAKER) (test rqtm=975) 2.1 mg/dL 1.6-2.6 COMPREHENSIVE METABOLIC [id number] 05:54:00 Test Item Value Reference Range Comments TOTAL PROTEIN (BEAKER) 5.7 gm/dL 6.0-8.3 (test gcmn=133) ALBUMIN (BEAKER) (test 2.7 g/dL 3.5-5.0 odzx=5384) ALKALINE PHOSPHATASE 79 U/L 40-150 (BEAKER) (test zbsv=791) BILIRUBIN TOTAL (BEAKER) 0.7 mg/dL 0.2-1.2 (test pdsh=820) SODIUM (BEAKER) (test 142 meq/L 136-145 ssou=925) POTASSIUM (BEAKER) (test 3.4 meq/L 3.5-5.1 yxbo=115) CHLORIDE (BEAKER) (test 105 meq/L 98-107 ushc=179) CO2 (BEAKER) (test 26 meq/L 22-29 gmzf=865) BLOOD UREA NITROGEN 45 mg/dL 7-21 (BEAKER) (test beju=906) CREATININE (BEAKER) (test 0.88 mg/dL 0.57-1.25 qtaw=211) GLUCOSE RANDOM (BEAKER) 118 mg/dL 70-105 (test kugj=905) CALCIUM (BEAKER) (test 8.2 mg/dL 8.4-10.2 kwha=127) AST (SGOT) (BEAKER) (test 63 U/L 5-34 kfnh=094) ALT (SGPT) (BEAKER) (test 32 U/L 6-55 ljdd=020) EGFR (BEAKER) (test 61 mL/min/1.73 sq m ESTIMATED GFR IS NOT xkap=8061) ACCURATE CREATININE CLEARANCE IN PREDICTING GLOMERULAR FILTRATION RATE. ESTIMATED GFR IS NOT APPLICABLE FOR DIALYSIS PATIENTS. CBC W/PLT COUNT & AUTO [id number] 04:21:00 Test Item Value Reference Range Comments WHITE BLOOD CELL COUNT (BEAKER) (test gqwx=065) 6.2 K/ L 3.5-10.5 RED BLOOD CELL COUNT (BEAKER) (test dpqy=022) 3.42 M/ L 3.93-5.22 HEMOGLOBIN (BEAKER) (test igst=961) 10.8 GM/DL 11.2-15.7 HEMATOCRIT (BEAKER) (test qjml=595) 33.4 % 34.1-44.9 MEAN CORPUSCULAR VOLUME (BEAKER) (test enys=875) 97.7 fL 79.4-94.8 MEAN CORPUSCULAR HEMOGLOBIN (BEAKER) (test 31.6 pg 25.6-32.2 lipf=997) MEAN CORPUSCULAR HEMOGLOBIN CONC (BEAKER) (test 32.3 GM/DL 32.2-35.5 adog=141) RED CELL DISTRIBUTION WIDTH (BEAKER) (test 12.3 % 11.7-14.4 yqrb=553) PLATELET COUNT (BEAKER) (test qtwj=339) 89 K/CU MM 150-450 MEAN PLATELET VOLUME (BEAKER) (test oyla=304) 11.8 fL 9.4-12.3 NUCLEATED RED BLOOD CELLS (BEAKER) (test 0 /100 WBC 0-0 tiwq=014) NEUTROPHILS RELATIVE PERCENT (BEAKER) (test 82 % ovcv=637) LYMPHOCYTES RELATIVE PERCENT (BEAKER) (test 4 % lqgx=026) MONOCYTES RELATIVE PERCENT (BEAKER) (test 11 % obct=746) EOSINOPHILS RELATIVE PERCENT (BEAKER) (test 1 % kuxm=811) BASOPHILS RELATIVE PERCENT (BEAKER) (test 0 % dcrc=047) NEUTROPHILS ABSOLUTE COUNT (BEAKER) (test 5.07 K/ L 1.56-6.13 ezcx=804) LYMPHOCYTES ABSOLUTE COUNT (BEAKER) (test 0.25 K/ L 1.18-3.74 zkxw=888) MONOCYTES ABSOLUTE COUNT (BEAKER) (test evaf=600) 0.70 K/ L 0.24-0.36 EOSINOPHILS ABSOLUTE COUNT (BEAKER) (test 0.04 K/ L 0.04-0.36 eloy=980) BASOPHILS ABSOLUTE COUNT (BEAKER) (test wqqe=148) 0.02 K/ L 0.01-0.08 IMMATURE GRANULOCYTES-RELATIVE PERCENT (BEAKER) 1 % 0-1 (test hjsn=2882) CREATINE KINASE (CK), TOTAL AND [id number] 00:29:00 Test Item Value Reference Range Comments CREATINE KINASE TOTAL (BEAKER) (test wgth=231) 456 U/L 29-200 CREATINE KINASE-MB (BEAKER) (test pjfs=180) 8.8 ng/mL 0.0-6.6 CREATINE KINASE-MB INDEX (BEAKER) (test npwc=436) 1.9 % CK-MB Reference Range:<6.7 Normal6.7-10.0 Borderline>10.0 AbnormalU/S, ABDOMINAL, [id number] 22:03:00Abdomen limited area? Add comment if clarification [...] with MRCP.3. Right pleural effusion. Signed: Shubham Tadeoeport Verified Date/Time: 04/30/2018 22:03:30 Reading Location: [address] Consult Reading Room POCT-GLUCOSE [id number] 21:57:00 Test Item Value Reference Range Comments POC-GLUCOSE METER (BEAKER) 135 mg/dL 70-110 TESTED AT [address] (test gajw=4323) [facility] [address] POCT-GLUCOSE [id number] 17:44:00 Test Item Value Reference Range Comments POC-GLUCOSE METER (BEAKER) 103 mg/dL 70-110 TESTED AT [address] (test etmw=2420) [facility] [address] HEPATIC FUNCTION [id number] 17:36:00 Test Item Value Reference Range Comments TOTAL PROTEIN (BEAKER) (test zjtv=976) 5.9 gm/dL 6.0-8.3 ALBUMIN (BEAKER) (test wdst=7552) 2.8 g/dL 3.5-5.0 BILIRUBIN TOTAL (BEAKER) (test uoia=474) 0.5 mg/dL 0.2-1.2 BILIRUBIN DIRECT (BEAKER) (test srxz=954) 0.3 mg/dL 0.1-0.5 ALKALINE PHOSPHATASE (BEAKER) (test fccb=575) 78 U/L 40-150 AST (SGOT) (BEAKER) (test yrsg=778) 79 U/L 5-34 ALT (SGPT) (BEAKER) (test tfyi=159) 34 U/L 6-55 VANCOMYCIN LEVEL, [id number] 16:27:00 Test Item Value Reference Range Comments VANCOMYCIN RANDOM (BEAKER) (test lefu=127) 9.4 ug/mL Reference Range: No NormalsBASIC METABOLIC [id number] 15:51:00 Test Item Value Reference Range Comments SODIUM (BEAKER) (test 138 meq/L 136-145 yhdq=333) POTASSIUM (BEAKER) (test 3.7 meq/L 3.5-5.1 cfdh=988) CHLORIDE (BEAKER) (test 106 meq/L 98-107 bfrj=922) CO2 (BEAKER) (test 20 meq/L 22-29 beek=235) BLOOD UREA NITROGEN 63 mg/dL 7-21 (BEAKER) (test jfkx=897) CREATININE (BEAKER) (test 1.61 mg/dL 0.57-1.25 gwdv=817) GLUCOSE RANDOM (BEAKER) 80 mg/dL 70-105 (test uukj=090) CALCIUM (BEAKER) (test 7.8 mg/dL 8.4-10.2 bkla=966) EGFR (BEAKER) (test 30 mL/min/1.73 sq m ESTIMATED GFR IS NOT hqok=1758) ACCURATE CREATININE CLEARANCE IN PREDICTING GLOMERULAR FILTRATION RATE. ESTIMATED GFR IS NOT APPLICABLE FOR DIALYSIS PATIENTS. U/S, RENAL, [id number] 14:54:00Reason for exam:->acute renal failureFINAL REPORT Ultrasound [...] MDReport Verified Date/Time: 04/30/2018 14:54:49 Reading Location: [facility] [id number] Ultrasound Reading Room POCT-GLUCOSE [id number] 13:18:00 Test Item Value Reference Range Comments POC-GLUCOSE METER (BEAKER) 99 mg/dL 70-110 TESTED AT [facility] [address] [facility] (test baod=0061) [facility] [address] BLOOD GAS, [id number] 11:42:00 Test Item Value Reference Range Comments PH VENOUS (BEAKER) (test sqxv=244) 7.30 7.32-7.42 PCO2 VENOUS (BEAKER) (test awux=456) 37 mmHg 41-51 PO2 VENOUS (BEAKER) (test hgvp=033) 26 mmHg 25-40 O2 SATURATION VENOUS (BEAKER) (test wwma=700) 44.1 % 40.0-70.0 HCO3 VENOUS (BEAKER) (test qaqa=944) 18 mmol/L 21-29 BASE EXCESS VENOUS (BEAKER) (test pbwe=097) -8.2 mmol/L -2.0-3.0 PATIENT TEMPERATURE (BEAKER) (test bojj=3857) 36.1 C FIO2 (BEAKER) (test bfir=6773) 21.0 % BLOOD CULTURE IDENTIFICATION [id number] 11:25:00 Test Item Value Reference Range Comments LISTERIA MONOCYTOGENES (test Not detected Not detected zmaq=5998975) STAPHYLOCOCCUS (test Not detected Not detected tmid=1025540) STAPHYLOCOCCUS AUREUS (test Not detected Not detected rkbf=8649701) STREPTOCOCCUS (test Not detected Not detected kfdd=3868304) STREPTOCOCCUS AGALACTIAE (GROUP Not detected Not detected B) (test hnod=5663844) STREPTOCOCCUS PNEUMONIAE (test Not detected Not detected cvwz=9251475) STREPTOCOCCUS PYOGENES (GROUP Not detected Not detected A) (test xequ=6939058) ACINETOBACTER BAUMANNII (test Not detected Not detected xvii=9113588) HAEMOPHILUS INFLUENZAE (test Not detected Not detected vyqu=5081776) NEISSERIA MENINGITIDIS (test Not detected Not detected ezji=5170648) ENTEROBACTERIACEAE (test Detected Not detected vqjp=9380441) ENTEROBACTER CLOACOE COMPLEX Detected Not detected First line therapy: (test chgy=3490559) Cefepime or MeropenemThis test does not evaluate for ESBLReference Range: Not Detected KLEBSIELLA OXYTOCA (test Not detected Not detected tzda=3514121) KLEBSIELLA PNEUMONIAE (test Not detected Not detected hmui=4979) PROTEUS (test xldm=7994233) Not detected Not detected SERRATIA MARCESCENS (test Not detected Not detected zorc=1922415) OG ALBICANS (test Not detected Not detected tnzz=9511718) OG GLABRATA (test Not detected Not detected itzf=7944073) OG KRUSEI (test Not detected Not detected llyw=1842186) OG PARAPSILOSIS (test Not detected Not detected smtd=9518384) OG TROPICALIS (test Not detected Not detected zctu=1824585) ESCHERICHIA COLI (test Not detected Not detected eeoq=2074867) METHICILLIN-RESISTANCE GENE Not detected (test duoh=7183876) VANCOMYCIN-RESISTANCE GENE Not detected (test sjrm=9442064) CARBAPENEM-RESISTANCE GENE Not detected Not detected (test dlyn=9233886) ENTEROCOCCUS-BEAKER (test Not detected Not detected niyw=0293700) PSEUDOMONAS AERUGINOSA-BEAKER Not detected Not detected (test ibme=6528481) Other bacteria and resistance markers not targeted by this PCR panel cannot be excluded; therefore clinical correlation and follow up of serology, culture results, and other molecular studies is required. The results are not intended to be used as the sole means for clinical diagnosis or patient management decisions. This sample was tested at the [facility] using the iSnapArray Blood Culture ID Panel. It is FDA cleared and has been verified and approved by the [facility] for clinical use. This laboratory is CLIA-certified and College ofAmerican Pathologists (CAP)-accredited to perform high complexity testing.POCT-GLUCOSE [id number] 10:46:00 Test Item Value Reference Range Comments POC-GLUCOSE METER (BEAKER) 74 mg/dL 70-110 TESTED AT [facility] [address] (test uzgg=2297) [facility] [address] BASIC METABOLIC [id number] 09:57:00 Test Item Value Reference Range Comments SODIUM (BEAKER) (test 137 meq/L 136-145 dqkk=669) POTASSIUM (BEAKER) (test 3.7 meq/L 3.5-5.1 nqcb=140) CHLORIDE (BEAKER) (test 106 meq/L 98-107 xcrb=046) CO2 (BEAKER) (test 15 meq/L 22-29 rlas=064) BLOOD UREA NITROGEN 71 mg/dL 7-21 (BEAKER) (test rcxd=961) CREATININE (BEAKER) (test 2.24 mg/dL 0.57-1.25 ynqv=631) GLUCOSE RANDOM (BEAKER) 64 mg/dL 70-105 (test xjgg=388) CALCIUM (BEAKER) (test 7.6 mg/dL 8.4-10.2 dfzx=544) EGFR (BEAKER) (test 21 mL/min/1.73 sq m ESTIMATED GFR IS NOT cvas=1346) ACCURATE CREATININE CLEARANCE IN PREDICTING GLOMERULAR FILTRATION RATE. ESTIMATED GFR IS NOT APPLICABLE FOR DIALYSIS PATIENTS. [id number] 09:19:00 Test Item Value Reference Range Comments MAGNESIUM (BEAKER) (test cjdf=597) 2.1 mg/dL 1.6-2.6 [id number] 09:03:00 Test Item Value Reference Range Comments MYOGLOBIN (BEAKER) (test lpch=655) 1297 ng/mL 0-78 CBC W/PLT COUNT & AUTO [id number] 08:09:00 Test Item Value Reference Range Comments WHITE BLOOD CELL COUNT (BEAKER) (test yziw=694) 5.9 K/ L 3.5-10.5 RED BLOOD CELL COUNT (BEAKER) (test cazf=223) 3.16 M/ L 3.93-5.22 HEMOGLOBIN (BEAKER) (test ddsg=627) 10.2 GM/DL 11.2-15.7 HEMATOCRIT (BEAKER) (test pfxb=456) 32.4 % 34.1-44.9 MEAN CORPUSCULAR VOLUME (BEAKER) (test elpj=271) 102.5 fL 79.4-94.8 MEAN CORPUSCULAR HEMOGLOBIN (BEAKER) (test 32.3 pg 25.6-32.2 tpge=327) MEAN CORPUSCULAR HEMOGLOBIN CONC (BEAKER) (test 31.5 GM/DL 32.2-35.5 rgjo=627) RED CELL DISTRIBUTION WIDTH (BEAKER) (test 12.3 % 11.7-14.4 iaqn=458) PLATELET COUNT (BEAKER) (test tnwt=610) 108 K/CU MM 150-450 MEAN PLATELET VOLUME (BEAKER) (test mzxk=935) 12.2 fL 9.4-12.3 NUCLEATED RED BLOOD CELLS (BEAKER) (test 0 /100 WBC 0-0 zflv=532) (CELLAVISION MANUAL DIFF)2018-04-30 08:09:00 Test Item Value Reference Range Comments NEUTROPHILS - REL (CELLAVISION)(BEAKER) (test 82 % lpgz=3805) LYMPHOCYTES - REL (CELLAVISION)(BEAKER) (test 7 % kxrt=9107) MONOCYTES - REL (CELLAVISION)(BEAKER) (test 2 % hazh=5492) BANDS - REL (CELLAVISION)(BEAKER) (test gpfu=4813) 9 % 0-10 NEUTROPHILS - ABS (CELLAVISION)(BEAKER) (test 4.84 K/ul 1.56-6.13 muur=4277) LYMPHOCYTES - ABS (CELLAVISION)(BEAKER) (test 0.41 K/ul 1.18-3.74 kbqx=8469) MONOCYTES - ABS (CELLAVISION)(BEAKER) (test 0.12 K/uL 0.24-0.36 vbag=4018) BANDS - ABS (CELLAVISION)(BEAKER) (test xfvt=2740) 0.53 K/uL 0.00-0.80 TOTAL COUNTED (BEAKER) (test fybc=4969) 100 WBC MORPHOLOGY (BEAKER) (test jxut=696) Normal PLT MORPHOLOGY (BEAKER) (test yzkz=705) Normal POLYCHROMATOPHILLIC RBCS(BEAKER) (test rdyi=801) 1+ few YASHIRA CELLS (BEAKER) (test ofpd=361) 1+ few ARTIFACT (CELLAVISION)(BEAKER) (test dfks=4392) Present PLATELET CONCENTRATION (CELLAVISION)(BEAKER) (test Decreased gfwq=6282) Received comment: User comments: Slide comments:CREATINE KINASE (CK), TOTAL AND [id number] 06:33:00 Test Item Value Reference Range Comments CREATINE KINASE TOTAL (BEAKER) (test hauk=506) 1409 U/L 29-200 CREATINE KINASE-MB (BEAKER) (test nygz=595) 31.4 ng/mL 0.0-6.6 CREATINE KINASE-MB INDEX (BEAKER) (test llgk=433) 2.2 % CK-MB Reference Range:<6.7 Normal6.7-10.0 Borderline>10.0 AbnormalTROPONIN [id number] 06:13:00 Test Item Value Reference Range Comments TROPONIN I (BEAKER) (test uqux=347) 0.15 ng/mL 0.00-0.03 Troponin I (TnI) levels [...] acidosis, acute neurological disease, and persistent tachyarrhythmia.TROPONIN [id number] 00:07:00 Test Item Value Reference Range Comments TROPONIN I (BEAKER) (test wkny=504) 0.18 ng/mL 0.00-0.03 Troponin I (TnI) levels [...] and persistent tachyarrhythmia.CREATINE KINASE (CK), TOTAL AND [id number] 23:54:00 Test Item Value Reference Range Comments CREATINE KINASE TOTAL (BEAKER) (test ifav=921) 1427 U/L 29-200 CREATINE KINASE-MB (BEAKER) (test fhkd=140) 30.3 ng/mL 0.0-6.6 CREATINE KINASE-MB INDEX (BEAKER) (test qoto=160) 2.1 % CK-MB Reference Range:<6.7 Normal6.7-10.0 Borderline>10.0 [id number] 19:45:00 Test Item Value Reference Range Comments MYOGLOBIN (BEAKER) (test yiyv=185) 5467 ng/mL 0-78 B-TYPE NATRIURETIC FACTOR (BNP)2018-04-29 19:13:00 Test Item Value Reference Range Comments B-TYPE NATRIURETIC PEPTIDE (BEAKER) (test 580 pg/mL 0-100 cldk=313) URIC [id number] 19:06:00 Test Item Value Reference Range Comments URIC ACID (BEAKER) (test 7.1 mg/dL 2.6-7.2 Specimen moderately hemolyzed dxqz=527) LACTIC ACID, VENOUS, WHOLE [id number] 19:02:00 Test Item Value Reference Range Comments LACTATE BLOOD VENOUS (2) 1.0 mmol/L 0.5-2.2 Specimen moderately hemolyzed (BEAKER) (test ouqc=2165) Effective 12/16/2015: Units/Reference Range ChangeNew: 0.5-2.2 mmol/L Previous: 5 -20 mg/dLRAD, CHEST, 1 VIEW, NON [id number] 18:27:00Reason for exam:-> chfShould this be performed [...] Verified Date/ Time: 04/29/2018 18:27:35 Reading Location: [address] Body Reading Room [id number] 18:09:00 Test Item Value Reference Range Comments PROCALCITONIN (BEAKER) (test sqdo=8088) 90.77 ng/mL <0.05 SEPSIS RISK (ng/mL)Low: 0.05-0.50Intermediate: 0.51-2.00High: & gt;=2.01CREATININE, RANDOM [id number] 17:35:00 Test Item Value Reference Range Comments CREATININE URINE (BEAKER) (test onvh=064) 134.8 mg/dL Reference Range: No NormalsSODIUM, RANDOM [id number] 17:35:00 Test Item Value Reference Range Comments SODIUM URINE (BEAKER) (test eggz=588) 37 meq/L Reference Range: No NormalsUREA NITROGEN, RANDOM [id number] 17:35:00 Test Item Value Reference Range Comments UREA NITROGEN URINE (BEAKER) (test ukjw=376) 326 mg/dL Reference Range: No NormalsURINALYSIS W/ [id number] 17:34:00 Test Item Value Reference Range Comments COLOR (BEAKER) (test wpfy=876) Yellow CLARITY (BEAKER) (test vvfv=571) Cloudy SPECIFIC GRAVITY UA (BEAKER) (test jovc=940) 1.015 1.001-1.035 PH UA (BEAKER) (test eosg=381) 5.5 5.0-8.0 PROTEIN UA (BEAKER) (test mhjw=214) 100 mg/dL Negative GLUCOSE UA (BEAKER) (test kphg=169) Negative Negative KETONES UA (BEAKER) (test yogh=085) Trace Negative BILIRUBIN UA (BEAKER) (test egrp=817) Positive Negative BLOOD UA (BEAKER) (test eesj=320) Large Negative NITRITE UA (BEAKER) (test gfdn=880) Negative Negative LEUKOCYTE ESTERASE UA (BEAKER) (test nyyu=188) Negative Negative UROBILINOGEN UA (BEAKER) (test dyvn=794) 2.0 mg/dL 0.2-1.0 RBC UA (BEAKER) (test yabb=230) 12 /HPF WBC UA (BEAKER) (test eqcq=360) 56 /HPF MUCUS (BEAKER) (test updq=2596) Occasional SQUAMOUS EPITHELIAL (BEAKER) (test ejlh=730) 4 /HPF CASTS (BEAKER) (test vctd=4979) 19 /LPF MIXED CELL CASTS (BEAKER) (test abmw=3466) 538 /LPF CRYSTALS, URINE (BEAKER) (test pbpr=7021) Many YEAST (BEAKER) (test vgyi=3914) Moderate SOURCE(BEAKER) (test vclf=7135) Urine, Ring TROPONIN [id number] 16:46:00 Test Item Value Reference Range Comments TROPONIN I (BEAKER) (test aseq=088) 0.37 ng/mL 0.00-0.03 Troponin I (TnI) levels [...] and persistent tachyarrhythmia.CBC W/PLT COUNT & AUTO [id number] 16:44:00 Test Item Value Reference Range Comments WHITE BLOOD CELL COUNT (BEAKER) (test voer=936) 9.3 K/ L 3.5-10.5 RED BLOOD CELL COUNT (BEAKER) (test juen=460) 3.25 M/ L 3.93-5.22 HEMOGLOBIN (BEAKER) (test ekor=639) 10.5 GM/DL 11.2-15.7 HEMATOCRIT (BEAKER) (test myax=011) 33.1 % 34.1-44.9 MEAN CORPUSCULAR VOLUME (BEAKER) (test egke=322) 101.8 fL 79.4-94.8 MEAN CORPUSCULAR HEMOGLOBIN (BEAKER) (test 32.3 pg 25.6-32.2 gtty=916) MEAN CORPUSCULAR HEMOGLOBIN CONC (BEAKER) (test 31.7 GM/DL 32.2-35.5 ecdy=591) RED CELL DISTRIBUTION WIDTH (BEAKER) (test 12.4 % 11.7-14.4 uuvg=970) PLATELET COUNT (BEAKER) (test swqv=181) 99 K/CU MM 150-450 MEAN PLATELET VOLUME (BEAKER) (test wkhk=110) 12.0 fL 9.4-12.3 NUCLEATED RED BLOOD CELLS (BEAKER) (test 0 /100 WBC 0-0 mkiq=294) (CELLAVISION MANUAL DIFF)2018-04-29 16:44:00 Test Item Value Reference Range Comments NEUTROPHILS - REL (CELLAVISION)(BEAKER) (test 75 % ymqq=0335) LYMPHOCYTES - REL (CELLAVISION)(BEAKER) (test 2 % rdnc=8856) MONOCYTES - REL (CELLAVISION)(BEAKER) (test 4 % wtfu=1501) BANDS - REL (CELLAVISION)(BEAKER) (test otkn=3801) 19 % 0-10 NEUTROPHILS - ABS (CELLAVISION)(BEAKER) (test 6.98 K/ul 1.56-6.13 vnlu=3471) LYMPHOCYTES - ABS (CELLAVISION)(BEAKER) (test 0.19 K/ul 1.18-3.74 ghas=5607) MONOCYTES - ABS (CELLAVISION)(BEAKER) (test 0.37 K/uL 0.24-0.36 qdmn=5212) BANDS - ABS (CELLAVISION)(BEAKER) (test fxvh=9317) 1.77 K/uL 0.00-0.80 TOTAL COUNTED (BEAKER) (test ddox=4841) 100 WBC MORPHOLOGY (BEAKER) (test nabm=859) Normal GIANT PLATELETS (BEAKER) (test wynu=060) Present POIKILOCYTES (BEAKER) (test kxjj=532) 1+ few SPHEROCYTES (BEAKER) (test sxhr=845) 1+ few ELLIPTOCYTES (BEAKER) (test imew=884) 1+ few OVALOCYTES (BEAKER) (test mnjv=630) 1+ few YASHIRA CELLS (BEAKER) (test hiqa=430) 1+ few ARTIFACT (CELLAVISION)(BEAKER) (test rdmd=3290) Present PLATELET CONCENTRATION (CELLAVISION)(BEAKER) (test Decreased yfnb=1982) Received comment: User comments: Slide comments:CREATINE KINASE (CK), TOTAL AND [id number] 16:38:00 Test Item Value Reference Range Comments CREATINE KINASE TOTAL (BEAKER) (test geez=459) 1840 U/L 29-200 CREATINE KINASE-MB (BEAKER) (test yocu=541) 43.9 ng/mL 0.0-6.6 CREATINE KINASE-MB INDEX (BEAKER) (test gmgf=380) 2.4 % CK-MB Reference Range:<6.7 Normal6.7-10.0 Borderline>10.0 [id number] 16:31:00 Test Item Value Reference Range Comments MAGNESIUM (BEAKER) (test mlyt=733) 2.0 mg/dL 1.6-2.6 BASIC METABOLIC [id number] 16:31:00 Test Item Value Reference Range Comments SODIUM (BEAKER) (test 138 meq/L 136-145 ibqj=868) POTASSIUM (BEAKER) (test 4.2 meq/L 3.5-5.1 lkgf=761) CHLORIDE (BEAKER) (test 107 meq/L 98-107 eigw=331) CO2 (BEAKER) (test 18 meq/L 22-29 zqxh=535) BLOOD UREA NITROGEN 73 mg/dL 7-21 (BEAKER) (test tbfp=681) CREATININE (BEAKER) (test 3.20 mg/dL 0.57-1.25 xgvs=359) GLUCOSE RANDOM (BEAKER) 88 mg/dL 70-105 (test vxdj=351) CALCIUM (BEAKER) (test 7.6 mg/dL 8.4-10.2 lmil=737) EGFR (BEAKER) (test 14 mL/min/1.73 sq m ESTIMATED GFR IS NOT ebje=1857) ACCURATE CREATININE CLEARANCE IN PREDICTING GLOMERULAR FILTRATION RATE. ESTIMATED GFR IS NOT APPLICABLE FOR DIALYSIS PATIENTS.
[2018-08-11] MEDS ORDERED: NA CHLORIDE 0.9% 1,000 ML ONE (08:19)
[2018-08-11 08:37] LABS: Absolute Lymphocytes (CBC) 0.8 K/uL (0.7-4.9); Absolute Monocytes 0.4 K/uL (0.1-1.3); Absolute Neutrophil 3.1 K/uL (1.8-8.0); Basophils % 0.9 % (0-1.3); Eosinophils % 3.2 % (0-4.4); Hematocrit 38.1 % (36.0-45.0); Lymphocytes % 19.1 % (15.3-44.8); MPV 8.6 fL (7.6-11.3); Monocytes % 8.2 % (3.3-12.3)
[2018-08-11] MEDS ORDERED: KETOROLAC 30 MG/ML INJ ONE (08:43)
[2018-08-11] MEDS ORDERED: METOCLOPRAMIDE 10 MG/2mL INJ ONE (08:43)
[2018-08-11] MEDS ORDERED: DIPHENHYDRAMINE 50 MG/ML VIAL ONE (08:43)
[2018-08-11 08:50] LABS: Protime INR 1.03
[2018-08-11 08:54] LABS: ALT/SGPT 17 U/L (12-78); AST/SGOT 19 U/L (15-37); Albumin 3.8 g/dL (3.4-5.0); Alkaline Phosphatase 102 U/L (45-117); BUN Blood Urea Nitrogen 19 mg/dL (7-18); Bicarbonate 28 mmol/L (21-32); Bilirubin Direct 0.1 mg/dL (0-0.2); Bilirubin Total 0.4 mg/dL (0.2-1.0); Glucose Level 89 mg/dL (74-106); Magnesium 2.3 mg/dL (1.8-2.4); NT PRO-BNP 392 pg/mL (<450); Potassium 3.9 mmol/L (3.5-5.1); Protein, Total 8.3 g/dL (6.4-8.2); Sodium Level 140 mmol/L (136-145); Troponin (Emerg Dept Use Only) < 0.02 ng/mL (0.0-0.045)
--- NOTE | 2018-08-11 09:13 | RAD REPORT ---
EXAM DESCRIPTION: CT - Head Brain Wo Cont - 08/11/2018 8:59 am CLINICAL HISTORY: Headache, vertigo, dizziness COMPARISON: August 2015 TECHNIQUE: Axial 5 mm thick images of the head were obtained without IV contrast. All CT scans are performed using dose optimization technique as appropriate and may include automated exposure control or mA/KV adjustment according to patient size. FINDINGS: No intracranial hemorrhage, mass, edema or shift of mid-line structures. No acute infarcti on changes seen. Mild to moderate for age atrophy and chronic ischemic change similar to comparison. Ventricles are in proportion to volume loss. Arterial and physiologic calcifications are present. Mastoid air cells and visualized portions of the paranasal sinuses are clear. No acute bony findings. IMPRESSION: Mild to moderate atrophy and chronic ischemic change minimally progressive 2016. No acute intracranial finding. Chronic ischemic changes can mask nonhemorrhagic acute infarction. MR brain followup can be obtained if there is ongoing concern for acute ischemia.
[2018-08-11 09:48] LABS: Urine Blood NEGATIVE (NEG); Urine Glucose NEGATIVE (NEG); Urine Protein NEGATIVE (NEG); Urine Specific Gravity 1.015 (1.005-1.030)
--- NOTE | 2018-08-11 09:49 | RAD REPORT ---
EXAM DESCRIPTION: RAD - Chest Single View - 08/11/2018 8:47 am CLINICAL HISTORY: Hypertension, shortness of breath COMPARISON: December 2016 TECHNIQUE: AP portable chest image was obtained 0830 hours . FINDINGS: No focal lung parenchymal process. Interstitial markings are prominent but not clearly dif ferent from comparison. Heart and vasculature are normal. No measurable pleural effusion and no pneum othorax. Bilateral shoulder joint degenerative change present. No acute aortic findings suspected. IMPRESSION: No acute cardiopulmonary process. No significant change from comparison.
--- NOTE | 2018-08-11 10:19 | EDPHYS ---
Physician Documentation [facility] Name: Teresa Thomas Age: 87 yrs Sex: Female : 1930 Arrival Date: 08/11/2018 Time: 07:52 Bed 8 Private MD: Dylan Zendejas V ED Physician Tatyana Marroquin HPI: 08/11 08:31 This 87 yrs old Female presents to ER via Wheelchair with complaints of High ma2 Blood Pressure, Vertigo. 08:31 Onset: The symptoms/episode began/occurred gradually, 2 day(s) ago. Severity of ma2 symptoms: At its worst the blood pressure was moderate, in the emergency department the blood pressure is unchanged. The patient has experienced similar episodes in the past. headache similar to old, occipital . Historical: - Allergies: 08:00 Codeine; sv 08:00 Flagyl; sv 08:00 PENICILLINS; sv 08:00 Prednisone; sv - PMHx: 08:00 Hyperlipidemia; Hypertension; Irregular heart rate; sv - PSHx: 08:00 back surgery; hand surgery; foot surgery; hip surgery; sv - Immunization history:: Flu vaccine is up to date. - Social history:: Smoking status: Patient/guardian denies using tobacco, Patient/guardian denies using alcohol, street drugs, The patient lives with family. - Ebola Screening: : No symptoms or risks identified at this time. - Family history:: not pertinent. - Hospitalizations: : No recent hospitalization is reported. ROS: 08:31 Constitutional: Negative for fever, chills, and weight loss, Cardiovascular: Negative ma2 for chest pain, palpitations, and edema, Respiratory: Negative for shortness of breath, cough, wheezing, and pleuritic chest pain, Abdomen/GI: Negative for abdominal pain, nausea, diarrhea, and constipation. 08:31 Neuro: Positive for headache, Negative for altered mental status, gait disturbance, headache, hearing loss. 08:31 All other systems are negative. Exam: 08:31 Constitutional: This is a well developed, well nourished patient who is awake, alert, ma2 and in no acute distress. Chest/axilla: Normal chest wall appearance and motion. Nontender with no deformity. No lesions are appreciated. Cardiovascular: Regular rate and rhythm with a normal S1 and S2. No gallops, murmurs, or rubs. Normal PMI, no JVD. No pulse deficits. Respiratory: Lungs have equal breath sounds bilaterally, clear to auscultation and percussion. No rales, rhonchi or wheezes noted. No increased work of breathing, no retractions or nasal flaring. Abdomen/GI: Soft, non-tender, with normal bowel sounds. No distension or tympany. No guarding or rebound. No evidence of tenderness throughout. MS/ Extremity: Pulses equal, no cyanosis. Neurovascular intact. Full, normal range of motion. Neuro: Awake and alert, GCS 15, oriented to person, place, time, and situation. Cranial nerves II-XII grossly intact. Motor strength 5/5 in all extremities. Sensory grossly intact. Cerebellar exam normal. Normal gait. Vital Signs: 07:59 BP 188 / 100; Pulse 80; Resp 16; Temp 97.8; Pulse Ox 97% ; Weight 54.43 kg; Height 5 sv ft. 4 in. (162.56 cm); Pain 0/10; 09:10 BP 154 / 98; Pulse 64; Resp 17; Pulse Ox 100% on R/A; tw2 10:24 BP 171 / 77; Pulse 66; Resp 17; Pulse Ox 100% on R/A; tw2 07:59 Body Mass Index 20.60 (54.43 kg, 162.56 cm) sv MDM: 08:02 Patient medically screened. [facility] 08:31 Differential diagnosis: Malignant HTN, intracerebral hemorrhage, bpv. [facility] 10:15 Data reviewed: vital signs, nurses notes. Counseling: I had a detailed discussion with [facility] the patient and/or guardian regarding: the historical points, exam findings, and any diagnostic results supporting the discharge/admit diagnosis, the presence of at least one elevated blood pressure reading (>120/80) during this emergency department visit, the need for outpatient follow up. Response to treatment: the patient's symptoms have resolved after treatment. 10:16 ED course: all symptoms resolved, BP down to 140/90 after headache cocktail and ma2 symptoms resolved.. no end organ damage . 08/11 08:03 Order name: Basic Metabolic Panel; Complete Time: 09:10 me2 08/11 08:03 Order name: CBC with Diff; Complete Time: 09:10 me2 08/11 08:03 Order name: LFT's; Complete Time: :10 ma2 08/11 08:03 Order name: Magnesium; Complete Time: 09:10 ma2 08/11 08:03 Order name: NT PRO-BNP; Complete Time: 09:10 ma2 08/11 08:03 Order name: PT-INR; Complete Time: 09:10 ma2 08/11 08:03 Order name: Troponin (emerg Dept Use Only); Complete Time: 09:10 ma2 08/11 08:03 Order name: XRAY Chest (1 view); Complete Time: 10:16 ma2 08/11 08:31 Order name: Urine Dipstick--Ancillary (enter results); Complete Time: 10:16 eb 08/11 08:31 Order name: CT Head Brain wo Cont; Complete Time: 09:16 ma2 08/11 08:03 Order name: EKG; Complete Time: 08:03 ma2 08/11 08:03 Order name: Cardiac monitoring; Complete Time: 08:12 ma2 08/11 08:03 Order name: EKG - Nurse/Tech; Complete Time: 08:32 ma2 08/11 08:03 Order name: IV Saline Lock; Complete Time: 08:12 ma2 08/11 08:03 Order name: Labs collected and sent; Complete Time: 08:12 ma2 08/11 08:03 Order name: O2 Per Protocol; Complete Time: 08:12 ma2 08/11 08:03 Order name: O2 Sat Monitoring; Complete Time: 08:32 ma2 Administered Medications: 08:40 Drug: NS 0.9% 1000 ml Route: IV; Rate: 1 bolus; Site: left antecubital; sg 10:28 Follow up: Response: No adverse reaction; IV Status: Completed infusion; IV Intake: tw2 1000ml 08:40 Drug: Benadryl 50 mg Route: IVP; Site: left antecubital; sg 10:27 Follow up: Response: No adverse reaction tw2 08:40 Drug: Reglan 10 mg Route: IVP; Site: left antecubital; sg 10:26 Follow up: Response: No adverse reaction tw2 08:40 Drug: TORadol 30 mg Route: IVP; Site: left antecubital; sg 10:26 Follow up: Response: No adverse reaction; Pain is decreased tw2 10:32 Follow up: Response: No adverse reaction; Pain is decreased ss Disposition: 08/11/18 10:18 Discharged to Home. Impression: Tension-type headache, unspecified. - Condition is Stable. - Discharge Instructions: Tension Headache, Adult. - Medication Reconciliation Form, Thank You Letter, Antibiotic Education, Prescription Opioid Use form. - Follow up: Private Physician; When: Tomorrow; Reason: Continuance of care. Signatures: Dispatcher [employer] Ella Cedeño RN RN Lalo Cloud RN RN Lillian Gaytan RN RN ss Alzahri, Mohammad, MD MD ma2 Shayla Ordaz RN tw2 Corrections: (The following items were deleted from the chart) 10:33 10:18 08/11/2018 10:18 Discharged to Home. Impression: Tension-type headache, ss unspecified. Condition is Stable. Forms are Medication Reconciliation Form, Thank You Letter, Antibiotic Education, Prescription Opioid Use. Follow up: Private Physician; When: Tomorrow; Reason: Continuance of care. ma2
--- NOTE | 2018-08-11 10:19 | ER ---
Nurse's Notes [facility] Name: Teresa Thomas Age: 87 yrs Sex: Female : 1930 Arrival Date: 08/11/2018 Time: 07:52 Bed 8 Private MD: Dylan Zendejas V Diagnosis: Tension-type headache, unspecified Presentation: 08/11 07:58 Presenting complaint: Patient states: HTN started this morning 197/119, c/o dizziness, sv vertigo. Pt stated she took her BP meds this morning at 0500. Transition of care: patient was not received from another setting of care. Onset of symptoms was August 11, 2018. Care prior to arrival: None. 07:58 Method Of Arrival: Wheelchair sv 07:58 Acuity: HALI 3 sv Triage Assessment: 07:58 General: Appears in no apparent distress. comfortable, slender, Behavior is calm, sv cooperative, appropriate for age. Pain: Denies pain. Neuro: Level of Consciousness is awake, alert, obeys commands, Oriented to person, place, time, situation, Moves all extremities. Full function Reports dizziness. Respiratory: Respiratory effort is even, unlabored, Respiratory pattern is regular, symmetrical. Historical: - Allergies: 08:00 Codeine; sv 08:00 Flagyl; sv 08:00 PENICILLINS; sv 08:00 Prednisone; sv - PMHx: 08:00 Hyperlipidemia; Hypertension; Irregular heart rate; sv - PSHx: 08:00 back surgery; hand surgery; foot surgery; hip surgery; sv - Immunization history:: Flu vaccine is up to date. - Social history:: Smoking status: Patient/guardian denies using tobacco, Patient/guardian denies using alcohol, street drugs, The patient lives with family. - Ebola Screening: : No symptoms or risks identified at this time. - Family history:: not pertinent. - Hospitalizations: : No recent hospitalization is reported. Screenin:29 Abuse screen: Denies threats or abuse. Denies injuries from another. Nutritional sg screening: No deficits noted. Tuberculosis screening: No symptoms or risk factors identified. Never had TB. Fall Risk None identified. Assessment: 08:29 General: Appears in no apparent distress. comfortable, slender, well groomed, well sg developed, well nourished, Behavior is calm, cooperative, appropriate for age. Pain: Complains of pain in head Quality of pain is described as aching, throbbing. Neuro: Level of Consciousness is awake, alert, obeys commands, Oriented to person, place, time, situation, Shingle Catcher are equal bilaterally Moves all extremities. Full function Gait is steady, Speech is normal, Facial symmetry appears normal, Pupils are PERRLA, Reports dizziness, since this morning, reports feels like vertigo headache in entire frontal area, occipital area. Cardiovascular: Heart tones S1 S2 present Patient's skin is warm and dry. Chest pain is denied. Respiratory: Respiratory effort is even, unlabored, Respiratory pattern is regular, symmetrical. GI: Abdomen is flat, non-distended, Bowel sounds present X 4 quads. : No signs and/or symptoms were reported regarding the genitourinary system. EENT: No signs and/or symptoms were reported regarding the EENT system. Derm: Skin is pink, warm \T\ dry. Musculoskeletal: No signs and/or symptoms reported regarding the musculoskeletal system. 09:10 Reassessment: Patient appears in no apparent distress at this time. Patient and/or tw2 family updated on plan of care and expected duration. Pain level reassessed. Patient is alert, oriented x 3, equal unlabored respirations, skin warm/dry/pink. 10:25 Reassessment: Patient appears in no apparent distress at this time. Patient and/or tw2 family updated on plan of care and expected duration. Pain level reassessed. Patient is alert, oriented x 3, equal unlabored respirations, skin warm/dry/pink. Dr. Marroquin on phone with pts daughter at this time. Vital Signs: 07:59 BP 188 / 100; Pulse 80; Resp 16; Temp 97.8; Pulse Ox 97% ; Weight 54.43 kg; Height 5 sv ft. 4 in. (162.56 cm); Pain 0/10; 09:10 BP 154 / 98; Pulse 64; Resp 17; Pulse Ox 100% on R/A; tw2 10:24 BP 171 / 77; Pulse 66; Resp 17; Pulse Ox 100% on R/A; tw2 07:59 Body Mass Index 20.60 (54.43 kg, 162.56 cm) sv ED Course: 07:52 Patient arrived in ED. sb2 07:54 Dylan Zendejas MD is Private Physician. sb2 07:59 Triage completed. sv 08:00 Arm band placed on. sv 08:01 Lalo Cloud, RN is Primary Nurse. sg 08:01 Tatyana Marroquin MD is Attending Physician. ma2 08:20 Initial lab(s) drawn, by me, sent to lab. Urine collected: clean catch specimen, EKG sg done, by ED staff, reviewed by Tatyana Marroquin MD. Inserted saline lock: 20 gauge in left antecubital area, using aseptic technique. Blood collected. 08:35 Urine Dipstick--Ancillary (enter results) Sent. ag 08:47 XRAY Chest (1 view) In Process Unspecified. EDMS 08:59 CT Head Brain wo Cont In Process Unspecified. EDMS 09:00 CT completed. Patient tolerated procedure well. Patient moved back from CT. bq 10:32 No provider procedures requiring assistance completed. IV discontinued, intact, ss bleeding controlled, No redness/swelling at site. Pressure dressing applied. Administered Medications: 08:40 Drug: NS 0.9% 1000 ml Route: IV; Rate: 1 bolus; Site: left antecubital; sg 10:28 Follow up: Response: No adverse reaction; IV Status: Completed infusion; IV Intake: tw2 1000ml 08:40 Drug: Benadryl 50 mg Route: IVP; Site: left antecubital; sg 10:27 Follow up: Response: No adverse reaction tw2 08:40 Drug: Reglan 10 mg Route: IVP; Site: left antecubital; sg 10:26 Follow up: Response: No adverse reaction tw2 08:40 Drug: TORadol 30 mg Route: IVP; Site: left antecubital; sg 10:26 Follow up: Response: No adverse reaction; Pain is decreased tw2 10:32 Follow up: Response: No adverse reaction; Pain is decreased ss Intake: 10:28 IV: 1000ml; Total: 1000ml. tw2 Outcome: 10:18 Discharge ordered by . ma2 10:32 Discharged to home via wheelchair, with family. ss 10:32 Condition: improved 10:32 Discharge instructions given to patient, family, Instructed on discharge instructions, follow up and referral plans. medication usage, Demonstrated understanding of instructions, follow-up care, medications. 10:33 Patient left the ED. ss Signatures: Dispatcher [employer] EDElla Reece, ALE AGUILERA sv Lalo Cloud, RN RN sg Zully Aguilar Shelby, RN RN Paige Alaniz Tara, RN RN tw2 Tatyana Marroquin MD MD ct2 Aleida Meza sb2 Corrections: (The following items were deleted from the chart) 07:59 07:58 Presenting complaint: Patient states: HTN started this morning 197/119, c/o sv dizziness, headache, vertigo. Pt stated she took her BP meds this morning at 0500. sv 10:25 09:10 BP 154 / 98; Pulse 64bpm; Resp 17bpm; Pulse Ox 100% RA; tw2 tw2 10:25 09:10 BP 171 / 77; Pulse 66bpm; Resp 17bpm; Pulse Ox 100% RA; tw2 tw2
[2018-08-11 15:41] VITALS: BP 171/77; TEMP 97.8; O2SAT 100
--- NOTE | 2018-08-12 10:18 | EKG ---
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
== END 2018-08-11 10:33 | disposition home or self-care (01) ==
LOC: ER 07:50
DX: G44.209 Tension-type headache, unspecified, not intractable (principal)
CPT/HCPCS: 36415; 70450; 71045; 80048; 80076; 81003; 82962; 83735; 83880; 84484; 85025; 85610; 93005; 96361; 96374; 96375; 99284; J2765; J7030